=== PATIENT | female | born 1955 | race Caucasian/White ===

== ENCOUNTER 2017-05-27 09:00 | Outpatient (RCR) | payer OTHER, SELFPAY ==
--- NOTE | 2017-04-30 09:02 | HP.PTEVAL_ITS ---
Patient's Visit Information LASHAWN DUNCAN is a 61 year old F referred to Physical Therapy by DO SANDRA Helms with a diagnosis of BILATERAL GREATER TROCHANTERIC BURSITIS,IT BAND SYNDROME RIGHT KNEE OA. Date of Evaluation: 04/30/17 Physical Therapist: Dagoberto Hauser, PT, - Visit Plan Frequency: 2x /Week Duration: 4 Weeks Plan: Aquatic PT for ROM hip /knee,strengthening hop/knee - Subjective Subjective: This 61 y/o female presents to physical therapy with bilateral greater bursitis ,I Tband syndrome Right knee pain.Patient has had right hip pain for many years ,and knee pain Mar [address] around [place] Morillo recommended Pt Aquatic.Symptoms wotrse with stairs,laying on side , kneeling,squatting,elevation from chair. Symptoms okay with walkling. Pain afects housework tasks and ADL'S. Denies parathesia/tingling.Tried in past cortizone injection in hip. VOCATION: Retired. SOCAIL: - Pain Left Hip Pain Intensity (Out of 10): 0 Pain Intensity Range: 10 Right Hip Pain Intensity (Out of 10): 2 Pain Intensity Range: 10 Right Knee Pain Intensity (Out of 10): 4 Pain Intensity Range: 10 Comment: medial - Objective POSTURE: mild foward posture ,mild knee valgus. GAIT : normal maritza ,mild decrease stance time right to left. 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 NEURO: inact. AROM: right knee flexion 0-120 degrees ,left 0-125 degrees ,hip WFL. FLEXABLITY: hams min tight,I-T band WFL. MMT: quads/hams 4/5,hip flex/abductors 4-/5,ankle 4/5. STAIRS: one step at time - Special Tests R Hip Scour: Negative R Hip Quadrant - Intraarticular Pathology: Negative R Hip Trendelenberg - Glut Medius: Negative R Hip Lelo - IT Band: Negative L Hip Scour: Negative L Hip Quadrant - Intraarticular Pathology: Negative L Hip Trendelenberg - Glut Medius: Negative L Hip Lelo - IT Band: Negative R Knee Kapil - Meniscus: Negative R Knee Apley - Meniscus: Negative R Knee Brown - ACL: Negative R Knee Anterior Drawer - ACL: Negative R Knee Posterior Drawer - PCL: Negative R Knee Valgus - MCL: Negative R Knee Varus - LCL: Negative R Knee Patellar Apprehension - PFS: Negative R Knee Patellar Grind - PFS: Negative - Goals Goal 1:: Independant with Aqutaic PT Goal Time Frame: 4-6 Weeks Goal 2:: Decrease medial knee pain and bilateral hip pain by 50% or greater to improve function. Goal Time Frame: 4-6 Weeks Goal 3:: Patient increase strength right quad/hams and bilateral hips to 4/5 to omprove function Goal Time Frame: 4-6 Weeks Goal 4:: Patient be able to perform ADL'S and housework tasks with min limiations Goal Time Frame: 4-6 Weeks Goal 5:: Patient improve qaulity of gait with less pain. Goal Time Frame: 4-6 Weeks - Rehabilitation Potential Physical Therapy Diagnosis: This patient impression with bilateral greater tronchanteric bursitis,meal knee pain with weakness ,impairs stairs ,unable to squta or kneeling along with ADL'S-housework tasks. Rehabilitation Potential: Good - Anticipated Interventions Patient/Client Instruction: Educate patient on: Condition, Plan of Care For the Purpose of:: To decrease pain, To increase ROM, To improve muscle performance and motor function, To improve ability to perform ADL's, To increase tolerance to activity/condition/position, To improve performance and independence with ADL's, To improve ability of physical actions for home/ community/work/leisure, To improve gait and locomotor functions, To improve health of tissue, To decrease soft tissue restriction, To increase flexibility/ ROM, To improve ability to perform tasks related to life management Therapeutic Exercise to Include: Strength training, Postural training, Flexibilty training, In an aquatic setting, Active ROM For the Purpose of:: To decrease pain, To increase ROM, To improve muscle performance and motor function, To improve ability to perform ADL's, To increase tolerance to activity/condition/position, To improve performance and independence with ADL's, To improve ability of physical actions for home/ community/work/leisure, To improve health of tissue, To decrease soft tissue restriction, To increase flexibility/ROM, To improve ability to perform tasks related to life management Thank you for the opportunity to evaluate your patient. For Medicare and Medicare HMO plans, please review the plan of care and approve it. It will need to be FAXED BACK to us at [phone] for Medicare purposes. Please let me know if there are questions or concerns regarding this plan of care. Physician Signature: Date:
--- NOTE | 2017-08-23 16:23 | HP.PTDCSUM_ITS ---
HP - PT D/C Summary It has been my pleasure to treat LASHAWN DUNCAN under orders from Nikki Morillo DO, for the diagnosis of BILATERAL GREATER TROCHANTERIC BURSITIS,IT BAND SYNDROME RIGHT KNEE OA for a total of 9 visit(s). Discharge Date: 05/27/17 Please see the following information for a summary of their discharge status. - Subjective Subjective: Patient states doing alot better. Aquatics has helped with pain and walking. Patient stated hesitated in doing gym ex's. - Pain Left Hip Pain Intensity (Out of 10): 0 Right Hip Pain Intensity (Out of 10): 0 Right Knee Pain Intensity (Out of 10): 1 - Overall Improvement % Improvement: 85 - Objective Objective/Function: POSTURE: mild foward posture. GAIT: reciprocal pattern normal maritza. NEUR0: denies pararhesia/tingling. AROM: knee 0-130 degrees, hip flexion 100 degres,IR 20 mild pain R greater than left ,ER 50 degrees. MMT : quads/hams 4/5 ,hip f;lexion 4-/5,abd 4-/5 - Goals Goal 1:: Independant with Aqutaic PT Goal Progress: Goal Met Goal 2:: Decrease medial knee pain and bilateral hip pain by 50% or greater to improve function. Goal Progress: Goal Met Goal 3:: Patient increase strength right quad/hams and bilateral hips to 4/5 to omprove function Goal Progress: Goal Met Goal 4:: Patient be able to perform ADL'S and housework tasks with min limiations Goal Progress: Goal Met Goal 5:: Patient improve qaulity of gait with less pain. Goal Progress: Goal Met - Plan Plan: RECOMMEND AQUATIC ON OWN. PROVIDE HEP - D/C Information Discharge Comments: AQUATICS ON OWN If there are questions or concerns regarding this patient's physical therapy, please feel free to call me at [phone]. Thank you for the referral of this patient. Sincerely, Dagoberto Hauser, PT,
== END 2017-05-27 19:00 | disposition home or self-care (01) ==
LOC: PT 09:00
PROVIDERS: Family Provider Family Medicine; PCP Family Medicine; Visit Provider Orthopaedic Surgery
DX: M70.62 Trochanteric bursitis, left hip (principal); M70.61 Trochanteric bursitis, right hip; M76.30 Iliotibial band syndrome, unspecified leg; M17.11 Unilateral primary osteoarthritis, right knee
CPT/HCPCS: 97113; 97161; 97530

== ENCOUNTER → 2017-06-15 09:15 | Outpatient (CLI) | payer OTHER, SELFPAY ==
[2017-06-15 12:12] LABS: Cholesterol 200 mg/dL (200); High Density Lipoprotein 53 mg/dL; Triglycerides 140 mg/dL; Very Low Density Lipoprotein 28 mg/dL (5-40)
== END ==
PROVIDERS: Family Provider Family Medicine; PCP Family Medicine; Visit Provider Family Medicine
DX: Z79.899 Other long term (current) drug therapy (principal)
CPT/HCPCS: 36415; 80061

== ENCOUNTER → 2017-06-28 11:08 | Outpatient (CLI) | payer OTHER, SELFPAY ==
--- NOTE | 2017-06-28 11:11 | MRI_ITS ---
STUDY: MRI RIGHT KNEE REASON FOR EXAM: Medial right knee pain for 3 months, no specific injury. TECHNIQUE: Standardized fat and water weighted pulse sequences were obtained in all 3 orthogonal planes. COMPARISON: Radiographs 03/11/2017. FINDINGS: There is a complex tear of the posterior horn of the medial meniscus (proton-density sagittal images 30-33). There is a lobulated cyst posterior to the distal posterior cruciate ligament and medial meniscal root (T2 coronal image 7) measuring 1.3 cm in transverse dimension. Normal hyaline cartilage of the medial femorotibial compartment. Normal medial femoral condyle and tibial plateau. Normal medial collateral ligamentous complex (MCL). Normal distal semimembranosus, gracilis and semitendinosus tendons. Normal lateral meniscus. Normal hyaline cartilage of the lateral femorotibial compartment. Normal lateral femoral condyle and tibial plateau. Normal proximal tibiofibular articulation. Normal lateral collateral (fibular) ligament. Normal popliteus tendon. Normal biceps femoris tendon. Normal anterior cruciate ligament (ACL). Normal posterior cruciate ligament (PCL). Normal congruent patellofemoral articulation. Normal hyaline cartilage of the patellofemoral compartment. Normal medial and lateral patellar retinaculum. Normal quadriceps tendon. Normal patellar tendon. Normal Hoffa's fat pad. There is no joint effusion. There is a small popliteal cyst (T2 sagittal images 15-17). There is edema in the anterior subcutis adipose space. The otherwise visualized osseous structures are unremarkable. MRI/Lower Ext Joint Only (Routine) IMPRESSION: Medial meniscal tear. Small popliteal cyst. Cyst posterior to the distal posterior cruciate ligament and medial meniscal root. Electronically Signed: Chucho Jean MD at 13:53 EDT Tel , Service support ,
== END ==
PROVIDERS: Family Provider Family Medicine; PCP Family Medicine; Visit Provider Orthopaedic Surgery
DX: S83.231A Complex tear of medial meniscus, current injury, right knee, initial encounter (principal); X58.XXXA Exposure to other specified factors, initial encounter; Y93.9 Activity, unspecified; Y92.9 Unspecified place or not applicable; Y99.9 Unspecified external cause status
CPT/HCPCS: 73721

== ENCOUNTER → 2017-07-22 08:30 | Outpatient (CLI) | payer OTHER, SELFPAY ==
--- NOTE | 2017-07-22 08:31 | RAD_ITS ---
STUDY: X-RAY CHEST REASON FOR EXAM: Female, 62 years old. 10 day history of cough and chest congestion. TECHNIQUE: PA and lateral views of the chest. COMPARISON: Comparison is made with prior study dated June 15, 2012. FINDINGS: Scattered calcified granulomas. Minimal increased markings at the lung bases. These are stable and most likely represents mild basilar scarring. There is no demonstrated pleural abnormality. Normal size heart. Normal mediastinum and cayden. Normal visualized pulmonary arteries. Normal visualized aortic arch and descending thoracic aorta. There are diffuse degenerative changes of the visualized thoracic spine. Normal visualized ribs, clavicles, and shoulders. There is no demonstrated abnormality of the visualized soft tissue structures of the upper abdomen. RAD/Chest PA and Lateral IMPRESSION: Mild increased markings at the lung bases suggest some mild basilar scarring. Electronically Signed: Kamran Flores MD at 10:42 EDT Tel [phone], Service support ,
== END ==
PROVIDERS: Family Provider Family Medicine; PCP Family Medicine; Visit Provider Physician Assistant
DX: R05 Cough (principal)
CPT/HCPCS: 71046

== ENCOUNTER 2017-08-04 06:00 | Day surgery (SDC) | payer OTHER, SELFPAY ==
[2017-08-04] VITALS (7 sets, daily range): BP systolic 135–153; BP diastolic 69–87; PULSE 74–84; RESP 12–18; TEMP 35.3–36.8; O2SAT 97–100; BMI 33.4
[2017-08-04] MEDS: Cefazolin 2 GM in 0.9% Normal Saline 100 ML IV (07:24)
--- NOTE | 2017-08-04 07:34 | PCM.DC.ORTHO ---
Discharge Diet: No Restrictions - may remove dressing in 4 days, apply bandaids to incision sites, call with increased pain, numbness, calf pain or other constitutional symptoms, may wbat Discharge Activity: May Not Drive May shower in (days): 1 Ice area for (Minutes): 20 - Every hour while awake. Weight Bearing Status: Weight bearing as tolerated Keep extremity elevated above heart level: Operative Extremity Call your doctor if your incision/area has: Continuous Slow Oozing, Sudden Increased Bleeding, Increased Pain/ Swelling, Increased Redness, Foul Smelling Discharge Call your doctor if you observe: Fever of 101 or Higher, Coldness, Increased Pain, Numbness or Tingling, Change in Color, Calf discomfort Allergies/Adverse Reactions: Allergies fluconazole [From Diflucan] Allergy (Verified 07/23/17 08:22) Unknown Medications to take at Discharge cholecalciferol (vitamin D3) 2,000 unit capsule 5,000 unit PO DAILY 03/11/17 citalopram 20 mg tablet 20 mg PO QDAY 03/11/17 folic acid 1 mg tablet 1 mg PO QDAY 03/11/17 pravastatin 20 mg tablet 10 mg PO DAILY 03/11/17 propranolol 10 mg tablet 10 mg PO DAILY 03/11/17 Ascorbic Acid [Vitamin C] 500 mg PO DAILY 07/23/17 Daily Defense 240 mg PO DAILY 07/23/17 Doxycycline Monohydrate [Doxycycline Ir-Dr] 40 mg PO DAILY 07/23/17 Hydrocodone Bitart/Apap 5-325 [Makanda 5MG-325MG] 1 - 2 tablet PO Q6H PRN PRN 5 Days #56 tablet 08/04/17 The following prescriptions were given: Hydrocodone Bitart/Apap 5-325 [Makanda 5MG-325MG] 1 - 2 tablet PO Q6H PRN PRN 5 Days #56 tablet PRN Reason: Pain Primary Care Physician: Philip Gurrola MD [Primary Care Provider] - Please Follow Up With: Nikki Morillo, - [phone]
--- NOTE | 2017-08-04 07:36 | PCM.OPRPT ---
Report of Operation Date of Procedure: 08/04/17 Pre-Operative Diagnosis: right knee medial meniscus tear, synovitis Post-Operative Diagnosis: same Surgery/Procedure Performed:: Right knee arthroscopy, partial medial meniscectomy synovectomy and decompression of PCL cyst Type of Anesthesia:: General Anesthesiologist: Jose Ludwig Specimen's removed: none Fluids Replaced: 700cc lr Description of Procedure: Preoperative note Patient is a 62-year-old female with continued right knee pain despite conservative treatment measures. MRI confirms medial meniscus tear which is consistent with her physical exam as well. Risks benefits and alternatives surgery discussed with patient. Risks including but not limited to blood loss, blood clot, infection, neurovascular injury, failure procedure, loss of life and loss of limb. Patient is aware would like proceed with right knee arthroscopy repair is indicated. Operative note Patient seen and examined preoperative holding area. Right knee was marked. Patient is brought to the operating room and placed supine on the operating table. Signing, anesthesia, antibiotics were administered. The right knee was prepped and draped in usual sterile fashion with a tourniquet around his upper thigh. We marked out our anterior lateral anteromedial portal. The right knee was elevated exsanguinated and tourniquet was raised her pressure of 280 based on her pre-op blood pressure readings. Timeout was performed. We created an anterior lateral portal with an 11 blade. Was able to visualize patellofemoral joint which was intact then moved to the medial medial joint line where we created an anterior medial portal under direct visualization. We then probed the unstable posterior horn medial meniscus tear which was a complex tear. Visualize the ACL PCL which were present within the notch and the lateral meniscus was intact and stable probing as well as the lateral femoral condyle lateral tibial plateau. Patient had a little loose pieces of her medial femoral condyle which were left we did debride a little bit of a corner edge of an unstable chondral pieces on the medial femoral condyle that was all. We then used a combination of baskets and a shaver to resect the unstable portion of the meniscus we did transfer portals in order to get better delineation of the 2 great 8 the meniscectomy to normal meniscus. We then reinserted a probe to ensure that we had stable remnant meniscus remaining which we did have. The knee was irrigated with copious amounts of sterile saline. Please note we did decompress the PCL cyst with a probe. We did perform perform an extensive synovectomy in the anterior lateral and anterior medial recesses. Again the music Cristiano. was irrigated with copious nonsterile saline. The portals were closed with interrupted 4-0 nylon 6 stitches. The patient had sterile dressings applied to the right knee. Patient tolerated procedure well there are no comp occasions patient was transferred to the recovery room in stable condition. Postoperative note Pharmacy has prescriptions that Pictures given to Follow-up in 2 weeks Call with increased Pain numbness tingling fever chills or other issues as they arise This note was generated with [employer] dictation software. It may contain incorrect words, spelling, and punctuation that were not noted in checking the note before signing.
[2017-08-04] MEDS: Bupiv/Epi 0.5% Mpf 30 ML Vial (08:00)
[2017-08-04] MEDS: Mupirocin Ointment 22gm Tube 1 APPLIC (08:00)
[2017-08-04] MEDS: HYDROcodone Bitartrate/Apap 5/325 Tablet PO (09:30)
== END 2017-08-04 10:53 | disposition home or self-care (01) ==
LOC: SDC 06:01 → AC 06:02
PROVIDERS: Family Provider Family Medicine; PCP Family Medicine; Visit Provider Orthopaedic Surgery
PROC: (CPT 29870; principal; 2017-08-04 07:10)
DX: S83.231A Complex tear of medial meniscus, current injury, right knee, initial encounter (principal); M65.861 Other synovitis and tenosynovitis, right lower leg; X58.XXXA Exposure to other specified factors, initial encounter; Y93.9 Activity, unspecified; Y92.9 Unspecified place or not applicable; Y99.9 Unspecified external cause status; E78.00 Pure hypercholesterolemia, unspecified; G25.81 Restless legs syndrome; F41.9 Anxiety disorder, unspecified; Z78.0 Asymptomatic menopausal state; Z79.899 Other long term (current) drug therapy
CPT/HCPCS: 01400; 29876; 29881; J7120; J2405

== ENCOUNTER → 2017-08-17 14:51 | Outpatient (CLI) | payer OTHER, SELFPAY ==
--- NOTE | 2017-08-17 14:54 | VDLE_ITS ---
Reason For Study: PAIN RIGHT LEFT GSV is normal. CFV is compressible, spontaneous, phasic, CFV is compressible, spontaneous, phasic, competent, and demonstrates normal competent and demonstrates normal augmentation. augmentation. FV is compressible, spontaneous, phasic, competent and demonstrates normal augmentation. POP V is compressible, spontaneous, phasic, competent and demonstrates normal augmentation. T/P Trunk is compressible. PTV is compressible. RT PerV is compressible. Procedure Exam performed in department. A preliminary report was called and/or faxed to Dr Morillo. Interpretation Summary Deep veins of the right lower extremity are patent and compressible segmentally. There is no evidence of right lower extremity deep vein thrombosis. Valvular competence appears intact within the proximal deep venous system on the right . The right greater saphenous vein appears patent and compressible segmentally. Ordering Physician: Nikki Morillo Referring Physician: GOGO POLANCO Performed By: Nicole Milan, DANIELA, RVT
== END ==
PROVIDERS: Family Provider Family Medicine; PCP Family Medicine; Visit Provider Orthopaedic Surgery
DX: Z47.89 Encounter for other orthopedic aftercare (principal); M79.661 Pain in right lower leg
CPT/HCPCS: 93971

== ENCOUNTER 2017-10-11 17:00 | Outpatient (RCR) | payer OTHER, SELFPAY ==
--- NOTE | 2017-08-27 15:02 | HP.PTEVAL ---
Patient's Visit Information LASHAWN DUNCAN is a 62 year old F referred to Physical Therapy by Nikki Morillo DO with a diagnosis of S/P RIGHT KNEE MENISECTOMY, SYNOVECTOMY 08/04/17. Date of Evaluation: 08/27/17 Physical Therapist: Lian Pal Visit Plan Frequency: 2-3x /Week Duration: 2 Months Plan: AQUATIC THERAPY FOR, POSTURE CORRECTION/STRENGTHENING, INSTRUCTION IN APPROPRIATE BODY MECHANICS AND ACTIVITY MODIFICATIONS. DLS STARTING WITH A NEUTRAL SPINE PROGRESSING ROM TOLERATED. CARMELO LE ROM, STRETCHING AND STRENGTHENING. HEP INSTRUCTION. FORCUS ON RECOVERY FROM RIGHT KNEE SURGERY. - Subjective Subjective: Diagnosis: S/P RIGHT KNEE MENISECTOMY SYNOVECTOMY 08/04/17. Work/Leisure: RETIRED. Disability: NO. Present symptoms: A LOT OF STIFFNESS. NO PAIN. SWELLING. NO NUMBNESS OR TINGLING. Present since: FEB 2017. Pain Scale: N/A. Currently: N/A. Commenced as a result of: PATIENT REPORTS THE PAIN STARTED AFTER CARRYING ALL THE XMAS STUFF UP FROM THE BASEMENT BUT STATES DR. MORILLO TOLD HER SHE HAD A COMPLEX TEAR THAT WAS AT LEAST A YEAR OLD. Symptoms at onset: BACK AND INSIDE OF KNEE. Worse: GETTING IN/OUT OF THE CAR IS THE HARDEST THING. BEING UP ON IT TOO LONG CAUSES INCREASED SWELLING AND TIGHTNESS. Better: GETTING OFF OF IT. TYLONOL. Disturbed sleep: NO. Previous history/Previous treatment: AQUATIC THERAPY WAS TRIED BEFORE SURGERY UNSUCCESSFULLY. THE POOL FELT REALLY GOOD BUT 3 WEEKS BEFORE SURGERY IT ACTED UP AND SHE COULDN'T BEAR WEIGHT AND HAD A LOT OF PAIN. Gait: INDEP GAIT WITHOUT AD LIMPING ON RIGHT LE. Accidents: NO. Unexplained weight loss: NO. Imaging: NO IMAGING SINCE THE SURGERY. RECENT US TO R/O DVT - NEGATIVE. PMH/Recent major surgery: RIGHT THUMB JOINT REPLACEMENT 2016. CARMELO HIP BURSITIS R>L. - Objective THIS PATIENT AMBULATES INDEP'LY INTO PT WITHOUT ANY ASSISTIVE DEVICES WITH DECREASED CADANCE AND A MILD LIMP ON THE RIGHT LE. SHE HAS MILD EDEMA LOCALIZED TO THE RIGHT KNEE AND CALF REGION AND IS NOT TENDER TO THE TOUCH. LLE ROM AND STRENGTH IS WFL. RIGHT LE: HIP 3+/5, KNEE EXT 3-/5, KNEE FLEX 3-/5, ANKLE 4/5. LEFT KNEE ROM IN SUPINE = FULL EXTENSION TO 115 DEG FLEX. RIGHT KNEE -15 DEG EXT TO 70 DEG FLEX. AFTER STRETCHING RIGHT KNEE FLEX WAS 90 DEGREES. HEP INSTRUCTION FOR AP'S, QS'S, GS'S AND HEEL SLIDES X APPROX 20 REPS EVERY TWO TO THREE HOURS FOLLOWED BY CP X 15 MIN. INSTRUCTED IN NO KNEE PROPING. PATIENT IS A GOOD CANDIDATE FOR A COMBINATION OF LAND AND WATER PT. - Goals Goal 1:: INCREASE FUNCTIONAL ROM OF RIGHT LE Goal Time Frame: 6-8 Weeks Goal 2:: IMRPOVE FUNCTIONAL STRENGTH OF THE RIGHT LE Goal Time Frame: 6-8 Weeks Goal 3:: INDEP AND SAFE GAIT ON ALL SURFACES WITHOUT AD WITH LEAST DEVIATIONS. Goal Time Frame: 6-8 Weeks Goal 4:: INDEP EX PROGRAMS FOR CONTINUED IMPROVEMENT ONCE FORMAL PT CONCLUDES. Goal Time Frame: 6-8 Weeks - Rehabilitation Potential Rehabilitation Potential: Good - Anticipated Interventions Patient/Client Instruction: Educate patient on: Condition, Plan of Care, Risk Factors, Benefits of Fitness Program For the Purpose of:: To improve self management Therapeutic Exercise to Include: Strength training, Balance training, Body mechanics, Postural training, Flexibilty training, Gait and locomotor training, Passive ROM, Active ROM, Dynamic Lumbar Stabilization For the Purpose of:: To decrease swelling/inflammation, To increase ROM, To improve muscle performance and motor function, To increase tolerance to activity/condition/position, To improve ability of physical actions for home/community/work/leisure, To improve gait and locomotor functions Cryotherapy (ice pack, ice massage): Yes For the Purpose of:: To decrease swelling/inflammation Thank you for the opportunity to evaluate your patient. For Medicare and Medicare HMO plans, please review the plan of care and approve it. It will need to be FAXED BACK to us at [phone] for Medicare purposes. Please let me know if there are questions or concerns regarding this plan of care. Physician Signature: Date:
--- NOTE | 2017-10-11 17:37 | HP.PTDCSUM ---
HP - PT D/C Summary It has been my pleasure to treat LASHAWN DUNCAN under orders from Nikki Morillo DO, for the diagnosis of S/P RIGHT KNEE MENISECTOMY, SYNOVECTOMY 08/04/17 for a total of 10 visit(s). Discharge Date: Please see the following information for a summary of their discharge status. - Subjective Subjective: F/U WITH DR. MORILLO SCHEDULED NOV 09 2017. IT IS GETTING BETTER. PATIENT REPORTS THE STIFFNESS IS GETTING BETTER AND THE KNEE ISN'T KEEPING HER FROM DOING ANYTHING. SHE WOULD LIKE TO BE ABLE TO GO UP AND DOWN STEPS BETTER. PATIENT REPORTS SHE IS CONCERNED ABOUT HER HIP MESSING HER KNEE UP AGAIN. SHE STATES SHE CAN FEEL IT IN HER HIP ON STEPS. CHRONIC HIP PAIN FOR YEARS. - Overall Improvement % Improvement: 95 - Objective Objective/Function: INDEP GAIT INTO PT WITH A VERY MILD LIMP ON THE RIGHT LE. RIGHT KNEE FULL EXT TO 120 DEG FLEX. LEFT KNEE (UNINVOLVED KNEE) ROM HAS INCREASED TO 128 DEG WELL. THERE IS STILL A LITTLE WEAKNESS OF THE RIGHT HIP AND KNEE COMPARED TO LEFT. RIGHT HIP GRADED 4/5 AND KNEE 4/5 WITH MMT'ING. SHE IS INDEP WITH A POOL EX PROGRAM AND HEP. SHE IS GOING ON VACATION AND WILL HAVE ACCESS TO A POOL. ALL GOALS MET. PATIENT COMMUNICATED A GOOD UNDERSTANDING OF ALL INSTRUCTIONS AFTER GIVEN. - Goals Goal 1:: INCREASE FUNCTIONAL ROM OF RIGHT LE Goal Progress: Goal Met Goal 2:: IMRPOVE FUNCTIONAL STRENGTH OF THE RIGHT LE Goal Progress: Goal Met Goal 3:: INDEP AND SAFE GAIT ON ALL SURFACES WITHOUT AD WITH LEAST DEVIATIONS. Goal Progress: Goal Met Goal 4:: INDEP EX PROGRAMS FOR CONTINUED IMPROVEMENT ONCE FORMAL PT CONCLUDES. Goal Progress: Goal Met - Plan Plan: D/C TO INDEP EX AND FOLLOW UP WITH DR. MORILLO IN ONE MONTH. PATIENT IS AGREEABLE TO D/C. - D/C Information If there are questions or concerns regarding this patient's physical therapy, please feel free to call me at [phone]. Thank you for the referral of this patient. Sincerely, Lian Paulino
== END 2017-10-11 19:00 | disposition home or self-care (01) ==
LOC: PT 17:00
PROVIDERS: Family Provider Family Medicine; PCP Family Medicine; Visit Provider Orthopaedic Surgery
DX: Z98.890 Other specified postprocedural states (principal)
CPT/HCPCS: 97110; 97113; 97161; 97164; 97530

== ENCOUNTER → 2017-12-18 10:06 | Outpatient (CLI) | payer OTHER, SELFPAY ==
[2017-12-18 11:42] LABS: ALB/GLOB Ratio 1.2 RATIO (0.9-2.4); AST(SGOT) 18 U/L (15-37); Alanine Aminotransfer ALT/SGPT 23 U/L (13-56); Albumin, Serum 3.9 g/dL (3.2-5.0); Alkaline Phosphatase 55 U/L (45-117); Anion Gap 5 (5-15); BUN 16 mg/dL (7-18); BUN/Creat Ratio 21.1 RATIO (10-20); Calcium,Total 8.9 mg/dL (8.5-10.1); Chloride 109 mmol/L (98-107); Cholesterol 190 mg/dL (200); Creatinine, Serum 0.76 mg/dL (0.55-1.02); EST Glomerular Filtration Rate 82 mL/min (>60); Est Glom Filt Rate - Afr Amer 99 mL/min (>60); Globulin 3.3 g/dL (2.2-4.2); Glucose 84 mg/dL (74-106); High Density Lipoprotein 56 mg/dL; Potassium 4.9 mmol/L (3.5-5.1); Protein, Total 7.2 g/dL (6.4-8.2); Sodium Level 144 mmol/L (136-145); Triglycerides 99 mg/dL; Very Low Density Lipoprotein 20 mg/dL (5-40)
== END ==
PROVIDERS: Family Provider Family Medicine; PCP Family Medicine; Visit Provider Family Medicine
DX: E78.5 Hyperlipidemia, unspecified (principal)
CPT/HCPCS: 36415; 80053; 80061

== ENCOUNTER → 2018-01-05 15:54 | Outpatient (CLI) | payer OTHER, SELFPAY ==
[2018-01-11 14:39] LABS: HPV APTIMA, High Risk Negative (Negative)
== END ==
PROVIDERS: Family Provider Family Medicine; PCP Family Medicine; Referring Provider Nurse Practitioner Women's Health; Visit Provider Nurse Practitioner Women's Health
DX: Z12.4 Encounter for screening for malignant neoplasm of cervix (principal)
CPT/HCPCS: 88175; G0145

== ENCOUNTER → 2018-03-25 09:56 | Outpatient (CLI) | payer OTHER, SELFPAY ==
[2018-01-05 08:05] VITALS: BMI 32.9
--- NOTE | 2018-03-25 09:58 | BI_ITS ---
MAMMOGRAPHY - BILATERAL SCREENING REASON FOR EXAM: Female, 62 years old. Routine annual screening examination. PERTINENT HISTORY: Non-contributory. TECHNIQUE: Digital bilateral breast sharif (3D mammographic acquisition) in the CC and MLO projections. 2-D mediolateral oblique (MLO) and craniocaudad (CC) views of both breasts were obtained. CAD: Full Field Digital Mammography with Computer Added Detection was performed. COMPARISON: Comparison is made with prior study dated March 24, 2017 and March 10, 2016. FINDINGS: Breast Composition: The breasts are almost entirely fatty. There are no dominant masses or suspicious calcifications. Stable small bilateral axillary lymph nodes. No other significant abnormalities are identified. There has been no significant change since the prior study. BI/SCREENING MAMM (CAD), BILAT IMPRESSION: Stable bilateral screening mammogram. Yearly follow-up mammogram recommended. (A) ASSESSMENT CATEGORY: BIRADS Category 2: Benign. A letter regarding these results will be sent to the patient by the facility within 30 days. Approximately 10% of breast cancers are not detected by mammography. A normal mammogram should not delay biopsy of a clinically suspicious abnormality. [id number] Electronically Signed: Kamran Flores MD at 11:28 EST Tel [phone], Service support ,
== END ==
PROVIDERS: Family Provider Family Medicine; PCP Family Medicine; Referring Provider Nurse Practitioner Women's Health; Visit Provider Nurse Practitioner Women's Health
DX: Z12.31 Encounter for screening mammogram for malignant neoplasm of breast (principal)
CPT/HCPCS: 77063; 77067

== ENCOUNTER → 2018-07-12 09:19 | Outpatient (CLI) | payer OTHER, SELFPAY ==
[2018-04-28 08:24] VITALS: BMI 33.0
[2018-07-12 12:46] LABS: ALB/GLOB Ratio 1.2 RATIO (0.9-2.4); AST(SGOT) 25 U/L (15-37); Alanine Aminotransfer ALT/SGPT 39 U/L (13-56); Albumin, Serum 4.2 g/dL (3.2-5.0); Alkaline Phosphatase 75 U/L (45-117); Anion Gap 10 (5-15); BUN 15 mg/dL (7-18); BUN/Creat Ratio 19.3 RATIO (10-20); Chloride 107 mmol/L (98-107); Cholesterol 221 mg/dL (200); Creatinine, Serum 0.78 mg/dL (0.55-1.02); EST Glomerular Filtration Rate 80 mL/min (>60); Est Glom Filt Rate - Afr Amer 96 mL/min (>60); Globulin 3.5 g/dL (2.2-4.2); Glucose 107 mg/dL (74-106); High Density Lipoprotein 73 mg/dL; Potassium 3.8 mmol/L (3.5-5.1); Protein, Total 7.7 g/dL (6.4-8.2); Sodium Level 142 mmol/L (136-145); Triglycerides 66 mg/dL; Very Low Density Lipoprotein 13 mg/dL (5-40)
== END ==
PROVIDERS: Family Provider Family Medicine; PCP Family Medicine; Referring Provider Family Medicine; Visit Provider Family Medicine
DX: E78.5 Hyperlipidemia, unspecified (principal)
CPT/HCPCS: 36415; 80053; 80061

== ENCOUNTER 2018-08-05 09:30 | Outpatient (RCR) | payer OTHER, SELFPAY ==
[2018-04-28 08:24] VITALS: BMI 33.0
--- NOTE | 2018-06-15 11:21 | HP.PTEVAL ---
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 Date of Evaluation: 06/15/18 Physical Therapist: Lian Paulino PT, Cert MDT - Visit Plan Frequency: 2-3x /Week Duration: 4-6 Weeks Plan: POSTURE CORRECTION/STRENGTHENING, INSTRUCTION IN APPROPRIATE BODY MECHANICS AND ACTIVITY MODIFICATIONS. DLS STARTING WITH A NEUTRAL SPINE PROGRESSING ROM TOLERATED. CARMELO LE ROM, STRETCHING AND STRENGTHENING. HEP INSTRUCTION. - Subjective Findings: Work/Leisure: RETIRED. Disability: NO. Present symptoms: CARMELO HIP PAIN LEFT >> RIGHT. PAIN RADIATES DOWN THE OUTSIDE OF BOTH HIPS THEN ACROSS THE FRONT OF THE KNEES - AGAIN - LEFT MUCH GREATER THAN RIGHT. NO LOW BACK PAIN. NO LE NUMBNESS OR TINGLING. Present since: RIGHT LE SX'S STARTED YEARS AGO. LEFT LE STARTED FEB 2018. Pain Scale: LEFT HIP/THIGH: WORST 10/10, LEAST 0/10. RIGHT HIP/THIGH: WORST 8/10, LEAST 3/10. Currently: LEFT HIP/THIGH 0/10, RIGHT HIP/THIGH 3/10. SYMPTOMS HAVE IMPROVED BUT STAYING THE SAME NOW. Commenced as a result of: NO APPARENT REASON OTHER THAN DOING A LOT OF WALKING A LONG TIME AGO. Symptoms at onset: RIGHT HIP. Worse: STEPS, EXERCISE, JUST BEING ACTIVE, LYING IN BED AT NIGHT. Better: INJECTION. Disturbed sleep: YES. Previous history/Previous treatment: PHYSICAL THERAPY, HIP INJECTIONS. Coughing/sneezing/straining: NEGATIVE. Gait: PATIENT REPORTS SHE FEELS LIKE SHE WALKS OK AND DOESN'T LIMP BUT REALLY BABIES RIGHT KNEE BECAUSE SO AFRAID OF SOMETHING HAPPENING TO IT. DISTANCE LIMITED. NO AD'S. SOMETIMES PAINFUL IN CARMELO HIPS WALKING. Difficulty initiating urinatin: NO. Accidents: NO. Unexplained weight loss: NO. Imaging: RECENT HIP X-RAYS NORMAL PER PATIENT REPORT - DONE AT [facility] [place]. NO MRI. NO LUMBAR X-RAY OR MRI. PMH: RIGHT KNEE SX AUGUST 2017 - [facility]. BENIGN TREMOR RIGHT HAND. RIGHT THUMB REPLACEMENT. HIGH CHOLESTEROL. DEPRESSION. OTHER: *VERY PAINFUL IN CARMELO HIPS TRYING TO GO UP AND DOWN STEPS. STATES SHE CAN BARELY GET UP AND DOWN NOW AND IT IS GETTING PROGRESSIVELY WORSE. OTHER: AFTER EXAM - PATIENT RECALLS AND REPORTS BEING DX'D WITH LUMBAR DDD ABOUT 20 YEARS AGO BUT DOESN'T REMEMBER THE DETAILS. SHE ALSO HER BACK IS ALSO REALLY STIFF IN MORNING. - Objective Sitting/Standing Posture: POOR. Lordosis: NORMAL. Lateral shift: NO. Relevant shift: N/A. Active Correction of posture: NE. Other Observations: INDEP GAIT INTO PT WITHOUT AD AND WITHOUT LOB. Motor deficit: CARMELO LE'S 5/5 EXCEPT HIPS GRADED 4/5 IN IR, FLEX, EXT, ABD; 5/5 ADD; 3+/5 ER. Sensory deficit: NO. ROM deficit: CARMELO LE ROM WFL. Reflexes: NT. Dural Signs: NEGATIVE CARMELO LE'S. Lumbar mvmt loss: flex - NIL. ext - MOD. R SG - MIN. L SG - MOD. PATIENT DENIES ANY ACUTE PAIN WITH LUMBAR ROM TESTING. Core strength: POOR. Palpation: NO ACUTE LOWER THORACIC OR LUMBAR SPINE TENDERNESS. TENDERNESS CARMELO GREATER TROCH AND TENSOR FL/IT BAND REGIONS. - Goals Goal 1:: DECREASE C/O CARMELO HIP AND LB STIFFNESS (ESPECIALLY AM). Goal Time Frame: 4-6 Weeks Goal 2:: IMPROVE GAIT ON STEPS, EXERCISE AND ADL FUNCITON Goal Time Frame: 4-6 Weeks Goal 3:: INSTRUCT IN PROPHYLAXIS Goal Time Frame: 4-6 Weeks - Rehabilitation Potential Rehabilitation Potential: Fair - Anticipated Interventions Patient/Client Instruction: Educate patient on: Condition, Plan of Care, Risk Factors, Benefits of Fitness Program For the Purpose of:: To improve self management Therapeutic Exercise to Include: Strength training, Body mechanics, Postural training, Gait and locomotor training, Dynamic Lumbar Stabilization For the Purpose of:: To decrease pain, To increase ROM, To improve muscle performance and motor function, To increase tolerance to activity/condition/position, To improve ability of physical actions for home/community/work/leisure, To improve gait and locomotor functions Cryotherapy (ice pack, ice massage): Yes Thermo therapy (hot pack): Yes Ultrasound (thermal/non thermal): Yes For the Purpose of:: To decrease pain, To increase ROM, To improve nutrient delivery to tissue Thank you for the opportunity to evaluate your patient. For Medicare and Medicare HMO plans, please review the plan of care and approve it. It will need to be FAXED BACK to us at [phone] for Medicare purposes. For Medicare only, by signing this I certify the plan of care. Please let me know if there are questions or concerns regarding this plan of care. Physician Signature: Date:
--- NOTE | 2018-08-05 10:07 | HP.PTDCSUM ---
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 Discharge Date: 08/05/18 Please see the following information for a summary of their discharge status. - Subjective Subjective: PATIENT REPORTS SHE HAD THE RIGHT HIP INJECTED TOO BEFORE VACATION AND IT HELPED A LONG WITH THE THERAPY. SHE STATES SHE SAW DR. MEDINA YESTERDAY AND HE ENCOURGAGED HER TO CONTINUE HER HEP. SHE REPORTS THAT BETWEEN THE INJECTIONS AND THE THERAPY SHE IS A LOT BETTER AND SHE RELATES THE SUCCESS OF HER TRIP TO BOTH THE THERAPY AND THE INJECTIONS. PATIENT REPORTS SHE FEELS LIKE HERSELF AGAIN. SHE REPORTS SHE WAS EVEN ABLE TO DO A LOT OF STEPS ON VACATION. - Pain RIGHT HIP Pain Intensity (Out of 10): 2 RIGHT THIGH Pain Intensity (Out of 10): 6 RIGHT KNEE Pain Intensity (Out of 10): 0 LEFT HIP Pain Intensity (Out of 10): 0 LEFT THIGH Pain Intensity (Out of 10): 0 LEFT KNEE Pain Intensity (Out of 10): 0 CALF Pain Intensity (Out of 10): 0 LOW BACK PAIN Pain Intensity (Out of 10): 0 - Overall Improvement % Improvement: 99 - Objective Objective/Function: ALL GOALS MET. LUMBAR AND CARMELO LE ROM AND STRENGTH IS WFL AND NO C/O PAIN WITH TESTING. SHE DOES HOWEVER STILL HAVE A LITTLE HIP WEAKNESS ESPECIALLY IN HER HIP INTERNAL ROTATORS. SHE TOLERATED THE NEW HIP ROTATION EX'S WELL. LEFS HAS IMPROVED FROM 28 TO 56 AND NOW 74. - Goals Goal 1:: DECREASE C/O CARMELO HIP AND LB STIFFNESS (ESPECIALLY AM). Goal Progress: Goal Met Goal 2:: IMPROVE GAIT ON STEPS, EXERCISE AND ADL FUNCITON Goal Progress: Goal Met Goal 3:: INSTRUCT IN PROPHYLAXIS Goal Progress: Goal Met - Plan Plan: D/C. PATIENT AGREEABLE. - D/C Information If there are questions or concerns regarding this patient's physical therapy, please feel free to call me at [phone]. Thank you for the referral of this patient. Sincerely, Lian Paulino, PT, Cert MDT
== END 2018-08-05 19:00 | disposition home or self-care (01) ==
LOC: PT 09:30
PROVIDERS: Family Provider Family Medicine; PCP Family Medicine; Referring Provider Specialist; Visit Provider Specialist
DX: M70.62 Trochanteric bursitis, left hip (principal); M76.32 Iliotibial band syndrome, left leg
CPT/HCPCS: 97035; 97110; 97113; 97162; 97530

== ENCOUNTER → 2019-01-09 13:44 | Outpatient (CLI) | payer OTHER, SELFPAY ==
[2019-01-09 09:43] VITALS: BMI 33.0
[2019-01-12 16:04] LABS: HPV APTIMA, High Risk Negative (Negative)
== END ==
PROVIDERS: Family Provider Family Medicine; PCP Family Medicine; Referring Provider Nurse Practitioner Women's Health; Visit Provider Nurse Practitioner Women's Health
DX: Z12.4 Encounter for screening for malignant neoplasm of cervix (principal)
CPT/HCPCS: 87624; 88175; G0145

== ENCOUNTER → 2019-01-19 10:02 | Outpatient (CLI) | payer OTHER, SELFPAY ==
[2019-01-09 09:43] VITALS: BMI 33.0
[2019-01-19 12:20] LABS: ALB/GLOB Ratio 1.3 RATIO (0.9-2.4); AST(SGOT) 17 U/L (15-37); Alanine Aminotransfer ALT/SGPT 27 U/L (13-56); Albumin, Serum 4.3 g/dL (3.2-5.0); Alkaline Phosphatase 55 U/L (45-117); Anion Gap 5 (5-15); BUN 17 mg/dL (7-18); BUN/Creat Ratio 19.2 RATIO (10-20); Calcium,Total 9.3 mg/dL (8.5-10.1); Chloride 105 mmol/L (98-107); Cholesterol 179 mg/dL (200); Creatinine, Serum 0.88 mg/dL (0.55-1.02); EST Glomerular Filtration Rate 68 mL/min (>60); Est Glom Filt Rate - Afr Amer 83 mL/min (>60); Globulin 3.2 g/dL (2.2-4.2); Glucose 88 mg/dL (74-106); High Density Lipoprotein 66 mg/dL; Protein, Total 7.5 g/dL (6.4-8.2); Sodium Level 139 mmol/L (136-145); Triglycerides 92 mg/dL; Very Low Density Lipoprotein 18 mg/dL (5-40)
== END ==
PROVIDERS: Family Provider Family Medicine; PCP Family Medicine; Referring Provider Family Medicine; Visit Provider Family Medicine
DX: E78.5 Hyperlipidemia, unspecified (principal)
CPT/HCPCS: 36415; 80053; 80061

== ENCOUNTER → 2019-01-20 16:06 | Outpatient (CLI) | payer OTHER, SELFPAY ==
[2019-01-09 09:43] VITALS: BMI 33.0
== END ==
PROVIDERS: Family Provider Family Medicine; PCP Family Medicine; Referring Provider Otolaryngology Otolaryngology/Facial Plastic Surgery; Visit Provider Otolaryngology Otolaryngology/Facial Plastic Surgery
DX: J32.9 Chronic sinusitis, unspecified (principal)
CPT/HCPCS: 87070; 87186; 87205

== ENCOUNTER → 2019-02-23 08:19 | Outpatient (CLI) | payer OTHER, SELFPAY ==
[2019-01-09 09:43] VITALS: BMI 33.0
--- NOTE | 2019-02-23 08:22 | CT_ITS ---
STUDY: CT MAXILLOFACIAL SINUSES REASON FOR EXAM: Female, 63 years old. Sinusitis. RADIATION DOSAGE (If Supplied By Facility): CTDIvol = ( 33.06 ) mGy, DLP = ( 871.04 ) mGycm TECHNIQUE: The patient was scanned in a multi detector CT scanner. High resolution axial imaging was performed without the administration of intravenous contrast material. Sagittal and coronal images were reconstructed. Individualized dose optimization techniques were used for this CT. COMPARISON: None. FINDINGS: FRONTAL SINUSES: Normal aeration, without mucosal inflammatory disease. ETHMOIDAL SINUSES: Normal aeration, without mucosal inflammatory disease. MAXILLARY SINUSES: Normal aeration, without mucosal inflammatory disease. SPHENOIDAL SINUSES: Normal aeration, without mucosal inflammatory disease. There is patency of the bilateral maxillary infundibuli with normal uncinate processes, ethmoid bullae, and hiatus semilunaris. Normal bilateral middle turbinates. Normal bilateral inferior turbinates. Normal midline nasal septum. There is patency of the bilateral nasal airways. The visualized osseous structures are normal. The visualized bilateral orbital contents are normal. CT/Sinus/Facial Bone IMPRESSION: Normal CT examination of the maxillofacial sinuses. Electronically Signed: Kamran Flores, at 10:42 EST , Service support ,
== END ==
PROVIDERS: Family Provider Family Medicine; PCP Family Medicine; Referring Provider Otolaryngology Otolaryngology/Facial Plastic Surgery; Visit Provider Otolaryngology Otolaryngology/Facial Plastic Surgery
DX: J32.9 Chronic sinusitis, unspecified (principal)
CPT/HCPCS: 70486

== ENCOUNTER → 2019-03-27 10:50 | Outpatient (CLI) | payer OTHER, SELFPAY ==
[2019-01-09 09:43] VITALS: BMI 33.0
[2019-03-07 11:27] VITALS: BMI 33.0
--- NOTE | 2019-03-27 10:51 | BI_ITS ---
MAMMOGRAPHY - BILATERAL SCREENING 3-D TOMOSYNTHESIS REASON FOR EXAM: Female, 63 years old. NO FAM HX -- LOST 17# -- NO SX -- RT MOLE MARKED PERTINENT HISTORY: No significant family history. TECHNIQUE: 2-D mammograms and 3-D Tomosynthesis of the breast (s) were performed. CAD was performed. COMPARISON: 03/25/2018, 03/24/2017, 03/10/2016, 02/16/2015 FINDINGS: The breast composition is almost entirely fat. Scattered benign calcifications are seen. No dense spiculated masses or suspicious microcalcifications are identified. No architectural distortion is identified. There is no skin thickening or retraction. There has been no significant change since the prior study. BI/SCREEN MAMM (CAD) W/SIERRA BILAT IMPRESSION: No mammographic signs of malignancy. Routine yearly mammograms recommended. ASSESSMENT CATEGORY: BIRADS Category 2: Benign. A letter regarding these results will be sent to the patient by the facility within 30 days. FOLLOW UP RECOMMENDATION: Yearly follow up mammogram recommended. (A) Approximately 10% of breast cancers are not detected by mammography. A normal mammogram should not delay biopsy of a clinically suspicious abnormality. Electronically Signed: Carlos Mcguire MD at 13:07 EST Tel [phone], Service support ,
== END ==
PROVIDERS: Family Provider Family Medicine; PCP Family Medicine; Referring Provider Nurse Practitioner Women's Health; Visit Provider Nurse Practitioner Women's Health
DX: Z12.31 Encounter for screening mammogram for malignant neoplasm of breast (principal)
CPT/HCPCS: 77063; 77067

== ENCOUNTER → 2020-01-17 | Outpatient (CLI) | payer OTHER, SELFPAY ==
[2020-01-17 11:09] VITALS: BMI 31.3
[2020-01-22 03:57] LABS: HPV APTIMA, High Risk Negative (Negative)
== END | disposition home or self-care (01) ==
LOC: LABSPEC 13:12
PROVIDERS: PCP Family Medicine; Referring Provider Nurse Practitioner Women's Health; Visit Provider Nurse Practitioner Women's Health
DX: Z12.4 Encounter for screening for malignant neoplasm of cervix (principal)
CPT/HCPCS: 87624; 88175; G0145

== ENCOUNTER → 2020-05-06 12:53 | Outpatient (CLI) | payer OTHER, SELFPAY ==
[2020-01-17 11:09] VITALS: BMI 31.3
--- NOTE | 2020-05-06 12:55 | BI_ITS ---
MAMMOGRAPHY - BILATERAL SCREENING REASON FOR EXAM: Female, 64 years old. Routine annual screening examination. PERTINENT HISTORY: Non-contributory. History of prior bilateral breast reduction surgery. TECHNIQUE: Digital bilateral breast sierra (3D mammographic acquisition) in the CC and MLO projections. 2-D mediolateral oblique (MLO) and craniocaudad (CC) views of both breasts were obtained. CAD: Full Field Digital Mammography with Computer Added Detection was performed. COMPARISON: Comparison is made with prior examination dated 03/27/2019 and 03/25/2018. FINDINGS: Breast Composition: There are scattered areas of fibroglandular density. There are no dominant masses or suspicious calcifications. No other significant abnormalities are identified. There has been no significant change since the prior study. BI/SCRN MAMM (CAD)W/SIERRA BILAT IMPRESSION: Stable bilateral screening mammogram. Yearly follow-up mammogram recommended. (A) ASSESSMENT CATEGORY: BIRADS Category 1: Negative. A letter regarding these results will be sent to the patient by the facility within 30 days. Approximately 10% of breast cancers are not detected by mammography. A normal mammogram should not delay biopsy of a clinically suspicious abnormality. [id number] Electronically Signed: Kamran Flores MD at 14:58 EST , Service support ,
== END ==
PROVIDERS: PCP Family Medicine; Referring Provider Nurse Practitioner Women's Health; Visit Provider Nurse Practitioner Women's Health
DX: Z12.31 Encounter for screening mammogram for malignant neoplasm of breast (principal)
CPT/HCPCS: 77063; 77067

== ENCOUNTER 2020-06-11 15:08 | Outpatient (RCR) | payer MEDICARE, OTHER, SELFPAY ==
[2020-01-17 11:09] VITALS: BMI 31.3
[2020-06-11] MEDS: COVID-19 VACC, MRNA(PFIZER)/PF 30 MCG/0.3 ML SYRINGE IM (12:37)
[2020-07-02] MEDS: COVID-19 VACC, MRNA(PFIZER)/PF 30 MCG/0.3 ML SYRINGE IM (12:49)
== END 2020-09-10 23:59 ==
LOC: IMMUN 15:08
PROVIDERS: PCP Family Medicine; Referring Provider Family Medicine; Visit Provider Family Medicine
DX: Z23 Encounter for immunization (principal)
CPT/HCPCS: 0001A; 0002A; 91300

== ENCOUNTER 2021-04-12 15:02 | Outpatient (CLI) | payer MEDICARE, OTHER, SELFPAY ==
[2021-04-12 15:19] VITALS: BP 152/67; PULSE 71; RESP 16; TEMP 36.6; O2SAT 100; BMI 31.6
[2021-04-12] MEDS: 0.9% Saline Lock 10 ML Syringe IV (15:24)
[2021-04-12 15:58] VITALS: BP 128/73; PULSE 66; RESP 16; TEMP 36.8; O2SAT 99
[2021-04-12 16:53] VITALS: BP 156/81; PULSE 63; RESP 16; TEMP 36.8; O2SAT 98
== END 2021-04-12 23:59 | disposition home or self-care (01) ==
LOC: MS3OUT 15:04 → MS3 15:05
PROVIDERS: PCP Family Medicine; Visit Provider Nurse Practitioner Acute Care
DX: U07.1 COVID-19 (principal)
CPT/HCPCS: J7050; M0243; A4216; Q0244

== ENCOUNTER 2021-05-06 14:27 | Outpatient (CLI) | payer MEDICARE, OTHER, SELFPAY ==
--- NOTE | 2021-05-06 14:29 | BI_ITS ---
MAMMOGRAPHY - BILATERAL SCREENING REASON FOR EXAM: Female, 65 years old. Routine annual screening examination. PERTINENT HISTORY: Non-contributory. History of prior bilateral breast reduction surgery. TECHNIQUE: Digital bilateral breast sierra (3D mammographic acquisition) in the CC and MLO projections. 2-D mediolateral oblique (MLO) and craniocaudad (CC) views of both breasts were obtained. CAD: Full Field Digital Mammography with Computer Added Detection was performed. COMPARISON: Comparison is made with prior examination of 05/06/2020 and 03/27/2019. FINDINGS: Breast Composition: There are scattered areas of fibroglandular density. There are no dominant masses or suspicious calcifications. No other significant abnormalities are identified. There has been no significant change since the prior study. BI/SCRN MAMM (CAD)W/SIERRA BILAT IMPRESSION: Stable bilateral screening mammogram. Yearly follow-up mammogram recommended. (A) ASSESSMENT CATEGORY: BIRADS Category 1: Negative. A letter regarding these results will be sent to the patient by the facility within 30 days. Approximately 10% of breast cancers are not detected by mammography. A normal mammogram should not delay biopsy of a clinically suspicious abnormality. [id number] Electronically Signed: Kamran Flores MD at 15:10 EST ,
== END 2021-05-06 23:59 | disposition short-term general hospital (02) ==
LOC: OPBI 14:27
PROVIDERS: PCP Family Medicine; Referring Provider Nurse Practitioner Women's Health; Visit Provider Nurse Practitioner Women's Health
DX: Z12.31 Encounter for screening mammogram for malignant neoplasm of breast (principal)
CPT/HCPCS: 77063; 77067

== ENCOUNTER → 2021-11-17 | Outpatient (CLI) | payer MEDICARE, OTHER, SELFPAY ==
--- NOTE | 2021-11-17 15:17 | VDLE_ITS ---
Reason For Study: Pain RIGHT LEFT CFV is compressible, spontaneous, phasic, GSV is normal. competent and demonstrates normal CFV is compressible, spontaneous, phasic, augmentation. competent, and demonstrates normal Procedure augmentation. This is a venous duplex using B-mode, color FV is compressible, spontaneous, phasic, flow and spectral Doppler. competent and demonstrates normal Exam performed in department. augmentation. A preliminary report was called and/or faxed POP V is compressible, spontaneous, phasic, to Justino. competent and demonstrates normal augmentation. T/P Trunk is compressible. PTV is compressible. LT PerV is compressible. VL/Venous Duplex US, Unilateral Interpretation Summary Deep veins of the left lower extremity are patent and compressible segmentally. There is no evidence of left lower extremity deep vein thrombosis. Valvular competence appears intac t within the proximal deep venous system on the left . The left great saphenous vein appears patent a nd compressible segmentally. Ordering Physician: Valentin Badillo Referring Physician: Dane Gurrola Performed By: Candice Hall RVT
== END | disposition home or self-care (01) ==
LOC: CVS 15:11
PROVIDERS: PCP Family Medicine; Visit Provider Physician Assistant Surgical
DX: M79.662 Pain in left lower leg (principal)
CPT/HCPCS: 93971

== ENCOUNTER 2021-12-03 09:00 | Outpatient (RCR) | payer MEDICARE, OTHER, SELFPAY ==
--- NOTE | 2021-11-24 13:50 | HP.PTEVAL ---
Patient's Visit Information LASHAWN DUNCAN is a 66 year old F referred to Physical Therapy by Rony Badillo PA-C with a diagnosis of Left Lower Leg Pain. Date of Evaluation: 11/24/21 Physical Therapist: Lorena Foster DPT - Visit Plan Frequency: 2x /Week Duration: 4 Weeks Plan: Focus on LE and core strength/stabilization, flex and proprioception- manual, US, possibly DN. HEP Given IE: Gastroc Stretch, Soleus Stretch, HR/TR - Subjective Since August she has been walking- usually 2-3 miles a day 5 days a week. 3 weeks ago she got a terrible cramp in her left lower leg in the distal calf. She stopped in her tracks- made it home and she has had pain in the calf ever since. It has gotten better each week but it still feels a like pull. She went to the [facility]- they did a Doppler to rule out DVT and then sent her to PT. Pain is located in the distal gastroc - no radiating pain. Describes the pain as discomfort and pulling sensation. Worst: 5/10 Agg: walking, stairs (up/down), going up on her tip toes. Eases: rest Best: 0/10. Sleep: not disturbed. She was walking- on the sidewalks and walked the same path daily- she always is on the inside of the sidewalk. No hip or back pains. She is wearing [employer]- these are new-does not wear orthotics in her shoes. Very active around her house but not a specific exercise program. PMHx: benign tremor, Right knee arthroscopic surgery, joint replacement in the right thumb. Meds: propranolol, statin, low dose of doxycycline, celexa. - Objective Posture: FH, RS- can correct with verbal cues but does not maintain. Gait: short stride length- decreased stance on the left LE. Stairs: asc/desc 8 non recip- pain when placing weight on the left LE when knee is bent. HR/TR: able without pain x 1 repetition- when increased to x10 reps increased pain in the medial gastroc. Eccentric increases pain on left LE. SLS: 10 sec but does have mild increase in sway and muscle activation. Observation: bruising along medial calf where tender to palpation, mild pes planus. Palpation: tender along medial gastroc. ROM: WFL in all planes. Strenght: Core: fair minus, Hip: 4+/5, Knee: 5/5, Ankle: 4+/5. Flex: HS: severe, Gastroc: severe, Soleus: severe - Balance/Special Test Scores Lower Extremity Functional Score: 54 - Goals Goal 1:: Patient will be I with HEP and progression Goal Time Frame: 4-6 Weeks Goal 2:: Patient will SLS for 30 sec without LOB Goal Time Frame: 4-6 Weeks Goal 3:: Patient will ambulate >300 feet with a normalized gait pattern Goal Time Frame: 4-6 Weeks Goal 4:: Patient will report no pain for 1 week with all ADL's. Goal Time Frame: 4-6 Weeks Goal 5:: Patient will report 80% improvement. Goal Time Frame: 4-6 Weeks - Rehabilitation Potential Physical Therapy Diagnosis: Patient presents with hypomobility- she has decreased LE and core strength/stabilization, flex, proprioception and functional mobility leading to abnormal gait and increased pain with ADL's. Rehabilitation Potential: Fair - Anticipated Interventions Patient/Client Instruction: Educate patient on: Benefits of Fitness Program Therapeutic Exercise to Include: Strength training, Power training, Balance training, Coordination, Agility training, Body mechanics, Postural training, Flexibilty training, Gait and locomotor training, Neuromotor development, Dynamic Lumbar Stabilization For the Purpose of:: To improve muscle performance and motor function TENS: Yes Cryotherapy (ice pack, ice massage): Yes Thermo therapy (hot pack): Yes Ultrasound (thermal/non thermal): Yes Thank you for the opportunity to evaluate your patient. For Medicare and Medicare HMO plans, please review the plan of care and approve it. It will need to be FAXED BACK to us at [phone] for Medicare purposes. For Medicare only, by signing this I certify the plan of care. Please let me know if there are questions or concerns regarding this plan of care. Physician Signature: Date:
--- NOTE | 2021-12-03 09:17 | HP.PTDCSUM ---
It has been my pleasure to treat LASHAWN DUNCAN referred by Rony Badillo PA-C, with the diagnosis of Left Lower Leg Pain for a total of 4 visit(s). Discharge Date: Please see the following information for a summary of their discharge status. Subjective: Patient reports that she is 100% better and is back to all of her normal activities including walking. % Improvement: 100 Objective/Function: Posture: fair throughout Gait: no deviation noted. Stairs: asc/desc 8 recip with no HR or pain HR/TR: able without pain both concentric and eccentric SLS: 30 sec-mild increase in sway and muscle activation. Palpation: not tenderalong medial gastroc. ROM: WFL in all planes. Strength: Core: fair minus, Hip: 4+/5, Knee: 5/5, Ankle: 5/5. Flex: HS: moderate, Gastroc: moderate, Soleus: moderate Goal 1:: Patient will be I with HEP and progression Goal Progress: Goal Met Goal 2:: Patient will SLS for 30 sec without LOB Goal Progress: Goal Met Goal 3:: Patient will ambulate >300 feet with a normalized gait pattern Goal Progress: Goal Met Goal 4:: Patient will report no pain for 1 week with all ADL's. Goal Progress: Goal Met Goal 5:: Patient will report 80% improvement. Goal Progress: Goal Met Plan: 12/03: Discharge to I HEP- Encouraged to explore a gym membership. Focus on LE and core strength/stabilization, flex and proprioception- manual, US, possibly DN. HEP Given IE: Gastroc Stretch, Soleus Stretch, HR/TR If there are questions or concerns regarding this patient's physical therapy, please feel free to call me at [phone]. Thank you for the referral of this patient. Sincerely, Lorena Foster, DPT Balance/Gait/Functional tests - Balance/Special Test Scores Lower Extremity Functional Score: 80
== END 2021-12-03 19:00 | disposition home or self-care (01) ==
LOC: PT 09:00
PROVIDERS: PCP Family Medicine; Referring Provider Physician Assistant Surgical; Visit Provider Physician Assistant Surgical
DX: S86.112D Strain of other muscle(s) and tendon(s) of posterior muscle group at lower leg level, left leg, subsequent encounter (principal); M79.662 Pain in left lower leg
CPT/HCPCS: 97035; 97110; 97140; 97162; 97164; 97530

== ENCOUNTER → 2022-05-07 | Outpatient (CLI) | payer MEDICARE, OTHER, SELFPAY ==
--- NOTE | 2022-05-07 10:42 | BI_ITS ---
MAMMOGRAPHY - BILATERAL SCREENING REASON FOR EXAM: Female, 66 years old. Routine annual screening examination. PERTINENT HISTORY: Non-contributory. History of bilateral breast reduction surgery and revision of the periareolar scars. TECHNIQUE: Digital bilateral breast sierra (3D mammographic acquisition) in the CC and MLO projections. 2-D mediolateral oblique (MLO) and craniocaudad (CC) views of both breasts were obtained. CAD: Full Field Digital Mammography with Computer Added Detection was performed. COMPARISON: Comparison is made with prior study dated 05/06/2021 and 05/06/2020. FINDINGS: Breast Composition: There are scattered areas of fibroglandular density. There are no dominant masses or suspicious calcifications. Stable small benign-appearing bilateral axilla. No other significant abnormalities are identified. There has been no significant change since the prior study. BI/SCRN MAMM (CAD)W/SIERRA BILAT IMPRESSION: Stable bilateral screening mammogram. Yearly follow-up mammogram recommended. (A) ASSESSMENT CATEGORY: BIRADS Category 2: Benign. A letter regarding these results will be sent to the patient by the facility within 30 days. Approximately 10% of breast cancers are not detected by mammography. A normal mammogram should not delay biopsy of a clinically suspicious abnormality. [id number] Electronically Signed: Kamran Flores MD at 11:28 EST ,
== END | disposition home or self-care (01) ==
PROVIDERS: PCP Family Medicine; Visit Provider Nurse Practitioner Women's Health
DX: Z12.31 Encounter for screening mammogram for malignant neoplasm of breast (principal)
CPT/HCPCS: 77063; 77067

== ENCOUNTER → 2022-08-24 | Outpatient (CLI) | payer MEDICARE, OTHER, SELFPAY ==
[2022-08-24 16:24] LABS: Thyroid Stim Hormone (TSH) 1.26 uIU/mL (0.358-3.74)
== END | disposition home or self-care (01) ==
LOC: MTLAB 13:51
PROVIDERS: PCP Family Medicine; Referring Provider Psychiatry & Neurology Neurology; Visit Provider Psychiatry & Neurology Neurology
DX: G25.0 Essential tremor (principal)
CPT/HCPCS: 36415; 84443

== ENCOUNTER 2023-03-08 10:30 | Outpatient (RCR) | payer MEDICARE, OTHER, SELFPAY ==
--- NOTE | 2023-02-21 17:07 | HP.PTEVAL_ITS ---
Patient's Visit Information Visit Information Visit Information: LASHAWN DUNCAN is a 67 year old F referred to Physical Therapy by Royn Badillo PA-C with a diagnosis of POST TRAUMATIC OA R KNEE AND PRIMARY OA L KNEE. Date of Evaluation: 02/15/23 Physical Therapist: Lian Paulino, PT, Cert MDT Visit Plan Frequency: 2-3x /Week Duration: 4-6 Weeks Plan: *Stretching to HEP *Kitchen Sink *Step ups Subjective Subjective: Work/Leisure: RETIRED. LIVES IN 2 STORY HOME. LIVES ON MAIN FLOOR AND GOES DOWN TO BASEMENT. 1 HR TO BASEMENT. Present symptoms: CARMELO KNEE PAIN. PATIENT DENIES CARMELO LE NUMBNESS AND TINGLING. Present since: CHRONIC R KNEE PAIN. L KNEE PAIN STARTED ABOUT 6 WKS AGO. Pain Scale: R KNEE PAIN: WORST 7/10, LEAST 0/10, CURRENTLY 2/10. L KNEE PAIN: WORST 9/10, LEAST 0/10, CURRENTLY 0/10. Is it getting better, worse or staying the same: R KNEE IS STAYING THE SAME. L KNEE IS IMPROVING Commenced as a result of: R KNEE - MENISCUS TEAR FROM UNKNOWN CAUSE. L KNEE - NO APPARENT REASON. Worse: STAIRS, ANY KIND OF WEIGHT BEARING, STOOPING, STANDING, WALKING, RISING FROM SITTING, INITIATING GAIT AFTER SITTING. Better: IBUPORFEN, GETTING OFF OF IT BUT IT STILL ACHES. Disturbed sleep: YES Previous history/Previous treatment: R KNEE PHYSICAL THERAPY. R KNEE SURGERY APPROX 2018 FOR MENISCUS. NO CARMELO KNEE INJECTIONS. NO L KNEE TREATMENTS. Treatment this episode: IBUPROFEN. PT CONSULT ORDERED. Gait: WHEN PAIN INCREASES LIMITS WALKING AND STRIDE LENGTH. NO FALLS. KNEES DO NOT BUCKLE. Bowel or Bladder Dysfunction: NO Accidents: NO Unexplained weight loss: NO Imaging: RECENT CARMELO KNEE X-RAYS SHOWING CARMELO ARTHRITIS PER PATIENT REPORT. X- RAYS WERE DONE AT [facility]. PMH/Recent major surgery: R CALF INJURY TREATED WITH PT WITH ABOUT 1 MONTH RECOVERY - OCCURED FROM WALKING. BENIGN TREMOR R THUMB - THUMB SX A FEW YEARS AGO. HIGH CHOLESTEROL. DEPRESSION. OTHER: MY BIGGEST FEAR IS TEARING SOMETHING IN MY KNEES BECAUSE IT TOOK A LONG TIME TO GET BACK FROM THE MENISCUS TEAR. THE ONLY THINGS I CAN REMEMBER ARE TWISTING MY KNEE TRYING TO CATCH A CAT AND DOING BEACH BODY EX AT HOME PRETTY INTENSE. PLOF: PATIENT REPORTS SHE DIDN'T HAVE MUCH R KNEE PAIN OVER THE SUMMER AND IT DIDN'T STOP HER FROM DOING ANYTHING. STEPS ARE ALWAYS AT LEAST A LITTLE BIT OF A PROBLEM AND PATIENT STATES SHE HAS LEARNED TO ADAPT. MORE RECENTLY SHE REPORTS SHE AVOIDS THE STEPS MUCH POSSIBLE BECAUSE OF BOTH KNEES. OTHER: POOL FELT GOOD ON KNEES WHEN VISITING DAUGHTER IN . Pain RLE: Pain Intensity (Out of 10): 2 Pain Intensity Range: 0 and 9 Objective Objective: THIS PATIENT AMBULATES INDEP'LY INTO PT WITHOUT ANY ASSISTIVE DEVICES OR LOB. SHE IS ABLE TO INDEP'LY TRANSFER FROM SIT TO STAND WITHOUT UE ASSIST. CARMELO LE LIGHT TOUCH SENSATION IS GROSSLY INTACT AND SYMMETRICAL. CARMELO LE DURAL SIGNS ARE NEGATIVE. ROM: MILD CARMELO HS AND CALF TIGHTNESS. FULL CARMELO KNEE EXTENSION WITH R KNEE FLEXION IN SUPINE WITH A HEEL SLIDE TO 135 DEG AND LEFT TO 130 DEG FLEX. STRENGTH: R HS 13.6#, QUAD 20#, HIP FLEX 12.8#, HIP ABD 14.3#, HIP EXT 22.1#, DF 24.2#, PF 16.5# L HS 13.3#, QUAD 23.6#, HIP FLEX 11.4#, HIP ABD 16.1#, HIP EXT 23.6#, DR 20.9#, PF 19.9# PALPATION: PATIENT HAS CARMELO MEDIAL KNEE TENDERNESS L>R. SHE ALSO HAS MILD L KNEE SWELLING. OTHER: DISCUSSED THE POSSIBLE BENEFITS OF AQUATIC THERAPY WITH PATIENT AND SHE IS AGREEABLE WITH BELOW POC. Balance/Special Test Scores Lower Extremity Functional Score: 42 Goals Goal 1:: DECREASE C/O CARMELO KNEE PAIN BY AT LEAST 25% EACH WITH NORMAL ADL'S. Goal Time Frame: 4-6 Weeks Goal 2:: IMPROVE LEFS SCORE BY 10 LBS TO SHOW IMPROVEMENT TOWARDS PLOF Goal Time Frame: 4-6 Weeks Goal 3:: PATIENT WILL BE ABLE TO GO UP AND DOWN STEPS WITH 1 HR RECIP WITH C/O 0-3/10 CARMELO KNEE PAIN. Goal Time Frame: 4-6 Weeks Goal 4:: PATIENT WILL BE INDEP WITH LAND AND/OR WATER EX PROGRAMS FOR CONTINUED IMPROVEMENT ONCE FORMAL PHYSICAL THERAPY CONCLUDES. Goal Time Frame: 4-6 Weeks Rehabilitation Potential Physical Therapy Diagnosis: CARMELO KNEE PAIN. CARMELO LE STIFFNESS AND WEAKNESS IMPAIRING WEIGHTBEARING FUNCTION. Rehabilitation Potential: Good Anticipated Interventions Patient/Client Instruction: Educate patient on: Condition, Plan of Care and Risk Factors For the Purpose of:: To improve self management Therapeutic Exercise to Include: Strength training, Flexibilty training and In an aquatic setting For the Purpose of:: To decrease pain, To increase ROM, To improve muscle performance and motor function, To increase tolerance to activity/condition/position, To improve ability of physical actions for home/community/work/leisure and To improve gait and locomotor functions Text: Thank you for the opportunity to evaluate your patient. For Medicare and Medicare HMO plans, please review the plan of care and approve it. It will need to be FAXED BACK to us at [phone] for Medicare purposes. For Medicare only, by signing this I certify the plan of care. Please let me know if there are questions or concerns regarding this plan of care. Physician Signature: Date:
--- NOTE | 2023-03-08 11:15 | HP.PTDCSUM ---
Discharge Summary D/C summary: It has been my pleasure to treat LASHAWN DUNCAN referred by Rony Rowe PA-C, with the diagnosis of POST TRAUMATIC OA R KNEE AND PRIMARY OA L KNEE for a total of 7 visit(s). Discharge Date: 03/08/23 Please see the following information for a summary of their discharge status. Subjective Subjective: PATIENT REPORTS SHE WAS ACTUALLY TO THE POINT WHERE SHE WASN'T HAVING ANY PAIN BUT SINCE GETTING THINGS READY FOR DEREJE SHE STARTED HAVING SOME MILD ACHING IN THE R KNEE. FOLLOW UP WITH [place] ROWE TODAY AT 9:00 AND HE RELEASED HER TO FOLLOW UP NEEDED. SHE REPORTS AQUATIC THERAPY HELPED A LOT AND IT FELT REALLY GOOD. SHE REPORTS DARRIN WAS EXCEPTIONAL. Pain RLE: Pain Intensity (Out of 10): 1 Overall Improvement % Improvement: 95 Objective Objective/Function: PATIENT WAS SEEN TODAY FOR RE-ASSESSMENT OF PROGRESS TOWARD THE SET PT GOALS AND THE NEED FOR FURTHER PHYSICAL THERAPY VS READINESS FOR DISCHARGE. ALL PT GOAL HAVE BEEN MET AND SHE IS APPROPRIATE FOR AND AGREEABLE TO DISCHARGE. UPON EXAM TODAY: FULL CARMELO KNEE EXTENSION WITH R KNEE FLEXION IN SUPINE WITH A HEEL SLIDE TO 135 DEG AND LEFT TO 130 DEG FLEX. STRENGTH: R HS 13.7#, QUAD 20.3#, HIP FLEX 14.6#, HIP ABD 20.1#, HIP EXT 23.7#, DF 27#, PF 19.3# L HS 15.1#, QUAD 23.5#, HIP FLEX 14.9#, HIP ABD 17.2#, HIP EXT 26.8#, DR 23.4#, PF 19.9# Goals Goal 1:: DECREASE C/O CARMELO KNEE PAIN BY AT LEAST 25% EACH WITH NORMAL ADL'S. Goal Progress: Goal Met Goal 2:: IMPROVE LEFS SCORE BY 10 LBS TO SHOW IMPROVEMENT TOWARDS PLOF Goal Progress: Goal Met Goal 3:: PATIENT WILL BE ABLE TO GO UP AND DOWN STEPS WITH 1 HR RECIP WITH C/O 0-3/10 CARMELO KNEE PAIN. Goal Progress: Goal Met Goal 4:: PATIENT WILL BE INDEP WITH LAND AND/OR WATER EX PROGRAMS FOR CONTINUED IMPROVEMENT ONCE FORMAL PHYSICAL THERAPY CONCLUDES. Goal Progress: Goal Met Plan Plan: D/C D/C Information d/c sentence: If there are questions or concerns regarding this patient's physical therapy, please feel free to call me at [phone]. Thank you for the referral of this patient. Sincerely, Lian Paulino, PT, Cert MDT Balance/Gait/Functional tests Balance/Special Test Scores Lower Extremity Functional Score: 65 Improvement % Improvement: 95
== END 2023-03-08 19:00 | disposition home or self-care (01) ==
LOC: PT 10:30
PROVIDERS: PCP Family Medicine; Referring Provider Physician Assistant Surgical; Visit Provider Physician Assistant Surgical
DX: M17.31 Unilateral post-traumatic osteoarthritis, right knee (principal); M17.12 Unilateral primary osteoarthritis, left knee
CPT/HCPCS: 97113; 97162; 97164

== ENCOUNTER 2023-03-08 16:16 | Emergency (ER) | payer MEDICARE, OTHER, SELFPAY ==
[2023-03-08 16:17] VITALS: BP 147/75; PULSE 74; RESP 18; TEMP 35.8; O2SAT 100; BMI 34.0
--- NOTE | 2023-03-08 17:46 | CT_ITS ---
INDICATION: Trauma EXAMINATION: CT CERVICAL SPINE - CT Spine Cervical W/O Contrast Injection TECHNIQUE: Helically acquired images were obtained of the cervical spine. 2D reformatted images were reviewed. A radiation dose optimization technique was used for this scan. IV Contrast dosage and agent: None. RADIATION DOSAGE (If Supplied By Facility): CTDIvol = ( 17.80 ) mGy, DLP = ( 1170.72 ) mGycm COMPARISON: None. FINDINGS: ALIGNMENT: No subluxation. Straightening of the normal curvature. MINERALIZATION: Normal. VERTEBRAL BODIES: No fracture or acute abnormality. DISC SPACES: Disc space narrowing with osteophytes most pronounced C5-C7. POSTERIOR ELEMENTS: Facet arthropathy at multiple levels. SPINAL CANAL: Maintained. PARASPINAL SOFT TISSUES: Unremarkable. OTHER: None. CT/Spine Cervical without Contras IMPRESSION: No evidence of fracture or subluxation. Straightening of the normal curve may be due to position or muscle spasm. Degenerative changes. Electronically Signed: Nicole Dan MD at 18:59 EST ,
--- NOTE | 2023-03-08 17:47 | EDS_ITS ---
HPI History of Present Illness Chief Complaint: Head Injury Narrative Narrative: 67-year-old female presents with headache and closed head injury after a fall. She was on a 2 rung stepladder, putting up [place] decorations on the mantle. She went to step down, but fell backwards after she missed. She struck her head against a hardwood floor. She denies loss of consciousness but has a headache that seems to be subsiding. She denies any nausea or vomiting, no paresthesias, no other injury. She does have mild right-sided neck pain that she states feels more muscular. This happened approximately 2 hours prior to arrival. She states she does not take blood thinners. [facility] Medical History Arthritis Chronic bronchitis Depression Hay fever High cholesterol Hyperlipidemia Knee pain Lipoma Osteopenia Seasonal allergies Home Medications citalopram 20 mg tablet (Celexa) 30 mg PO QDAY 03/11/17 [History Last Taken 03/08/23] pravastatin 20 mg tablet 30 mg PO DAILY 03/11/17 [History Last Taken 03/08/23] calcium carbonate 600 mg-vitamin D3 20 mcg (800 unit) chewable tablet (Caltrate 600 plus D) 2 tab PO DAILY 01/20/21 [History Last Taken 03/08/23] multivitamin 1 tab PO DAILY 01/20/21 [History Last Taken 03/08/23] estradiol 0.01% (0.1 mg/gram) vaginal cream See Rx Instructions vaginal 2XW [History Last Taken 03/08/23] doxycycline monohydrate 50 mg tablet 50 mg PO DAILY 03/08/23 [History Last Taken 03/08/23] propranolol 10 mg tablet 20 mg PO DAILY 03/08/23 [History Last Taken 03/08/23] Allergy/AdvReac Type Severity Reaction Status Date / Time poison antonina extract Allergy Mild Itching Verified 03/08/23 16:17 fluconazole [From Diflucan] Allergy Unknown Verified 03/08/23 16:17 Family History Mother Hypertension Heart disease, Onset Age: 69 Angina pectoris Anxiety Arthritis Cervical cancer Depression Diabetes, Onset Age: 69 Myocardial infarction, Onset Age: 69 High cholesterol Melanoma Ovarian cancer COPD (chronic obstructive pulmonary disease) Uterine cancer Father Lung cancer, Onset Age: 53 Brain cancer, Onset Age: 53 Son Heart murmur Grandfather Alcoholic Grandfather Colon cancer Sister Mental disorder Myocardial infarction, Onset Age: 50 Brother Drowning Surgical History History of arthroplasty of right knee (~08/04/17) History of bilateral breast reduction surgery (~06/12/19) History of tonsillectomy and adenoidectomy (~1960) joint replacement of right thumb (~08/07/15) s/p right knee scope (~08/04/17) Status post scar revision (~06/16/21) Social History Smoking Status: Never smoker alcohol intake: current details: socially substance use type: does not use caffeine: Yes what type of physical activity do you participate in: none seatbelt use: always do you feel safe at home: Yes 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 HEENT: No sore throat. Right-sided muscular neck pain. No loss of vision. No rhinorrhea. Cardiovascular: No chest pain. No palpitations. No pedal edema. Respiratory: No cough, no shortness of breath. Abdominal: No abdominal pain. No nausea. No vomiting. Genitourinary: No dysuria. No hematuria. Musculoskeletal: No myalgias. No arthralgias. Neurologic: Positive headaches. No dizziness. No lightheadedness. Skin: No rash. No change in color. Psychiatric: No depression. No anxiety. EXAM Physical Exam Narrative Exam Narrative: Afebrile. Vital signs noted. GCS 15. ABCs intact. HEENT: Normocephalic. Mild tenderness to palpation right occipital scalp, no active bleeding or laceration noted. PERRL, EOMI. Neck soft and supple. No point tenderness or step off. Mild tenderness palpation right paraspinal muscles of the neck. Cardiovascular: Regular rate and rhythm. No murmurs, rubs, or gallops appreciated. Respiratory: No tachypnea. Lungs clear to auscultation bilaterally. Gastrointestinal: Abdomen soft, nontender, with normoactive bowel sounds. No rebound or guarding. Neurological: Awake. Alert. Oriented x3. Nonfocal, nonlateralizing. Able to raise arms above head without difficulty. Skin: No rash. Normal color. No pallor. Musculoskeletal: No pedal edema. Full range of motion extremities. Const Vital Signs: 03/08/23 16:17 03/08/23 17:55 Temperature 96.5 F L Temperature Source Temporal Pulse Rate 74 Respiratory Rate 18 Respiratory Effort Normal Non-Labored Respiratory Depth Normal Respiratory Pattern Normal Blood Pressure 147/75 H Blood Pressure Mean 99 Pulse Ox 100 Oxygen Delivery Method Room Air Room Air MDM MDM MDM Narrative Medical decision making narrative: As the patient had a fall from height, concern would be for scalp contusion versus skull fracture along with subdural hematoma or intracranial hemorrhage. Additionally, while she most likely has a cervical neck strain from her fall, CT will be obtained to rule out fracture of the cervical spine. Given her age above 65, I also feel that CT of the brain is indicated. I reviewed the radiology report for the CT of the cervical spine and there is no evidence of an acute fracture, but there is straightening of the normal curve which may be secondary to positioning or muscle spasm. Additionally, I reviewed the radiology report for the CT of the brain which also shows no evidence of an acute fracture or hemorrhage. There is note of a 1.5 cm left parieto-occipital meningioma. At this point in time, I feel she can be discharged safely home with follow-up. She may have a mild concussion. She was instructed on brain rest and will take [id number] medications. She declined analgesia here in the emergency department. I feel she can be discharged to follow-up with her primary care provider regarding her concussion and her incidental finding of meningioma on CT scan. Return instructions to the emergency department were reviewed. Disposition is discharged home in stable condition. History & Record Review Discussion w/independent historian: Patient and Family Additional record(s) reviewed:: Prior ED visit Radiography Diagnostic Testing: Clinical Impression(s) from Imaging Studies Cervical Spine CT 03/08/23 17:46 IMPRESSION: No evidence of fracture or subluxation. Straightening of the normal curve may be due to position or muscle spasm. Degenerative changes. Electronically Signed: Nicole Dan MD at 18:59 EST , Brain CT 03/08/23 18:22 IMPRESSION: No evidence of acute intracranial injury. Left posterior parietal extra-axial mass consistent with meningioma. Electronically Signed: Nicole Dan MD at 18:50 EST Reading Location ID and State: [facility] [place][note 3] / [place] Tel , Service support , Discharge Plan Triage Chief Complaint: Head Injury ED Provider: Lux Mcgowan Dx/Rx/DC Orders Clinical Impression: Concussion, Meningioma, Cervical paraspinal muscle spasm, Fall Instructions: ED Concussion, ED Head Injury (Adult), ED Neck Pain Prescriptions: No Action pravastatin 20 mg tablet 30 mg PO DAILY citalopram [Celexa] 20 mg tablet 30 mg PO QDAY multivitamin Tablet 1 tab PO DAILY Caltrate 600 plus D 600 mg (1,500 mg)-800 unit tablet,chewable 2 tab PO DAILY estradiol 0.01 % (0.1 mg/gram) cream See Rx Instructions vaginal 2XW Rx Instructions: small amount vaginally three times a week; doxycycline monohydrate 50 mg tablet 50 mg PO DAILY propranolol 10 mg tablet 20 mg PO DAILY Primary Care Provider: Philip Gurrola Referrals: Philip Gurrola MD [Primary Care Provider] - 1 Week if not improving Activity Restrictions/Additional Instructions: [id number] medications like Tylenol or ibuprofen for pain. Follow-up with your primary care provider in the next 7 to 10 days if your symptoms persist. You are found to have a meningioma on your CT scan. You may follow-up with your primary care provider regarding this. Disposition Disposition: Home, Self Care
--- NOTE | 2023-03-08 18:22 | CT_ITS ---
INDICATION: Trauma EXAMINATION: CT BRAIN - CT Head or Brain W/O Contrast Injection TECHNIQUE: Multiple axial images were obtained of the head without intravenous contrast. A radiation dose optimization technique was used for this scan. IV Contrast dosage and agent: None. RADIATION DOSAGE (If Supplied By Facility): CTDIvol = ( 44.99 ) mGy, DLP = ( 796.11 ) mGycm COMPARISON: None. FINDINGS: BRAIN: No acute bleed. No edema. Yip-white matter differentiation is maintained. Arterial calcifications. VENTRICLES AND SULCI: Not dilated. EXTRA-AXIAL: 1.5 cm hyperattenuating mass with calcifications extra-axial left posterior parietal region abuts the falx consistent with meningioma. No acute extra-axial hematoma. CALVARIUM / SKULL BASE: Unremarkable. FACE/SINUSES: Unremarkable. SOFT TISSUES: Unremarkable. CT/Brain/Head without Contrast IMPRESSION: No evidence of acute intracranial injury. Left posterior parietal extra-axial mass consistent with meningioma. Electronically Signed: Nicole Dan MD at 18:50 EST ,
== END 2023-03-08 19:58 | disposition home or self-care (01) ==
PROVIDERS: Emergency Provider Emergency Medicine; PCP Family Medicine; Visit Provider Emergency Medicine
DX: S06.0X0A Concussion without loss of consciousness, initial encounter (principal); D32.9 Benign neoplasm of meninges, unspecified; W11.XXXA Fall on and from ladder, initial encounter; M62.830 Muscle spasm of back; E78.00 Pure hypercholesterolemia, unspecified; Z79.899 Other long term (current) drug therapy
CPT/HCPCS: 70450; 72125; 99282

== ENCOUNTER → 2023-05-26 | Outpatient (CLI) | payer MEDICARE, OTHER, SELFPAY ==
--- NOTE | 2023-05-26 10:37 | BI_ITS ---
MAMMOGRAPHY - BILATERAL SCREENING REASON FOR EXAM: Female, 67 years old. Routine annual screening examination. PERTINENT HISTORY: Non-contributory. History of prior bilateral breast reduction surgery. TECHNIQUE: Digital bilateral breast sierra (3D mammographic acquisition) in the CC and MLO projections. 2-D mediolateral oblique (MLO) and craniocaudad (CC) views of both breasts were obtained. CAD: Full Field Digital Mammography with Computer Added Detection was performed. COMPARISON: Comparison is made with prior study of May 07, 2022 and May 06, 2021. FINDINGS: Breast Composition: There are scattered areas of fibroglandular density. There are no dominant masses or suspicious calcifications. Stable small benign-appearing bilateral axillary lymph nodes. No other significant abnormalities are identified. There has been no significant change since the prior study. BI/SCRN MAMM (CAD)W/SIERRA BILAT IMPRESSION: Stable bilateral screening mammogram. Yearly follow-up mammogram recommended. (A) ASSESSMENT CATEGORY: BIRADS Category 2: Benign. A letter regarding these results will be sent to the patient by the facility within 30 days. Approximately 10% of breast cancers are not detected by mammography. A normal mammogram should not delay biopsy of a clinically suspicious abnormality. [id number] Electronically Signed: Kamran Flores MD at 11:06 EST ,
--- OUTSIDE RECORDS SUMMARY | 2023-05-26 10:57 | XMS RPT_ITS | CCD ---
Author Name Unknown Address [address] [place] [address] Organization [facility] Care Team Providers Care Handicapped Teacher Name Role Phone Tre THOMAS, Rajni Jacobs Unavailable Gogo Gurrola MD Primary Care Provider Gogo Gurrola MD Primary Care Provider Gogo Gurrola MD Primary Care Provider Gogo Gurrola MD Primary Care Provider GOGO GURROLA Attending Unavailab GOGO Apple Primary Care Unavailab GOGO Apple Attending Unavailab GOGO Apple Primary Care Unavailab GOGO Apple Referring Unavailab GOGO Apple Primary Care Unavailab GOGO Apple Primary Care Unavailab GOGO Apple Referring Unavailab GOGO Apple Primary Care Unavailab GOGO Apple Referring Unavailab le Allergies Allergy Classification Reported Allergen(s) Allergy Type Date of Onset Reaction(s) Facility (2 sources) fluconazole drug allergy [facility] (17 sources) Fluconazole; Translations: [FLUCONAZOLE] Drug Allergy 9 Rash, Hives, Itching [facility] Work Phone: (17 sources) Homeopathic Products; Translations: [HOMEOPATHIC PRODUCTS] Propensity to adverse reactions 6 [facility] Work Phone: Medications Current Medications Medication Drug Class(es) Dates Sig (Normalized) Sig (Original) citalopram 20 mg oral tablet (19 sources) Serotonin Reuptake Inhibitor Start: 11-02-2022 End: 05-01-2023 take 1.5 tablets by mouth once daily citalopram (CELEXA) 20 mg tablet Take 1.5 tablets by mouth once daily. 135 tablet 1 11/02/2022 05/01/2023 Active Completed/Discontinued Medications Medication Drug Class(es) Dates Sig (Normalized) Sig (Original) acetaminophen 300 mg / codeine phosphate 30 mg oral tablet (4 sources) Opioid Agonist Start: 01-26-2010 End: 12-28-2016 TYLENOL WITH CODEINE #3 TABS Take 1 tablet every 4-6hrs as needed for pain. Causes drowsiness ACETAMINOPHEN-CODEI NE TABS [id number] Estelle Jones AIRLINE PILOT Problems Active Problems Problem Classification Problem Date Documented Date Episodic/Chronic Anxiety disorders (2 sources) Generalized anxiety disorder; Translations: [Generalized anxiety disorder] Onset: 07-22-2022 Chronic Disorders of lipid metabolism (20 sources) Hyperlipidemia; Translations: [Hyperlipidemia, unspecified] Onset: 01-07-2011 03-31-2021 Chronic Immunizations and screening for infectious disease (1 source) Vaccination needed; Translations: [Encounter for immunization] Episodic Mood disorders (20 sources) Depressive disorder; Translations: [Depression] Onset: 01-07-2011 01-07-2011 Chronic Osteoarthritis (16 sources) Osteoarthritis; Translations: [Unspecified osteoarthritis, unspecified site] 06-21-2017 Chronic Other ear and sense organ disorders (16 sources) Infective otitis externa; Translations: [Other infective otitis externa, unspecified ear] Onset: 11-24-2005 11-24-2005 Chronic Other hereditary and degenerative nervous system conditions (19 sources) Essential tremor; Translations: [Essential tremor] Onset: 09-23-2014 09-23-2014 Chronic Other hereditary and degenerative nervous system conditions (1 source) Essential tremor; Translations: [Benign essential tremor] Onset: 09-23-2014 Chronic Other nutritional; endocrine; and metabolic disorders (18 sources) Body mass index 30+ - obesity; Translations: [Body mass index (BMI) 33.0-33.9, adult] Onset: 07-04-2015 07-04-2015 Chronic Other nutritional; endocrine; and metabolic disorders (1 source) Body mass index (BMI) 33.0-33.9, adult; Translations: [BMI 33.0-33.9,adult] Onset: 07-04-2015 Chronic Other screening for suspected conditions (not mental disorders or infectious disease) (2 sources) Patient encounter status; Translations: [Encounter for screening mammogram for malignant neoplasm of breast] Episodic Other skin disorders (1 source) Loss of hair; Translations: [Nonscarring hair loss, unspecified] Episodic Other upper respiratory disease (16 sources) Allergic rhinitis; Translations: [Allergic rhinitis, unspecified] Onset: 09-23-2014 03-31-2021 Chronic Residual codes; unclassified (2 sources) Postmenopausal state; Translations: [Asymptomatic menopausal state] Episodic Sprains and strains (2 sources) Strain of calf muscle; Translations: [Strain of other muscle(s) and tendon(s) at lower leg level, left leg, initial encounter] Episodic Unclassified (1 source) Screening mammography ; Translations: [Encounter for screening mammogram for malignant neoplasm of breast] Onset: 12-28-2016 12-28-2016 Unclassified (1 source) Gynecologic examination ; Translations: [Encounter for gynecological examination (general) (routine) without abnormal findings] Onset: 12-28-2016 12-28-2016 Past or Other Problems Problem Classification Problem Date Documented Da te Episodic/Chronic Fluid and electrolyte disorders (2 sources) Hyperkalemia; Translations: [Hyperkalemia] Onset: 08-05-2022 Episodic Other bone disease and musculoskeletal deformities (14 sources) Osteopenia; Translations: [Other specified disorders of bone density and structure, unspecified site] Onset: 07-22-2021 Episodic Other bone disease and musculoskeletal deformities (1 source) Other specified disorders of bone density and structure, unspecified site; Translations: [Osteopenia, unspecified location] Onset: 07-22-2021 Episodic Other non-traumatic joint disorders (2 sources) Ankle pain; Translations: [Pain in unspecified ankle and joints of unspecified foot] Onset: 01-26-2010 01-26-2010 Episodic Residual codes; unclassified (1 source) Asymptomatic menopausal state; Translations: [Asymptomatic postmenopausal status] Onset: 07-22-2022 Episodic Spondylosis; intervertebral disc disorders; other back problems (2 sources) Sacroiliac disorder; Translations: [Sacrococcygeal disorders, not elsewhere classified] 06-01-2011 Episodic Results Test Name Value Interpretation Reference Range Facil ity Vital Signs Date Time Vital Sign Value Performing Clinician [facility] 07-22-2022 11:13-0400 Body height 152.4 cm Gogo Gurrola MD Work Phone: [facility] 07-22-2022 11:13-0400 Body weight 77.56 kg Gogo Gurrola MD Work Phone: [facility] 07-22-2022 11:13-0400 Diastolic blood pressure 64 mm[Hg] Gogo Gurrola MD Work Phone: [facility] 07-22-2022 11:13-0400 Heart rate 77 /min Gogo Gurrola MD Work Phone: [facility] 07-22-2022 11:13-0400 Respiratory rate 16 /min Gogo Gurrola MD Work Phone: [facility] 07-22-2022 11:13-0400 Systolic blood pressure 116 mm[Hg] Gogo Gurrola MD Work Phone: [facility] 01-21-2022 11:15-0400 Body temperature 97.59 [degF] Gogo Gurrola MD Work Phone: [facility] 01-21-2022 11:15-0400 Body weight 76.11 kg Gogo Gurrola MD Work Phone: [facility] 01-21-2022 11:15-0400 Diastolic blood pressure 84 mm[Hg] Gogo Gurrola MD Work Phone: [facility] 01-21-2022 11:15-0400 Heart rate 62 /min Gogo Gurrola MD Work Phone: [facility] 01-21-2022 11:15-0400 Respiratory rate 16 /min Gogo Gurrola MD Work Phone: [facility] 01-21-2022 11:15-0400 SaO2% (BldA) [Mass fraction] 96 % Gogo Gurrola MD Work Phone: [facility] 01-21-2022 11:15-0400 Systolic blood pressure 116 mm[Hg] Gogo Gurrola MD Work Phone: [facility] 11-11-2021 10:03-0400 Body weight 74.57 kg Gogo Grurola MD Work Phone: [facility] 11-11-2021 10:03-0400 Diastolic blood pressure 64 mm[Hg] Gogo Gurrola MD Work Phone: [facility] 11-11-2021 10:03-0400 Heart rate 80 /min Gogo Gurrola MD Work Phone: [facility] 11-11-2021 10:03-0400 Respiratory rate 16 /min Gogo Gurrola MD Work Phone: [facility] 11-11-2021 10:03-0400 SaO2% (BldA) [Mass fraction] 98 % Gogo Gurrola MD Work Phone: [facility] 11-11-2021 10:03-0400 Systolic blood pressure 102 mm[Hg] Gogo Gurrola MD Work Phone: [facility] 07-22-2021 15:29-0400 Body weight 74.84 kg Gogo Gurrola MD Work Phone: [facility] 07-22-2021 15:29-0400 Diastolic blood pressure 68 mm[Hg] Gogo Gurrola MD Work Phone: [facility] 07-22-2021 15:29-0400 Heart rate 80 /min Gogo Gurrola MD Work Phone: [facility] 07-22-2021 15:29-0400 Respiratory rate 16 /min Gogo Gurrola MD Work Phone: [facility] 07-22-2021 15:29-0400 SaO2% (BldA) [Mass fraction] 97 % Gogo Gurrola MD Work Phone: [facility] 07-22-2021 15:29-0400 Systolic blood pressure 114 mm[Hg] Gogo Gurrola MD Work Phone: [facility] 12-28-2016 08:53-0400 BMI (Body Mass Index) 33.7 kg/m2 Rajni Toledo NP [facility] 12-28-2016 08:53-0400 Body Temperature 98.1 [degF] Rajni Toledo ADVERTISING DIRECTOR [facility] 12-28-2016 08:53-0400 BP Diastolic 78 mm[Hg] Rajni Toledo ADVERTISING DIRECTOR [facility] 12-28-2016 08:53-0400 BP Systolic 125 mm[Hg] Rajni Toledo ADVERTISING DIRECTOR [facility] 12-28-2016 08:53-0400 Height 152.4 cm Rajni Toledo NP [facility] 12-28-2016 08:53-0400 Pulse (Heart Rate) 91 /min Rajni Toledo NP [facility] 12-28-2016 08:53-0400 Respiratory Rate 16 /min Rajni Toledo NP [facility] 12-28-2016 08:53-0400 Weight 78.29 kg Rajni Toledo NP [facility] Encounters Encounter Date Encounter Type Care Provider Facility Start: 03-22-2023 End: 03-22-2023 ambulatory GOGO GURROLA Facility:[facility] Start: 11-23-2022 End: 11-23-2022 ambulatory GOGO GURROLA Facility:[facility] Start: 11-23-2022 End: 11-23-2022 Subsequent hospital visit by physician Bone D[facility] Work Phone: Radiology Procedures Date Procedure Procedure Detail Performing Clinician Start: 11-23-2022 Dxa bone density study 1/> sites axial skel Gogo Gurrola MD Work Phone: Start: 07-22-2022 Lipid 1996 panel - Serum or Plasma [facility] Work Phone: Start: 07-22-2021 PFIZER-BIONTECH COVID-19 VACCINE, AGE 12+ YR (CAMACHO TOP) Gogo Gurrola MD Work Phone: Start: 05-06-2021 Mammography Alethea Harini QUIROZ Start: 05-06-2020 Mammography Gogo Gurrola MD Work Phone: Start: 09-19-2019 Colonoscopy Gogo Gurrola MD Work Phone: Start: 12-28-2016 Gynecologic examination Routine gynecological examination Rajni Toledo ADVERTISING DIRECTOR Start: 12-28-2016 Screening mammography Mammogram yearly screening Rajni Toledo ADVERTISING DIRECTOR Start: 12-28-2016 End: 12-28-2016 Documentation of current medications Rajni Toledo ADVERTISING DIRECTOR History of reduction of breast S/P bilateral breast reduction Gogo Gurrola MD Work Phone: Plan of Treatment Date Care Activity Detail Author Start: 09-18-2029 Colonoscopy COLONOSCOPY [facility] Start: 09-18-2029 COLORECTAL CANCER SCREENING COLORECTAL CANCER SCREENING [facility] Start: 02-06-2029 Urine microalbumin profile [facility] Start: 07-23-2027 Lipid 1996 panel - Serum or Plasma Lipid Screening [facility] Start: 07-23-2027 LIPID SCREEN LIPID SCREEN [facility] Start: 07-22-2026 LIPID SCREEN LIPID SCREEN [facility] Start: 07-22-2025 DIABETES SCREEN DIABETES SCREEN [facility] Start: 07-22-2025 Diabetes Screening Diabetes Screening [facility] Start: 07-01-2025 LIPID SCREEN LIPID SCREEN [facility] Start: 07-22-2024 DIABETES SCREEN DIABETES SCREEN [facility] Start: 07-02-2023 DIABETES SCREEN DIABETES SCREEN [facility] Start: 12-04-2022 Covid-19 Vaccine ( season) Covid-19 Vaccine () [facility] Start: 12-04-2022 Influenza vaccination INFLUENZA (#1) [facility] Start: 11-21-2022 End: 08-21-2023 DXA-AXIAL SKELETON DXA-AXIAL SKELETON Radiology Routine Asymptomatic postmenopausal status Expected: 11/21/2022, Expires: 08/21/2023 [facility] Work Phone: Immunizations Immunization Date Immunization Notes Care Provider Fa cili 01-13-2022 COVID-19 booster vaccine, age 12+ yr, bivalent ([email or web address]) Gogo Gurrola MD Work Phone: [facility] 01-10-2022 influenza, high dose seasonal, preservative-free Gogo Gurrola MD Work Phone: [facility] 11-21-2021 pneumococcal (PCV20) vaccine, 20 valent (PREVNAR 20) Gogo Gurrola MD Work Phone: [facility] 07-22-2021 COVID-19 vaccine, ag e 12+ yr (PFIZER-BIONTECH - CAMACHO TOP) Gogo Gurrola MD Work Phone: [facility] 01-11-2021 influenza, high-dose , quadrivalent vaccine (FLUZONE HIGH DOSE QUADRIVALENT) Gogo Gurrola MD Work Phone: [facility] 11-21-2020 pneumococcal polysaccharide vaccine, 23 valent Gogo Gurrola MD Work Phone: [facility] Work Phone: 06-11-2020 COVID-19 vaccine, ag e 12+ yr (PFIZER-BIONTECH - PURPLE TOP) Gogo Gurrola MD Work Phone: [facility] Work Phone: 12-22-2019 zoster vaccine recombinant Gogo Gurrola MD Work Phone: [facility] Work Phone: 12-18-2019 influenza, injectabl e, quadrivalent, contains preservative Gogo Gurrola MD Work Phone: [facility] Work Phone: 12-18-2019 influenza, injectabl e, quadrivalent, preservative free Gogo Gurrola MD Work Phone: [facility] Work Phone: 09-29-2019 zoster vaccine recombinant Gogo Gurrola MD Work Phone: [facility] Work Phone: 02-06-2019 tetanus toxoid, redu tesfaye diphtheria toxoid, and acellular pertussis vaccine, adsorbed Gogo Gurrola MD Work Phone: [facility] 01-21-2018 influenza, injectabl e, quadrivalent, preservative free Gogo Gurrola MD Work Phone: [facility] Work Phone: 07-17-2015 zoster vaccine, live Isaías philip Gurrola MD Work Phone: [facility] Work Phone: 02-04-2012 tetanus and diphther ia toxoids, adsorbed, preservative free, for adult use (2 Lf of tetanus toxoid and 2 Lf of diphtheria toxoid) Gogo Gurrola MD Work Phone: [facility] Work Phone: 01-19-2012 influenza virus vaccine, unspecified formulation Gogo Gurrola MD Work Phone: [facility] 02-12-2009 novel [id number], preservative-free, injectable Gogo Gurrola MD Work Phone: [facility] Work Phone: 02-06-2005 influenza virus vaccine, unspecified formulation Gogo Gurrola MD Work Phone: [facility] Work Phone: Payers Date Payer Category Payer Medicare MEDICARE MEDICAR E A AND B [id number] 2020-Present [phone] [place] [address] Medicare [id number] 2020 Medicare MEDICARE MEDICAR E A AND B [id number] 2020-Present [phone] [place] [address] Medicare [id number] 2020 Medicare [id number] 2020 Medicare [id number] 2020 Unknown MMO MMO MEDICARE SUPPLEMENT [id number] 2020-Present [phone] [address] [place] [address] Indemnity [id number] 2020 Unknown MMO MMO MEDICARE SUPPLEMENT [id number] 2020-Present [phone] [address] [place] [address] Indemnity [id number] Social History Date Type Detail Facility Start: 11-11-2021 Tobacco smoking stat us NHIS Never smoked tobacco [facility] Start: 04-16-2021 End: 07-22-2022 Alcohol intake Current drinker of alcohol (finding) [facility] Start: 08-05-2019 End: 01-20-2022 History SDOH Alcohol Frequency 2 [facility] Start: 08-05-2019 End: 01-20-2022 History SDOH Alcohol Std Drinks 1 [facility] Start: 08-05-2019 History SDOH Social Connections Phone 5 [facility] Start: 08-05-2019 History SDOH Social Connections Get Together 3 [facility] Start: 08-05-2019 History SDOH Physica l Activity MPS 4 [facility] Start: 08-05-2019 Education 16 [facility] Start: 1955 Sex Assigned At Female C [facility] Start: 07-12-2021 End: 01-21-2022 Exposure to SARS-CoV-2 (event) Not sure [facility] Start: 11-11-2021 Tobacco use and exposure Smoke less tobacco non-user [facility] Start: 05-01-2022 End: 07-22-2022 History of Social function [place] [facility] Start: 05-01-2022 End: 07-22-2022 Tobacco use panel [facility] In the past 12 month s, was there a time when you were not able to pay the mortgage or rent on time? No [facility] National Score (1-10 0), lower number is lower risk 52 [facility] Start: 04-06-2020 Gender identity Identifies as female gender (finding) [facility] Start: 04-06-2020 Sexual orientation Heterosexual (lynette colón) [facility] Do you belong to any clubs or organizations such as temple groups, unions, fraternal or athletic groups, or school groups? Yes [facility] Are you now , , , , never or living with a partner? [facility] How often to you hav e a drink containing alcohol? Monthly or less [facility] How many standard dr inks containing alcohol do you have on a typical day? 1 or 2 [facility] How often do you hav e 6 or more drinks on 1 occasion? Never [facility] Do you feel stress - tense, restless, nervous, or anxious, or unable to sleep at night because your mind is troubled all the time - these days [OSQ] Only a little [facility] (I/We) worried wheth er (my/our) food would run out before (I/we) got money to buy more. Never true [facility] Clinical Notes 07-06-2013 to 03-22-2023 Yannick Paez RT(R) - 11/23/2022 10:00 AM EDTTelephone Encounter - Gogo Gurrola MD - 11/02/2022 2:52 PM EDTTelephone Encounter - Sailaja Prince LPN - 11/02/2022 2:34 PM EDT Note Date & Type Note Facility 03-22-2023 Note HNO ID: [id number] Author: Gogo Gurrola MD Service: ? Author Type: Physician Type: Progress Notes Filed: 03/27/2023 6:20 AM Note Text: Chief Complaint Patient presents with: ER F/U: [facility] 03/08 medication discussion: Celaydee FONTANEZ Lashawn Duncan is a 67 year old female who presents here today for ER Follow Up.. Patient evaluated at [facility] ED on 03/08 for closed head injury and headache after fall from 1 step of step ladder. Struck her head against the hardwood floor without LOC. Denied nausea, vomiting, vision changes, paresthesias or other injury. Did have some mild right sided neck pain. Normal exam aside from TTP over right occipital scalp and right paraspinal muscles. 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 Diagnosed with concussion. Discharged home with recommendation to follow up with our office in 1 week. Since discharge, States that her neck pain has resolved. Headache from her fall has resolved. Denies nausea, vomiting, confusion, vision changes, difficulty with balance, numbness/tingling/weakness. Patient also notes that she developed COVID symptoms on 03/12 and most of her symptoms have resolved aside from nasal congestion and pressure. Using OTC neti pot, nasal saline rinses, mucinex and nasal steroid. Also requesting increase on her Celexa for anxiety. Symptoms worsening with more family stress. Admits to feeling anxious/nervous/on edge, racing thoughts, irritability, excessive worrying, inability to control worrying. Denies insomnia, panic symptoms, SI/HI. Not seeing counseling. Past medical history, appointments, medications, allergies reviewed. Previous Medical History PAST MEDICAL HISTORY Diagnosis Date Abnormal Papanicolaou smear of vagina and vaginal HPV 1997 Anxiety state, unspecified ASCUS of cervix with negative high risk HPV [address] Hamilton Depressive disorder, not elsewhere classified Hair loss Dr. Hansen Hyperlipidemia Meningioma (HCC) 03/08/2023 1.5 cm left parieto-occipital meningioma Obesity (BMI 30-39.9) Osteoarthritis Osteopenia Previous Surgical History PAST SURGICAL HISTORY Procedure Laterality Date BREAST REDUCTION 06/12/2019 COLONOSCOPY 2011 normal COLONOSCOPY 09/19/2019 normal, diverticulosis. f/u in 10 years. EYE SURGERY HX Bilateral 02/2015 blepharoplasty PAST SURGICAL HISTORY OF 08/07/2015 Right thumb joint replacement PAST SURGICAL HISTORY OF 06/2021 Revision of breast reduction TONSILLECTOMY PRIMARY/SECONDARY 3 yoa Family History FAMILY HISTORY Problem Relation Age of Onset Stroke Mother Cancer Mother ovarian Heart Mother SC at 69yrs other (Arthritis/DDD) Mother Degenerative Disc Disease Cancer Father lung/ brain - Heart Sister SC at 50yrs Heart Son murmur other (Tricuspid aortic valve) Son Patient Allergies ALLERGIES Allergen Reactions Diflucan [Fluconazo* Rash, Hives, Itching Hayfever [Homeopath* Current Medications Current Outpatient Medications on File Prior to Visit Medication Sig pravastatin (PRAVACHOL) 40 mg tablet Take 1 tablet by mouth once daily. citalopram (CELEXA) 20 mg tablet Take 1.5 tablets by mouth once daily. calcium carbonate/vitamin D3 (CALTRATE 600 PLUS D ORAL) Take 1 tablet by mouth once daily. niacin (NIACIN) 500 mg tablet Take 500 mg by mouth daily with breakfast. propranolol (INDERAL) 20 mg tablet Take 1 tablet by mouth once daily. Doxycycline Monohydrate 40 mg capsule Take 1 capsule by mouth once daily. (Patient taking differently: Take 50 mg by mouth once daily.) minoxidil powd 1 teaspoon PO daily albuterol HFA (VENTOLIN HFA) 90 mcg/actuation inhaler Inhale 2 Puffs as instructed every 4 hours as needed for Wheezing/Shortness of Breath. triamcinolone acetonide (NASACORT) 55 mcg nasal inhaler Use 2 Sprays in the nose once daily. (Patient taking differently: Use 2 Sprays in the nose as needed.) No current facility-administered medications on file prior to visit. Social History Social History Tobacco Use Smoking status: Never Smokeless tobacco: Never Substance Use Topics Alcohol use: Yes Comment: rarely Drug use: No Review of Symptoms REVIEW OF SYSTEMS See HPI EXAM: BP 124/82 Pulse 70 Resp 18 Wt 78 kg (172 lb) LMP 05/28/2010 SpO2 96% BMI 33.59 kg/m? General Appearance: Well appearing, alert, in no acute distress, well-hydrated, well nourished.. Skin: Skin color, texture, turgor normal, no suspicious rashes or lesions. Head: 1-2 cm hematoma on right occipital scalp without bruising or TTP healing slowly. Neck: Supple, no adenopathy; thyroid symmetric, normal size, no bruits. Lungs: Lungs clear to auscultation. No wheezing, rhonchi, rales.. Heart: RRR without murmur, gallop, or rubs. No ectopy. Health Maintenance List Mammogram Screening due on 05/06/2022 Diabetes S (more content not included)... [facility] 11-23-2022 Note HNO ID: [id number] Author: Yannick Paez RT(R) Service: ? Author Type: Technologist Type: Progress Notes Filed: 11/23/2022 10:09 AM Note Text: Radiology Service Progress Note PATIENT NAME: Lashawn Duncan DATE OF SERVICE: November 23, 2022 TIME: 10:02 AM PATIENT IDENTITY VERIFICATION COMPLETED USING TWO (2) IDENTIFIERS: Name and Date of confirmed by patient verbally. FALL SCREENING: Has the patient had 2 falls in the last year or 1 fall with injury or currently using an Ambulatory Assistive Device (Walker, Cane, Wheelchair, Crutches, etc.)? No PATIENT GENDER DATA: Female. status: : No status: NO. PATIENT RELEVANT IMPLANT DATA REVIEWED: Not Applicable RADIOLOGY DEPARTMENT: Bone Density PERIPHERAL IV DATA: Not applicable SIGNED BY: RT Luis(R) November 23, 2022 10:02 AM [facility] 11-23-2022 History of Presen t illness Narrative Radiology Service Progress Note PATIENT NAME: Lashawn Duncan DATE OF SERVICE: November 23, 2022 TIME: 10:02 AM PATIENT IDENTITY VERIFICATION COMPLETED USING TWO (2) IDENTIFIERS: Name and Date of confirmed by patient verbally. FALL SCREENING: Has the patient had 2 falls in the last year or 1 fall with injury or currently using an Ambulatory Assistive Device (Walker, Cane, Wheelchair, Crutches, etc.)? No PATIENT GENDER DATA: Female. status: : No status: NO. PATIENT RELEVANT IMPLANT DATA REVIEWED: Not Applicable RADIOLOGY DEPARTMENT: Bone Density PERIPHERAL IV DATA: Not applicable SIGNED BY: RT Luis(R) November 23, 2022 10:02 AM documented in this encounter [facility] 11-02-2022 Miscellaneous Notes Rx sent as requested. Pt states her last Rx 10/31/22 for Celexa was written for 20mg daily. Pt states she spoke to pcp about taking 30mg daily & it was ok'd. Pt states she is running out of meds early since she is taking 1.5 tabs daily. She can not fill her most recent Rx until Nov 09 but she is due for it now. Pt asking for a new Rx to be written for 30mg daily. Pt [facility] Call pt only if Rx will not be written. Sailaja Prince LPN documented in this encounter [facility] 08-06-2022 Miscellaneous Notes Spoke with pt's spouse and results below given. Gogo Gurrola MD 08/06/2022 8:40 AM EDT Repeat potassium level normal. No change to regimen. Likely high due to lab error. Aruna Willis LPN documented in this encounter [facility] 07-23-2022 Miscellaneous Notes Patient was notified and will repeat when back from trip in a week Francisca George Ma Labs look good aside from high potassium level. This is most likely a lab error, but will need to confirm this with repeat labs in the next 2-3 days. No changes to regimen. Hold any supplements containing potassium. documented in this encounter [facility] 07-22-2022 Note HNO ID: [id number] Author: Gogo Gurrola MD Service: ? Author Type: Physician Type: Progress Notes Filed: 07/22/2022 12:29 PM Note Text: Chief Complaint Patient presents with: Follow Up HPI Lashawn Duncan is a 67 year old female who presents here today for Above Complaints. Depression/anxiety symptoms well controlled on Celexa without side effect. Denies SI/HI. Patient on doxycycline and niacin through Dr. Hansen's office for her scalp. Helping with redness/irritaion of her scalp. Not helping with hair loss. Tremor improved with propranolol. Prescribed by Dr Anuja Hamilton. Due for DXA in November. Would like order today so she can schedule. Taking multivitamin which does not have enough calcium or vitamin D. Has advance directives at home. Will bring in for our records. Past medical history, appointments, medications, allergies reviewed. Previous Medical History PAST MEDICAL HISTORY Diagnosis Date Abnormal Papanicolaou smear of vagina and vaginal HPV 1997 Anxiety state, unspecified ASCUS of cervix with negative high risk HPV [address] Hamilton Depressive disorder, not elsewhere classified Hair loss Dr. Hansen Hyperlipidemia Obesity (BMI 30-39.9) Osteoarthritis Osteopenia Previous Surgical History PAST SURGICAL HISTORY Procedure Laterality Date BREAST REDUCTION 06/12/2019 COLONOSCOPY 2011 normal COLONOSCOPY 09/19/2019 normal, diverticulosis. f/u in 10 years. EYE SURGERY HX Bilateral 02/2015 blepharoplasty PAST SURGICAL HISTORY OF 08/07/2015 Right thumb joint replacement PAST SURGICAL HISTORY OF 06/2021 Revision of breast reduction TONSILLECTOMY PRIMARY/SECONDARY 3 yoa Family History FAMILY HISTORY Problem Relation Age of Onset Stroke Mother Cancer Mother ovarian Heart Mother SC at 69yrs other (Arthritis/DDD) Mother Degenerative Disc Disease Cancer Father lung/ brain - Heart Sister SC at 50yrs Heart Son murmur other (Tricuspid aortic valve) Son Patient Allergies ALLERGIES Allergen Reactions Diflucan [Fluconazo* Rash, Hives, Itching Hayfever [Homeopath* Current Medications Current Outpatient Medications on File Prior to Visit Medication Sig citalopram (CELEXA) 20 mg tablet Take 1 tablet by mouth once daily. pravastatin (PRAVACHOL) 40 mg tablet Take 1 tablet by mouth daily at bedtime. For cholesterol. calcium carbonate/vitamin D3 (CALTRATE 600 PLUS D ORAL) Take 1 tablet by mouth once daily. niacin (NIACIN) 500 mg tablet Take 500 mg by mouth daily with breakfast. (Patient not taking: No sig reported) propranolol (INDERAL) 20 mg tablet Take 1 tablet by mouth once daily. Doxycycline Monohydrate 40 mg capsule Take 1 capsule by mouth once daily. (Patient taking differently: Take 50 mg by mouth once daily.) minoxidil powd 1 teaspoon PO daily meclizine (ANTIVERT) 25 mg tab Take 1 tablet by mouth every 6 hours as needed (dizziness). albuterol HFA (VENTOLIN HFA) 90 mcg/actuation inhaler Inhale 2 Puffs as instructed every 4 hours as needed for Wheezing/Shortness of Breath. triamcinolone acetonide (NASACORT) 55 mcg nasal inhaler Use 2 Sprays in the nose once daily. (Patient taking differently: Use 2 Sprays in the nose as needed.) No current facility-administered medications on file prior to visit. Social History Social History Tobacco Use Smoking status: Never Smokeless tobacco: Never Substance Use Topics Alcohol use: Yes Comment: rarely Drug use: No Review of Symptoms REVIEW OF SYSTEMS GENERAL: No weight loss, malaise or fevers RESPIRATORY: Negative for cough, hemoptysis, wheezing, COPD, dyspnea or shortness of breath CARDIOVASCULAR: Negative for chest pain, leg swelling, hypertension, CHF or palpitations GI: No nausea, vomiting, or diarrhea SKIN: Negative for lesions, rash, and itching EXAM: BP 116/64 Pulse 77 Resp 16 Ht 152.4 cm (5') Wt 77.6 kg (171 lb) LMP 05/28/2010 BMI 33.40 kg/m? General Appearance: Well appearing, alert, in no acute distress, well-hydrated, well nourished.. Skin: Skin color, texture, turgor normal, no suspicious rashes or lesions. Lungs: Lungs clear to auscultation. No wheezing, rhonchi, rales.. Heart: RRR without murmur, gallop, or rubs. No ectopy. Abdomen: Normal abdominal exam, Abdomen soft, non-tender. Bowel sounds normal. No masses, organomegaly. Extremities: No deformities, edema, skin discoloration, clubbing or cyanosis. Good capillary refill. . Health Maintenance List ADVANCE DIRECTIVE DISCUSSION due on 04/05/2022 MAMMOGRAM due on 05/06/2022 DIABETES SCREEN due on 07/22/2024 LIPID SCREEN due on 07/22/2026 DTAP,TDAP,TD(2 - Td or Tdap) due on 02/06/2029 COLORECTAL CANCER SCREENING due on 09/18/2029 BONE DENSITY Completed INFLUENZA Completed HEPATITIS C SCREENING Completed SHINGRIX VACCINE Completed COVID-19 VACCINE Completed PNEUMOCOCCAL: 65+ Completed Data reviewed Com (more content not included)... [facility] 07-22-2022 Instructions Gogo Gurrola MD - 07/22/2022 11:31 AM EDT BONE MINERAL DENSITY PATIENT INSTRUCTIONS Bone mineral density testing measures the amount of calcium in certain parts of your bones. This information determines how strong your bones are. The test is used to detect osteoporosis, a disease in which the bone's mineral content and density are low, increasing a person's risk of fractures. The lumbar spine (lower back) and the hip are the skeletal sites usually examined. For the test, remember that: 1. You cannot take this test if you are . 2. Eat a normal diet on the day of the test. 3. Take your medications as you normally would. 4. DO NOT take calcium supplements (such as Tums) for 24 hours before the test. 5. On the day of the test, leave valuables (jewelry or credit cards) at home. 6. The test should be performed prior to oral, rectal or IV contrast studies, or at least 7 days after any of these studies. For the test, you may be asked to wear a hospital gown. You will lie on your back, on a padded table, in a comfortable position. Generally, you can resume your usual activities immediately. documented in this encounter [facility] 07-22-2022 History of Presen t illness Narrative Chief Complaint Patient presents with: Follow Up HPI Lashawn Duncan is a 67 year old female who presents here today for Above Complaints. Depression/anxiety symptoms well controlled on Celexa without side effect. Denies SI/HI. Patient on doxycycline and niacin through Dr. Hansen's office for her scalp. Helping with redness/irritaion of her scalp. Not helping with hair loss. Tremor improved with propranolol. Prescribed by Dr Anuja Hamilton. Due for DXA in November. Would like order today so she can schedule. Taking multivitamin which does not have enough calcium or vitamin D. Has advance directives at home. Will bring in for our records. Past medical history, appointments, medications, allergies reviewed. Previous Medical History PAST MEDICAL HISTORY Diagnosis Date Abnormal Papanicolaou smear of vagina and vaginal HPV 1997 Anxiety state, unspecified ASCUS of cervix with negative high risk HPV [address] Hamilton Depressive disorder, not elsewhere classified Hair loss Dr. Hansen Hyperlipidemia Obesity (BMI 30-39.9) Osteoarthritis Osteopenia Previous Surgical History PAST SURGICAL HISTORY Procedure Laterality Date BREAST REDUCTION 06/12/2019 COLONOSCOPY 2011 normal COLONOSCOPY 09/19/2019 normal, diverticulosis. f/u in 10 years. EYE SURGERY HX Bilateral 02/2015 blepharoplasty PAST SURGICAL HISTORY OF 08/07/2015 Right thumb joint replacement PAST SURGICAL HISTORY OF 06/2021 Revision of breast reduction TONSILLECTOMY PRIMARY/SECONDARY <AGE 12 3 yoa Family History FAMILY HISTORY Problem Relation Age of Onset Stroke Mother Cancer Mother ovarian Heart Mother SC at 69yrs other (Arthritis/DDD) Mother Degenerative Disc Disease Cancer Father lung/ brain - Heart Sister SC at 50yrs Heart Son murmur other (Tricuspid aortic valve) Son Patient Allergies ALLERGIES Allergen Reactions Diflucan [Fluconazo* Rash, Hives, Itching Hayfever [Homeopath* Current Medications Current Outpatient Medications on File Prior to Visit Medication Sig citalopram (CELEXA) 20 mg tablet Take 1 tablet by mouth once daily. pravastatin (PRAVACHOL) 40 mg tablet Take 1 tablet by mouth daily at bedtime. For cholesterol. calcium carbonate/vitamin D3 (CALTRATE 600 PLUS D ORAL) Take 1 tablet by mouth once daily. niacin (NIACIN) 500 mg tablet Take 500 mg by mouth daily with breakfast. (Patient not taking: No sig reported) propranolol (INDERAL) 20 mg tablet Take 1 tablet by mouth once daily. Doxycycline Monohydrate 40 mg capsule Take 1 capsule by mouth once daily. (Patient taking differently: Take 50 mg by mouth once daily.) minoxidil powd 1 teaspoon PO daily meclizine (ANTIVERT) 25 mg tab Take 1 tablet by mouth every 6 hours as needed (dizziness). albuterol HFA (VENTOLIN HFA) 90 mcg/actuation inhaler Inhale 2 Puffs as instructed every 4 hours as needed for Wheezing/Shortness of Breath. triamcinolone acetonide (NASACORT) 55 mcg nasal inhaler Use 2 Sprays in the nose once daily. (Patient taking differently: Use 2 Sprays in the nose as needed.) No current facility-administered medications on file prior to visit. Social History Social History Tobacco Use Smoking status: Never Smokeless tobacco: Never Substance Use Topics Alcohol use: Yes Comment: rarely Drug use: No Review of Symptoms REVIEW OF SYSTEMS GENERAL: No weight loss, malaise or fevers RESPIRATORY: Negative for cough, hemoptysis, wheezing, COPD, dyspnea or shortness of breath CARDIOVASCULAR: Negative for chest pain, leg swelling, hypertension, CHF or palpitations GI: No nausea, vomiting, or diarrhea SKIN: Negative for lesions, rash, and itching EXAM: BP 116/64 Pulse 77 Resp 16 Ht 152.4 cm (5') Wt 77.6 kg (171 lb) LMP 05/28/2010 BMI 33.40 kg/m General Appearance: Well appearing, alert, in no acute distress, well-hydrated, well nourished.. Skin: Skin color, texture, turgor normal, no suspicious rashes or lesions. Lungs: Lungs clear to auscultation. No wheezing, rhonchi, rales.. Heart: RRR without murmur, gallop, or rubs. No ectopy. Abdomen: Normal abdominal exam, Abdomen soft, non-tender. Bowel sounds normal. No masses, organomegaly. Extremities: No deformities, edema, skin discoloration, clubbing or cyanosis. Good capillary refill. . Health Maintenance List ADVANCE DIRECTIVE DISCUSSION due on 04/05/2022 MAMMOGRAM due on 05/06/2022 DIABETES SCREEN due on 07/22/2024 LIPID SCREEN due on 07/22/2026 DTAP,TDAP,TD(2 - Td or Tdap) due on 02/06/2029 COLORECTAL CANCER SCREENING due on 09/18/2029 BONE DENSITY Completed INFLUENZA Completed HEPATITIS C SCREENING Completed SHINGRIX VACCINE Completed COVID-19 VACCINE Completed PNEUMOCOCCAL: 65+ Completed Data reviewed Component Latest Ref Rng & Units 07/01/2020 07/22/2021 Protein, Total 6.3 - 8.0 g/dL 6.9 7.0 Albumin 3.9 - 4.9 g/dL 4.5 4.7 Calcium 8.5 - 10.2 mg/dL 9.2 10.0 Bilirubin, Total 0.2 - 1.3 mg/dL 0.5 0.3 Alkaline Phosphatase 34 - 123 U/L 49 60 AST 13 - 35 U/L 23 26 Glucose 74 - 99 mg/dL 91 90 BUN 7 - 21 mg/dL 12 21 Creatinine 0.58 - 0.96 mg/dL 0.80 0.91 Sodium 136 - 144 mmol/L 145 (H) 143 Potassium 3.7 - 5.1 mmol/L 3.8 4.9 Chloride 97 - 105 mmol/L 107 (H) 105 CO2 22 - 30 mmol/L 27 29 Anion Gap 9 - 18 mmol/L 11 9 ALT 7 - 38 U/L 18 19 eGFR- >60 eGFR-All Other Races . >60 eGFR >=60 mL/min/1.73m 70 WBC 3.70 - 11.00 k/uL 4.99 RBC 3.90 - 5.20 m/uL 4.10 Hemoglobin 11.5 - 15.5 g/dL 12.6 Hematocrit 36.0 - 46.0 % 39.2 MCV 80.0 - 100.0 fL 95.6 MCH 26.0 - 34.0 pg 30.7 MCHC 30.5 - 36.0 g/dL 32.1 RDW-CV 11.5 - 15.0 % 12.4 Platelet Count 150 - 400 k/uL 217 MPV 9.0 - 12.7 fL 10.4 Absolute nRBC <0.01 k/uL <0.01 Total Cholesterol, Nonfasting <200 mg/dL 165 196 Triglycerides, Nonfasting <150 mg/dL 76 125 HDL Cholesterol, Nonfasting >39 mg/dL 62 60 LDL Cholesterol, Nonfasting <100 mg/dL 88 111 (H) Non HDL Cholesterol, Nonfasting <130 mg/dL 103 136 (H) VLDL Cholesterol, Nonfasting <30 mg/dL 15 25 Total Chol/HDL Ratio, Nonfasting <5.10 mg/dL 2.66 3.27 LDL/HDL Ratio, Nonfasting <2.54 mg/dL 1.42 1.85 ASSESSMENT/PLAN: 1. Mild episode of recurrent major depressive disorder (HCC) - ICD9: 296.31, ICD10: F33.0 (primary diagnosis) Controlled on SSRI. 2. CARMINE (generalized anxiety disorder) - ICD9: 300.02, ICD10: F41.1 Controlled on SSRI. 3. Benign essential tremor - ICD9: 333.1, ICD10: G25.0 Improved with propranolol as prescribed by Dr. Hamilton's office. 4. Hyperlipidemia, unspecified hyperlipidemia type - ICD9: 272.4, ICD10: E78.5 - to be determined upon return of lab results - Continue current medication. - Encouraged following a low fat, low cholesterol diet. - Discussed the benefits of regular aerobic exercise and weight loss. - CBC + DIFF - COMP METABOLIC PANEL - LIPID PANEL, NONFASTING 5. BMI 33.0-33.9,adult - ICD9: V85.33, ICD10: Z68.33 Discussed healthy diet and exercise. 6. Osteopenia, unspecified location - ICD9: 733.90, ICD10: M85.80 - set up for BMD AP Spine and Hip Unilateral - Reviewed the need for Calcium and Vitamin D supplements and weight bearing exercise as tolerated 7. Asymptomatic postmenopausal status - ICD9: V49.81, ICD10: Z78.0 - DXA-AXIAL SKELETON Goog Gurrola MD documented in this encounter [facility] 06-12-2022 Miscellaneous Notes Patient phones requesting refills as follows: Requested Prescriptions Pending Prescriptions Disp Refills citalopram (CELEXA) 20 mg tablet 90 tablet 1 Sig: Take 1 tablet by mouth once daily. MAVIS 01/21/2022 NOV 07/22/2022 Please review and advise. Kathleen Haddad LPN documented in this encounter [facility] 06-10-2022 Note Patient Outreach (IN [facility]MMN) LASHAWN DUNCAN ([id number]) 1955 F Date Time Provider Department 06/10/22 GOGO GURROLA During your visit today, we recorded the following information about you: Allergies As of Date: 06/10/2022 Noted Allergy Reaction DIFLUCAN (FLUCONAZOLE) 11/02/2008 2 - Rash 4 - Hives 9 - Itching HAYFEVER (HOMEOPATHIC PRODUCTS) 07/20/2005 Date Reviewed: 01/21/2022 Reviewed by: Mya L Haumesser, MA - Fully Assessed Visit Diagnosis:Encounter for screening mammogram for breast cancer [Z12.31] Order(s):[facility] SCREENING [[id number]] Order #: [id number] FUTURE Prescriptions as of 06/15/2022 - citalopram (CELEXA) 20 mg tablet Take 1 tablet by mouth once daily. - pravastatin (PRAVACHOL) 40 mg tablet Take 1 tablet by mouth daily at bedtime. For cholesterol. - calcium carbonate/vitamin D3 (CALTRATE 600 PLUS D ORAL) Take 1 tablet by mouth once daily. - niacin (NIACIN) 500 mg tablet Take 500 mg by mouth daily with breakfast. - propranolol (INDERAL) 20 mg tablet Take 1 tablet by mouth once daily. - Doxycycline Monohydrate 40 mg capsule Take 1 capsule by mouth once daily. - minoxidil powd 1 teaspoon PO daily - meclizine (ANTIVERT) 25 mg tab Take 1 tablet by mouth every 6 hours as needed (dizziness). - albuterol HFA (VENTOLIN HFA) 90 mcg/actuation inhaler Inhale 2 Puffs as instructed every 4 hours as needed for Wheezing/Shortness of Breath. - triamcinolone acetonide (NASACORT) 55 mcg nasal inhaler Use 2 Sprays in the nose once daily. Problem List As Of Date 06/10/2022 Noted Resolved INFEC OTITIS EXTERNA NOS [H60.399] 11/24/2005 Depression [F32.A] 01/07/2011 Hyperlipidemia [E78.5] 01/07/2011 BMI 32.0-32.9,adult [Z68.32] 07/06/2013 07/04/2015 Benign essential tremor [G25.0] 09/23/2014 Allergic rhinitis [J30.9] 09/23/2014 BMI 33.0-33.9,adult [Z68.33] 07/04/2015 Osteoarthritis [M19.90] Osteopenia [M85.80] 07/22/2021 Encounter Status:Closed by KIRSTIN MONIQUE on 06/15/22 [facility] 04-02-2022 Miscellaneous Notes Last office visit: 01/21/22 F/u scheduled: 07/22/22 Gala Martel Ma documented in this encounter [facility] 01-21-2022 Instructions Gogo Gurrola MD - 01/21/2022 11:28 AM EDT 10,000 lux light/lamp for seasonal affective disorder for 30 minutes per day. documented in this encounter [facility] 01-21-2022 History of Presen t illness Narrative Chief Complaint Patient presents with: F/U 6 Month HPI Lashawn Duncan is a 66 year old female who presents here today for Above Complaints. Previous HPI: Essential tremor reportedly well controlled on propranolol. Switching from Dr. Vincent to Dr. Hamilton at [facility] on 08/21. was seeing Dr. Hamilton for Parkinsons. Needs refill on propranolol today. Anxiety and depression well controlled today on 20 mg Celexa without side effects. States that she was taking up to 30 mg Celexa over the winter because she felt blue. Denies panic attacks, SI/HI. Not seeing counseling at this time. Discussed light therapy next week. Following up with Dr. Hansen every 6 months for hair loss. Last OV was about 2 weeks ago. No changes to regimen. Given rx for doxycycline and niacin. Interim: In the last week had been taking 30 mg of her Celexa on accident. Had been well controlled on 20 mg without side effects. Will return to previous dosage. Calf strain improved with conservative therapy and did follow up with PT at [facility] for 2 weeks. Tremor still doing well on propranolol. Still on Doxycycline and niacin without much improvement in hair loss. Past medical history, appointments, medications, allergies reviewed. Previous Medical History PAST MEDICAL HISTORY Diagnosis Date Abnormal Papanicolaou smear of vagina and vaginal HPV 1997 Anxiety state, unspecified ASCUS of cervix with negative high risk HPV [address] Hamilton Depressive disorder, not elsewhere classified Hair loss Dr. Hansen Hyperlipidemia Obesity (BMI 30-39.9) Osteoarthritis Osteopenia Previous Surgical History PAST SURGICAL HISTORY Procedure Laterality Date BREAST REDUCTION 06/12/2019 COLONOSCOPY 2011 normal COLONOSCOPY 09/19/2019 normal, diverticulosis. f/u in 10 years. EYE SURGERY HX Bilateral 02/2015 blepharoplasty PAST SURGICAL HISTORY OF 08/07/2015 Right thumb joint replacement PAST SURGICAL HISTORY OF 06/2021 Revision of breast reduction TONSILLECTOMY PRIMARY/SECONDARY <AGE 12 3 yoa Family History FAMILY HISTORY Problem Relation Age of Onset Stroke Mother Cancer Mother ovarian Heart Mother SC at 69yrs other (Arthritis/DDD) Mother Degenerative Disc Disease Cancer Father lung/ brain - Heart Sister SC at 50yrs Heart Son murmur other (Tricuspid aortic valve) Son Patient Allergies ALLERGIES Allergen Reactions Diflucan [Fluconazo* Rash, Hives, Itching Hayfever [Homeopath* Current Medications Current Outpatient Medications on File Prior to Visit Medication Sig cyclobenzaprine (FLEXERIL) 10 mg tablet Take 1 tablet by mouth twice daily as needed for muscle spasm or pain. pravastatin (PRAVACHOL) 40 mg tablet Take 1 tablet by mouth daily at bedtime. For cholesterol. calcium carbonate/vitamin D3 (CALTRATE 600 PLUS D ORAL) Take 1 tablet by mouth once daily. niacin (NIACIN) 500 mg tablet Take 500 mg by mouth daily with breakfast. (Patient not taking: Reported on 11/11/2021) citalopram (CELEXA) 20 mg tablet Take 1 tablet by mouth once daily. propranolol (INDERAL) 20 mg tablet Take 1 tablet by mouth once daily. Doxycycline Monohydrate 40 mg capsule Take 1 capsule by mouth once daily. (Patient taking differently: Take 50 mg by mouth once daily.) minoxidil powd 1 teaspoon PO daily meclizine (ANTIVERT) 25 mg tab Take 1 tablet by mouth every 6 hours as needed (dizziness). COMPOUNDED PRESCRIPTION Knee High Compression stockings 20-30MM Dx: 782.3 (Patient not taking: Reported on 11/11/2021) albuterol HFA (VENTOLIN HFA) 90 mcg/actuation inhaler Inhale 2 Puffs as instructed every 4 hours as needed for Wheezing/Shortness of Breath. triamcinolone acetonide (NASACORT) 55 mcg nasal inhaler Use 2 Sprays in the nose once daily. (Patient taking differently: Use 2 Sprays in the nose as needed.) No current facility-administered medications on file prior to visit. Social History Social History Tobacco Use Smoking status: Never Smokeless tobacco: Never Substance Use Topics Alcohol use: Yes Comment: rarely Drug use: No Review of Symptoms REVIEW OF SYSTEMS GENERAL: No weight loss, malaise or fevers RESPIRATORY: Negative for cough, hemoptysis, wheezing, COPD, dyspnea or shortness of breath CARDIOVASCULAR: Negative for chest pain, leg swelling, hypertension, CHF or palpitations GI: No nausea, vomiting, or diarrhea SKIN: Negative for lesions, rash, and itching EXAM: BP 116/84 Pulse 62 Temp 36.4 C (97.6 F) (Right Tympanic) Resp 16 Wt 76.1 kg (167 lb 12.8 oz) LMP 05/28/2010 SpO2 96% BMI 32.77 kg/m General Appearance: Well appearing, alert, in no acute distress, well-hydrated, well nourished.. Skin: Skin color, texture, turgor normal, no suspicious rashes or lesions. Lungs: Lungs clear to auscultation. No wheezing, rhonchi, rales.. Heart: RRR without murmur, gallop, or rubs. No ectopy. Abdomen: Normal abdominal exam, Abdomen soft, non-tender. Bowel sounds normal. No masses, organomegaly. Extremities: No deformities, edema, skin discoloration, clubbing or cyanosis. Good capillary refill. . Health Maintenance List MAMMOGRAM due on 05/06/2022 DIABETES SCREEN due on 07/22/2024 LIPID SCREEN due on 07/22/2026 DTAP,TDAP,TD(2 - Td or Tdap) due on 02/06/2029 COLORECTAL CANCER SCREENING due on 09/18/2029 BONE DENSITY Completed INFLUENZA Completed ADVANCE DIRECTIVE DISCUSSION Completed HEPATITIS C SCREENING Completed SHINGRIX VACCINE Completed COVID-19 VACCINE Completed PNEUMOCOCCAL: 65+ Completed Data reviewed Component Latest Ref Rng & Units 07/22/2021 Protein, Total 6.3 - 8.0 g/dL 7.0 Albumin 3.9 - 4.9 g/dL 4.7 Calcium 8.5 - 10.2 mg/dL 10.0 Bilirubin, Total 0.2 - 1.3 mg/dL 0.3 Alkaline Phosphatase 34 - 123 U/L 60 AST 13 - 35 U/L 26 ALT 7 - 38 U/L 19 Glucose 74 - 99 mg/dL 90 BUN 7 - 21 mg/dL 21 Creatinine 0.58 - 0.96 mg/dL 0.91 Sodium 136 - 144 mmol/L 143 Potassium 3.7 - 5.1 mmol/L 4.9 Chloride 97 - 105 mmol/L 105 CO2 22 - 30 mmol/L 29 Anion Gap 9 - 18 mmol/L 9 eGFR >=60 mL/min/1.73m 70 WBC 3.70 - 11.00 k/uL 4.99 RBC 3.90 - 5.20 m/uL 4.10 Hemoglobin 11.5 - 15.5 g/dL 12.6 Hematocrit 36.0 - 46.0 % 39.2 MCV 80.0 - 100.0 fL 95.6 MCH 26.0 - 34.0 pg 30.7 MCHC 30.5 - 36.0 g/dL 32.1 RDW-CV 11.5 - 15.0 % 12.4 Platelet Count 150 - 400 k/uL 217 MPV 9.0 - 12.7 fL 10.4 Absolute nRBC <0.01 k/uL <0.01 Total Cholesterol, Nonfasting <200 mg/dL 196 Triglycerides, Nonfasting <150 mg/dL 125 HDL Cholesterol, Nonfasting >39 mg/dL 60 LDL Cholesterol, Nonfasting <100 mg/dL 111 (H) Non HDL Cholesterol, Nonfasting <130 mg/dL 136 (H) VLDL Cholesterol, Nonfasting <30 mg/dL 25 Total Chol/HDL Ratio, Nonfasting <5.10 mg/dL 3.27 LDL/HDL Ratio, Nonfasting <2.54 mg/dL 1.85 ASSESSMENT/PLAN: 1. Benign essential tremor - ICD9: 333.1, ICD10: G25.0 (primary diagnosis) Improved with propranolol. 2. Strain of calf muscle, left, initial encounter - ICD9: 844.8, ICD10: S86.812A Resolved. 3. Mild episode of recurrent major depressive disorder (HCC) - ICD9: 296.31, ICD10: F33.0 Stable. Discussed lamp/light for SAD symptoms this winter. Call if worsening. 4. Hyperlipidemia, unspecified hyperlipidemia type - ICD9: 272.4, ICD10: E78.5 - good control - Continue current medication. - Encouraged following a low fat, low cholesterol diet. - Discussed the benefits of regular aerobic exercise and weight loss. 5. Hair loss - ICD9: 704.00, ICD10: L65.9 Unchanged. Recommendations per dermatology. Gogo Gurrola MD documented in this encounter [facility] 11-11-2021 History of Presen t illness Narrative Chief Complaint Patient presents with: Pain: Left calf pain x 6 days. No redness or swelling. HPI Lashawn Duncan is a 66 year old female who presents here today for Above Complaints.. Patient states that she was walking in the morning about 6 days ago when she developed a severe cramp in her left calf. Lasted until she got home and sat down. Has been treating with hydration, ibuprofen and stretches at home with gradual improvement. Today, is described as discomfort, up to 09/12 today, without radiation. Exacerbating with walking and stairs. Improved with sitting and OTC analgesics. Denies swelling, erythema, bruising, weakness, chest pain, SOB. Past medical history, appointments, medications, allergies reviewed. Previous Medical History PAST MEDICAL HISTORY Diagnosis Date Abnormal Papanicolaou smear of vagina and vaginal HPV 1997 Anxiety state, unspecified ASCUS of cervix with negative high risk HPV [address] Hamilton Depressive disorder, not elsewhere classified Hair loss Dr. Hansen Hyperlipidemia Obesity (BMI 30-39.9) Osteoarthritis Osteopenia Previous Surgical History PAST SURGICAL HISTORY Procedure Laterality Date BREAST REDUCTION 06/12/2019 COLONOSCOPY 2011 normal COLONOSCOPY 09/19/2019 normal, diverticulosis. f/u in 10 years. EYE SURGERY HX Bilateral 02/2015 blepharoplasty PAST SURGICAL HISTORY OF 08/07/2015 Right thumb joint replacement PAST SURGICAL HISTORY OF 06/2021 Revision of breast reduction TONSILLECTOMY PRIMARY/SECONDARY <AGE 12 3 yoa Family History FAMILY HISTORY Problem Relation Age of Onset Stroke Mother Cancer Mother ovarian Heart Mother SC at 69yrs other (Arthritis/DDD) Mother Degenerative Disc Disease Cancer Father lung/ brain - Heart Sister SC at 50yrs Heart Son murmur other (Tricuspid aortic valve) Son Patient Allergies ALLERGIES Allergen Reactions Diflucan [Fluconazo* Rash, Hives, Itching Hayfever [Homeopath* Current Medications Current Outpatient Medications on File Prior to Visit Medication Sig pravastatin (PRAVACHOL) 40 mg tablet Take 1 tablet by mouth daily at bedtime. For cholesterol. calcium carbonate/vitamin D3 (CALTRATE 600 PLUS D ORAL) Take 1 tablet by mouth once daily. citalopram (CELEXA) 20 mg tablet Take 1 tablet by mouth once daily. Doxycycline Monohydrate 40 mg capsule Take 1 capsule by mouth once daily. (Patient taking differently: Take 50 mg by mouth once daily.) albuterol HFA (VENTOLIN HFA) 90 mcg/actuation inhaler Inhale 2 Puffs as instructed every 4 hours as needed for Wheezing/Shortness of Breath. triamcinolone acetonide (NASACORT) 55 mcg nasal inhaler Use 2 Sprays in the nose once daily. (Patient taking differently: Use 2 Sprays in the nose as needed.) niacin (NIACIN) 500 mg tablet Take 500 mg by mouth daily with breakfast. (Patient not taking: Reported on 11/11/2021) propranolol (INDERAL) 20 mg tablet Take 1 tablet by mouth once daily. minoxidil powd 1 teaspoon PO daily meclizine (ANTIVERT) 25 mg tab Take 1 tablet by mouth every 6 hours as needed (dizziness). COMPOUNDED PRESCRIPTION Knee High Compression stockings 20-30MM Dx: 782.3 (Patient not taking: Reported on 11/11/2021) No current facility-administered medications on file prior to visit. Social History Social History Tobacco Use Smoking status: Never Smokeless tobacco: Never Substance Use Topics Alcohol use: Yes Comment: rarely Drug use: No Review of Symptoms REVIEW OF SYSTEMS See HPI EXAM: BP 102/64 Pulse 80 Resp 16 Wt 74.6 kg (164 lb 6.4 oz) LMP 05/28/2010 SpO2 98% BMI 32.11 kg/m General Appearance: Well appearing, alert, in no acute distress, well-hydrated, well nourished.. Skin: Skin color, texture, turgor normal, no suspicious rashes or lesions. Lungs: Lungs clear to auscultation. No wheezing, rhonchi, rales.. Heart: RRR without murmur, gallop, or rubs. No ectopy. Extremities: No deformities, edema, skin discoloration, clubbing or cyanosis. Good capillary refill. . Musculoskeletal: TTP over left distal calf without swelling, bruising or erythema. Normal ROM of ankle/foot with 5/5 strength with dorsiflexion and plantar flexion. Negative betty's sign. Health Maintenance List PNEUMOCOCCAL: 65+(2 - PCV) due on 11/21/2021 INFLUENZA(1) due on 12/04/2021 MAMMOGRAM due on 05/06/2022 DIABETES SCREEN due on 07/22/2024 LIPID SCREEN due on 07/22/2026 DTAP,TDAP,TD(2 - Td or Tdap) due on 02/06/2029 COLORECTAL CANCER SCREENING due on 09/18/2029 BONE DENSITY Completed ADVANCE DIRECTIVE DISCUSSION Completed HEPATITIS C SCREENING Completed SHINGRIX VACCINE Completed COVID-19 VACCINE Completed ASSESSMENT/PLAN: 1. Strain of calf muscle, left, initial encounter - ICD9: 844.8, ICD10: S86.812A Will treat with ice/heat, OTC NSAIDs, flexeril, home exercises and rest. Red flags for re-assessment reviewed with patient in detail. Call if not improving in next 2-3 weeks. - CYCLOBENZAPRINE 10 MG TABLET Gogo Gurrola MD documented in this encounter [facility] 09-22-2021 Miscellaneous Notes Patient has been identified by name and date of : Yes Patient phones for refill(s): Pending Prescriptions Disp Refills PRAVASTATIN 40 MG TABLET 90 tablet 1 Sig: Take 1 tablet by mouth daily at bedtime. For cholesterol. GRAYSON: No Date of last office visit in primary care: [facility] 07/22/2021 Appointment scheduled for 01/21/2022 Last 2 Encounter Wt Readings: Date: Wt: 07/22/2021 74.8 kg (165 lb) 04/08/2021 75.3 kg (166 lb) Please advise. Thank you. JAZZ Burrell documented in this encounter [facility] 07-22-2021 Instructions Gogo Gurrola MD - 07/22/2021 3:45 PM EDT Please take 1,200 units of calcium and 2,000 units of vitamin D. documented in this encounter [facility] 07-22-2021 History of Presen t illness Narrative Chief Complaint Patient presents with: F/U 6 months: should she be concerned with 10mg increase on doxycycline HPI Lashawn Duncan is a 66 year old female who presents here today for Above Complaints. Essential tremor reportedly well controlled on propranolol. Switching from Dr. Vincent to Dr. Hamilton at [facility] on 08/21. was seeing [address]. Hamilton for Parkinsons. Needs refill on propranolol today. Anxiety and depression well controlled today on 20 mg Celexa without side effects. States that she was taking up to 30 mg Celexa over the winter because she felt blue. Denies panic attacks, SI/HI. Not seeing counseling at this time. Discussed light therapy next week. Following up with Dr. Hansen every 6 months for hair loss. Last OV was about 2 weeks ago. No changes to regimen. Given rx for doxycycline and niacin. Doing well s/p breast reduction revision last month with Dr. Huang. No complications with surgery. Healing well per patient. Deferring exam. Does not have living will or DPOA. [facility]. FULL CODE. Past medical history, appointments, medications, allergies reviewed. Previous Medical History PAST MEDICAL HISTORY Diagnosis Date Abnormal Papanicolaou smear of vagina and vaginal HPV 1997 Anxiety state, unspecified ASCUS of cervix with negative high risk HPV [address] Hamilton Depressive disorder, not elsewhere classified Hair loss Dr. Hansen Hyperlipidemia Obesity (BMI 30-39.9) Osteoarthritis Osteopenia Previous Surgical History PAST SURGICAL HISTORY Procedure Laterality Date BREAST REDUCTION 06/12/2019 COLONOSCOPY 2011 normal COLONOSCOPY 09/19/2019 normal, diverticulosis. f/u in 10 years. EYE SURGERY HX Bilateral 02/2015 blepharoplasty PAST SURGICAL HISTORY OF 08/07/15 Right thumb joint replacement TONSILLECTOMY PRIMARY/SECONDARY <AGE 12 3 yoa Family History FAMILY HISTORY Problem Relation Age of Onset Stroke Mother Cancer Mother ovarian Heart Mother SC at 69yrs other (Arthritis/DDD) Mother Degenerative Disc Disease Cancer Father lung/ brain - Heart Sister SC at 50yrs Heart Son murmur other (Tricuspid aortic valve) Son Patient Allergies ALLERGIES Allergen Reactions Diflucan [Fluconazo* Rash, Hives, Itching Hayfever [Homeopath* Current Medications Current Outpatient Medications on File Prior to Visit Medication Sig citalopram (CELEXA) 20 mg tablet Take 1.5 tablets by mouth once daily. pravastatin (PRAVACHOL) 40 mg tablet Take 1 tablet by mouth daily at bedtime. For cholesterol. Doxycycline Monohydrate 40 mg capsule Take 1 capsule by mouth once daily. propranolol (INDERAL) 20 mg tablet Take 1 tablet by mouth once daily. minoxidil powd 1 teaspoon PO daily meclizine (ANTIVERT) 25 mg tab Take 1 tablet by mouth every 6 hours as needed (dizziness). COMPOUNDED PRESCRIPTION Knee High Compression stockings 20-30MM Dx: 782.3 albuterol HFA (VENTOLIN HFA) 90 mcg/actuation inhaler Inhale 2 Puffs as instructed every 4 hours as needed for Wheezing/Shortness of Breath. triamcinolone acetonide (NASACORT) 55 mcg nasal inhaler Use 2 Sprays in the nose once daily. (Patient taking differently: Use 2 Sprays in the nose as needed.) No current facility-administered medications on file prior to visit. Social History Social History Tobacco Use Smoking status: Never Smoker Smokeless tobacco: Never Used Substance Use Topics Alcohol use: Yes Comment: rarely Drug use: No Review of Symptoms REVIEW OF SYSTEMS GENERAL: No weight loss, malaise or fevers RESPIRATORY: Negative for cough, hemoptysis, wheezing, COPD, dyspnea or shortness of breath CARDIOVASCULAR: Negative for chest pain, leg swelling, hypertension, CHF or palpitations GI: No nausea, vomiting, or diarrhea EXAM: BP 114/68 Pulse 80 Resp 16 Wt 74.8 kg (165 lb) LMP 05/28/2010 SpO2 97% BMI 32.22 kg/m General Appearance: Well appearing, alert, in no acute distress, well-hydrated, well nourished.. Skin: Skin color, texture, turgor normal, no suspicious rashes or lesions. Lungs: Lungs clear to auscultation. No wheezing, rhonchi, rales.. Heart: RRR without murmur, gallop, or rubs. No ectopy. Abdomen: Normal abdominal exam, Abdomen soft, non-tender. Bowel sounds normal. No masses, organomegaly. Extremities: No deformities, edema, skin discoloration, clubbing or cyanosis. Good capillary refill. . Neuro: mild tremor in left hand when held outstretched. No tremor on right. Health Maintenance List ADVANCE DIRECTIVE DISCUSSION Never done MAMMOGRAM due on 05/06/2022 DIABETES SCREEN due on 07/02/2023 LIPID SCREEN due on 07/01/2025 DTAP,TDAP,TD(2 - Td or Tdap) due on 02/06/2029 COLORECTAL CANCER SCREENING due on 09/18/2029 BONE DENSITY Completed INFLUENZA Completed HEPATITIS C SCREENING Completed PNEUMOVAX AGE 65 AND OVER WITH 5YR LOOKBACK Completed SHINGRIX VACCINE Completed COVID-19 VACCINE Completed MENINGOCOCCAL CONJUGATE Aged Out Data reviewed Component Latest Ref Rng & Units 04/04/2019 07/01/2020 Protein, Total 6.3 - 8.0 g/dL 6.9 Albumin 3.9 - 4.9 g/dL 4.5 Calcium 8.5 - 10.2 mg/dL 9.8 9.2 Bilirubin, Total 0.2 - 1.3 mg/dL 0.5 Alkaline Phosphatase 34 - 123 U/L 49 AST 13 - 35 U/L 23 Glucose 74 - 99 mg/dL 93 91 BUN 7 - 21 mg/dL 17 12 Creatinine 0.58 - 0.96 mg/dL 0.86 0.80 Sodium 136 - 144 mmol/L 143 145 (H) Potassium 3.7 - 5.1 mmol/L 4.8 3.8 Chloride 97 - 105 mmol/L 102 107 (H) CO2 22 - 30 mmol/L 28 27 Anion Gap 9 - 18 mmol/L 13 11 ALT 7 - 38 U/L 18 eGFR- >60 >60 eGFR-All Other Races . >60 >60 WBC 3.70 - 11.00 k/uL 4.46 RBC 3.90 - 5.20 m/uL 4.08 Hemoglobin 11.5 - 15.5 g/dL 12.9 Hematocrit 36.0 - 46.0 % 39.5 MCV 80.0 - 100.0 fL 96.8 MCH 26.0 - 34.0 pG 31.6 MCHC 30.5 - 36.0 g/dL 32.7 RDW-CV 11.5 - 15.0 % 12.3 Platelet Count 150 - 400 k/uL 209 MPV 9.0 - 12.7 fL 10.7 Absolute nRBC <0.01 k/uL <0.01 Total Cholesterol, Nonfasting <200 mg/dL 165 Triglycerides, Nonfasting <150 mg/dL 76 HDL Cholesterol, Nonfasting >39 mg/dL 62 LDL Cholesterol, Nonfasting <100 mg/dL 88 Non HDL Cholesterol, Nonfasting <130 mg/dL 103 VLDL Cholesterol, Nonfasting <30 mg/dL 15 Total Chol/HDL Ratio, Nonfasting <5.10 mg/dL 2.66 LDL/HDL Ratio, Nonfasting <2.54 mg/dL 1.42 ASSESSMENT/PLAN: 1. Benign essential tremor - ICD9: 333.1, ICD10: G25.0 (primary diagnosis) Controlled on propranolol. Will refill as requested. F/u with neurology as scheduled. 2. Hyperlipidemia, unspecified hyperlipidemia type - ICD9: 272.4, ICD10: E78.5 - to be determined upon return of lab results - Continue current medication. - Encouraged following a low fat, low cholesterol diet. - Discussed the benefits of regular aerobic exercise and weight loss. - CBC - COMP METABOLIC PANEL - LIPID PANEL, NONFASTING 3. Osteopenia, unspecified location - ICD9: 733.90, ICD10: M85.80 - Reviewed the need for Calcium and Vitamin D supplements and weight bearing exercise as tolerated 4. Mild episode of recurrent major depressive disorder (HCC) - ICD9: 296.31, ICD10: F33.0 Improved with warmer weather. Will continue current regimen and follow up in 6 months to discuss light therapy prior to winter. 5. S/P bilateral breast reduction - ICD9: V45.89, ICD10: Z98.890 Doing well per patient. F/u with surgery PRN. 6. BMI 33.0-33.9,adult - ICD9: V85.33, ICD10: Z68.33 Discussed healthy diet and exercise. Recheck in 6 months. 7. Need for COVID-19 vaccine - ICD9: V04.89, ICD10: Z23 - PFIZER-BIONTECH COVID-19 VACCINE, AGE 12+ YR (CAMACHO TOP) Gogo Gurrola MD documented in this encounter [facility] 07-08-2021 Miscellaneous Notes Patient notified. Kathleen Haddad LPN Her refill has been sent. Patient telephoned. Made aware we did receive request and that it has been forwarded to provider. Patient states she is out of medication. Please advise. Kathleen Haddad LPN Patient is calling to check on status of her citalopram. She requested it from the pharmacy a week ago and send a message through [employer] last night. Patient is out of medication. documented in this encounter [facility] 07-08-2021 Miscellaneous Notes Patient has been identified by name and date of : Yes Pending Prescriptions Disp Refills CITALOPRAM 20 MG TABLET 135 tablet 1 Sig: Take 1.5 tablets by mouth once daily. GRAYSON: No RX INSTRUCTIONS: Patient aware RX will be sent to pharmacy. No need to notify patient. Damari Arenas MA Mavis: 04/2021 Nov: 07/2021 Last refill; 10/16/2020 135 tablets 1 refill documented in this encounter [facility] 06-30-2021 History of Presen t illness Narrative POPULATION HEALTH NAVIGATION OUTREACH Action/FYI Spoke with Rachel. Scheduled AMW. Mammogram was done [facility] on 05-06-21 HM was updated. . Health Maintenance items due: ANNUAL MEDICARE WELLNESS EXAM ADVANCE DIRECTIVE DISCUSSION Never done MAMMOGRAM due on 05/06/2021 Pt identified by name and : YES, via phone Outreach Outcome/Action Spoke to patient or caregiver: Patient scheduled Reason for Outreach Care Gap or Scheduling/Wellness visits Payer: Payor: MEDICARE / Plan: MEDICARE A AND B / Product Type: Medicare / Care Gap Reviewed:: Annual Wellness visit Breast Cancer screening Reminder: Reminder note to check Health Maintenance for items below Health Maintenance items due: ADVANCE DIRECTIVE DISCUSSION Never done MAMMOGRAM due on 05/06/2021 Message Sent to Practice: No Navigation Signature: Alethea Schuler MA June 30, 2021 10:28 AM documented in this encounter [facility] documented as of this encounter (statuses as of 06/23/2021) [address]03-2014 History of Past illness Narrative* Problem Noted Date Resolved Date BMI 32.0-32.9,adult 07/06/2013 07/04/2015 documented as of this encounter (statuses as of 06/30/2021) [address]2014 History of Past illness Narrative* Problem Noted Date Resolved Date BMI 32.0-32.9,adult 07/06/2013 07/04/2015 documented as of this encounter (statuses as of 07/08/2021) [facility] History of Past illness Narrative* Problem Noted Date Resolved Date BMI 32.0-32.9,adult 07/06/2013 07/04/2015 documented as of this encounter (statuses as of 07/23/2021) [facility] History of Past illness Narrative* Problem Noted Date Resolved Date BMI 32.0-32.9,adult 07/06/2013 07/04/2015 documented as of this encounter (statuses as of 09/22/2021) [place] [address]03-2014 History of Past illness Narrative* Problem Noted Date Resolved Date BMI 32.0-32.9,adult 07/06/2013 07/04/2015 documented as of this encounter (statuses as of 11/11/2021) [facility] History of Past illness Narrative* Problem Noted Date Resolved Date BMI 32.0-32.9,adult 07/06/2013 07/04/2015 documented as of this encounter (statuses as of 01/25/2022) [place] [address]2014 History of Past illness Narrative* Problem Noted Date Resolved Date BMI 32.0-32.9,adult 07/06/2013 07/04/2015 documented as of this encounter (statuses as of 04/08/2022) [address] History of Past illness Narrative* Problem Noted Date Resolved Date BMI 32.0-32.9,adult 07/06/2013 07/04/2015 documented as of this encounter (statuses as of 06/12/2022) [place] [address]2014 History of Past illness Narrative* Problem Noted Date Resolved Date BMI 32.0-32.9,adult 07/06/2013 07/04/2015 documented as of this encounter (statuses as of 06/15/2022) [place] [address] History of Past illness Narrative* Problem Noted Date Resolved Date BMI 32.0-32.9,adult 07/06/2013 07/04/2015 documented as of this encounter (statuses as of 07/22/2022) [place] [address] History of Past illness Narrative* Problem Noted Date Resolved Date BMI 32.0-32.9,adult 07/06/2013 07/04/2015 documented as of this encounter (statuses as of 07/24/2022) [place] [address] History of Past illness Narrative* Problem Noted Date Resolved Date BMI 32.0-32.9,adult 07/06/2013 07/04/2015 documented as of this encounter (statuses as of 08/06/2022) [place] [address] History of Past illness Narrative* Problem Noted Date Diagnosed Date Resolved Date BMI 32.0-32.9,adult 07/06/2013 07/04/19 16 documented as of this encounter (statuses as of 11/03/2022) [place] [address] History of Past illness Narrative* Problem Noted Date Diagnosed Date Resolved Date BMI 32.0-32.9,adult 07/06/2013 07/04/19 16 documented as of this encounter (statuses as of 02/07/2023) [facility] Encounter for screening [facility] for breast cancer [facility] Diagnosis Benign essential tremor- Primary Essential and other specified forms of tremor Hyperlipidemia, unspecified hyperlipidemia type Osteopenia, unspecified location Mild episode of recurrent major depressive disorder (HCC) S/P bilateral breast reduction Other postprocedural status BMI 33.0-33.9,adult Body Mass Index 33.0-33.9, adult Need for COVID-19 vaccine [facility] Diagnosis Hyperlipidemia, unspecified hyperlipidemia type documented in this encounter [facility] note* Diagnosis Strain of calf muscle, left, initial encounter- Primary [facility]* Diagnosis Benign essential tremor- Primary Essential and other specified forms of tremor Strain of calf muscle, left, initial encounter Mild episode of recurrent major depressive disorder (HCC) Hyperlipidemia, unspecified hyperlipidemia type Hair loss Alopecia, unspecified documented in this encounter [facility] note* Diagnosis Hyperlipidemia, unspecified hyperlipidemia type [facility]* Diagnosis Encounter for screening mammogram for breast cancer documented in this encounter [facility] note* Diagnosis Mild episode of recurrent major depressive disorder (HCC)- Primary CARMINE (generalized anxiety disorder) Generalized anxiety disorder Benign essential tremor Essential and other specified forms of tremor Hyperlipidemia, unspecified hyperlipidemia type BMI 33.0-33.9,adult Body Mass Index 33.0-33.9, adult Osteopenia, unspecified location Asymptomatic postmenopausal status documented in this encounter [facility] note* Diagnosis Hyperkalemia- Primary Hyperpotassemia [facility]* Diagnosis Asymptomatic postmenopausal status documented in this encounter [facility] for referral (narrative)* Diagnostic Procedure Only (Routine) - Pending Review Specialty Diagnoses / Procedures Referred By Mónica orosco Referred To Contact [facility] Diagnoses Encounter for screening mammogram for breast cancer Procedures PRECIOUS SCREENING SCREENING MAMMOGRAPHY BI 2-VIEW BREAST INC Gogo Shin MD [address] [place] [address] [facility] [address] [place] [id number] Referral ID Status Reason Start Date Expiration Date Visits Requested Visits Authorized [id number] Pending Review Auto-Generat ed Referral 06/18/2021 07/18/2022 1 1 [facility] for referral (narrative)* Diagnostic Procedure Only (Routine) - Pending Review Specialty Diagnoses / Procedures Referred By Mónica orosco Referred To Contact [facility] Diagnoses Encounter for screening mammogram for breast cancer Procedures PRECIOUS SCREENING SCREENING MAMMOGRAPHY BI 2-VIEW BREAST INC Gogo Shin MD [address] [place] [address] [facility] [address] [place] [address] Referral ID Status Reason Start Date Expiration Date Visits Requested Visits Authorized [id number] Pending Review Auto-Generat ed Referral 06/10/2022 07/10/2023 1 1 [facility] Advance Directives No Advanced Directives Records FoundDocuments on File Type Date Recorded 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 Advance Directive(s) Documents on File Type Date Recorded 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 Advance Directive(s) Summary Purpose Family History No Family History Records Found Additional Source Comments Source Comments (unrecognize d section and content) In the event this informatio n is protected by the Federal Confidentiality of Alcohol and Drug Abuse Patient Records regulations: The Federal rules restrict any use of the information to criminally investigate or prosecute any alcohol or drug abuse patient.[facility] the event this information is protected by the Federal Confidentiality of Alcohol and Drug Abuse Patient Records regulations: The Federal rules restrict any use of the information to criminally investigate or prosecute any alcohol or drug abuse patient.[facility] the event this information is protected by the Federal Confidentiality of Alcohol and Drug Abuse Patient Records regulations: The Federal rules restrict any use of the information to criminally investigate or prosecute any alcohol or drug abuse patient.[facility] the event this information is protected by the Federal Confidentiality of Alcohol and Drug Abuse Patient Records regulations: The Federal rules restrict any use of the information to criminally investigate or prosecute any alcohol or drug abuse patient.[facility] the event this information is protected by the Federal Confidentiality of Alcohol and Drug Abuse Patient Records regulations: The Federal rules restrict any use of the information to criminally investigate or prosecute any alcohol or drug abuse patient.[facility] the event this information is protected by the Federal Confidentiality of Alcohol and Drug Abuse Patient Records regulations: The Federal rules restrict any use of the information to criminally investigate or prosecute any alcohol or drug abuse patient.[facility] the event this information is protected by the Federal Confidentiality of Alcohol and Drug Abuse Patient Records regulations: The Federal rules restrict any use of the information to criminally investigate or prosecute any alcohol or drug abuse patient.[facility] the event this information is protected by the Federal Confidentiality of Alcohol and Drug Abuse Patient Records regulations: The Federal rules restrict any use of the information to criminally investigate or prosecute any alcohol or drug abuse patient.[facility] the event this information is protected by the Federal Confidentiality of Alcohol and Drug Abuse Patient Records regulations: The Federal rules restrict any use of the information to criminally investigate or prosecute any alcohol or drug abuse patient.[facility] HospitalIn the event this information is protected by the Federal Confidentiality of Alcohol and Drug Abuse Patient Records regulations: The Federal rules restrict any use of the information to criminally investigate or prosecute any alcohol or drug abuse patient.[facility] HospitalIn the event this information is protected by the Federal Confidentiality of Alcohol and Drug Abuse Patient Records regulations: The Federal rules restrict any use of the information to criminally investigate or prosecute any alcohol or drug abuse patient.[facility] HospitalIn the event this information is protected by the Federal Confidentiality of Alcohol and Drug Abuse Patient Records regulations: The Federal rules restrict any use of the information to criminally investigate or prosecute any alcohol or drug abuse patient.[facility] HospitalIn the event this information is protected by the Federal Confidentiality of Alcohol and Drug Abuse Patient Records regulations: The Federal rules restrict any use of the information to criminally investigate or prosecute any alcohol or drug abuse patient.[facility] HospitalIn the event this information is protected by the Federal Confidentiality of Alcohol and Drug Abuse Patient Records regulations: The Federal rules restrict any use of the information to criminally investigate or prosecute any alcohol or drug abuse patient.[facility] HospitalIn the event this information is protected by the Federal Confidentiality of Alcohol and Drug Abuse Patient Records regulations: The Federal rules restrict any use of the information to criminally investigate or prosecute any alcohol or drug abuse patient.[facility] HospitalIn the event this information is protected by the Federal Confidentiality of Alcohol and Drug Abuse Patient Records regulations: The Federal rules restrict any use of the information to criminally investigate or prosecute any alcohol or drug abuse patient.[facility] Care Teams (unrecognized sec tion and content) Handicapped Teacher Relationship Specialty Start Date End Date Gogo Gurrola MD [address] [place] [place], [place] [address] PCP - General Family Practice 03/24/17 Handicapped Teacher Relationship Specialty Start Date End Date Gogo Gurrola MD [address] [place] [address] PCP - General Family Practice 03/24/17 Handicapped Teacher Relationship Specialty Start Date End Date Gogo Gurrola MD [address] [place] [address] PCP - General Family Practice 03/24/17 Handicapped Teacher Relationship Specialty Start Date End Date Gogo Gurrola MD [address] [place] [address] PCP - General Family Practice 03/24/17 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 Teacher Relationship Specialty Start Date End Date Gogo Gurrola MD [address] [facility] [place] [address] PCP - General Family Practice 03/24/17 Handicapped Teacher Relationship Specialty Start Date End Date Gogo Gurrola MD [address] [facility] [place] [address] PCP - General Family Medicine 03/24/17 Handicapped Teacher Relationship Specialty Start Date End Date Gogo Gurrola MD [address] [facility] [place] [address] PCP - General Family Medicine 03/24/17 Handicapped Teacher Relationship Specialty Start Date End Date Gogo Gurrola MD [address] [facility] [place] [address] PCP - General Family Medicine 03/24/17 Handicapped Teacher Relationship Specialty Start Date End Date Gogo Gurrola MD [address] [facility] [place] [address] PCP - General Family Medicine 03/24/17 Handicapped Teacher Relationship Specialty Start Date End Date Gogo Gurrola MD [address] [facility] [place] [address] PCP - General Family Medicine 03/24/17 Handicapped Teacher Relationship Specialty Start Date End Date Gogo Gurrola MD [address] [facility] [place] [address] PCP - General Family Medicine 03/24/17 Handicapped Teacher Relationship Specialty Start Date End Date Gogo Gurrola MD [address] [facility] [place] [address] PCP - General Family Medicine 03/24/17 Handicapped Teacher Relationship Specialty Start Date End Date Gogo Gurrola MD [address] [facility] [place] [address] PCP - General Family Medicine 03/24/17 Reason for Visit (unrecogniz ed section and content) Reason Onset Date Comments Refill Request 07/07/2021 Reason Comments Medication Request Reason Comments F/U 6 months should she be concer irwin with 10mg increase on doxycycline Reason Onset Date Comments Refill Request 09/21/2021 Reason Comments Pain Left calf pain x 6 d ays. No redness or swelling. Reason Comments F/U 6 Month Reason Onset Date Comments Refill Request 04/02/2022 Reason Onset Date Comments Refill Request 06/12/2022 Reason Comments Follow Up Reason Comments Results Reason Comments Prescription Problem INFORMATION SOURCE (unrecogn ized section and content) FOR RECORDS PERTAINING TO PATIENTS WHO ARE OR HAVE BEEN ENROLLED IN A CHEMICAL DEPENDENCY/SUBSTANCEABUSE PROGRAM, SOME INFORMATION MAY BE OMITTED. This clinical summary was aggregated from multiple sources. Caution should be exercised in using it in the provision of clinical care. This summary normalizes information from multiple sources, and as a consequence, information in this document may materially change the coding, format and clinical context of patient data. In addition, data may be omitted in some cases. CLINICAL DECISIONS SHOULD BE BASED ON THE PRIMARY CLINICAL RECORDS. [employer] provides no warranty or guarantee of the accuracy or completeness of information in this document.
== END | disposition home or self-care (01) ==
LOC: OPBI 10:37
PROVIDERS: PCP Family Medicine; Referring Provider Nurse Practitioner Women's Health; Visit Provider Nurse Practitioner Women's Health
DX: Z12.31 Encounter for screening mammogram for malignant neoplasm of breast (principal)
CPT/HCPCS: 77063; 77067

== ENCOUNTER 2024-01-17 11:00 | Outpatient (RCR) | payer MEDICARE, OTHER, SELFPAY ==
--- NOTE | 2023-12-09 09:02 | HP.PTEVAL ---
Patient's Visit Information Visit Information Visit Information: LASHAWN DUNCAN is a 68 year old F referred to Physical Therapy by Rony Badillo PA-C with a diagnosis of Calcific tendonitis, impingement syndrome, Primary OA. Date of Evaluation: 12/09/23 Physical Therapist: KANDIS Landa Visit Plan Frequency: 2x /Week Duration: 2 Months Plan: 2X/ week for 4-8 weeks for scapular strength, postural exercises, AAROM, AROM, RC strength with HEP HEP: supine wand flexion, scapular retraction and green mid rows Subjective Subjective: Pt has pain on the L shoulder center to posterior. It is positional. If she keeps her arm close to her body of abducting it out to the side really hurts. She can lay on that side but it aches a little. She has no N&T and she reports stiff neck. The pain does not go past her elbow. When it wants to hurt it is like a sharp stab. She has been dealing with it all summer and not incident. She had an X-ray with a calcification. She got an injection about a week ago. She thinks that it helped a little but not completely gone. 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: R 47 and L 44 UE AROM: R shoulder flex 157 and L 126 R shoulder ABD 180 and L 151 B shoulder IR T12 R shoulder ER 60 and L 29 UE MMT: R shoulder flexion 9.9 and L 4.4 R shoulder ABD 8 add L 5.1 R shoulder ER 13.3 and L 11 R shoulder IR 8.4 and L 7 + HK test for pain and impingement Balance/Special Test Scores Quick DASH Score: 38.6350 Goals Goal 1:: I HEP Goal Time Frame: 6-8 Weeks Goal 2:: Be able to raise arm overhead without pain Goal Time Frame: 6-8 Weeks Goal 3:: Increase L shoulder strength (at the time of the eval: UE MMT: R shoulder flexion 9.9 and L 4.4 R shoulder ABD 8 add L 5.1 R shoulder ER 13.3 and L 11 R shoulder IR 8.4 and L 7) Goal Time Frame: 6-8 Weeks Goal 4:: Sit with upright posture during treatment sessions Goal Time Frame: 6-8 Weeks Rehabilitation Potential Rehabilitation Potential: Good Anticipated Interventions Patient/Client Instruction: Educate patient on: Condition and Plan of Care For the Purpose of:: To decrease pain, To decrease swelling/inflammation, To increase ROM, To improve nutrient delivery to tissue, To improve muscle performance and motor function, To improve ability to perform ADL's, To increase tolerance to activity/condition/position, To improve performance and independence with ADL's, To decrease level of supervision to perform tasks, To improve ability of physical actions for home/community/work/leisure, To improve health of tissue, To decrease soft tissue restriction and To increase flexibility/ROM Therapeutic Exercise to Include: Strength training, Endurance training, Postural training, Flexibilty training, Passive ROM, Active ROM and Scapular Strength/Stabilization For the Purpose of:: To decrease pain, To increase ROM, To improve nutrient delivery to tissue, To increase oxygenation perfusion, To improve muscle performance and motor function, To improve ability to perform ADL's, To increase tolerance to activity/condition/position, To improve performance and independence with ADL's, To decrease level of supervision to perform tasks, To improve ability of physical actions for home/community/work/leisure, To improve health of tissue, To decrease soft tissue restriction and To increase flexibility/ROM Manual Therapy Techniques to Include: Passive ROM and Soft tissue mobilization For the Purpose of:: To increase ROM and To improve nutrient delivery to tissue Cryotherapy (ice pack, ice massage): Yes Thermo therapy (hot pack): Yes Ultrasound (thermal/non thermal): Yes For the Purpose of:: To decrease pain, To decrease swelling/inflammation, To increase ROM and To improve nutrient delivery to tissue Text: Thank you for the opportunity to evaluate your patient. For Medicare and Medicare HMO plans, please review the plan of care and approve it. It will need to be FAXED BACK to us at [phone] for Medicare purposes. For Medicare only, by signing this I certify the plan of care. Please let me know if there are questions or concerns regarding this plan of care. Physician Signature: Date:
--- NOTE | 2024-01-17 11:24 | HP.PTDCSUM ---
Discharge Summary D/C summary: It has been my pleasure to treat LASHAWN DUNCAN referred by Rony Badillo PA-C, with the diagnosis of L Calcific tendonitis, impingement syndrome, Primary OA for a total of 9 visit(s). Discharge Date: 01/17/24 Please see the following information for a summary of their discharge status. Subjective Subjective: Pt reports that she uses her arm and does not even think about it. Pain L shoulder pain: Pain Intensity (Out of 10): 1 Overall Improvement % Improvement: 100 Objective Objective/Function: UE MMT: R shoulder flexion 9.9 and L 8.7 R shoulder ABD 8 add L 7.5 R shoulder ER 13.3 and L 11.8 R shoulder IR 8.4 and L 12.2 Goals Goal 1:: I HEP Goal Progress: Goal Met Goal 2:: Be able to raise arm overhead without pain Goal Progress: Goal Met Goal 3:: Increase L shoulder strength (at the time of the eval: UE MMT: R shoulder flexion 9.9 and L 4.4 R shoulder ABD 8 add L 5.1 R shoulder ER 13.3 and L 11 R shoulder IR 8.4 and L 7) Goal 4:: Sit with upright posture during treatment sessions Goal Progress: Goal Met Plan Plan: DC PT to HEP D/C Information Discharge Comments: DC PT to HEP d/c sentence: If there are questions or concerns regarding this patient's physical therapy, please feel free to call me at [phone]. Thank you for the referral of this patient. Sincerely, Shanna Skaggs, MPT Balance/Gait/Functional tests Balance/Special Test Scores Quick DASH Score: 0 Improvement % Improvement: 100
== END 2024-01-17 19:00 | disposition home or self-care (01) ==
LOC: PT 11:00
PROVIDERS: PCP Family Medicine; Referring Provider Physician Assistant Surgical; Visit Provider Physician Assistant Surgical
DX: M19.012 Primary osteoarthritis, left shoulder (principal); M75.42 Impingement syndrome of left shoulder; M75.32 Calcific tendinitis of left shoulder
CPT/HCPCS: 97110; 97161; 97530

== ENCOUNTER → 2024-05-31 | Outpatient (CLI) | payer MEDICARE, OTHER, SELFPAY ==
--- NOTE | 2024-05-31 10:50 | BI_ITS ---
PROCEDURE: SCRN MAMM (CAD)W/SIERRA BILAT REASON FOR EXAM: F, Age 68 y/o, history of prior bilateral breast reduction surgery. TECHNIQUE: Bilateral screening digital breast tomosynthesis with 2D and 3D images. Computer aided detection. COMPARISON: Prior exam(s) dating back to May 29, 2023.. FINDINGS: There are scattered areas of fibroglandular density. Stable bilateral fat containing axillary lymph nodes. No suspicious masses, areas of developing architectural distortion, or suspicious calcifications. BI/SCRN MAMM (CAD)W/SIERRA BILAT IMPRESSION: BI-RADS 2: BENIGN. RECOMMEND ANNUAL MAMMOGRAPHIC SCREENING. Follow-up code: Routine Follow-up The patient will be notified of the results by letter. Reading Location: [id number]
== END | disposition home or self-care (01) ==
LOC: OPBI 10:48
PROVIDERS: PCP Family Medicine; Referring Provider Family Medicine; Visit Provider Family Medicine
DX: Z12.31 Encounter for screening mammogram for malignant neoplasm of breast (principal)
CPT/HCPCS: 77063; 77067

== ENCOUNTER 2025-01-26 19:28 | Emergency (ER) | payer MEDICARE, OTHER, SELFPAY ==
[2025-01-26 19:29] VITALS: BP 169/143; PULSE 83; RESP 18; TEMP 37; O2SAT 97; BMI 34.6
--- OUTSIDE RECORDS SUMMARY | 2025-01-26 19:48 | XMS RPT_ITS | CCD ---
Author Organization [facility] Care Team Providers Care Psychology Teacher Name Role Phone Tre THOMAS, Rajni S Unavailable Gogo Gurrola MD Primary Care Provider Gogo Gurrola MD Primary Care Provider Dr. Philip Gurrola Primary Care Provider [phone] Dr. Philip Gurrola Referring Provider Dr. Rony Hamilton Attending Provider Gogo Gurrola MD Primary Care Provider Gogo Gurrola MD Primary Care Provider Dr. Philip Gurrola Primary Care Provider Dr. Philip Gurrola Referring Provider 1([facility] )[phone] KATRIN Toledo NP Attending Provider Dr. Philip Gurrola Primary Care Provider Dr. Philip Gurrola Referring Provider Dr. Rony Hamilton Attending Provider Dr. Philip Gurrola Primary Care Provider Dr. Philip Gurrola Referring Provider KATRIN Rosado Attending Provider KATRIN Toledo NP Attending Provider 1([facility] )[phone] Gogo Gurrola MD Primary Care Provider PROVIDER, UNKNOWN Referring Unavailable PROVIDER, UNKNOWN Primary Care Unavailable PROVIDER, UNKNOWN Referring Unavailable PROVIDER, UNKNOWN Primary Care Unavailable Podlogar PAPER CUTTING MACHINE OPERATOR.MEDINA, Brooklynn Unavailable Galileo ARMSTRONG, Dr. Palacios Primary Care Provider Galileo ARMSTRONG, Dr. Palacios Referring Provider Alfonso ARMSTRONG, Dr. Uribe Attending Provider Galileo ARMSTRONG, Dr. Palacios Attending Provider [phone] Nabil PAPER CUTTING MACHINE OPERATOR.ORTHOPEDIC SURGEON, Christianne Unavailable Nabil PAPER CUTTING MACHINE OPERATOR.ORTHOPEDIC SURGEON, Christianne Unavailable Galileo ARMSTRONG, Dr. Palacios Primary Care Provider Galileo ARMSTRONG, Dr. Palacios Referring Provider Alfonso ARMSTRONG, Dr. Uribe Attending Provider PODLOGAR, BROOKLYNN Attending Unavailable CYRILLEY, GERIOPHER B Primary Care Unavailab le PODLOGARBROOKLYNN Referring Unavailable BURSLEY, CHRISTOPHER B Primary Care Unavailab le BURSLEY, CHRISTOPHER B Attending Unavailab le BURSLEY, CHRISTOPHER B Primary Care Unavailab le BURSLEY, CHRISTOPHER B Referring Unavailab le BURSLEY, CHRISTOPHER B Primary Care Unavailab le BURSLEY, CHRISTOPHER B Attending Unavailab le BURSLEY, CHRISTOPHER B Primary Care Unavailab le BURSLEY, CHRISTOPHER B Attending Unavailab le BURSLEY, CHRISTOPHER B Primary Care Unavailab le PODLOGAR, BROOKLYNN Attending Unavailable BURSLEY, CHRISTOPHER B Primary Care Unavailab le Bursley, Philip Primary Care Unavailable Tre FPGA ENGINEER, Rajni Attending Unavailable Philip Gurrola Referring Unavailable Philip Gurrola Referring Unavailable Rony Hamilton Attending Unavailable Bursley, Philip Primary Care Unavailable Bursley, Philip Referring Unavailable Bursley, Philip Primary Care Unavailable Philip Gurrola Attending Unavailable Philip Gurrola Referring Unavailable Galileo, Philip Primary Care Unavailable Rony Hamilton Attending Unavailable Galileo, Philip Referring Unavailable Bursley, Philip Primary Care Unavailable Rony Hamilton Attending Unavailable Allergies Allergy Classification Reported Allergen(s) Allergy Type Date of Onset Reaction(s) Facility Azole Antifungals (1 source) Fluconazole Drug Allergy 9 Rash, Hives, Itching [facility] Work Phone: (2 sources) fluconazole drug allergy [facility] (20 sources) Fluconazole; Translations: [FLUCONAZOLE] Drug Allergy 9 Rash, Hives, Itching [facility] Work Phone: (17 sources) Homeopathic Products Propensity to adverse reactions 6 [facility] Work Phone: (8 sources) POISON ANTONINA EXTRACT Drug Allergy 2 Itching [facility] (1 source) Fluconazole Drug Allergy 5 [facility] Repository (1 source) poison antonina extract Drug allergy (disorder) 5 [facility] Repository Medications Current Medications Medication Drug Class(es) Dates Sig (Normalized) Sig (Original) [id number] 200 actuat albuterol 0.09 mg/actuat metered dose inhaler (20 sources) beta2-Adrenergic Agonist Start: 07-19-2023 End: 03-06-2025 take 2 puff(s) by inhalation every four hours as needed for wheezing albuterol HFA (VENTOLIN HFA) 90 mcg/actuation inhaler Inhale 2 puffs as instructed every 4 hours as needed for wheezing/shortnes s of breath. 1 each 2 12/06/2024 03/06/2025 Active Start: 07-07-2016 take 2 puff(s) by in halation every four hours as needed for wheezing albuterol HFA (VENTOLIN HFA) 90 mcg/actuation inhaler Inhale 2 Puffs as instructed every 4 hours as needed for Wheezing/Shortness of Breath. 1 Inhaler 0 07/07/2016 Active Comment on above: Inhale 2 Puffs as in structed every 4 hours as needed for Wheezing/Shortness of Breath. calcium carbonate 1500 mg / cholecalciferol 800 unt chewable tablet (8 sources) Vitamin D Start: 021 take 1 tablet by mouth once daily Calcium Carbonate-Vitamin D3 (Caltrate 600 Plus D) 600 mg (1,500 mg)-800 unit tablet,chewable Active 2 {tbl} PO DAILY January 20, 2021 12:00am citalopram 20 mg oral tablet (20 sources) Serotonin Reuptake Inhibitor Start: 023 End: 024 take 1.5 tablets by mouth once daily citalopram (CELEXA) 20 mg tablet Take 1.5 tablets by mouth once daily. 135 tablet 1 11/02/2022 05/01/2023 Active Start: 07-08-2021 End: 01-04-2022 take 1.5 tablets by mouth once daily citalopram (CELEXA) 20 mg tablet Take 1.5 tablets by mouth once daily. 135 tablet 1 07/08/2021 07/22/2021 Discontinued (Adjust Sig - Block E-Cancel) Start: 10-16-2020 take 1.5 tablets by mouth once daily citalopram (CELEXA) 20 mg tablet Take 1.5 tablets by mouth once daily. 135 tablet 1 10/16/2020 Active Start: 03-11-2017 End: 08-09-2024 Citalopram (Celexa) 20 mg ta blet Discontinued 30 mg PO daily March 11, 2017 1:00am August 09, 2024 9:58am Start: 03-11-2017 End: 12-09-2022 take 1 tablet by mouth once daily citalopram (CELEXA) 20 mg tablet Take 1 tablet by mouth once daily. 90 tablet 1 10/31/2022 11/02/2022 Discontinued Start: 01-26-2010 take 1 tablet by adolfo th once daily CELEXA 20 MG TABS 1 by mouth every day CITALOPRAM HYDROBROMIDE [id number] [facility] Comment on above: Take 1.5 tablets by mouth once daily. Take 1 tablet by adolfo th once daily. doxycycline monohydrate 50 mg oral capsule (20 sources) Tetracycline-clas s Drug Start: 03-24-2024 take 1 capsule by mouth once daily doxycycline monohydrate (MONODOX) 50 mg capsule Take 1 capsule by mouth once daily. 03/24/2024 Active Start: 03-08-2023 take 1 tablet by adolfo th once daily Doxycycline Monohydrate 50 mg tablet Active 50 mg PO DAILY March 08, 2023 1:00am Start: 01-17-2020 End: 03-11-2021 take 2 tablets by mouth once daily Doxycycline Hyclate 20 mg tablet Discontinued 40 mg PO DAILY January 17, 2020 12:00am March 11, 2021 3:49pm Start: 01-17-2020 End: 03-11-2021 take 40 mg by mouth once daily Doxycycline Hyclate Dis continued 40 MG PO DAILY January 16, 2020 11:00pm March 11, 2021 2:49pm Start: 08-07-2019 End: 03-24-2024 take 1 capsule by mouth once daily Doxycycline Monohydrate 40 mg Capsule,Ir - Delay Rel,Biphase Discontinued 40 mg PO DAILY April 12, 2021 1:00am March 08, 2023 6:49pm Start: 03-07-2019 End: 03-07-2019 take 1 capsule by mouth twice daily Doxycycline Monohydrate 100 mg capsule Discontinued 100 mg PO TWICE A DAY 20 0 March 07, 2019 1:00am March 07, 2019 12:30pm Start: 01-05-2018 End: 07-14-2018 Doxycycline Monohydrate 40 m g capsule,IR - delay rel,biphase Discontinued 1 NMA PO DAILY January 05, 2018 12:00am July 14, 2018 5:09pm Start: 01-05-2018 End: 07-14-2018 take 1 capsule by mouth once daily Doxycycline Monohydrate Discontinued 1 CAP PO DAILY January 04, 2018 11:00pm July 14, 2018 4:09pm Start: 07-23-2017 End: 11-09-2017 take 1 capsule by mouth once daily Doxycycline Monohydrate 40 MG capsule,IR - delay rel,biphase Discontinued 40 mg PO DAILY July 23, 2017 12:00am November 09, 2017 1:32pm Start: 03-11-2017 End: 07-22-2017 take 1 capsule by mouth once Doxycycline Hyclate 100 m g capsule Discontinued 100 mg PO ONCE March 11, 2017 1:00am July 22, 2017 8:25am Start: 12-28-2016 DOXYCYCLINE HY CLATE 75 MG TABS DOXYCYCLINE HYCLATE [id number] Rajni Toledo FPGA ENGINEER Comment on above: Take 1 capsule by [facility] once daily. estradiol 0.1 mg/ml vaginal cream (14 sources) Estrogen Start: 01-21-2022 Estradiol 0.01 % (0.1 mg/gram) cream Active 0 VAGINAL TWICE A WEEK January 21, 2022 12:00am small amount vaginally three times a week; Start: 01-21-2022 Estradiol Acti ve 0 VAGINAL TWICE A WEEK January 20, 2022 11:00pm small amount vaginally three times a week; Start: 01-17-2020 End: 08-21-2021 Estradiol (Estrace) 0.01 % ( 0.1 mg/gram) cream Discontinued 0 VAGINAL .COMPLEX 42.5 2 January 17, 2020 12:00am August 21, 2021 9:21am pea sized amount VAGINAL every other day X 4 weeks then twice a week; Start: 01-17-2020 End: 08-21-2021 Estradiol (Estrace) 0.01 % ( 0.1 mg/gram) cream Discontinued 0 VAGINAL .COMPLEX 42.5 January 16, 2020 11:00pm August 21, 2021 8:21am pea sized amount VAGINAL every other day X 4 weeks then twice a week; FLUoxetine 20 mg oral capsule (20 sources) Serotonin Reuptake Inhibitor Start: 03-24-2024 End: 03-21-2025 take 1 capsule by mouth once daily FLUoxetine (PROZAC) 20 mg capsule Indications: CARMINE (generalized anxiety disorder) Take 1 capsule by mouth once daily. 90 capsule 1 09/22/2024 03/21/2025 Active Start: 06-21-2023 End: 03-24-2024 take 1 capsule by mouth twice daily FLUoxetine (PROZAC) 20 mg capsule Indications: CARMINE (generalized anxiety disorder) Take 1 capsule by mouth two times a day. 180 capsule 1 06/21/2023 03/24/2024 Discontinued Start: 03-22-2023 End: 06-21-2023 take 1 capsule by mouth once daily FLUoxetine (PROZAC) 20 mg capsule Indications: CARMINE (generalized anxiety disorder) Take 1 capsule by mouth once daily. 30 capsule 2 03/22/2023 06/21/2023 Discontinued Comment on above: Take 1 capsule by mo uth once daily. Take 1 capsule by mo uth two times a day. lisinopril 20 mg oral tablet (4 sources) Angiotensin Converting Enzyme Inhibitor Start: End: take 1 tablet by mouth once daily lisinopril (ZESTRIL) 20 mg tablet Take 1 tablet by mouth once daily. 90 tablet 1 12/06/2024 06/04/2025 Active Multivitamin preparation (6 sources) Start: take 1 tablet by mouth once daily Multivitamin Active 1 TABLET PO DAILY January 19, 2021 11:00pm Start: 01-20-2021 take 1 tablet by adolfo th once daily Multivitamin Active 1 TABLET PO DAILY January 20, 2021 12:00am Multivitamin tablet (2 sources) Start: 01-20-2021 Multivitamin t ablet Active 1 {tbl} PO DAILY January 20, 2021 12:00am OTC PRODUCT (20 sources) Start: 09-27-2023 OTC PRODUCT Ca lcium Mini 600 mg plus Vitamin D3 12.5 mcg - 2 capsules twice a day 09/27/2023 Active Start: 09-27-2023 OTC PRODUCT Sutton ir/Skin/Nails with Collagen and Pantogthenic Acid 10 mg - 2 gummies per day. Recommended by Dr. Tyrone Hannah. 09/27/2023 Active Start: 09-27-2023 OTC PRODUCT Ca lcium Mini 600 mg plus Vitamin D3 12.5 mcg - 2 capsules twice a day 0 09/27/2023 Active Start: 09-27-2023 OTC PRODUCT Sutton ir/Skin/Nails with Collagen and Pantogthenic Acid 10 mg - 2 gummies per day. Recommended by Dr. Tyrone Hannah. 0 09/27/2023 Active pravastatin sodium 40 mg oral tablet (20 sources) HMG-CoA Reductase Inhibitor Start: 05-29-2024 End: 06-04-2025 take 1 tablet by mouth once daily pravastatin (PRAVACHOL) 40 mg tablet Indications: Hyperlipidemia, unspecified hyperlipidemia type Take 1 tablet by mouth once daily. 90 tablet 1 12/06/2024 06/04/2025 Active Start: 09-28-2022 End: 03-22-2024 take 1 tablet by mouth once daily pravastatin (PRAVACH OL) 40 mg tablet Indications: Hyperlipidemia, unspecified hyperlipidemia type Take 1 tablet by mouth once daily. 90 tablet 1 09/24/2023 Active Start: 03-27-2021 End: 04-02-2022 take 1 tablet by mouth once daily at bedtime for hyperlipidemia pravastatin (PRAVACHOL) 40 mg tablet Indications: Hyperlipidemia, unspecified hyperlipidemia type Take 1 tablet by mouth daily at bedtime. For cholesterol. 90 tablet 1 04/02/2022 Active Start: 03-11-2017 End: 08-09-2024 Pravastatin 20 mg tablet Discontinued 30 mg PO DAILY March 11, 2017 1:00am August 09, 2024 10:00am Start: 03-11-2017 take 30 mg by mouth once daily Pravastatin Active 30 MG PO DAILY March 11, 2017 12:00am Start: 03-11-2017 take 10 mg by mouth once daily Pravastatin Active 10 MG PO DAILY March 11, 2017 1:00am Start: 12-28-2016 PRAVASTATIN SO DIUM 10 MG TABS PRAVASTATIN SODIUM [id number] Rajni Toledo NP Comment on above: Take 1 tablet by adolfo th daily at bedtime. For cholesterol. TAKE 1 TABLET BY ADOLFO TH ONCE DAILY AT BEDTIME FOR CHOLESTEROL Take 1 tablet by adolfo th once daily. propranolol hydrochloride 20 mg oral tablet (20 sources) beta-Adrenergic Zayda Start: End: take 1 tablet by mouth twice daily propranolol (INDERAL) 20 mg tablet Take 1 tablet by mouth two times a day. 180 tablet 09/22/2024 Active Start: 03-24-2024 End: 09-22-2024 take 2 tablets by mouth once daily propranolol (INDERAL) 10 mg tablet Take 2 tablets by mouth once daily. 180 tablet 03/24/2024 09/22/2024 Discontinued Start: 02-23-2024 End: 08-09-2024 take 1 tablet by mouth once daily Propranolol 20 mg tablet Discontinued 20 mg PO DAILY 90 February 23, 2024 1:00am August 09, 2024 9:57am Start: 09-24-2023 End: 03-24-2024 take 1.5 tablets by mouth once daily propranolol (INDERAL) 10 mg tablet Take 1.5 tablets by mouth once daily. 135 tablet 09/24/2023 03/24/2024 Discontinued Start: 08-17-2023 End: 02-23-2024 Propranolol 10 mg tablet Discontinued 15 mg PO DAILY 135 3 August 17, 2023 11:54am February 23, 2024 9:55am Start: 03-08-2023 End: 08-17-2023 take 2 tablets by mouth once daily Propranolol 10 mg tablet Discontinued 20 mg PO DAILY March 08, 2023 1:00am August 17, 2023 11:58am Start: 03-08-2023 take 20 mg by mouth once daily Propranolol Active 20 MG PO DAILY March 08, 2023 12:00am Start: 08-21-2021 End: 03-08-2023 Propranolol 10 mg tablet Discontinued 15 mg PO DAILY 135 3 August 24, 2022 1:33pm March 08, 2023 6:51pm Start: 08-21-2021 End: 03-08-2023 take 15 mg by mouth once daily Propranolol Discontinue d 15 MG PO DAILY 135 August 24, 2022 12:33pm March 08, 2023 5:51pm Start: 08-07-2019 End: 09-24-2023 take 1 tablet by mouth once daily propranolol (INDERAL) 20 mg tablet Take 1 tablet by mouth once daily. 90 tablet 0 07/22/2021 09/24/2023 Discontinued Start: 03-11-2017 End: 08-21-2021 take 1 tablet by mouth once daily Propranolol 10 mg tablet Discontinued 10 mg PO DAILY 135 3 August 21, 2021 11:05am August 21, 2021 11:09am Comment on above: Take 1 tablet by adolfo th once daily. Completed/Discontinued Medications Medication Drug Class(es) Dates Sig (Normalized) Sig (Original) acetaminophen 300 mg / codeine phosphate 30 mg oral tablet (4 sources) Opioid Agonist Start: 01-26-2010 End: 12-28-2016 TYLENOL WITH CODEINE #3 TABS Take 1 tablet every 4-6hrs as needed for pain. Causes drowsiness ACETAMINOPHEN-CODEI NE TABS [id number] [facility] Start: 01-26-2010 TYLENOL WITH C ODEINE #3 TABS Take 1 tablet every 4-6hrs as needed for pain. Causes drowsiness ACETAMINOPHEN-CODEINE TABS [id number] [facility] Start: 01-26-2010 End: 12-28-2016 TYLENOL WITH CODEINE #3 TABS Take 1 tablet every 4-6hrs as needed for pain. Causes drowsiness ACETAMINOPHEN-CODEINE TABS [id number] Rajni Toledo FPGA ENGINEER acetaminophen 325 mg / HYDROcodone bitartrate 5 mg oral tablet (10 sources) Opioid Agonist Start: 08-04-2017 End: 08-17-2017 Hydrocodone-Acetaminophen 1 TABLET tablet Discontinued 1 - 2 {tbl} PO EVERY 6 HOURS NEEDED as needed for Pain 56 5 0 August 04, 2017 12:00am August 17, 2017 2:18pm Knee pain Postoperative pain Pain in unspecified knee Other acute postprocedural pain Start: 08-04-2017 End: 08-17-2017 take 1 tablet by mouth every six hours as needed Hydrocodone-Acetaminophen Discontinued 1 - 2 TABLET PO EVERY 6 HOURS NEEDED 56 5 August 03, 2017 11:00pm August 17, 2017 1:18pm Start: 06-01-2011 VICODIN 5-500 MG TABS as needed HYDROCODONE-ACETAMINOPHEN [id number] Nikki Morillo Start: 06-01-2011 VICODIN 5-500 MG TABS as needed HYDROCODONE-ACETAMINOPHEN [id number] Nikki Morillo amoxicillin 875 mg / clavulanate 125 mg oral tablet (16 sources) Penicillin-class Antibacterial Start: 03-11-2021 End: 03-21-2021 Amoxicillin-Pot Clavulanate (Augmentin) 875-125 mg tablet Discontinued 1 {tbl} PO Q12H 20 10 March 11, 2021 1:00am March 20, 2021 1:00am March 21, 2021 1:02am Acute sinusitis, unspecified Start: 07-14-2018 End: 01-09-2019 Amoxicillin-Pot Clavulanate 875-125 mg tablet Discontinued 1 {tbl} PO TWICE A DAY July 14, 2018 12:00am January 09, 2019 9:32am Start: 07-14-2018 End: 01-09-2019 take 1 tablet by mouth twice daily Amoxicillin-Pot Clavulanate Discontinued 1 TABLET PO TWICE A DAY July 13, 2018 11:00pm January 09, 2019 8:32am ascorbic acid 500 mg oral capsule (8 sources) Vitamin C Start: 07-23-2017 End: 01-09-2019 take 1 capsule by mouth once daily Ascorbic Acid (Vitamin C) 500 MG capsule Discontinued 500 mg PO DAILY July 23, 2017 12:00am January 09, 2019 9:32am aspirin (2 sources) Nonsteroidal Anti-inflammatory Drug Start: 06-01-2011 ACETYL SALICYLIC ACID POWD ASPIRIN [id number] Nikki Morillo Start: 06-01-2011 ACETYL SALICYL IC ACID POWD ASPIRIN [id number] Nikki Morillo azithromycin 250 mg oral tablet (2 sources) Macrolide Antimicrobial Start: 07-12-2023 End: 08-09-2024 take 2-5 tablets by mouth once daily Azithromycin 250 mg tablet Discontinued 0 PO .COMPLEX 6 0 July 12, 2023 12:00am August 09, 2024 9:58am take 500 mg today (day 1), then 250 mg for 4 days (days 2-5) PO benzonatate 100 mg oral capsule (2 sources) Non-narcotic Antitussive Start: 07-12-2023 End: 08-09-2024 take 2 capsules by mouth three times daily as needed for cough Benzonatate 100 mg capsule Discontinued 200 mg PO THREE TIMES A DAY as needed for cough 30 0 July 12, 2023 12:00am August 09, 2024 9:58am biotin (2 sources) Start: 06-01-2011 BIOTIN CAPS BIOTIN CAPS [id number] Nikki Morillo Start: 06-01-2011 BIOTIN CAPS 20 03/06/27 BIOTIN CAPS [id number] Nikki Morillo Calcium Carbonate / vitamin D3 (20 sources) End: 08-02-2024 take 1 tablet by mouth once daily calcium carbonate/vitamin D3 (CALTRATE 600 PLUS D ORAL) Take 1 tablet by mouth once daily. 08/02/2024 Discontinued (Patient chooses alternative therapy) take 1 tablet by mouth once kate y calcium carbonate/vitamin D3 (CALTRATE 600 PLUS D ORAL) Take 1 tablet by mouth once daily. Active take 1 tablet by mouth once kate y calcium carbonate/vitamin D3 (CALTRATE 600 PLUS D ORAL) Take 1 tablet by mouth once daily. 0 Active Comment on above: Take 1 tablet by adolfo th once daily. cephalexin 250 mg oral capsule (4 sources) Cephalosporin Antibacterial Start: End: take 1 capsule by mouth every six hours Cephalexin 250 mg capsule Discontinued 250 mg PO EVERY 6 HOURS 28 0 December 07, 2022 12:00am March 08, 2023 6:49pm cholecalciferol 0.05 mg oral capsule (8 sources) Vitamin D Start: 017 End: 020 Cholecalciferol (Vitamin D3) 2,000 unit capsule Discontinued 5000 U PO DAILY March 11, 2017 1:00am January 17, 2020 11:06am Start: 03-11-2017 End: 01-17-2020 take 5000 [IU] by mouth once daily Cholecalciferol (Vitamin D3) Discontinued 5000 UNIT PO DAILY March 11, 2017 12:00am January 17, 2020 10:06am clindamycin 300 mg oral capsule (8 sources) Lincosamide Antibacterial Start: 03-07-2019 End: 01-17-2020 take 1 capsule by mouth three times daily Clindamycin Hcl 300 mg capsule Discontinued 300 mg PO THREE TIMES A DAY 30 0 March 07, 2019 1:00am January 17, 2020 11:06am COMPOUNDED PRESCRIPTION (8 sources) Start: 07-07-2016 End: 01-21-2022 COMPOUNDED PRESCRIPTION Indications: Bilateral edema of lower extremity Knee High Compression stockings 20-30MM Dx: 782.3 3 Package 1 07/07/2016 01/21/2022 Discontinued Start: 07-07-2016 COMPOUNDED PRE SCRIPTION Indications: Bilateral edema of lower extremity Knee High Compression stockings 20-30MM Dx: 782.3 3 Package 1 07/07/2016 Active Comment on above: Knee High Compressio n stockings 20-30MM Dx: 782.3 CYANOCOBALAMIN SUBL (2 sources) Start: 06-01-2011 End: 12-28-2016 B-12-SL SUBL CYANOCOBALAMIN SUBL [id number] Rajni S Tre FPGA ENGINEER Start: 06-01-2011 B-12-SL SUBL 2 CYANOCOBALAMIN SUBL [id number] Nikki Morillo CYANOCOBALAMIN SUBL (2 sources) Start: 06-01-2011 End: 12-28-2016 B-12-SL SUBL 2016 CYANOCOBALAMIN SUBL [id number] Rajni S Tre FPGA ENGINEER Start: 06-01-2011 B-12-SL SUBL 2 CYANOCOBALAMIN SUBL [id number] Nikki Morillo cyclobenzaprine hydrochloride 10 mg oral tablet (2 sources) Muscle Relaxant Start: 11-11-2021 End: 01-21-2022 take 1 tablet by mouth twice daily as needed for pain cyclobenzaprine (FLEXERIL) 10 mg tablet Indications: Strain of calf muscle, left, initial encounter Take 1 tablet by mouth twice daily as needed for muscle spasm or pain. 30 tablet 0 11/11/2021 01/21/2022 Discontinued Comment on above: Take 1 tablet by adolfo twice daily as needed for muscle spasm or pain. Daily Defense (8 sources) Start: 07-23-2017 End: 01-20-2021 take 240 mg by mouth once daily Daily Defense Discontinued 240 mg PO DAILY July 23, 2017 12:00am January 20, 2021 8:57am Start: 07-23-2017 End: 01-20-2021 take 240 mg by mouth once daily Daily Defense Discontinued 240 MG PO DAILY July 22, 2017 11:00pm January 20, 2021 7:57am Start: 07-23-2017 End: 01-20-2021 take 240 mg by mouth once daily Daily Defense Discontinued 240 MG PO DAILY July 23, 2017 12:00am January 20, 2021 8:57am folic acid 1 mg oral tablet (8 sources) Start: 03-11-2017 End: 01-17-2020 take 1 tablet by mouth once daily Folic Acid 1 mg tablet Discontinued 1 mg PO daily March 11, 2017 1:00am January 17, 2020 11:07am hydrocortisone 10 mg/ml / neomycin 3.5 mg/ml / polymyxin b 76555 unt/ml otic suspension (8 sources) Aminoglycoside Antibacterial, Polymyxin-class Antibacterial, Corticosteroid Start: 11-09-2017 End: 11-19-2017 Neomycin-Polymyxi n-Hc 3.5-10,000-1 mg/mL-unit/mL-% drops,suspension Discontinued 3 NMA OTIC Q4H 10 10 0 November 09, 2017 12:00am November 18, 2017 12:00am November 19, 2017 12:08am apply to (cotton) wick; replace wick every 24 hours Start: 11-09-2017 End: 11-19-2017 Yjzrtapd-Osyyovlec-Le Discon tinued 3 DRP OTIC Q4H 10 10 November 08, 2017 11:00pm November 18, 2017 11:08pm apply to (cotton) wick; replace wick every 24 hours lidocaine 0.05 mg/mg medicated patch (4 sources) Antiarrhythmic, Amide Local Anesthetic Start: 06-01-2011 End: 12-28-2016 LIDODERM 5 % PTCH as needed LIDOCAINE [id number] Rajni Toledo FPGA ENGINEER Start: 06-01-2011 End: 12-28-2016 LIDODERM 5 % PTCH as needed LIDOCAINE [id number] Rajni Jacobs Clayton FPGA ENGINEER Start: 06-01-2011 LIDODERM 5 % P TCH as needed LIDOCAINE [id number] Nikki Morillo meclizine hydrochloride 25 mg oral tablet (12 sources) Antiemetic Start: 04-04-2019 End: 07-22-2022 take 1 tablet by mouth every six hours as needed for dizziness and dizziness meclizine (ANTIVERT) 25 mg tab Indications: Dizziness Take 1 tablet by mouth every 6 hours as needed (dizziness). 30 tablet 3 04/04/2019 07/22/2022 Discontinued (Other) Comment on above: Take 1 tablet by adolfo th every 6 hours as needed (dizziness). metaxalone 800 mg oral tablet (4 sources) Muscle Relaxant Start: 06-01-2011 End: 12-28-2016 SKELAXIN 800 MG TABS as needed METAXALONE [id number] Nikki Morillo minoxidil powd (20 sources) Start: 08-07-2019 End: 09-24-2023 take 1 [tsp_us] by mouth once daily minoxidil powd 1 teaspoon PO daily 0 08/07/2019 09/24/2023 Discontinued (Course of therapy completed) Start: 08-07-2019 take 1 [tsp_us] by m outh once daily minoxidil powd 1 teaspoon PO daily 0 08/07/2019 Active Comment on above: 1 teaspoon PO daily multivitamin tablet (2 sources) Start: 09-24-2023 End: 09-27-2023 take 1 tablet by mouth once daily multivitamin tablet Take 1 tablet by mouth once daily. 0 09/24/2023 09/27/2023 Discontinued (Discontinued by Patient) Start: 09-24-2023 take 1 tablet by adolfo th once daily multivitamin tablet Take 1 tablet by mouth once daily. 0 09/24/2023 Active niacin 500 mg oral tablet (14 sources) Nicotinic Acid End: 06-21-2023 take 1 tablet by mouth once daily at breakfast niacin (NIACIN) 500 mg tablet Take 500 mg by mouth daily with breakfast. 0 06/21/2023 Discontinued Comment on above: Take 500 mg by mouth daily with breakfas t. nystatin [id number] unt/ml topical cream (8 sources) Polyene Antifungal Start: 01-09-2019 End: 01-17-2020 Nystatin 100,000 unit/gram cream Discontinued 1 NMA TOPICAL TWICE A DAY 15 7 January 09, 2019 12:00am January 17, 2020 11:07am apply peasized amount as instructed Start: 01-09-2019 End: 01-17-2020 Nystatin Discontinued 1 APPL IC TOPICAL TWICE A DAY 15 January 08, 2019 11:00pm January 17, 2020 10:07am apply peasized amount as instructed predniSONE 20 mg oral tablet (4 sources) Start: 12-07-2022 End: 03-08-2023 take 3 tablets by mouth once daily Prednisone 20 mg tablet Discontinued 60 mg PO DAILY 15 December 07, 2022 12:00am March 08, 2023 6:51pm Start: 12-07-2022 End: 03-08-2023 take 60 mg by mouth once daily Prednisone Discontinued 60 MG PO DAILY December 06, 2022 11:00pm March 08, 2023 5:51pm RED YEAST RICE EXTRACT TABS (4 sources) Start: 06-01-2011 End: 12-28-2016 RED YEAST RICE TABS RED YEAST RICE EXTRACT TABS [id number] Rajni Toledo NP Start: 06-01-2011 RED YEAST RICE TABS RED YEAST RICE EXTRACT TABS [id number] Nikki Morillo Start: 06-01-2011 End: 12-28-2016 RED YEAST RICE TABS RED YEAST RICE EXTRACT TABS [id number] Rajni Toledo FPGA ENGINEER Start: 06-01-2011 RED YEAST RICE TABS RED YEAST RICE EXTRACT TABS [id number] Nikki Sweet Yisel regadenoson 0.4 mg injection (LEXISCAN) (2 sources) Start: 09-28-2023 End: 09-28-2023 regadenoson 0.4 mg injection (LEXISCAN) triamcinolone acetonide 5 mg/ml topical cream (20 sources) Corticosteroid Start: 01-09-2019 End: 01-17-2020 Triamcinolone Acetonide 0.5 % cream Discontinued 1 NMA TOPICAL TWICE A DAY 15 7 2 January 09, 2019 12:00am January 17, 2020 11:07am peasized amount as instructed Start: 06-19-2014 take 2 spray(s) by i nhalation once daily triamcinolone acetonide (NASACORT) 55 mcg nasal inhaler Use 2 Sprays in the nose once daily. 0 06/19/2014 Active Comment on above: Use 2 Sprays in the nose once daily. Problems Active Problems Problem Classification Problem Date Documented Date Episodic/Chronic Acute bronchitis (2 sources) Acute bronchitis; Translations: [Acute bronchitis, unspecified] 07-12-2023 Episodic Allergic reactions (8 sources) Irritant contact dermatitis due to plant; Translations: [Irritant contact dermatitis due to plants, except food] 11-14-2019 Episodic Anxiety disorders (6 sources) Generalized anxiety disorder; Translations: [Generalized anxiety disorder] Onset: 09-22-2024 Chronic Cancer of cervix (8 sources) Atypical squamous cells of undetermined significance on cervical Papanicolaou smear; Translations: [Atypical squamous cells of undetermined significance on cytologic smear of cervix (ASC-US)] 01-22-2020 Episodic Comment on above: 2017 and 2018 r/t at [id number]:neg pap and HPV Disorders of lipid metabolism (20 sources) Hyperlipidemia; Translations: [Hyperlipidemia, unspecified] Onset: 01-07-2011 03-31-2021 Chronic E Codes: Fall (4 sources) Fall; Translations: [Unspecified fall, initial encounter] 03-08-2023 Episodic Essential hypertension (3 sources) Essential hypertension; Translations: [Essential (primary) hypertension] Onset: 11-15-2024 11-15-2024 Chronic Fluid and electrolyte disorders (2 sources) Hyperkalemia; Translations: [Hyperkalemia] Episodic Immunizations and screening for infectious disease (1 source) Vaccination needed; Translations: [Encounter for immunization] Episodic Intracranial injury (4 sources) Concussion injury of body structure; Translations: [Concussion] 03-08-2023 Episodic Joint disorders and dislocations; trauma-related (8 sources) Derangement of medial meniscus; Translations: [Other meniscus derangements, unspecified medial meniscus, unspecified knee] 08-04-2017 Chronic Menopausal disorders (11 sources) Atrophic vaginitis; Translations: [Postmenopausal atrophic vaginitis] 01-20-2021 Chronic Mood disorders (20 sources) Depressive disorder; Translations: [Depression] Onset: 01-07-2011 01-07-2011 Chronic Osteoarthritis (20 sources) Osteoarthritis; Translations: [Unspecified osteoarthritis, unspecified site] 06-21-2017 Chronic Other and unspecified benign neoplasm (20 sources) Neoplasm of meninges; Translations: [Benign neoplasm of meninges, unspecified] Onset: 03-22-2023 03-08-2023 Chronic Other and unspecified benign neoplasm (1 source) Benign neoplasm of meninges, unspecified; Translations: [Meningioma (HCC)] Onset: 03-22-2023 Chronic Other and unspecified benign neoplasm (8 sources) Lipoma (clinical); Translations: [Benign lipomatous neoplasm, unspecified] 04-28-2018 Episodic Other circulatory disease (2 sources) Wheeze - rhonchi; Translations: [Other specified symptoms and signs involving the circulatory and respiratory systems] 07-20-2023 Episodic Other connective tissue disease (8 sources) Trochanteric bursitis; Translations: [Trochanteric bursitis, right hip] 08-04-2017 Episodic Other connective tissue disease (8 sources) Iliotibial band friction syndrome; Translations: [Iliotibial band syndrome, right leg] 08-04-2017 Episodic Other connective tissue disease (4 sources) Spasm of cervical paraspinous muscle; Translations: [Other muscle spasm] 03-08-2023 Episodic Other connective tissue disease (1 source) Swelling of lower limb; Translations: [Other specified soft tissue disorders] 08-02-2024 Episodic Other ear and sense organ disorders (20 sources) Infective otitis externa; Translations: [Other infective otitis externa, unspecified ear] Onset: 11-24-2005 11-24-2005 Chronic Other hereditary and degenerative nervous system conditions (20 sources) Essential tremor; Translations: [Essential tremor] Onset: 09-23-2014 09-23-2014 Chronic Other hereditary and degenerative nervous system conditions (5 sources) Essential tremor; Translations: [Essential and other specified forms of tremor] Onset: 09-23-2014 Chronic Other inflammatory condition of skin (1 source) Erythema; Translations: [Erythematous condition, unspecified] 08-02-2024 Episodic Other lower respiratory disease (2 sources) Productive cough ; Translations: [Productive cough] 07-20-2023 Episodic Other nutritional; endocrine; and metabolic disorders (20 sources) Body mass index 30+ - obesity; Translations: [Body mass index (BMI) 33.0-33.9, adult] Onset: 07-06-2013 Resolved: 07-04-2015 07-04-2015 Chronic Other nutritional; endocrine; and metabolic disorders (1 source) Obesity; Translations: [Obesity, unspecified] 09-24-2023 Chronic Other skin disorders (2 sources) Loss of hair; Translations: [Nonscarring hair loss, unspecified] Episodic Other upper respiratory disease (20 sources) Allergic rhinitis; Translations: [Allergic rhinitis, unspecified] Onset: 09-23-2014 03-31-2021 Chronic Other upper respiratory infections (8 sources) Acute sinusitis; Translations: [Acute sinusitis, unspecified] 03-11-2021 Episodic Poisoning by nonmedicinal substances (6 sources) Bee sting; Translations: [Toxic effect of venom of bees, accidental (unintentional), initial encounter] 12-07-2022 Episodic Residual codes; unclassified (2 sources) Postmenopausal state; Translations: [Asymptomatic menopausal state] Episodic Skin and subcutaneous tissue infections (6 sources) Cellulitis; Translations: [Cellulitis, unspecified] 12-07-2022 Episodic Spondylosis; intervertebral disc disorders; other back problems (18 sources) Sacroiliac disorder; Translations: [Backache] 06-01-2011 Episodic Sprains and strains (2 sources) Strain [...] (routine) without abnormal findings] Onset: 12-28-2016 12-28-2016 Viral infection (8 sources) Disease caused by 2019-nCoV; Translations: [COVID-19] 04-11-2021 Episodic Past or Other Problems Problem Classification Problem Date Documented Da te Episodic/Chronic Other bone disease and musculoskeletal deformities (20 sources) Osteopenia; Translations: [Other specified disorders of bone density and structure, unspecified site] Onset: 07-22-2021 Episodic Other connective tissue disease (1 source) Other specified soft tissue disorders; Translations: [Leg swelling] Onset: 08-02-2024 Episodic Other inflammatory condition of skin (1 source) Erythematous condition, unspecified; Translations: [Redness of skin] Onset: 08-02-2024 Episodic Other non-traumatic joint disorders (2 sources) Ankle pain; Translations: [Pain in unspecified ankle and joints of unspecified foot] Onset: 01-26-2010 01-26-2010 Episodic Other screening for suspected conditions (not mental disorders or infectious disease) (10 sources) Patient encounter status; Translations: [Encounter for screening mammogram for malignant neoplasm of breast] Onset: 09-28-2023 Episodic Other skin disorders (1 source) Nonscarring hair loss, unspecified; Translations: [Hair loss] Onset: 03-24-2024 Episodic Unclassified (8 sources) joint replacement of right thumb Onset: 08-04-2015 10-23-2021 Unclassified (8 sources) s/p right knee scope Onset: 08-03-2017 10-23-2021 Unclassified (1 source) Patient encounter status 05-24-2024 Results Test Name Value Interpretation Reference Range Facility Veterinary Science Teacher Office Visit Reporton 01-17-2025 Veterinary Science Teacher Office Visit Report [facility] [address], [address] [place] [address] OFFICE VISIT Date of Service: 01/17/25 MR#: [id number] Acct: [id number] Name: SOFI DUNCAN Rep #: [id number] : 1955 Provider: KATRIN orozco Age/Sex: 69/F Location: [facility] Status: Signed Intake Vital Signs 10/11/24 09:25 01/17/25 11:17 01/17/25 11:23 Height 5 ft 5 ft 5 ft Weight: 169 lb 171 lb 6 oz BMI 33.0 33.5 BP 109/75 136/79 H Blood Pressure Location Lt brachial Position Sitting Respiration 16 Pulse 77 Pulse Source Monitor Temp 98.2 F Pulse Oximetry (%) 97 Oxygen Delivery Method room air Intake Visit 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: 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) Lead 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 Required: No Is patient in pain?: No Allergies poison antonina extract Allergy (Mild, Verified 01/17/25 11:29) Itching fluconazole (From Diflucan) Allergy (Verified 01/17/25 11:29) Unknown Medications ???Medication ???Instructions ???Recorded ???Confirmed ???Type calcium 600 mg (as carbonate)-vit 2 tab PO DAILY 01/20/21 01/17/25 History D3 20 mcg (800 unit) chewable tablet (Caltrate plus D) multivitamin 1 tab PO DAILY 01/20/21 01/17/25 H istory doxycycline monohydrate 50 mg 50 mg PO DAILY 03/08/23 01/17/25 H istory tablet fluoxetine 20 mg capsule 20 mg PO QDAY 08/09/24 01/17/25 Hi story pravastatin 40 mg tablet 40 mg PO QDAY 08/09/24 01/17/25 Hi story propranolol 20 mg tablet 20 mg PO BID #180 tabs 10/11/24 Rx estradiol 0.01% (0.1 mg/gram) See Rx Instructions vaginal 2XW 01/17/25 History vaginal cream lisinopril 20 mg tablet 20 mg PO QDAY 01/17/25 01/17/25 Hi story Is last menstrual period known: No Post menopausal: Yes Patient : No : No PFSH Medical History Osteopenia High cholesterol Chronic bronchitis Arthritis Seasonal allergies Lipoma Knee pain Hay fever Depression Hyperlipidemia Surgical History Status post scar revision ( 06/16/21) History of arthroplasty of right knee ( 08/04/17) History of tonsillectomy and adenoidectomy ( 1960) History of bilateral breast reduction surgery ( 06/12/19) s/p right knee scope ( 08/04/17) joint replacement of right thumb ( 08/07/15) Family History Mother Hypertension Heart disease, Onset Age: 69 Angina pectoris Anxiety Arthritis Cervical cancer Depression Diabetes, Onset Age: 69 Myocardial infarction, Onset Age: 69 High cholesterol Melanoma Ovarian cancer COPD (chronic obstructive pulmonary disease) Uterine cancer Father Lung cancer, Onset Age: 53 Brain cancer, Onset Age: 53 Son Heart murmur Grandfather Alcoholic Grandfather Colon cancer Sister Mental disorder Myocardial infarction, Onset Age: 50 Brother Drowning Social History Smoking Status: Never smoker alcohol intake: current details: socially substance use type: does not use caffeine: Yes what type of physical activity do you participate in: none seatbelt use: always do you feel safe at home: Yes 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 Date Name GA/Weeks Outcome Route Bth Weight Infant Gen Labor Lgth Anesthesia Del Locatn Provider FOB Unknown 1979 Kam[place] Unknown 1983 Jairon [facility] Encounter for routine gynecological examination Details: SOFI DUNCAN is a 69 year old who presents for annual exam. Denies concerns. Using compounded estradiol twice a week Last PAP: NA History of abnormal PAP: no Last mammogram: 05/2024 History of abnormal mammogram: no Colon cancer screenin Other preventative health care screenings: [facility] Female Reproductive History Questions: metrorrhagia: No and sexually active: No Menopausal Treatment: Yes Vaginal Estrogen ROS Const Constitutional: Denies fatigue, weight gain or weight loss Cardio Card: Denies chest pain Resp Resp: Denies cough or dyspnea on exertion GI GI: Denies abdominal pain, bloating, change in stool character, constipation or vomiting : Reports as per HPI; Denies difficulty voiding, pelvic pain, urinary frequency, urinary incontinence, urinary urgency, vaginal discharge or vaginal pruritus Exam Const General: cooperative, healthy appearing, no acute distress and well developed Orientation: alert, oriented to person and oriented to place [facility] Head: primo (more content not included)... Normal [facility] CNOVon 12-06-2024 [facility] Office Visit (FAMPWS) SOFI DUNCAN ([id number]) 1955 F Date Time Provider Department 12/06/24 7:20 AM [facility] During your visit today, we recorded the following information about you: Pulse Blood pressure Weight Height 88/minute 132/76 77.5 kg 1.537 m Gogo Gurrola MD 12/06/2024 7:43 AM Signed Chief Complaint Patient presents with: Blood Pressure Check: 2 week follow up Recording using [email or web address] software for draft documentation of the visit was discussed with the patient/authorized it sales representative; all questions welcomed and answered. Patient/authorized it sales representative agreed to proceed HPI Sofi Duncan is a 69 year old female who presents here today for Above Complaints.. Hypertension: - Sofi Duncan started on Lisinopril 20 mg at last visit on 11/15. - Sofi denies side effects, including persistent cough, lightheadedness, or dizziness. - Home BP readings since last visit: 110s-120s/70s, with occasional diastolic readings in the 60s. - Sofi denies recent high BP readings or symptoms such as headaches, vision changes, chest pain, or dyspnea. - Monitoring salt intake; minimal caffeine consumption. - Sofi has an upcoming appointment with Brooklynn on March 26. Hyperlipidemia: - Sofi is taking Pravastatin. Past medical history, appointments, medications, allergies reviewed. Previous Medical History PAST MEDICAL HISTORY Diagnosis Date Abnormal Papanicolaou smear of vagina and vaginal HPV 1997 Anxiety state, unspecified ASCUS of cervix with negative high risk HPV [address] Hamilton Depressive disorder, not elsewhere classified Essential hypertension Hair loss Dr. Hansen Hyperlipidemia Meningioma (HCC) 03/08/2023 1.5 cm left parieto-occipital meningioma Obesity (BMI 30-39.9) Osteoarthritis Osteopenia Spider veins of both lower extremities Previous Surgical History PAST SURGICAL HISTORY Procedure [...] Stroke Mother Cancer Mother ovarian Heart Mother [place] at 69yrs other (Arthritis/DDD) Mother Degenerative Disc Disease Cancer Father lung/ brain - Heart Sister [place] at 50yrs Heart Son murmur other (Tricuspid aortic valve) Son Patient Allergies ALLERGIES Allergen Reactions Diflucan [Fluconazo* Rash, Hives, Itching Current Medications Current Outpatient Medications on File Prior to Visit Medication Sig lisinopril (ZESTRIL) 20 mg tablet Take 1 tablet by mouth once daily. FLUoxetine (PROZAC) 20 mg capsule Take 1 capsule by mouth once daily. propranolol (INDERAL) 20 mg tablet Take 1 tablet by mouth two times a day. pravastatin (PRAVACHOL) 40 mg tablet Take 1 tablet by mouth once daily. doxycycline monohydrate (MONODOX) 50 mg capsule Take 1 capsule by mouth once daily. OTC PRODUCT Calcium Mini 600 mg plus Vitamin D3 12.5 mcg - 2 capsules twice a day OTC PRODUCT Hair/Skin/Nails with Collagen and Pantogthenic Acid 10 mg - 2 gummies per day. Recommended by Dr. Tyrone Hannah. albuterol HFA (VENTOLIN HFA) 90 mcg/actuation inhaler Inhale 2 Puffs as instructed every 4 hours as needed for wheezing/shortness of breath. triamcinolone acetonide (NASACORT) 55 mcg nasal inhaler Use 2 Sprays in the nose once daily. No current facility-administere d medications on file prior to visit. Social History SOCIAL HISTORY[1] Review of Symptoms REVIEW OF SYSTEMS GENERAL: No weight loss, malaise or fevers RESPIRATORY: Negative for cough, hemoptysis, wheezing, COPD, dyspnea or shortness of breath CARDIOVASCULAR: Negative for chest pain, leg swelling, hypertension, CHF or palpitations EXAM: BP 132/76 Pulse 88 Ht 153.7 cm (5' 0.51) Wt 77.5 kg (170 lb 12.8 oz) LMP 05/28/2010 SpO2 96% BMI 32.80 kg/m? General Appearance: Well appearing, alert, in no acute distress, well-hydrated, well nourished.. Skin: Skin color, texture, turgor normal, no suspicious rashes or lesions. Lungs: Lungs clear to auscultation. No wheezing, rhonchi, rales.. Heart: RRR without murmur, gallop, or rubs. No ectopy. Health Maintenance List Anxiety Screening Never done Advance Directive Discussion due on 04/05/2024 Influenza Vaccine(1) due on 12/04/2024 Mammogram Screening due on 05/31/2025 Medicare Annual Wellness Visit due on 09/24/2025 Diabetes Screening due on 09/23/2027 DTaP,Tdap,Td Vaccine(2 - Td or Tdap) due on 02/06/2029 Colorectal Cancer Screening due on 09/18/2029 L (more content not included)... Normal [facility] CNOVon 11-15-2024 [facility] Office Visit (FAMPWS) SOFI DUNCAN ([id number]) 1955 F Date Time Provider Department 11/15/24 10:20 [facility] During your visit today, we recorded the following information about you: Pulse Blood pressure Weight Height 79/minute 132/68 77.2 kg 1.537 m Gogo Gurrola MD 11/15/2024 10:45 AM Signed Chief Complaint Patient presents with: Blood Pressure Check Recording using [email or web address] software for draft documentation of the visit was discussed with the patient/authorized it sales representative; all questions welcomed and answered. Patient/authorized it sales representative agreed to proceed HPI Sofi Duncan is a 69 year old female who presents here today for Above Complaints. Elevated Blood Pressure Readings: - Noted elevated blood pressure readings since September. - Home readings vary, with some normal (114/127/123 mmHg) and others elevated (140s-160s mmHg). - Reports daily episodes of head pressure associated with higher readings; resolves spontaneously. - Denies chest pain, dyspnea, or leg edema. - Recent increase in propranolol dosage by Dr. Hamilton, taken BID for benign tremor. - Recent stress due to son's open heart surgery; son has since returned to work. - Decreased physical activity over the summer. - Denies excessive sodium or caffeine intake. Past medical history, appointments, medications, allergies reviewed. Previous Medical History PAST MEDICAL HISTORY Diagnosis Date Abnormal Papanicolaou smear of vagina and vaginal HPV 1997 Anxiety state, unspecified ASCUS of cervix with negative high risk HPV [address] Hamilton Depressive disorder, not elsewhere classified Essential hypertension Hair loss Dr. Hansen Hyperlipidemia Meningioma (HCC) 03/08/2023 1.5 cm left parieto-occipital meningioma Obesity (BMI 30-39.9) Osteoarthritis Osteopenia Spider veins of both lower extremities Previous Surgical History PAST SURGICAL HISTORY Procedure [...] Stroke Mother Cancer Mother ovarian Heart Mother [place] at 69yrs other (Arthritis/DDD) Mother Degenerative Disc Disease Cancer Father lung/ brain - Heart Sister [place] at 50yrs Heart Son murmur other (Tricuspid aortic valve) Son Patient Allergies ALLERGIES Allergen Reactions Diflucan [Fluconazo* Rash, Hives, Itching Current Medications Current Outpatient Medications on File Prior to Visit Medication Sig FLUoxetine (PROZAC) 20 mg capsule Take 1 capsule by mouth once daily. propranolol (INDERAL) 20 mg tablet Take 1 tablet by mouth two times a day. pravastatin (PRAVACHOL) 40 mg tablet Take 1 tablet by mouth once daily. doxycycline monohydrate (MONODOX) 50 mg capsule Take 1 capsule by mouth once daily. OTC PRODUCT Calcium Mini 600 mg plus Vitamin D3 12.5 mcg - 2 capsules twice a day OTC PRODUCT Hair/Skin/Nails with Collagen and Pantogthenic Acid 10 mg - 2 gummies per day. Recommended by Dr. Tyrone Hannah. albuterol HFA (VENTOLIN HFA) 90 mcg/actuation inhaler Inhale 2 Puffs as instructed every 4 hours as needed for wheezing/shortness of breath. triamcinolone acetonide (NASACORT) 55 mcg nasal inhaler Use 2 Sprays in the nose once daily. No current facility-administere d medications on file prior to visit. Social History SOCIAL HISTORY[1] Review of Symptoms REVIEW OF SYSTEMS See HPI EXAM: BP 132/68 Pulse 79 Ht 153.7 cm (5' 0.51) Wt 77.2 kg (170 lb 3.2 oz) LMP 05/28/2010 SpO2 98% BMI 32.68 kg/m? Home Cuff: 131/77 General Appearance: Well appearing, alert, in no acute distress, well-hydrated, well nourished.. Skin: Skin color, texture, turgor normal, no suspicious rashes or lesions. Neck: Supple, no adenopathy; thyroid symmetric, normal size, no bruits. Lungs: Lungs clear to auscultation. No wheezing, rhonchi, rales.. Heart: RRR without murmur, gallop, or rubs. No ectopy. Extremities: No deformities, edema, skin discoloration, clubbing or cyanosis. Good capillary refill. Health Maintenance List Anxiety Screening Never done Advance Directive Discussion due on 04/05/2024 Medicare Annual Wellness Visit due on 09/24/2025 Influenza Vaccine(1) due on 12/04/2024 Mammogram Screening due on 05/31/2025 Diabetes Screening due on 09/23/2027 DTaP,Tdap,Td Vaccine(2 - Td or Tdap) due on 02/06/2029 Colorectal Cancer Screening due on 09/18/2029 Lipid Screening due on 09/22/2029 Bone Density Screening Completed RSV V (more content not included)... Normal [facility] TSH SerPl-aCncon 11-15-2024 TSH Qn 1.960 m[IU]/L Normal 0.270-4.200 [facility] Comment on above: Order Comment: Speci men Type: BLOOD SPECIMENOrdering Facility: [facility] Address: [address] [place] [address] [place] [address] Performed By: #### 3 016-3 ####[facility] LABCLIA [id number] [address] [place] [address] [place] Urinalysis complete panel (U )on 11-15-2024 Bacteria LM.HPF (Urine sed) [#/Area] Negative Normal Negative [facility] Comment on above: Order Comment: Speci men Type: URINE SPECIMENOrdering Facility: [facility] Address: [address] [place] [address] Performed By: #### 2 4356-8 ####[facility] LABCLIA [id number] [place] [id number] [place] Bilirubin Ql (U) Negative Normal Negative [facility] Comment on above: Order Comment: Speci men Type: URINE SPECIMENOrdering Facility: [facility] Address: [address] [place] [address] Performed By: #### 2 4356-8 ####[facility] LABCLIA [id number] [place] [id number] [place] Clarity (Unsp spec) Clear Normal Clear [facility] Comment on above: Order Comment: Speci men Type: URINE SPECIMENOrdering Facility: [facility] Address: [address] [place] [address] Performed By: #### 2 4356-8 ####[facility] LABCLIA [id number] [place] [id number] [place] [facility] Color (U) Yellow Normal Yellow [facility] Comment on above: Order Comment: Speci men Type: URINE SPECIMENOrdering Facility: [facility] Address: [address] [place] [address] Performed By: #### 2 4356-8 ####[facility] LABCLIA [id number] [address], [facility] [place] Epithelial cells LM.HPF (Urine sed) [#/Area] None Seen Normal [facility] Comment on above: Order Comment: Speci men Type: URINE SPECIMENOrdering Facility: [facility] Address: [address] [place] [address] Performed By: #### 2 4356-8 ####[facility] LABCLIA [id number] [address] [place] [address] [place] Glucose Test strip (U) [Mass/Vol] Negative Normal Negative [facility] Comment on above: Order Comment: Speci men Type: URINE SPECIMENOrdering Facility: [facility] Address: [address] [place] [address] Performed By: #### 2 4356-8 ####[facility] LABCLIA [id number] [address], [facility] [place] Hemoglobin Ql (U) Negative Normal Negative [facility] Comment on above: Order Comment: Speci men Type: URINE SPECIMENOrdering Facility: [facility] Address: [address] [place] [address] Performed By: #### 2 4356-8 ####[facility] LABCLIA [id number] [facility] [address] [place] [address] [place] Hyaline casts (Urine sed) [#/Area] 0 /[LPF] Normal 0 /LPF [facility] Comment on above: Order Comment: Speci men Type: URINE SPECIMENOrdering Facility: [facility] Address: [address] [place] [address] Performed By: #### 2 4356-8 ####[facility] LABCLIA [id number] [facility] [address] [place] [address] [place] Ketones Ql (U) Negative Normal Negative [facility] Comment on above: Order Comment: Speci men Type: URINE SPECIMENOrdering Facility: [facility] Address: [address] [place] [address] Performed By: #### 2 4356-8 ####[facility] LABCLIA [id number] [address] [place] [address] [place] Leukocyte esterase Test strip Ql (U) Negative Normal Negative [facility] Comment on above: Order Comment: Speci men Type: URINE SPECIMENOrdering Facility: [facility] Address: [address] [place] [address] Performed By: #### 2 4356-8 ####[facility] LABCLIA [id number] [place] [address] [place] Nitrite Ql (U) Negative Normal Negative [facility] Comment on above: Order Comment: Speci men Type: URINE SPECIMENOrdering Facility: [facility] Address: [address] [place] [address] Performed By: #### 2 4356-8 ####[facility] LABCLIA [id number] [place] [address] [place] pH (U) 6.0 [pH] Normal 5.0-8.0 [facility] Comment on above: Order Comment: Speci men Type: URINE SPECIMENOrdering Facility: [facility] Address: [address] [place] [address] Performed By: #### 2 4356-8 ####[facility] LABCLIA [id number] [place] [address] [place] Protein (U) [Mass/Vol] Negative Normal Negative [facility] Comment on above: Order Comment: Speci men Type: URINE SPECIMENOrdering Facility: [facility] Address: [address] [place] [address] Performed By: #### 2 4356-8 ####[facility] LABCLIA [id number] [place] [id number] [place] RBC LM.HPF (Urine sed) [#/Area] 0-2 /HPF Normal 0-2 /HPF [facility] Comment on above: Order Comment: Speci men Type: URINE SPECIMENOrdering Facility: [facility] Address: [address] [place] [address] Performed By: #### 2 4356-8 ####[facility] LABIA [id number] [place] [address] [place] Specific gravity (U) [Rel density] 1.005 Normal 1.005-1.030 [facility] Comment on above: Order Comment: Speci men Type: URINE SPECIMENOrdering Facility: [facility] Address: [address] [place] [address] Performed By: #### 2 4356-8 ####[facility] [id number] [place] [id number] [place] Urobilinogen Ql (U) 0.2 EU/dL Normal 0.2-1.0 EU/dL [facility] Comment on above: Order Comment: Speci men Type: URINE SPECIMENOrdering Facility: [facility] Address: [address] [place] [address] Performed By: #### 2 4356-8 ####[facility] [id number] [place] [address] [place] WBC LM.HPF (Urine sed) [#/Area] 0-5 /HPF Normal 0-5 /HPF [facility] Comment on above: Order Comment: Speci men Type: URINE SPECIMENOrdering Facility: [facility] Address: [address] [place] [address] Performed By: #### 2 4356-8 ####[facility] [id number] [place] [id number] [place] Neurology Visit Reporton Neurology Visit Report [facility] [address] [place] [address], [address] [place] [id number] OFFICE VISIT Date of Service: 10/11/24 MR#: [id number] Acct: [id number] Name: SOFI DUNCAN Rep #: [id number] : 1955 Provider: Dr. Rony ramirez MD Age/Sex: 69/F Location: [facility] Status: Signed HPI HPI Chief Complaint: Details: Interim History: Sofi returns for follow-up visit. She has a history of hypercholesterolemia . She has been experiencing a right hand tremor since around 2013. Her tremor progressed to involve both hands. Her tremor is present at rest and with action though is more pronounced with action. 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 The tremor has slightly worsened over time including further worsening within recent months. Her tremor has interfered with handwriting however this now is improved after increasing her dose of propranolol to 20 mg twice daily and she is no longer experiencing any functional impairment due to her tremor. She is tolerating propranolol well. She denied having gait difficulty, speech difficulty, swallowing difficulty, vision change, numbness or weakness. 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 She experiences an occasional headache if she is tired or misses a meal however she does not experience daily headaches and does not awaken with a headache. Physical Exam: Neuro: The patient is awake and alert and responds appropriately; speech is fluent; a mild fine tremor is noted in the hands when arms are extended; no rigidity is noted in the wrists Heart: Regular rate and rhythm Neck: no bruits Supplemental Info Lipid profile (07/12/2018): Cholesterol 221 (elevated), LDL cholesterol 135 (elevated) Lipid profile, CMP (01/19/2019): Unremarkable. CBC, CMP, lipid profile (07/22/2021): Cholesterol 196 (normal), triglycerides 125 (normal), HDL 60 (normal), LDL 111 (high), non-HDL cholesterol 135 (high), VLDL 25 (normal) TSH (08/24/2022): Normal. Head CT (03/08/23): FINDINGS: BRAIN: No acute bleed. No edema. Yip-white matter differentiation is maintained. Arterial calcifications. VENTRICLES AND SULCI: Not dilated. EXTRA-AXIAL: 1.5 cm hyperattenuating mass with calcifications extra-axial left posterior parietal region abuts the falx consistent with meningioma. No acute extra-axial hematoma. CALVARIUM / SKULL BASE: Unremarkable. FACE/SINUSES: Unremarkable. SOFT TISSUES: Unremarkable. IMPRESSION: No evidence of acute intracranial injury. Left posterior parietal extra-axial mass consistent with meningioma. These images were reviewed on 08/17/2023. A 12 x 14 mm left posterior parietal parafalcine calcified meningioma is noted. There is no underlying edema. Cervical spine CT (03/08/23): FINDINGS: ALIGNMENT: No subluxation. Straightening of the normal curvature. MINERALIZATION: Normal. VERTEBRAL BODIES: No fracture or acute abnormality. DISC SPACES: Disc space narrowing with osteophytes most pronounced C5-C7. POSTERIOR ELEMENTS: Facet arthropathy at multiple levels. SPINAL CANAL: Maintained. PARASPINAL SOFT TISSUES: Unremarkable. OTHER: None. IMPRESSION: No evidence of fracture or subluxation. Straightening of the normal curve may be due to position or muscle spasm. Degenerative changes. These images were reviewed on 08/17/2023. CBC, CMP, lipid profile (09/24/2023): Potassium 5.4 (high), BUN 22 (high), cholesterol 169 (normal), triglycerides 59 (normal), HDL 56 (normal), LDL 101 (high) Potassium (09/23/2023): Normal. Cardiac echo (10/11/2023): The left ventricle is normal in size. Left ventricular systolic function is normal. EF equals 59???5%. Grade 1 left ventricular diastolic dysfunction. The right ventricle is normal in size. Right ventricular systolic function is normal. There are no significant valvular abnormalities. Assessment and Plan Assessment and Plan (1) Essential tremor: Status: Chronic Medications: Refilled propranolol 20 mg PO BID 180 tabs 2RF Plan Details Additional Comments: The patient has a bilateral hand essential tremor. Her tremor had diminished with the use of propranolol however more recently her tremor has worsened and increasing her dose of propranolol to 20 mg daily was not of added benefit. Her tremor interferes with handwriting. She is tolerating propranolol well. - I will have her increase propranolol to 20 mg twice daily. If this is ineffective then addition of primidone will be considered. A 12 x 14 mm left posterior parietal parafalcine calcified meningioma is noted on a head CT. She experiences a headache infrequently if she is tired or misses a meal however she does not experience daily headaches and does not awaken with a headache. I will have her return for reassessment in 8 months. Intake Vital S (more content not included)... Normal [facility] CBC W Auto Differential pane l (Bld)on 09-22-2024 Basophils (Bld) [#/Vol] [facility] Basophils/100 WBC (Bld) 0.5 % [facility] Differential cell count method Nom (Bld) Auto [facility] Eosinophils (Bld) [#/Vol] 0.09 10*3/uL [facility] Eosinophils/100 WBC (Bld) 2.1 % [facility] Erythrocyte distribution width (RBC) [Ratio] 11.9 % 11.5 - 15.0 % [facility] Hematocrit (Bld) [Volume fraction] 39.4 % 36.0 - 46.0 % [facility] Hemoglobin (Bld) [Mass/Vol] 13.1 g/dL 11.5 - 15.5 g/dL [facility] Immature granulocytes (Bld) [#/Vol] [facility] Immature granulocytes/100 WBC (Bld) 0.2 % [facility] Lymphocytes (Bld) [#/Vol] 1.29 10*3/uL [facility] Lymphocytes/100 WBC (Bld) 30.1 % [facility] MCH (RBC) [Entitic mass] 31.3 pg 26.0 - 34.0 pg [facility] MCHC (RBC) [Mass/Vol] 33.2 g/dL 30.5 - 36.0 g/dL [facility] MCV (RBC) [Entitic vol] 94.3 fL 80.0 - 100.0 fL [facility] Monocytes (Bld) [#/Vol] 0.37 10*3/uL [facility] Monocytes/100 WBC (Bld) 8.6 % [facility] Neutrophils (Bld) [#/Vol] 2.5 10*3/uL [facility] Neutrophils/100 WBC (Bld) 58.5 % [facility] Nucleated RBC (Bld) [#/Vol] [facility] Nucleated RBC/100 WBC (Bld) [Ratio] 0 % /100 WBC [facility] Platelet mean volume (Bld) [Entitic vol] 10.7 fL 9.0 - 12.7 fL [facility] Platelets (Bld) [#/Vol] 240 10*3/uL [facility] RBC (Bld) [#/Vol] 4.18 10*6/uL 3.90 - 5.2 0 m/uL [facility] WBC (Bld) [#/Vol] 4.28 10*3/uL [facility] Basophils (Bld) [#/Vol] 10*3/uL Normal <0.11 [facility] Comment on above: Order Comment: Speci men Type: BLOOD SPECIMENOrdering Facility: [facility] Address: [address] [place] [address] Performed By: #### 5 7021-8 ####[facility] LABCLIA [id number] [facility] [place] [address] [place] Basophils/100 WBC (Bld) 0.5 % Normal [facility] Comment on above: Order Comment: Speci men Type: BLOOD SPECIMENOrdering Facility: [facility] Address: [address] [place] [address] Performed By: #### 5 7021-8 ####[facility] LABCLIA [id number] [place] [address] [place] Differential cell count method Nom (Bld) Auto Normal [facility] Comment on above: Order Comment: Speci men Type: BLOOD SPECIMENOrdering Facility: [facility] Address: [address] [place] [address] Performed By: #### 5 7021-8 ####[facility] LABCLIA [id number] [place] [address] [place] Eosinophils (Bld) [#/Vol] 0.09 10*3/uL Normal <0.46 [facility] Comment on above: Order Comment: Speci men Type: BLOOD SPECIMENOrdering Facility: [facility] Address: [address] [place] [address] Performed By: #### 5 7021-8 ####[facility] LABCLIA [id number] [place] [address] [place] Eosinophils/100 WBC (Bld) 2.1 % Normal [facility] Comment on above: Order Comment: Speci men Type: BLOOD SPECIMENOrdering Facility: [facility] Address: [address] [place] [address] Performed By: #### 5 7021-8 ####[facility] LABCLIA [id number] [address], [place] [address] [place] Erythrocyte distribution width (RBC) [Ratio] 11.9 % Normal 11.5-15.0 [facility] Comment on above: Order Comment: Speci men Type: BLOOD SPECIMENOrdering Facility: [facility] Address: [address] [place] [address] Performed By: #### 5 7021-8 ####[facility] LABCLIA [id number] [address], [place] [address] [place] Hematocrit (Bld) [Volume fraction] 39.4 % Normal 36.0-46.0 [facility] Comment on above: Order Comment: Speci men Type: BLOOD SPECIMENOrdering Facility: [facility] Address: [address] [place] [address] Performed By: #### 5 7021-8 ####[facility] LABIA [id number] [address], [place] [address] [place] Hemoglobin (Bld) [Mass/Vol] 13.1 g/dL Normal 11.5-15.5 [facility] Comment on above: Order Comment: Speci men Type: BLOOD SPECIMENOrdering Facility: [facility] Address: [address] [place] [address] Performed By: #### 5 7021-8 ####[facility] LABCLIA [id number] [address], [place] [address] [place] Immature granulocytes (Bld) [#/Vol] 10*3/uL Normal <0.10 [facility] Comment on above: Order Comment: Speci men Type: BLOOD SPECIMENOrdering Facility: [facility] Address: [address] [place] [address] Performed By: #### 5 7021-8 ####[facility] LABCLIA [id number] [address], [place] [address] [place] Immature granulocytes/100 WBC (Bld) 0.2 % Normal [facility] Comment on above: Order Comment: Speci men Type: BLOOD SPECIMENOrdering Facility: [facility] Address: [address] [place] [address] Performed By: #### 5 7021-8 ####[facility] LABCLIA [id number] [place] [address] [place] Lymphocytes (Bld) [#/Vol] 1.29 10*3/uL Normal 1.00-4.00 [facility] Comment on above: Order Comment: Speci men Type: BLOOD SPECIMENOrdering Facility: [facility] Address: [address] [place] [address] Performed By: #### 5 7021-8 ####[facility] LABCLIA [id number] [place] [address] [place] Lymphocytes/100 WBC (Bld) 30.1 % Normal [facility] Comment on above: Order Comment: Speci men Type: BLOOD SPECIMENOrdering Facility: [facility] Address: [address] [place] [address] Performed By: #### 5 7021-8 ####[facility] LABCLIA [id number] [place] [address] [place] MCH (RBC) [Entitic mass] 31.3 pg Normal 26.0-34.0 [facility] Comment on above: Order Comment: Speci men Type: BLOOD SPECIMENOrdering Facility: [facility] Address: [address] [place] [address] Performed By: #### 5 7021-8 ####[facility] LABCLIA [id number] [place] [address] [place] MCHC (RBC) [Mass/Vol] 33.2 g/dL Normal 30.5-36.0 [facility] Comment on above: Order Comment: Speci men Type: BLOOD SPECIMENOrdering Facility: [facility] Address: [address] [place] [address] Performed By: #### 5 7021-8 ####[facility] LABCLIA [id number] [place] [address] [place] MCV (RBC) [Entitic vol] 94.3 fL Normal 80.0-100.0 [facility] Comment on above: Order Comment: Speci men Type: BLOOD SPECIMENOrdering Facility: [facility] Address: [address] [place] [address] Performed By: #### 5 7021-8 ####[facility] LABCLIA [id number] [place] [address] [place] Monocytes (Bld) [#/Vol] 0.37 10*3/uL Normal <0.87 [facility] Comment on above: Order Comment: Speci men Type: BLOOD SPECIMENOrdering Facility: [facility] Address: [address] [place] [address] Performed By: #### 5 7021-8 ####[facility] LABIA [id number] [place] [address] [place] Monocytes/100 WBC (Bld) 8.6 % Normal [facility] Comment on above: Order Comment: Speci men Type: BLOOD SPECIMENOrdering Facility: [facility] Address: [address] [place] [address] Performed By: #### 5 7021-8 ####[facility] LABCLIA [id number] [place] [address] [place] Neutrophils (Bld) [#/Vol] 2.50 10*3/uL Normal 1.45-7.50 [facility] Comment on above: Order Comment: Speci men Type: BLOOD SPECIMENOrdering Facility: [facility] Address: [address] [place] [address] Performed By: #### 5 7021-8 ####[facility] LABCLIA [id number] [id number] [address] [place] Neutrophils/100 WBC (Bld) 58.5 % Normal [facility] Comment on above: Order Comment: Speci men Type: BLOOD SPECIMENOrdering Facility: [facility] Address: [address] [place] [address] Performed By: #### 5 7021-8 ####[facility] LABCLIA [id number] [facility] [address], [place] [address] [place] Nucleated RBC (Bld) [#/Vol] 10*3/uL Normal <0.01 [facility] Comment on above: Order Comment: Speci men Type: BLOOD SPECIMENOrdering Facility: [facility] Address: [address] [place] [address] Performed By: #### 5 7021-8 ####[facility] LABCLIA [id number] [facility] [address], [facility] [place] Nucleated RBC/100 WBC (Bld) [Ratio] 0.0 /100 WBC Normal [facility] Comment on above: Order Comment: Speci men Type: BLOOD SPECIMENOrdering Facility: [facility] Address: [address] [place] [address] Performed By: #### 5 7021-8 ####[facility] LABCLIA [id number] [facility] [address], [place] [address] [place] Platelet mean volume (Bld) [Entitic vol] 10.7 fL Normal 9.0-12.7 [facility] Comment on above: Order Comment: Speci men Type: BLOOD SPECIMENOrdering Facility: [facility] Address: [address] [place] [address] Performed By: #### 5 7021-8 ####[facility] LABCLIA [id number] [facility] [address], [facility] [place] Platelets (Bld) [#/Vol] 240 10*3/uL Normal 150-400 [facility] Comment on above: Order Comment: Speci men Type: BLOOD SPECIMENOrdering Facility: [facility] Address: [address] [place] [address] Performed By: #### 5 7021-8 ####[facility] LABIA [id number] [place] [id number] [place] RBC (Bld) [#/Vol] 4.18 10*6/uL Normal 3.90-5.20 [facility] Comment on above: Order Comment: Speci men Type: BLOOD SPECIMENOrdering Facility: [facility] Address: [address] [place] [address] Performed By: #### 5 7021-8 ####[facility] LABIA [id number] [place] [address] [place] WBC (Bld) [#/Vol] 4.28 10*3/uL Normal 3.70-11.00 [facility] Comment on above: Order Comment: Speci men Type: BLOOD SPECIMENOrdering Facility: [facility] Address: [address] [place] [address] Performed By: #### 5 7021-8 ####[facility] LABIA [id number] [address] [place] LYSSAOVon 09-22-2024 [facility] Office Visit (MARGARETHWS) SOFI DUNCAN ([id number]) 1955 F Date Time Provider Department 09/22/24 9:20 AM BROOKLYNN KUHN During your visit today, we recorded the following information about you: Pulse Respiration Blood pressure Weight 74/minute 16/minute 134/88 77.8 kg Height 1.537 m Brooklynn Kuhn APRN.CNP 09/22/2024 9:49 AM Signed 09/22/2024 Patient presents with: Follow Up Recording using [email or web address] software for draft documentation of the visit was discussed with the patient/authorized it sales representative; all questions welcomed and answered. Patient/authorized it sales representative agreed to proceed SUBJECTIVE: This is a 69 year old that is here today for Above Complaints.. Anxiety and Depression: - Managed with Prozac. - Denies thoughts of self-harm or harm to others. - Does not see a counselor. Tremors: - Noticed increased tremors. - Follows with Dr. Hamilton annually; last visit this year. - Propranolol increased to 20 mg BID on 08/09/2024. Hyperlipidemia: - Managed with pravastatin 40 mg. - Follows a low-cholesterol diet pretty much all the time. Meningioma: - Follows with Dr. Hamilton annually. Alopecia: - Follows with Dr. Hansen annually. - Taking doxycycline. Lifestyle: - Weight is stable. - Normally walks regularly but has not been as active recently. - Blood pressure usually in the 120s/60s; recently noted elevated readings. - Has a home blood pressure cuff. Family History: - Son recently underwent valve replacement surgery after 15 years of monitoring. PAST MEDICAL HISTORY Diagnosis Date Abnormal Papanicolaou smear of vagina and vaginal HPV 1997 Anxiety state, unspecified ASCUS of cervix with negative high risk HPV [address] Hamilton Depressive disorder, not elsewhere classified Hair loss Dr. Hansen Hyperlipidemia Meningioma (HCC) 03/08/2023 1.5 cm left parieto-occipital meningioma Obesity (BMI 30-39.9) Osteoarthritis Osteopenia Spider veins of both lower extremities ALLERGIES Diflucan [Fluconazole] MEDICATIONS Current Outpatient Medications Medication Sig FLUoxetine (PROZAC) 20 mg capsule Take 1 capsule by mouth once daily. propranolol (INDERAL) 20 mg tablet Take 1 tablet by mouth two times a day. pravastatin (PRAVACHOL) 40 mg tablet Take 1 tablet by mouth once daily. doxycycline monohydrate (MONODOX) 50 mg capsule Take 1 capsule by mouth once daily. OTC PRODUCT Calcium Mini 600 mg plus Vitamin D3 12.5 mcg - 2 capsules twice a day OTC PRODUCT Hair/Skin/Nails with Collagen and Pantogthenic Acid 10 mg - 2 gummies per day. Recommended by Dr. Tyrone Hannah. albuterol HFA (VENTOLIN HFA) 90 mcg/actuation inhaler Inhale 2 Puffs as instructed every 4 hours as needed for wheezing/shortness of breath. triamcinolone acetonide (NASACORT) 55 mcg nasal inhaler Use 2 Sprays in the nose once daily. (Patient taking differently: Use 2 Sprays in the nose as needed.) No current facility-administere d medications for this visit. Medications and allergies reviewed by this provider. SOCIAL HISTORY Social History Tobacco Use Smoking status: Never Smokeless tobacco: Never Vaping Use Vaping status: Never Used Substance Use Topics Alcohol use: Yes Comment: rarely Drug use: No REVIEW OF SYSTEMS All other reviewed and negative other than HPI. OBJECTIVE: BP 134/88 Pulse 74 Resp 16 Ht 153.7 cm (5' 0.51) Wt 77.8 kg (171 lb 9.6 oz) LMP 05/28/2010 SpO2 98% BMI 32.95 kg/m? . Vital signs reviewed by this provider. APPEARANCE Well appearing, alert, in no acute distress, well-hydrated, well nourished. EYES conjunctiva and sclera normal. HEART RRR with normal S1 and S2, no murmurs, no gallops, no JVD appreciated LUNG clear to auscultation. No wheezes, rhonchi or rales EXTREMITIES Extremities normal, No deformities, No skin discoloration, and No edema SKIN Skin color, texture, turgor normal, no suspicious rashes or lesions to exposed skin Latest Ref Rng 09/24/2023 09/27/2023 WBC 3.70 - 11.00 k/uL 4.42 RBC 3.90 - 5.20 m/uL 4.09 Hemoglobin 11.5 - 15.5 g/dL 12.9 Hematocrit 36.0 - 46.0 % 38.8 MCV 80.0 - 100.0 fL 94.9 MCH 26.0 - 34.0 pg 31.5 MCHC 30.5 - 36.0 g/dL 33.2 RDW-CV 11.5 - 15.0 % 12.3 Platelet Count 150 - 400 k/uL 232 MPV 9.0 - 12.7 fL 10.5 Neut% % 56.9 Abs Neut (ANC) 1.45 - 7.50 k/uL 2.52 Lymph% % 30.1 Abs Lymph 1.00 - 4.00 k/uL 1.33 Bent% % 10.0 Abs Bent <0.87 k/uL 0.44 Eosin% % 2.0 Abs Eosin <0.46 k/uL 0.09 Baso% % 0.5 Abs Baso <0.11 k/uL <0.03 Immature Gran % % 0.5 IMMATURE GRANS (ABS) <0.10 k/uL <0.03 NRBC /100 WBC 0.0 Absolute nRBC <0.01 k/uL <0.01 DTYPE Auto Protein, Total 6.3 - 8.0 g/dL 6.8 Albumin 3.9 - 4.9 g/dL 4.5 Calcium 8.5 - 10.2 mg/dL 9.7 Bilirubin, Total 0.2 - 1.3 mg/dL 0.4 Alkaline Phosphatase 34 - 123 U/L 51 AST 13 - 35 U/L 24 ALT 7 - 38 (more content not included)... Normal [facility] Comprehensive metabolic 2000 panelon 09-22-2024 Albumin [Mass/Vol] 4.3 g/dL Normal 3.9-4.9 [facility] Comment on above: Order Comment: Speci men Type: BLOOD SPECIMENOrdering Facility: [facility] Address: [address] [place] [address] Performed By: #### 2 4323-8, 10973-6 ####[facility] [id number] [place] [address] [place] ALP [Catalytic activity/Vol] 54 U/L Normal 34-123 [facility] Comment on above: Order Comment: Speci men Type: BLOOD SPECIMENOrdering Facility: [facility] Address: [address] [place] [address] Performed By: #### 2 4323-8, 17869-5 ####[facility] [id number] [place] [address] [place] ALT [Catalytic activity/Vol] 20 U/L Normal 7-38 [facility] Comment on above: Order Comment: Speci men Type: BLOOD SPECIMENOrdering Facility: [facility] Address: [address] [place] [address] Performed By: #### 2 4323-8, 98318-9 ####[facility] LABCLIA [id number] [address] [address] [place] Anion gap [Moles/Vol] 11 mmol/L Normal 8-15 [facility] Comment on above: Order Comment: Speci men Type: BLOOD SPECIMENOrdering Facility: [facility] Address: [address] [place] [address] Performed By: #### 2 4323-8, 47297-5 ####[facility] LABCLIA [id number] [place] [id number] [place] AST [Catalytic activity/Vol] 23 U/L Normal 13-35 [facility] Comment on above: Order Comment: Speci men Type: BLOOD SPECIMENOrdering Facility: [facility] Address: [address] [place] [address] Performed By: #### 2 4323-8, 42532-6 ####[facility] LABCLIA [id number] [place] [id number] [place] Bilirubin [Mass/Vol] 0.4 mg/dL Normal 0.2-1.3 [facility] Comment on above: Order Comment: Speci men Type: BLOOD SPECIMENOrdering Facility: [facility] Address: [address] [place] [address] Performed By: #### 2 4323-8, 90633-2 ####[facility] LABCLIA [id number] [place] [id number] [place] Calcium [Mass/Vol] 9.7 mg/dL Normal 8.5-10.2 [facility] Comment on above: Order Comment: Speci men Type: BLOOD SPECIMENOrdering Facility: [facility] Address: [address] [place], [place] [address] Performed By: #### 2 4323-8, 48045-5 ####[facility] LABCLIA [id number] [place] [id number] [place] Chloride [Moles/Vol] 107 mmol/L Normal 98-107 [facility] Comment on above: Order Comment: Speci men Type: BLOOD SPECIMENOrdering Facility: [facility] Address: [address] [place] [address] Performed By: #### 2 4323-8, 43137-7 ####[facility] LABIA [id number] [place] [id number] [place] CO2 [Moles/Vol] 25 mmol/L Normal 22-30 [facility] Comment on above: Order Comment: Speci men Type: BLOOD SPECIMENOrdering Facility: [facility] Address: [address] [place] [address] Performed By: #### 2 4323-8, 76649-8 ####[facility] LABIA [id number] [place] [id number] [place] Creatinine [Mass/Vol] 0.73 mg/dL Normal 0.58-0.96 [facility] Comment on above: Order Comment: Speci men Type: BLOOD SPECIMENOrdering Facility: [facility] Address: [address] [place] [address] Performed By: #### 2 4323-8, 29539-0 ####[facility] LABIA [id number] [place] [address] [place] Creatinine and Glomerular filtration rate.predicted panel (S/P/Bld) 89 mL/min/1.73m??? Normal >=60 [facility] Comment on above: Order Comment: Speci men Type: BLOOD SPECIMENOrdering Facility: [facility] Address: [address] [place] [address] Result Comment: Sheila mated Glomerular Filtration Rate (eGFR) is calculated using the 2020 CKD-EPI creatinine equation. This equation utilizes serum creatinine, sex, and age as parameters. The creatinine assay has traceable calibration to isotope dilution-mass spectrometry. Refer to KDIGO guidelines for clinical interpretation. In patients with unstable renal function, e.g. those with acute kidney injury, the eGFR may not accurately reflect actual GFR. Performed By: #### 2 4323-8, 07534-7 ####[facility] LABIA [id number] [address] [address] [place] Glucose [Mass/Vol] 88 mg/dL Normal 74-99 [facility] Comment on above: Order Comment: Speci men Type: BLOOD SPECIMENOrdering Facility: [facility] Address: [address] [place] [address] Result Comment: The [place] Diabetes Association (ADA) provides guidance for cutoff values for fasting glucose and random glucose. The ADA defines fasting as no caloric intake for at least 8 hours. Fasting plasma glucose results between 100 to 125 mg/dL indicate increased risk for diabetes (prediabetes). Fasting plasma glucose results greater than or equal to 126 mg/dL meet the criteria for diagnosis of diabetes. In the absence of unequivocal hyperglycemia, results should be confirmed by repeat testing. In a patient with classic symptoms of hyperglycemia or hyperglycemic crisis, random plasma glucose results greater than or equal to 200 mg/dL meet the criteria for diagnosis of diabetes. Reference: Standards of Medical Care in Diabetes 2016, [place] Diabetes Association. Diabetes Care. 2016.39(Suppl 1). Performed By: #### 2 4323-8, 72884-4 ####[facility] [id number] [place] [id number] [place] Potassium [Moles/Vol] 4.9 mmol/L Normal 3.7-5.1 [facility] Comment on above: Order Comment: Speci men Type: BLOOD SPECIMENOrdering Facility: [facility] Address: [address] [place] [address] Performed By: #### 2 4323-8, 12480-9 ####[facility] [id number] [address] [address] [place] Protein [Mass/Vol] 6.8 g/dL Normal 6.3-8.0 [facility] Comment on above: Order Comment: Speci men Type: BLOOD SPECIMENOrdering Facility: [facility] Address: [address] [place] [address] Performed By: #### 2 4323-8, 49102-0 ####[facility] LABCLIA [id number] [address] [place] [address] [place] Sodium [Moles/Vol] 143 mmol/L Normal 136-144 [facility] Comment on above: Order Comment: Speci men Type: BLOOD SPECIMENOrdering Facility: [facility] Address: [address] [place] [address] Performed By: #### 2 4323-8, 02296-2 ####[facility] LABIA [id number] [address] [address] [place] Urea nitrogen [Mass/Vol] 16 mg/dL Normal 7-21 [facility] Comment on above: Order Comment: Speci men Type: BLOOD SPECIMENOrdering Facility: [facility] Address: [address] [place] [address] Performed By: #### 2 4323-8, 78838-7 ####[facility] LABIA [id number] [address] [place] [address] [place] Lipid 1996 panelon 5 Cholesterol [Mass/Vol] 190 mg/dL Normal <200 [facility] Comment on above: Order Comment: Speci men Type: BLOOD SPECIMENOrdering Facility: [facility] Address: [address] [place] [address] Result Comment: <200 mg/dL, Desirable 200-239 mg/dL, Borderline high >239 mg/dL, High Performed By: #### 2 4323-8, 20036-9 ####[facility] LABIA [id number] [address] [address] [place] Cholesterol in HDL [Mass/Vol] 53 mg/dL Normal >39 [facility] Comment on above: Order Comment: Speci men Type: BLOOD SPECIMENOrdering Facility: [facility] Address: [address] [place] [address] Result Comment: 40-5 9 mg/dL, Acceptable >59 mg/dL, High: Negative risk factor for coronary heart disease <40 mg/dL, Low: Positive risk factor for coronary heart disease Performed By: #### 2 4323-8, 45169-0 ####[facility] LABCLIA [id number] [address] [place] Cholesterol in LDL [Mass/Vol] 115 mg/dL High <100 [facility] Comment on above: Order Comment: Speci men Type: BLOOD SPECIMENOrdering Facility: [facility] Address: [address] [place] [address] Result Comment: <100 mg/dL, Optimal 100-129 mg/dL, Near optimal/above optimal 130-159 mg/dL, Borderline high 160-189 mg/dL, High >189 mg/dL, Very high Secondary prevention optimal LDL Cholesterol levels are recommended to be <70 mg/dL LDL cholesterol is calculated using the Vizcarra-NIH equation. Performed By: #### 2 4323-8, ####[facility] LABCLIA [id number] [address] [place] Cholesterol in LDL/Cholesterol in HDL [Mass ratio] 2.17 {ratio} Normal <2.54 [facility] Comment on above: Order Comment: Speci men Type: BLOOD SPECIMENOrdering Facility: [facility] Address: [address] [place] [address] Result Comment: Refe rence: 1. National Cholesterol Education Program ATP III Guideline At-A-Glance Quick Desk Reference: National Heart, Lung, and Blood Baldwin. National Institutes of Health. 2001: NIH Publication No. 01-3305. 2. An International Atherosclerosis Society position paper: global recommendations for the management of dyslipidemia: executive summary, Atherosclerosis. 2014: 232(2):410-413. Performed By: #### 2 4323-8, ####[facility] LABCLIA [id number] [place] [id number] [place] Cholesterol in VLDL [Mass/Vol] 21 mg/dL Normal <30 [facility] Comment on above: Order Comment: Speci men Type: BLOOD SPECIMENOrdering Facility: [facility] Address: [address] [place] [id number] Performed By: #### 2 4323-8, 84774-9 ####[facility] LABCLIA [id number] [facility] [address] [place] [address] [place] Cholesterol non HDL [Mass/Vol] 137 mg/dL High <130 [facility] Comment on above: Order Comment: Speci men Type: BLOOD SPECIMENOrdering Facility: [facility] Address: [address] [place] [id number] Result Comment: <130 mg/dL, Optimal 130-159 mg/dL, Near optimal/above optimal 160-189 mg/dL, Borderline high 190-219 mg/dL, High >219 mg/dL, Very high Secondary prevention optimal non HDL Cholesterol levels are recommended to be <100 mg/dL Performed By: #### 2 4323-8, 41171-2 ####[facility] LABCLIA [id number] [facility] [address] [place] [address] [place] Cholesterol.total/Chol esterol in HDL [Mass ratio] 3.58 {ratio} Normal <5.10 [facility] Comment on above: Order Comment: Speci men Type: BLOOD SPECIMENOrdering Facility: [facility] Address: [address] [place], [place] [address] Performed By: #### 2 4323-8, 84145-6 ####[facility] LABCLIA [id number] [facility] [address] [place] [address] [place] FASTING TIME 12 hrs Normal [facility] Comment on above: Order Comment: Speci men Type: BLOOD SPECIMENOrdering Facility: [facility] Address: [address] [place] [id number] Performed By: #### 2 4323-8, 57985-9 ####[facility] LABCLIA [id number] [facility] [address] [place] [address] [place] Triglyceride [Mass/Vol] 121 mg/dL Normal <150 [facility] Comment on above: Order Comment: Speci men Type: BLOOD SPECIMENOrdering Facility: [facility] Address: [address] [place] [address] Result Comment: <150 mg/dL, Normal 150-199 mg/dL, Borderline high 200-499 mg/dL, High >499 mg/dL, Very high Performed By: #### 2 4323-8, 97232-0 ####[facility] LABCLIA [id number] [place] [address] [place] Neurology Visit Reporton Neurology Visit Report [facility] [address] [facility], [address] [place] [address] OFFICE VISIT Date of Service: 08/09/24 MR#: [id number] Acct: [id number] Name: SOFI DUNCAN Rep #: [id number] : 1955 Provider: Dr. Rony ramirez MD Age/Sex: 69/F Location: [facility] Status: Signed HPI [facility] Chief Complaint: Details: Interim History: Sofi returns for follow-up visit. She has a history of hypercholesterolemia . She has been experiencing a right hand tremor since around 2013. Her tremor progressed to involve both hands. Her tremor is present at rest and with action though is more pronounced with action. 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 The tremor has slightly worsened over time including further worsening within recent months. Her tremor interferes with handwriting. Propranolol has been of benefit for her tremor however increasing her dose of propranolol to 20mg daily has not been of added benefit. She is tolerating her current dose of propranolol well. She denied having gait difficulty, speech difficulty, swallowing difficulty, vision change, numbness or weakness. 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 She denies having headaches. Physical Exam: Neuro: The patient is awake and alert and responds appropriately; speech is fluent; a mild fine tremor is noted in the hands when arms are extended; no rigidity is noted in the wrists Heart: Regular rate and rhythm Neck: no bruits Supplemental Info Lipid profile (07/12/2018): Cholesterol 221 (elevated), LDL cholesterol 135 (elevated) Lipid profile, CMP (01/19/2019): Unremarkable. CBC, CMP, lipid profile (07/22/2021): Cholesterol 196 (normal), triglycerides 125 (normal), HDL 60 (normal), LDL 111 (high), non-HDL cholesterol 135 (high), VLDL 25 (normal) TSH (08/24/2022): Normal. Head CT (03/08/23): FINDINGS: BRAIN: No acute bleed. No edema. Yip-white matter differentiation is maintained. Arterial calcifications. VENTRICLES AND SULCI: Not dilated. EXTRA-AXIAL: 1.5 cm hyperattenuating mass with calcifications extra-axial left posterior parietal region abuts the falx consistent with meningioma. No acute extra-axial hematoma. CALVARIUM / SKULL BASE: Unremarkable. FACE/SINUSES: Unremarkable. SOFT TISSUES: Unremarkable. IMPRESSION: No evidence of acute intracranial injury. Left posterior parietal extra-axial mass consistent with meningioma. These images were reviewed on 08/17/2023. A 12 x 14 mm left posterior parietal parafalcine calcified meningioma is noted. There is no underlying edema. Cervical spine CT (03/08/23): FINDINGS: ALIGNMENT: No subluxation. Straightening of the normal curvature. MINERALIZATION: Normal. VERTEBRAL BODIES: No fracture or acute abnormality. DISC SPACES: Disc space narrowing with osteophytes most pronounced C5-C7. POSTERIOR ELEMENTS: Facet arthropathy at multiple levels. SPINAL CANAL: Maintained. PARASPINAL SOFT TISSUES: Unremarkable. OTHER: None. IMPRESSION: No evidence of fracture or subluxation. Straightening of the normal curve may be due to position or muscle spasm. Degenerative changes. These images were reviewed on 08/17/2023. CBC, CMP, lipid profile (09/24/2023): Potassium 5.4 (high), BUN 22 (high), cholesterol 169 (normal), triglycerides 59 (normal), HDL 56 (normal), LDL 101 (high) Potassium (09/23/2023): Normal. Cardiac echo (10/11/2023): The left ventricle is normal in size. Left ventricular systolic function is normal. EF equals 59???5%. Grade 1 left ventricular diastolic dysfunction. The right ventricle is normal in size. Right ventricular systolic function is normal. There are no significant valvular abnormalities. Assessment and Plan Assessment and Plan (1) Essential tremor: Status: Chronic Medications: Changed From propranolol 20 mg PO DAILY 90 tabs 1RF To propranolol 20 mg PO BID 180 tabs 1RF Discontinued azithromycin Discontinued Reason: Pt no longer taking take 500 mg today (day 1), then 250 mg for 4 days (days 2-5) PO 6 tabs 0RF benzonatate Discontinued Reason: Pt no longer taking 200 mg (2 x 100 mg) PO TID PRN 30 caps 0RF cough Plan Details Additional Comments: The patient has a bilateral hand essential tremor. Her tremor had diminished with the use of propranolol however more recently her tremor has worsened and increasing her dose of propranolol to 20 mg daily was not of added benefit. Her tremor interferes with handwriting. She is tolerating propranolol well. - I will have her increase propranolol to 20 mg twice daily. If this is ineffective then addition of primidone will be considered. A 12 x 14 mm left posterior parietal parafalcine calcified meningioma is noted on a head CT. The patient denies having headaches. I will have her return for reass (more content not included)... [facility] SOFI DUNCAN ([id number]) 1955 F Date Time Provider Department 08/02/24 6:40 PM BROOKLYNN KUHN During your visit today, we recorded the following information about you: Pulse Respiration Blood pressure Weight 73/minute 18/minute 134/68 78.4 kg Brooklynn Kuhn APRN.CNP 08/02/2024 7:02 PM Signed 08/02/2024 Patient presents with: Edema: Bilateral ankle swelling for 3.5weeks(07/08/2024) SUBJECTIVE: This is a 69 year old that is here today for Above Complaints. Took a trip to the [place] 06/30-07/10. Noticed two days before coming home legs swollen. Noticed some redness since back home. Denies fevers, hx of DVT, leg pain, open sores, SOB or dyspnea PAST MEDICAL HISTORY Diagnosis Date Abnormal Papanicolaou smear of vagina and vaginal HPV 1997 Anxiety state, unspecified ASCUS of cervix with negative high risk HPV [address] Hamilton Depressive disorder, not elsewhere classified Hair loss Dr. Hansen Hyperlipidemia Meningioma (HCC) 03/08/2023 1.5 cm left parieto-occipital meningioma Obesity (BMI 30-39.9) Osteoarthritis Osteopenia Spider veins of both lower extremities ALLERGIES Diflucan [Fluconazole] MEDICATIONS Current Outpatient Medications Medication Sig pravastatin (PRAVACHOL) 40 mg tablet Take 1 tablet by mouth once daily. FLUoxetine (PROZAC) 20 mg capsule Take 1 capsule by mouth once daily. propranolol (INDERAL) 10 mg tablet Take 2 tablets by mouth once daily. doxycycline monohydrate (MONODOX) 50 mg capsule Take 1 capsule by mouth once daily. OTC PRODUCT Calcium Mini 600 mg plus Vitamin D3 12.5 mcg - 2 capsules twice a day OTC PRODUCT Hair/Skin/Nails with Collagen and Pantogthenic Acid 10 mg - 2 gummies per day. Recommended by Derm, Dr. Hansen. albuterol HFA (VENTOLIN HFA) 90 mcg/actuation inhaler Inhale 2 Puffs as instructed every 4 hours as needed for wheezing/shortness of breath. triamcinolone acetonide (NASACORT) 55 mcg nasal inhaler Use 2 Sprays in the nose once daily. (Patient taking differently: Use 2 Sprays in the nose as needed.) No current facility-administere d medications for this visit. Medications and allergies reviewed by this provider. SOCIAL HISTORY Social History Tobacco Use Smoking status: Never Smokeless tobacco: Never Vaping Use Vaping status: Never Used Substance Use Topics Alcohol use: Yes Comment: rarely Drug use: No REVIEW OF SYSTEMS All other reviewed and negative other than HPI. OBJECTIVE: BP 134/68 Pulse 73 Resp 18 Wt 78.4 kg (172 lb 12.8 oz) LMP 05/28/2010 SpO2 97% BMI 33.75 kg/m? . Vital signs reviewed by this provider. APPEARANCE Well appearing, alert, in no acute distress, well-hydrated, well nourished. EYES conjunctiva and sclera normal. HEART RRR with normal S1 and S2, no murmurs, no gallops, no JVD appreciated LUNG clear to auscultation. No wheezes, rhonchi or rales EXTREMITIES trace edema BLE with some faint erythema to bilateral lower ankles without excessive warmth. Erythema blanches. No ope leg sores. 2+ peal pulse with cap refill WNL SKIN Skin color, texture, turgor normal, no suspicious rashes or lesions to exposed skin Anxiety Screening Never done Advance Directive Discussion due on 04/05/2024 Covid-19 Vaccine() due on 08/04/2024 Mammogram Screening due on 05/31/2025 Diabetes Screening due on 09/23/2026 Lipid Screening due on 09/23/2028 DTaP,Tdap,Td Vaccine(2 - Td or Tdap) due on 02/06/2029 Colorectal Cancer Screening due on 09/18/2029 Bone Density Screening Completed Influenza Vaccine Completed RSV Vaccine Completed Hepatitis C Screening Completed Shingrix Vaccine Completed Pneumococcal Vaccine: 50+ Completed Cervical Cancer Screening Discontinued ASSESSMENT/PLAN: 1. Leg swelling - ICD9: 729.81, ICD10: M79.89 (primary diagnosis) - trace edema - low salt diet, hydrate with water, and elevate legs when sitting - COMPRESSION STOCKINGS apply in AM off at bedtime 2. 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 Patient advised if symptoms do not improve or if symptoms worsen sooner, to contact their primary care physician. Potential red flag symptoms discussed with the patient. Reviewed appropriate action plan to take if red flag symptoms occur. Patient agreeable to treatment plan. Medical Decision Making: Problems: Low: Acute, uncomplicated illness or injury Risk: Low: Low risk from testing/treatment Medical Decision Making Level: 3 - Low Allergies As of Date: 08/02/2024 Noted Allergy Reaction DIFLUCAN (FLUCONAZOLE) 07/ (more content not included)... Normal [facility] Breast imaging reportOrdered By: Kamran Flores on 05-31-2024 Study report [facility] Imaging Services [address] [place], [place] [id number] SCRN MAMM (CAD)W/SIERRA BILAT MR#: [id number] Acct: [id number] Name: SOFI DUNCAN Rep #: [id number] : 1955 F 68 From: Lance Flores MD PCP: Dr. Philip Gurrola MD [facility] Study:SCRN MAMM (CAD)W/SIERRA BILAT Date of Exa m: 05/31/24 Exam# [id number] Ordering Dr: Philip Gurrola MD ADDENDUM by Dr. Kamran Flores MD on 05/31/24 at 1338 No addendum necessary. Reading Location: [id number] 05/31/24 1338 Date cc: Dr. Philip Gurrola MD ~* Signed PROCEDURE: SCRN MAMM (CAD)W/SIERRA BILAT REASON FOR EXAM: F, Age 68 y/o, history of prior bilateral breast reduction surgery. TECHNIQUE: Bilateral screening digital breast tomosynthesis with 2D and 3D images. Computeraided detection. COMPARISON: Prior exam(s) dating back to May 29, 2023.. FINDINGS: There are scattered areas of fibroglandular density. Stable bilateral fat containing axillary lymph nodes. No suspicious masses, areas of developing architectural distortion, or suspicious calcifications. BI/SCRN MAMM (CAD)W/SIERRA BILAT IMPRESSION: BI-RADS 2: BENIGN. RECOMMEND ANNUAL MAMMOGRAPHIC SCREENING. Follow-up code: Routine Follow-up The patient will be notified of the results by letter. Reading Location: [id number] CC: Dr. Philip Gurrola MD ~ Director Of Psychiatry: Signed [facility] SCRN MAMM (CAD)W/SIERRA BILATo n 05-31-2024 SCRN MAMM (CAD)W/SIERRA BILAT [facility] Imaging Services [address] [place] [address] [id number] SCRN MAMM (CAD)W/SIERRA BILAT MR#: [id number] Acct: [id number] Name: SOFI DUNCAN Rep #: [id number] : 1955 F 68 From: Kamran taveras MD PCP: Dr. Philip Gurrola MD Status: [facility] Study: SCRN MAMM (CAD)W/SIERRA BILAT Date of Exam: 05/07 09/27 Exam# [id number] Ordering Dr: Philip Gurrola ADDENDUM by Dr. Kamran Flores MD on 05/31/24 at 1338 No addendum necessary. Reading Location: [id number] 05/31/24 1338 Date cc: Dr. Philip Gurrola MD * Signed PROCEDURE: SCRN MAMM (CAD)W/SIERRA BILAT REASON FOR EXAM: F, Age 68 y/o, history of prior bilateral breast reduction surgery. TECHNIQUE: Bilateral screening digital breast tomosynthesis with 2D and 3D images. Computer aided detection. COMPARISON: Prior exam(s) dating back to May 29, 2023.. FINDINGS: There are scattered areas of fibroglandular density. Stable bilateral fat containing axillary lymph nodes. No suspicious masses, areas of developing architectural distortion, or suspicious calcifications. BI/SCRN MAMM (CAD)W/SIERRA BILAT IMPRESSION: BI-RADS 2: BENIGN. RECOMMEND ANNUAL MAMMOGRAPHIC SCREENING. Follow-up code: Routine Follow-up The patient will be notified of the results by letter. Reading Location: [id number] CC: Dr. Philip Gurrola MD Director Of Psychiatry: Signed [facility] Emily 03-24-2024 [facility] Office Visit (FAMPWS) SOFI DUNCAN ([id number]) 1955 F Date Time Provider Department 03/24/24 10:00 AM GOGO GURROLA During your visit today, we recorded the following information about you: Pulse Respiration Blood pressure Weight 82/minute 14/minute 122/72 76.7 kg Height 1.524 m Gogo Gurrola MD 03/24/2024 11:35 AM Signed Chief Complaint Patient presents with: 6 Month Exam: follow up-prozac HPI Sofi Duncan is a 68 year old female who presents here today for 6 month follow up. Patient has been in good health without recent hospitalizations, ER visits, or falls. No concerns today. Anxiety and depression symptoms well controlled on Prozac without side effects. Taking 20 mg daily. Rx last sent for BID which was an error. Needs refill today. Denies SI/HI, panic symptoms. Patient following up yearly with Dr. Hamilton's office yearly for essential tremor and meningioma discovered on CT in March. Tremors controlled on propranolol 20 mg daily. No changes to regimen at last OV in August. On doxycycline for hair loss through Dr. Hansen's office. Reports this is helping. Records not available today. Past medical history, appointments, medications, allergies reviewed. [...] parieto-occipital meningioma Obesity (BMI 30-39.9) Osteoarthritis Osteopenia Spider veins of both lower extremities Previous Surgical History PAST SURGICAL HISTORY Procedure [...] Stroke Mother Cancer Mother ovarian Heart Mother [place] at 69yrs other (Arthritis/DDD) Mother Degenerative Disc Disease Cancer Father lung/ brain - Heart Sister [place] at 50yrs Heart Son murmur other (Tricuspid aortic valve) Son Patient Allergies ALLERGIES Allergen Reactions Diflucan [Fluconazo* Rash, Hives, Itching Current Medications Current Outpatient Medications on File Prior to Visit Medication Sig OTC PRODUCT Calcium Mini 600 mg plus Vitamin D3 12.5 mcg - 2 capsules twice a day OTC PRODUCT Hair/Skin/Nails with Collagen and Pantogthenic Acid 10 mg - 2 gummies per day. Recommended by DermDr. Hansen. pravastatin (PRAVACHOL) 40 mg tablet Take 1 tablet by mouth once daily. propranolol (INDERAL) 10 mg tablet Take 1.5 tablets by mouth once daily. albuterol HFA (VENTOLIN HFA) 90 mcg/actuation inhaler Inhale 2 Puffs as instructed every 4 hours as needed for wheezing/shortness of breath. FLUoxetine (PROZAC) 20 mg capsule Take 1 capsule by mouth two times a day. calcium carbonate/vitamin D3 (CALTRATE 600 PLUS D ORAL) Take 1 tablet by mouth once daily. Doxycycline Monohydrate 40 mg capsule Take 1 capsule by mouth once daily. (Patient taking differently: Take 50 mg by mouth once daily.) triamcinolone acetonide (NASACORT) 55 mcg nasal inhaler Use 2 Sprays in the nose once daily. (Patient taking differently: Use 2 Sprays in the nose as needed.) No current facility-administere d medications on file prior to visit. Social History Social History Tobacco Use Smoking status: Never Smokeless tobacco: Never Vaping Use Vaping status: Never Used Substance Use Topics Alcohol use: [...] for lesions, rash, and itching EXAM: BP 122/72 (BP Site: Left Arm, BP Position: Sitting, BP Cuff Size: Large Adult) Pulse 82 Resp 14 Ht 152.4 cm (5') Wt 76.7 kg (169 lb) LMP 05/28/2010 SpO2 97% BMI 33.01 kg/m? General Appearance: Well appearing, alert, in no acute distress, well-hydrated, well nourished.. Skin: Skin color, texture, turgor normal, no suspicious rashes or lesions. Lungs: Lungs clear to auscultation. No wheezing, rhonchi, rales.. Heart: RRR without murmur, gallop, or rubs. No ectopy. Abdomen: Normal abdominal exam, Abdomen soft, non-tender. Bowel (more content not included)... Normal [facility] Neurology Visit Reporton Neurology Visit Report [facility] [address], [address] [place] [address] OFFICE VISIT Date of Service: 02/23/24 MR#: [id number] Acct: [id number] Name: SOFI DUNCAN Rep #: [id number] : 1955 Provider: Dr. Rony ramirez MD Age/Sex: 68/F Location: [facility]. Status: Signed HPI [facility] Chief Complaint: Details: Interim History: Sofi returns for follow-up visit. She has a history of hypercholesterolemia . She has been experiencing a right hand tremor since around 2013. Her tremor now involves both hands. Her tremor is present at rest and with action though is more pronounced with action and occasionally had interfered with activities such as using eating utensils. 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 The tremor has slightly worsened over time including further worsening within recent months. Her tremor interferes with handwriting. She has been taking propranolol for her tremor and this has been of benefit in reducing her tremor. She is tolerating her current dose of propranolol well. In the past, she had experienced some sedation as a side effect to propranolol. She denied having gait difficulty, speech difficulty, swallowing difficulty, vision change, numbness or weakness. 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 She denies having headaches. Physical Exam: Neuro: The patient is awake and alert and responds appropriately; speech is fluent; a mild fine tremor is noted in the hands when arms are extended; no rigidity is noted in the wrists Heart: Regular rate and rhythm Supplemental Info Lipid profile (07/12/2018): Cholesterol 221 (elevated), LDL cholesterol 135 (elevated) Lipid profile, CMP (01/19/2019): Unremarkable. CBC, CMP, lipid profile (07/22/2021): Cholesterol 196 (normal), triglycerides 125 (normal), HDL 60 (normal), LDL 111 (high), non-HDL cholesterol 135 (high), VLDL 25 (normal) TSH (08/24/2022): Normal. Head CT (03/08/23): FINDINGS: BRAIN: No acute bleed. No edema. Yip-white matter differentiation is maintained. Arterial calcifications. VENTRICLES AND SULCI: Not dilated. EXTRA-AXIAL: 1.5 cm hyperattenuating mass with calcifications extra-axial left posterior parietal region abuts the falx consistent with meningioma. No acute extra-axial hematoma. CALVARIUM / SKULL BASE: Unremarkable. FACE/SINUSES: Unremarkable. SOFT TISSUES: Unremarkable. IMPRESSION: No evidence of acute intracranial injury. Left posterior parietal extra-axial mass consistent with meningioma. These images were reviewed on 08/17/2023. A 12 x 14 mm left posterior parietal parafalcine calcified meningioma is noted. There is no underlying edema. Cervical spine CT (03/08/23): FINDINGS: ALIGNMENT: No subluxation. Straightening of the normal curvature. MINERALIZATION: Normal. VERTEBRAL BODIES: No fracture or acute abnormality. DISC SPACES: Disc space narrowing with osteophytes most pronounced C5-C7. POSTERIOR ELEMENTS: Facet arthropathy at multiple levels. SPINAL CANAL: Maintained. PARASPINAL SOFT TISSUES: Unremarkable. OTHER: None. IMPRESSION: No evidence of fracture or subluxation. Straightening of the normal curve may be due to position or muscle spasm. Degenerative changes. These images were reviewed on 08/17/2023. CBC, CMP, lipid profile (09/24/2023): Potassium 5.4 (high), BUN 22 (high), cholesterol 169 (normal), triglycerides 59 (normal), HDL 56 (normal), LDL 101 (high) Potassium (09/23/2023): Normal. Cardiac echo (10/11/2023): The left ventricle is normal in size. Left ventricular systolic function is normal. EF equals 59???5%. Grade 1 left ventricular diastolic dysfunction. The right ventricle is normal in size. Right ventricular systolic function is normal. There are no significant valvular abnormalities. Assessment and Plan Assessment and Plan (1) Essential tremor: Status: Chronic Medications: New propranolol 20 mg PO DAILY 90 tabs 1RF Discontinued propranolol Discontinued Reason: Discontinued by PCP/other physicians 15 mg (1.5 x 10 mg) PO DAILY 135 tabs 3RF Plan Details Additional Comments: The patient has a bilateral hand essential tremor. Her tremor had diminished with the use of propranolol however more recently her tremor has worsened and she is experiencing some functional impairment with handwriting. She has tolerated propranolol well. - I will have her increase propranolol from 15 mg daily to 20 mg daily. A 12 x 14 mm left posterior parietal parafalcine calcified meningioma is noted on a head CT. The patient denies having headaches. I will have her return for reassessment in 6 months. Intake Vital Signs 08/17/23 11:04 02/23/24 08:24 Height 5 ft 5 ft Weight: 172 lb 6 oz 166 lb BMI 33.6 32.4 BP 122/68 H 114/72 Blood Pressu (more content not included)... Normal [facility] NM CARDIAC PERF STRESS/PHARM on 09-28-2023 NM CARDIAC PERF STRESS/PHARM * * *Final Report* * * DATE OF EXAM: Sep 28 2023 3:05PM [facility] 0006 - NM CARDIAC PERF STRESS/PHARM / PROCEDURE REASON: R94.31-Abnormal electrocardiogram * * * * Physician Interpretation * * * * PATIENT: Name: MRS. SOFI DUNCAN Age: 68 years Gender: F CONCLUSIONS: 1. SPECT Perfusion Study: Normal. 2. There is no scintigraphic evidence for inducible ischemia. 3. No evidence of scarred myocardium. 4. Left ventricle is normal in size. The left ventricle systolic function is normal. 5. This is a low risk scan. Gated Stress IR:3D Gated Rest IR:3D LVEF % 80 79 Prior Study Comparison No prior nuclear cardiology exam available for comparison. Nuclear Med Report:1-Day Gated SPECT Myocardial Perfusion with Regadenoson Stress: Myocardial perfusion imaging was performed at rest 30 minutes following the IV injection of the radiotracer. The patient received 0.4 mg of regadenoson, via rapid IV push, immediately followed by radiotracer IV. Gated post stress tomographic imaging was performed 30 to 60 minutes later. See administered radiotracer and doses below. [facility] Date of service: 09/28/2023 1:40:53 PM Ordering Physician: GOGO GURROLA. Requesting Physician: Indication: Abnormal Baseline ECG Interpreting physician: Jourdan Jacques MD Height: 152.40 cm BSA: 1.79 m? Weight: 75.30 kg BMI: 32.4 kg/m? CT Dose Reduction Employed: No. Exam Type: Rest Stress Radiopharm: Tc-99m Tetrofosmin Tc-99m Tetrofosmin Dosage(mCi): 13.4 35.8 Atten Correction: not performed not performed Stress Agent: Regadenoson 0.4mg Supply provided from [facility] Resting Blood Press: 151/73 mmHg Image Quality The overall study imaging quality was deemed to be good. FINDINGS: Left Ventricle Wall Motion: Stress IR:3D - All segments are normal. Rest IR:3D - Gated Stress IR:3D - Gated Rest IR:3D - Reversibility - Stress IR:3D Stress IR:3D Gated Stress IR:3D Gated Rest IR:3D LVEF: 80 % 79 % ED Volume: 50 ml 57 ml ES Volume: 10 ml 12 ml TID: 0.92 Perfusion Findings Stress IR:3D - Summed Score=0 All segments demonstrate normal perfusion. Rest IR:3D - Summed Score=0 All segments demonstrate normal perfusion. Stress IR:3D Rest IR:3D Summed Score=0 Summed Score=0 LEFT VENTRICLE The left ventricle is normal in size. Left ventricular systolic function is normal. Right Ventricle The right ventricle is unseen or not interrogated. Stress Test Findings: There is no scintigraphic evidence for inducible ischemia. There is no evidence of scarring. The left ventricular cavity size is unchanged with stress. * * * Final * * * Stress ECG Report: [facility] Date of service: 09/28/2023 1:40:53 PM Ordering physician: GOGO GURROLA regional telecommunications specialist: [employer] Teacher: Divine Azar Interpreting physician: Magdy Pringle MD Patient name: MRS. SOFI DUNCAN Age: 68 years Gender: F Height: 0.00 cm BSA: 0.00 m? Weight: 0.00 kg BMI: Indication: Abnormal resting ECG Stress ECG Conclusion: Conclusion: Normal with exception due to T waves changes Stress ECG Summary: The patient's resting heart rate was 68 bpm and blood pressure was 151/73 mmHg. The test was terminated due to end of protocol. No symptoms provoked during stress. The maximum heart rate was 97 bpm, which is 64% of the predicted heart rate for age. Peak blood pressure was 148/65 mmHg. The double product achieved was [address]80. Medications: Last Used PRAVACHOL PROPRANOLOL ALBUTEROL INHALER PROZAC CALCIUM CARBONATE Resting ECG: Normal Sinus Rhythm Symptoms at rest: No symptoms Pharamcologic Protocol: Regadenoson Stress Exercise Table: +-----+--+---+---+ Stage HR SYS RALPH +-----+--+---+---+ 1 91 148 59 +-----+--+---+---+ 2 97 145 63 +-----+--+---+---+ 3 96 148 65 +-----+--+---+---+ 4 92 145 54 +-----+--+---+---+ 5 97 144 61 +-----+--+---+---+ 6 91 143 65 +-----+--+---+---+ +-----+--+---+---+ HR SYS RALPH +-----+--+---+---+ Final 97 148 65 +-----+--+---+---+ Stress Observations: Resting HR: 68 bpm Peak HR: 97 bpm (64% MPHR) Resting BP: 151 / 73 mmHg Peak BP: 148 / 65 mmHg Rate Pressure Product (RPP): 51690 Stress Exercise Observations: Reason for test termination: end of protocol, Symptoms during test: No symptoms provoked during stress, ST segment and T wave changes: T-wave changes - stress and Arrhythmias: No arrhythmias Metabolic Exercise Data Variable: Observed value [Expected Range] HGI: 0.4 [>1.06 bpm/mmHg] * * * Final * * * - (more content not included)... Normal [facility] Heart Perfusion W stress and W radionuclide Sharon 09-28-2023 * * *Final Report* * * DATE OF EXAM: Sep 28 2023 3:05PM [facility] 0006 - MS CARDIAC PERF STRESS/PHARM / PROCEDURE REASON: R94.31-Abnormal electrocardiogram * * * * Physician Interpretation * * * * PATIENT: Name: MRS. SOFI DUNCAN Age: 68 years Gender: F CONCLUSIONS: 1. SPECT Perfusion Study: Normal. 2. There is no scintigraphic evidence for inducible ischemia. 3. No evidence of scarred myocardium. 4. Left ventricle is normal in size. The left ventricle systolic function is normal. 5. This is a low risk scan. Gated Stress IR:3D Gated Rest IR:3D LVEF % 80 79 Prior Study Comparison No prior nuclear cardiology exam available for comparison. Nuclear Med Report:1-Day Gated SPECT Myocardial Perfusion with Regadenoson Stress: Myocardial perfusion imaging was performed at rest 30 minutes following the IV injection of the radiotracer. The patient received 0.4 mg of regadenoson, via rapid IV push, immediately followed by radiotracer IV. Gated post stress tomographic imaging was performed 30 to 60 minutes later. See administered radiotracer and doses below. [facility] Date of service: 09/28/2023 1:40:53 PM Ordering Physician: GOGO GURROLA. Requesting Physician: Indication: Abnormal Baseline ECG Interpreting physician: Jourdan Jacques MD Height: 152.40 cm BSA: 1.79 m Weight: 75.30 kg BMI: 32.4 kg/m CT Dose Reduction Employed: No. Exam Type: Rest Stress Radiopharm: Tc-99m Tetrofosmin Tc-99m Tetrofosmin Dosage(mCi): 13.4 35.8 Atten Correction: not performed not performed Stress Agent: Regadenoson 0.4mg Supply provided from [facility] Resting Blood Press: 151/73 mmHg Image Quality The overall study imaging quality was deemed to be good. FINDINGS: Left Ventricle Wall Motion: Stress IR:3D - All segments are normal. Rest IR:3D - Gated Stress IR:3D - Gated Rest IR:3D - Reversibility - Stress IR:3D Stress IR:3D Gated Stress IR:3D Gated Rest IR:3D LVEF: 80 % 79 % ED Volume: 50 ml 57 ml ES Volume: 10 ml 12 ml TID: 0.92 Perfusion Findings Stress IR:3D - Summed Score=0 All segments demonstrate normal perfusion. Rest IR:3D - Summed Score=0 All segments demonstrate normal perfusion. Stress IR:3D Rest IR:3D Summed Score=0 Summed Score=0 LEFT VENTRICLE The left ventricle is normal in size. Left ventricular systolic function is normal. Right Ventricle The right ventricle is unseen or not interrogated. Stress Test Findings: There is no scintigraphic evidence for inducible ischemia. There is no evidence of scarring. The left ventricular cavity size is unchanged with stress. * * * Final * * * Stress ECG Report: [facility] Date of service: 09/28/2023 1:40:53 PM Ordering physician: GOGO GURROLA regional telecommunications specialist: [employer] Teacher: Divine Azar Interpreting physician: Magdy Pringle MD Patient name: MRS. SOFI DUNCAN Age: 68 years Gender: F Height: 0.00 cm BSA: 0.00 m Weight: 0.00 kg BMI: Indication: Abnormal resting ECG Stress ECG Conclusion: Conclusion: Normal with exception due to T waves changes Stress ECG Summary: The patient's resting heart rate was 68 bpm and blood pressure was 151/73 mmHg. The test was terminated due to end of protocol. No symptoms provoked during stress. The maximum heart rate was 97 bpm, which is 64% of the predicted heart rate for age. Peak blood pressure was 148/65 mmHg. The double product achieved was [address]. Medications: Last Used PRAVACHOL PROPRANOLOL ALBUTEROL INHALER PROZAC CALCIUM CARBONATE Resting ECG: Normal Sinus Rhythm Symptoms at rest: No symptoms Pharamcologic Protocol: Regadenoson Stress Exercise Table: +-----+--+---+---+ Stage HR SYS RALPH +-----+--+---+---+ 1 91 148 59 +-----+--+---+---+ 2 97 145 63 +-----+--+---+---+ 3 96 148 65 +-----+--+---+---+ 4 92 145 54 +-----+--+---+---+ 5 97 144 61 +-----+--+---+---+ 6 91 143 65 +-----+--+---+---+ +-----+--+---+---+ HR SYS RALPH +-----+--+---+---+ Final 97 148 65 +-----+--+---+---+ Stress Observations: Resting HR: 68 bpm Peak HR: 97 bpm (64% MPHR) Resting BP: 151 / 73 mmHg Peak BP: 148 / 65 mmHg Rate (more content not included)... [facility] Provider, [facility] [place] - 09/28/2023 * * *Final Report* * * DATE OF EXAM: Sep 28 2023 3:05PM [facility] 0006 - NM CARDIAC PERF STRESS/PHARM / PROCEDURE REASON: R94.31-Abnormal electrocardiogram * * * * Physician Interpretation * * * * PATIENT: Name: MRS. SOFI DUNCAN Age: 68 years Gender: F CONCLUSIONS: 1. SPECT Perfusion Study: Normal. 2. There is no scintigraphic evidence for inducible ischemia. 3. No evidence of scarred myocardium. 4. Left ventricle is normal in size. The left ventricle systolic function is normal. 5. This is a low risk scan. Gated Stress IR:3D Gated Rest IR:3D LVEF % 80 79 Prior Study Comparison No prior nuclear cardiology exam available for comparison. Nuclear Med Report:1-Day Gated SPECT Myocardial Perfusion with Regadenoson Stress: Myocardial perfusion imaging was performed at rest 30 minutes following the IV injection of the radiotracer. The patient received 0.4 mg of regadenoson, via rapid IV push, immediately followed by radiotracer IV. Gated post stress tomographic imaging was performed 30 to 60 minutes later. See administered radiotracer and doses below. [facility] Date of service: 09/28/2023 1:40:53 PM Ordering Physician: GOGO GURROLA. Requesting Physician: Indication: Abnormal Baseline ECG Interpreting physician: Jourdan Jacques MD Height: 152.40 cm BSA: 1.79 m Weight: 75.30 kg BMI: 32.4 kg/m CT Dose Reduction Employed: No. Exam Type: Rest Stress Radiopharm: Tc-99m Tetrofosmin Tc-99m Tetrofosmin Dosage(mCi): 13.4 35.8 Atten Correction: not performed not performed Stress Agent: Regadenoson 0.4mg Supply provided from [facility] Resting Blood Press: 151/73 mmHg Image Quality The overall study imaging quality was deemed to be good. FINDINGS: Left Ventricle Wall Motion: Stress IR:3D - All segments are normal. Rest IR:3D - Gated Stress IR:3D - Gated Rest IR:3D - Reversibility - Stress IR:3D Stress IR:3D Gated Stress IR:3D Gated Rest IR:3D LVEF: 80 % 79 % ED Volume: 50 ml 57 ml ES Volume: 10 ml 12 ml TID: 0.92 Perfusion Findings Stress IR:3D - Summed Score=0 All segments demonstrate normal perfusion. Rest IR:3D - Summed Score=0 All segments demonstrate normal perfusion. Stress IR:3D Rest IR:3D Summed Score=0 Summed Score=0 LEFT VENTRICLE The left ventricle is normal in size. Left ventricular systolic function is normal. Right Ventricle The right ventricle is unseen or not interrogated. Stress Test Findings: There is no scintigraphic evidence for inducible ischemia. There is no evidence of scarring. The left ventricular cavity size is unchanged with stress. * * * Final * * * Stress ECG Report: [facility] Date of service: 09/28/2023 1:40:53 PM Ordering physician: GOGO GURROLA regional telecommunications specialist: [employer] Teacher: Divine Azar Interpreting physician: Magdy Pringle MD Patient name: MRS. SOFI DUNCAN Age: 68 years Gender: F Height: 0.00 cm BSA: 0.00 m Weight: 0.00 kg BMI: Indication: Abnormal resting ECG Stress ECG Conclusion: Conclusion: Normal with exception due to T waves changes Stress ECG Summary: The patient's resting heart rate was 68 bpm and blood pressure was 151/73 mmHg. The test was terminated due to end of protocol. No symptoms provoked during stress. The maximum heart rate was 97 bpm, which is 64% of the predicted heart rate for age. Peak blood pressure was 148/65 mmHg. The double product achieved was [id number]. Medications: Last Used PRAVACHOL PROPRANOLOL ALBUTEROL INHALER PROZAC CALCIUM CARBONATE Resting ECG: Normal Sinus Rhythm Symptoms at rest: No symptoms Pharamcologic Protocol: Regadenoson Stress Exercise Table: +-----+--+---+---+ Stage HR SYS RALPH +-----+--+---+---+ 1 91 148 59 +-----+--+---+---+ 2 97 145 63 +-----+--+---+---+ 3 96 148 65 +-----+--+---+---+ 4 92 145 54 +-----+--+---+---+ 5 97 144 61 +-----+--+---+---+ 6 91 143 65 +-----+--+---+---+ +-----+--+---+---+ HR SYS RALPH +-----+--+---+---+ Final 97 148 65 +-----+--+---+---+ Stress Observations: Resting HR: 68 bpm Peak HR: 97 bpm (64% MPHR) Resting BP: 151 / 73 mmHg Peak BP: 148 / 65 mmHg Rate Pressure Product (RPP): 60286 Stress Exercise Observations: Reason for test termination: end of protocol, Symptoms during test: No symptoms provoked during stress, ST segment and T wave changes: T-wave changes - stress and Arrhythmias: No arrhythmias Metabolic Exercise Data Variable: Observed value [Expected Range] (more content not included)... [facility] [facility] Radiology Study observation (narrative) [facility] [place] Heart Perfusion W stress and W radionuclide IVOrdered By: Ccf Provider on 09-28-2023 [facility] CNPNon 09-27-2023 CNPN Telephone (CDLBME) SOFI DUNCAN ([id number]) 1955 F Date Time Provider Department 09/27/23 DIVINE AZARRashmi During your visit today, we recorded the following information about you: Divine Azar RN 09/27/2023 2:44 PM Signed Spoke to pt regarding reminder and instructions for stress test tomorrow. This included where to check in, length of test and no caffeine for 12 hours prior to test, Allergies As of Date: 09/27/2023 Noted Allergy Reaction DIFLUCAN (FLUCONAZOLE) 11/02/2008 2 - Rash 4 - Hives 9 - Itching Date Reviewed: 09/24/2023 Reviewed by: Sailaja Rodríguez LPN - Fully Assessed Reason for Visit: Reminder Call [[id number]] Prescriptions as of 09/27/2023 - OTC PRODUCT Calcium Mini 600 mg plus Vitamin D3 12.5 mcg - 2 capsules twice a day - OTC PRODUCT Hair/Skin/Nails with Collagen and Pantogthenic Acid 10 mg - 2 gummies per day. Recommended by Dr. Tyrone Hannah. - pravastatin (PRAVACHOL) 40 mg tablet Take 1 tablet by mouth once daily. - propranolol (INDERAL) 10 mg tablet Take 1.5 tablets by mouth once daily. - albuterol HFA (VENTOLIN HFA) 90 mcg/actuation inhaler Inhale 2 Puffs as instructed every 4 hours as needed for wheezing/shortness of breath. - FLUoxetine (PROZAC) 20 mg capsule Take 1 capsule by mouth two times a day. - calcium carbonate/vitamin D3 (CALTRATE 600 PLUS D ORAL) Take 1 tablet by mouth once daily. - Doxycycline Monohydrate 40 mg capsule Take 1 capsule by mouth once daily. - triamcinolone acetonide (NASACORT) 55 mcg nasal inhaler Use 2 Sprays in the nose once daily. 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] 11/24/2005 Depression [F32.A] 01/07/2011 Hyperlipidemia [E78.5] 01/07/2011 BMI 32.0-32.9,adult [Z68.32] 07/06/2013 07/04/2015 Benign essential tremor [G25.0] 09/23/2014 Allergic rhinitis [J30.9] 09/23/2014 BMI 33.0-33.9,adult [Z68.33] 07/04/2015 Osteoarthritis [M19.90] Osteopenia [M85.80] 07/22/2021 Meningioma (HCC) [D32.9] 03/22/2023 Encounter Status:Closed by DIVINE AZAR on 09/27/23 [facility] POTASSIUMOrdered By: Brooklynn merino on 09-27-2023 Interpretation and review of laboratory results Normal [facility] Potassium [Moles/Vol] 4.1 mmol/L 3.7 - 5.1 mmol/L [facility] CBC W Auto Differential pane l (Bld)on 09-24-2023 Basophils (Bld) [#/Vol] [facility] Basophils/100 WBC (Bld) 0.5 % [facility] Differential cell count method Nom (Bld) Auto [facility] Eosinophils (Bld) [#/Vol] 0.09 10*3/uL [facility] Eosinophils/100 WBC (Bld) 2.0 % [facility] Erythrocyte distribution width (RBC) [Ratio] 12.3 % 11.5 - 15.0 % [facility] Hematocrit (Bld) [Volume fraction] 38.8 % 36.0 - 46.0 % [facility] Hemoglobin (Bld) [Mass/Vol] 12.9 g/dL 11.5 - 15.5 g/dL [facility] Immature granulocytes (Bld) [#/Vol] [facility] Immature granulocytes/100 WBC (Bld) 0.5 % [facility] Lymphocytes (Bld) [#/Vol] 1.33 10*3/uL [facility] Lymphocytes/100 WBC (Bld) 30.1 % [facility] MCH (RBC) [Entitic mass] 31.5 pg 26.0 - 34.0 pg [facility] MCHC (RBC) [Mass/Vol] 33.2 g/dL 30.5 - 36.0 g/dL [facility] MCV (RBC) [Entitic vol] 94.9 fL 80.0 - 100.0 fL [facility] Monocytes (Bld) [#/Vol] 0.44 10*3/uL [facility] Monocytes/100 WBC (Bld) 10.0 % [facility] Neutrophils (Bld) [#/Vol] 2.52 10*3/uL [facility] Neutrophils/100 WBC (Bld) 56.9 % [facility] Nucleated RBC (Bld) [#/Vol] [facility] Nucleated RBC/100 WBC (Bld) [Ratio] 0.0 % /100 WBC [facility] Platelet mean volume (Bld) [Entitic vol] 10.5 fL 9.0 - 12.7 fL [facility] Platelets (Bld) [#/Vol] 232 10*3/uL [facility] RBC (Bld) [#/Vol] 4.09 10*6/uL 3.90 - 5.2 0 m/uL [facility] WBC (Bld) [#/Vol] 4.42 10*3/uL [facility] Comprehensive metabolic 2000 panelon 09-24-2023 Albumin [Mass/Vol] 4.5 g/dL 3.9 - 4.9 g/dL [facility] ALP [Catalytic activity/Vol] 51 U/L 34 - 123 U/L [facility] ALT [Catalytic activity/Vol] 19 U/L 7 - 38 U/L [facility] Anion gap [Moles/Vol] 10 mmol/L 8 - 15 mmol/L [facility] AST [Catalytic activity/Vol] 24 U/L 13 - 35 U/L [facility] Bilirubin [Mass/Vol] 0.4 mg/dL 0.2 - 1 .3 mg/dL [facility] Calcium [Mass/Vol] 9.7 mg/dL 8.5 - 10. 2 mg/dL [facility] Chloride [Moles/Vol] 107 mmol/L 98 - 10 7 mmol/L [facility] CO2 [Moles/Vol] 26 mmol/L 22 - 30 mmol/L [facility] Creatinine [Mass/Vol] 0.78 mg/dL 0.58 - 0.96 mg/dL [facility] GFR/1.73 sq M.predicted among non-blacks MDRD (S/P/Bld) [Vol rate/Area] 83 mL/min/{1.73_m2} - PINF [facility] Comment on above: Estimated Glomerular Filtration Rate (eGFR) is calculated using the 2020 CKD-EPI creatinine equation. This equation utilizes serum creatinine, sex, and age as parameters. The creatinine assay has traceable calibration to isotope dilution-mass spectrometry. Refer to KDIGO guidelines for clinical interpretation. In patients with unstable renal function, e.g. those with acute kidney injury, the eGFR may not accurately reflect actual GFR. Glucose [Mass/Vol] 90 mg/dL 74 - 99 mg/dL [facility] Comment on above: The [place] Diab[employer] s Association (ADA) provides guidance for cutoff values for fasting glucose and random glucose. The ADA defines fasting as no caloric intake for at least 8 hours. Fasting plasma glucose results between 100 to 125 mg/dL indicate increased risk for diabetes (prediabetes). Fasting plasma glucose results greater than or equal to 126 mg/dL meet the criteria for diagnosis of diabetes. In the absence of unequivocal hyperglycemia, results should be confirmed by repeat testing. In a patient with classic symptoms of hyperglycemia or hyperglycemic crisis, random plasma glucose results greater than or equal to 200 mg/dL meet the criteria for diagnosis of diabetes. Reference: Standards of Medical Care in Diabetes 2016, [place] [employer]. Diabetes Care. 2016.39(Suppl 1). Potassium [Moles/Vol] 5.4 mmol/L High 3.7 - 5.1 mmol/L [facility] Protein [Mass/Vol] 6.8 g/dL 6.3 - 8.0 g/dL [facility] Sodium [Moles/Vol] 143 mmol/L 136 - 144 mmol/L [facility] Urea nitrogen [Mass/Vol] 22 mg/dL High 7 - 21 mg/dL [facility] Lipid 1996 panelon 4 Cholesterol [Mass/Vol] 169 mg/dL NINF - 200 mg/dL [facility] Comment on above: <200 mg/dL, Desirabl e 200-239 mg/dL, Borderline high >239 mg/dL, High Cholesterol in HDL [Mass/Vol] 56 mg/dL 39 - PINF mg/dL [facility] Comment on above: 40-59 mg/dL, Accepta ble >59 mg/dL, High: Negative risk factor for coronary heart disease <40 mg/dL, Low: Positive risk factor for coronary heart disease Cholesterol in LDL [Mass/Vol] 101 mg/dL High NINF - 100 mg/dL [facility] Comment on above: <100 mg/dL, Optimal 100-129 mg/dL, Near optimal/above optimal 130-159 mg/dL, Borderline high 160-189 mg/dL, High >189 mg/dL, Very high Secondary prevention optimal LDL Cholesterol levels are recommended to be < 70 mg/dL Cholesterol in LDL/Cholesterol in HDL [Mass ratio] 1.80 {ratio} NINF - 2.54 [facility] Comment on above: Reference: 1. National Cholesterol Education Program ATP III Guideline At-A-Glance Quick Desk Reference: National Heart, Lung, and Blood [place]. National Institutes of Health. 2001: NIH Publication No. 01-3305. 2. An International Atherosclerosis Society position paper: global recommendations for the management of dyslipidemia: executive summary, Atherosclerosis. 2014: 232(2):410-413. Cholesterol in VLDL [Mass/Vol] 12 mg/dL NINF - 30 mg/dL [facility] Cholesterol non HDL [Mass/Vol] 113 mg/dL NINF - 130 mg/dL [facility] Comment on above: <130 mg/dL, Optimal 130-159 mg/dL, Near optimal/above optimal 160-189 mg/dL, Borderline high 190-219 mg/dL, High >219 mg/dL, Very high Secondary prevention optimal non HDL Cholesterol levels are recommended to be <100 mg/dL Cholesterol.total/Chol esterol in HDL [Mass ratio] 3.02 {ratio} NINF - 5.10 [facility] Fasting Time 15 hrs [facility] Triglyceride [Mass/Vol] 59 mg/dL NINF - 150 mg/dL [facility] Comment on above: <150 mg/dL, Normal 150-199 mg/dL, Borderline high 200-499 mg/dL, High >499 mg/dL, Very high No Panel Informationon 09-23 Interpretation and review of laboratory results Abnormal [facility] XR Chest PA and Lateralon IMPRESSION: No acute radiographic abnormality. Director Of Psychiatry: PSCB Transcribe Date/Time: Jul 20 2023 5:37P Dictated by : AMBER DRAKE MD This examination was interpreted and the report reviewed and electronically signed by: AMBER DRAKE MD on Jul 20 2023 5:38PM [facility] DIVISION OF RADIOLOGY * * *Final Report* * * DATE OF EXAM: Jul 20 2023 5:16PM WOX [id number] - XR CHEST 2V FRONTAL/LAT / PROCEDURE REASON: multiple diagnoses * * * * Physician Interpretation * * * * EXAMINATION: CHEST RADIOGRAPH (2 VIEW FRONTAL & LATERAL) CLINICAL HISTORY: Productive cough Rhonchi at left lung base MQ: XC2_6 EXAM DATE/TIME: 07/20/2023 5:16 PM COMPARISON: 12/21/2014 RESULT: Lines, tubes, and devices: None. Lungs and pleura: No consolidation. No lung mass. No pleural effusion. No pneumothorax. Cardiomediastinal silhouette: Normal cardiomediastinal silhouette. Bones and soft tissues: Unremarkable. DIVISION OF RADIOLOGY Provider, [facility] [place] - 07/20/2023 * * *Final Report* * * DATE OF EXAM: Jul 20 2023 5:16PM WOX 5291 - XR CHEST 2V FRONTAL/LAT / PROCEDURE REASON: multiple diagnoses * * * * Physician Interpretation * * * * EXAMINATION: CHEST RADIOGRAPH (2 VIEW FRONTAL & LATERAL) CLINICAL HISTORY: Productive cough Rhonchi at left lung base MQ: XC2_6 EXAM DATE/TIME: 07/20/2023 5:16 PM COMPARISON: 12/21/2014 RESULT: Lines, tubes, and devices: None. Lungs and pleura: No consolidation. No lung mass. No pleural effusion. No pneumothorax. Cardiomediastinal silhouette: Normal cardiomediastinal silhouette. Bones and soft tissues: Unremarkable. IMPRESSION IMPRESSION: No acute radiographic abnormality. Director Of Psychiatry: VIANEY Transcribe Date/Time: Jul 20 2023 5:37P Dictated by : AMBER DRAKE MD This examination was interpreted and the report reviewed and electronically signed by: AMBER DRAKE MD on Jul 20 2023 5:38PM EST [facility] Radiology Study observation (narrative) [facility] XR Chest PA and LateralOrder ed By: Ccf Provider on 07-20-2023 [facility] DXA-AXIAL SKELETONon 023 [facility] No Panel InformationOrdered By: Dr. Hamilton on 08-24-2022 Thyroid Stimulating Hormone (TSH) 1.26 uIU/mL 0.358-3.74 [facility] CBC W Auto Differential pane l (Bld)on 07-22-2022 Basophils (Bld) [#/Vol] 0.03 10*3/uL <0.11 k/uL [facility] Basophils/100 WBC (Bld) 0.7 % [facility] Differential cell count method Nom (Bld) Auto [facility] Eosinophils (Bld) [#/Vol] 0.09 10*3/uL <0.46 k/uL [facility] Eosinophils/100 WBC (Bld) 2.0 % [facility] Erythrocyte distribution width (RBC) [Ratio] 12.4 % 11.5 - 15.0 % [facility] Hematocrit (Bld) [Volume fraction] 40.0 % 36.0 - 46.0 % [facility] Hemoglobin (Bld) [Mass/Vol] 12.9 g/dL 11.5 - 15.5 g/dL [facility] Immature granulocytes (Bld) [#/Vol] <0.10 k/uL [facility] Immature granulocytes/100 WBC (Bld) 0.4 % [facility] Lymphocytes (Bld) [#/Vol] 1.42 10*3/uL 1.00 - 4.00 k/uL [facility] Lymphocytes/100 WBC (Bld) 30.8 % [facility] MCH (RBC) [Entitic mass] 31.5 pg 26.0 - 34.0 pg [facility] MCHC (RBC) [Mass/Vol] 32.3 g/dL 30.5 - 36.0 g/dL [facility] MCV (RBC) [Entitic vol] 97.8 fL 80.0 - 100.0 fL [facility] Monocytes (Bld) [#/Vol] 0.47 10*3/uL <0.87 k/uL [facility] Monocytes/100 WBC (Bld) 10.2 % [facility] Neutrophils (Bld) [#/Vol] 2.58 10*3/uL 1.45 - 7.50 k/uL [facility] Neutrophils/100 WBC (Bld) 55.9 % [facility] Nucleated RBC (Bld) [#/Vol] <0.01 k/uL [facility] Nucleated RBC/100 WBC (Bld) [Ratio] 0.0 /100 WBC [facility] Platelet mean volume (Bld) [Entitic vol] 10.2 fL 9.0 - 12.7 fL [facility] Platelets (Bld) [#/Vol] 239 10*3/uL 150 - 400 k/uL [facility] RBC (Bld) [#/Vol] 4.09 10*6/uL 3.90 - 5.2 0 m/uL [facility] WBC (Bld) [#/Vol] 4.61 10*3/uL 3.70 - 11. 00 k/uL [facility] CBC panel Auto (Bld)on 07-23 Erythrocyte distribution width (RBC) [Ratio] 12.4 % 11.5 - 15.0 % [facility] Hematocrit (Bld) [Volume fraction] 39.2 % 36.0 - 46.0 % [facility] Hemoglobin (Bld) [Mass/Vol] 12.6 g/dL 11.5 - 15.5 g/dL [facility] MCH (RBC) [Entitic mass] 30.7 pg 26.0 - 34.0 pg [facility] MCHC (RBC) [Mass/Vol] 32.1 g/dL 30.5 - 36.0 g/dL [facility] MCV (RBC) [Entitic vol] 95.6 fL 80.0 - 100.0 fL [facility] Nucleated RBC (Bld) [#/Vol] 10*3/uL <0.01 k/uL [facility] Platelet mean volume (Bld) [Entitic vol] 10.4 fL 9.0 - 12.7 fL [facility] Platelets (Bld) [#/Vol] 217 10*3/uL 150 - 400 k/uL [facility] RBC (Bld) [#/Vol] 4.10 10*6/uL 3.90 - 5.2 0 m/uL [facility] WBC (Bld) [#/Vol] 4.99 10*3/uL 3.70 - 11. 00 k/uL [facility] Office Visit: est annualon 0 12-28-2016 Documentation of current medications (procedure) Done Invalid Interpretation Code [facility] Fall risk assessment No Invalid Interpretation Code [facility] Tobacco smoking status NHIS Never Invalid Interpretation Code [facility] Tobacco smoking status SDIS Never smoker Invalid Interpretation Code [facility] Tobacco use HS Never smoker Invalid Interpretation Code [facility] Office Visit: est annualon 1 05-06-2015 Breast Mammogram screening Normal Bilateral Invalid Interpretation Code [facility] Office Visit: est annualon 1 05-06-2012 General categories [Interpretation] of Cervical or vaginal smear or scraping by Cyto stain Normal Invalid Interpretation Code [facility] Vital Signs Date Time Vital Sign Value Performing Clinician Facility 12-06-2024 07:17040 Body height 153.7 cm Gogo Gurrola MD Work Phone: [facility] 12-06-2024 07:17040 Body mass index (BMI) [Ratio] 32.8 kg/m2 Gogo Gurrola MD Work Phone: [facility] 12-06-2024 07:170400 Body weight 77.47 kg Gogo Gurrola MD Work Phone: [facility] 12-06-2024 07:170400 Diastolic blood pressure 76 mm[Hg] Gogo Gurrola MD Work Phone: [facility] 12-06-2024 07:17-0400 Heart rate 88 /min Gogo Gurrola MD Work Phone: [facility] 12-06-2024 07:17-0400 SaO2% (BldA) [Mass fraction] 96 % Gogo Gurrola MD Work Phone: [facility] 12-06-2024 07:17-0400 Systolic blood pressure 132 mm[Hg] Gogo Gurrola MD Work Phone: [facility] 11-15-2024 10:16-0400 Body height 153.7 cm Gogo Gurrola MD Work Phone: [facility] 11-15-2024 10:16-0400 Body mass index (BMI) [Ratio] 32.68 kg/m2 Gogo Gurrola MD Work Phone: [facility] 11-15-2024 10:16-0400 Body weight 77.2 kg Gogo Gurrola MD Work Phone: [facility] 11-15-2024 10:16-0400 Diastolic blood pressure 68 mm[Hg] Gogo Gurrola MD Work Phone: [facility] Comment on above: Pt's cuff 131/77 11-15-2024 10:16-0400 Heart rate 79 /min Ggoo Gurrola MD Work Phone: [facility] 11-15-2024 10:16-0400 SaO2% (BldA) [Mass fraction] 98 % Gogo Gurrola MD Work Phone: [facility] 11-15-2024 10:16-0400 Systolic blood pressure 132 mm[Hg] Gogo Gurrola MD Work Phone: [facility] Comment on above: Pt's cuff 131/77 10-11-2024 09:25-0400 Body height 152.[address] Philip Gurrola MD Work Phone: [facility] 10-11-2024 09:25-0400 Body mass index (BMI) [Ratio] 33 kg/m2 Dr. Philip Gurrola MD Work Phone: [facility] 10-11-2024 09:25-0400 Body temperature 98.2 [degF] Dr. Philip Gurrola MD Work Phone: [facility] 10-11-2024 09:25-0400 Body weight 76.[address] Philip Gurrola MD Work Phone: [facility] 10-11-2024 09:25-0400 Diastolic blood pressure 75 mm[Hg] Dr. Philip Gurrola MD Work Phone: [facility] 10-11-2024 09:25-0400 Heart rate 77 /min Dr. Philip Gurrola MD Work Phone: [facility] 10-11-2024 09:25-0400 Respiratory rate 16 /min Dr. Philip Gurrola MD Work Phone: [facility] 10-11-2024 09:25-0400 SaO2% (BldA) [Mass fraction] 97 % Dr. Philip Gurrola MD Work Phone: [facility] 10-11-2024 09:25-0400 Systolic blood pressure 109 mm[Hg] Dr. Philip Gurrola MD Work Phone: [facility] 09-22-2024 09:30-0400 Body height 153.7 cm Brooklynn Podlogar PAPER CUTTING MACHINE OPERATOR.ORTHOPEDIC SURGEON Work Phone: [facility] 09-22-2024 09:30-0400 Body mass index (BMI) [Ratio] 32.95 kg/m2 Brooklynn Podlogar PAPER CUTTING MACHINE OPERATOR.ORTHOPEDIC SURGEON Work Phone: [facility] 09-22-2024 09:30-0400 Body weight 77.84 kg Brooklynn Podlogar PAPER CUTTING MACHINE OPERATOR.ORTHOPEDIC SURGEON Work Phone: [facility] 09-22-2024 09:30-0400 Diastolic blood pressure 88 mm[Hg] Brooklynn Podlogar PAPER CUTTING MACHINE OPERATOR.ORTHOPEDIC SURGEON Work Phone: [facility] 09-22-2024 09:30-0400 Heart rate 74 /min Brooklynn Podlogar PAPER CUTTING MACHINE OPERATOR.ORTHOPEDIC SURGEON Work Phone: [facility] 09-22-2024 09:30-0400 Respiratory rate 16 /min Brooklynn Podlogar PAPER CUTTING MACHINE OPERATOR.ORTHOPEDIC SURGEON Work Phone: [facility] 09-22-2024 09:30-0400 SaO2% (BldA) [Mass fraction] 98 % Brooklynn Podlogar PAPER CUTTING MACHINE OPERATOR.ORTHOPEDIC SURGEON Work Phone: [facility] 09-22-2024 09:30-0400 Systolic blood pressure 134 mm[Hg] Brooklynn Podlogar PAPER CUTTING MACHINE OPERATOR.ORTHOPEDIC SURGEON Work Phone: [facility] 08-09-2024 09:27-0400 Body temperature 98 [degF] Dr. Philip Gurrola MD Work Phone: [facility] 08-09-2024 09:27-0400 Diastolic blood pressure 72 mm[Hg] Dr. Philip Gurrola MD Work Phone: [facility] 08-09-2024 09:27-0400 Heart rate 91 /min Dr. Philip Gurrola MD Work Phone: [facility] 08-09-2024 09:27-0400 Respiratory rate 17 /min Dr. Philip Gurrola MD Work Phone: [facility] 08-09-2024 09:27-0400 SaO2% (BldA) [Mass fraction] 98 % Dr. Philip Gurrola MD Work Phone: [facility] 08-09-2024 09:27-0400 Systolic blood pressure 112 mm[Hg] Dr. Philip Gurrola MD Work Phone: [facility] 08-02-2024 18:28-0400 Body mass index (BMI) [Ratio] 33.75 kg/m2 Brooklynn Podlogar PAPER CUTTING MACHINE OPERATOR.ORTHOPEDIC SURGEON Work Phone: [facility] 08-02-2024 18:28-0400 Body weight 78.38 kg Brooklynn Podlogar PAPER CUTTING MACHINE OPERATOR.ORTHOPEDIC SURGEON Work Phone: [facility] 08-02-2024 18:28-0400 Diastolic blood pressure 68 mm[Hg] Brooklynn Podlogar PAPER CUTTING MACHINE OPERATOR.ORTHOPEDIC SURGEON Work Phone: [facility] 08-02-2024 18:28-0400 Heart rate 73 /min Brooklynn Podlogar PAPER CUTTING MACHINE OPERATOR.ORTHOPEDIC SURGEON Work Phone: [facility] 08-02-2024 18:28-0400 Respiratory rate 18 /min Brooklynn Podlogar PAPER CUTTING MACHINE OPERATOR.ORTHOPEDIC SURGEON Work Phone: [facility] 08-02-2024 18:28-0400 SaO2% (BldA) [Mass fraction] 97 % Brooklynn Podlogar PAPER CUTTING MACHINE OPERATOR.ORTHOPEDIC SURGEON Work Phone: [facility] 08-02-2024 18:28-0400 Systolic blood pressure 134 mm[Hg] Brooklynn Podlogar PAPER CUTTING MACHINE OPERATOR.ORTHOPEDIC SURGEON Work Phone: [facility] 03-24-2024 09:55-0500 Body height 152.4 cm Gogo Gurrola MD Work Phone: [facility] 03-24-2024 09:55-0500 Body mass index (BMI) [Ratio] 33.01 kg/m2 Gogo Gurrola MD Work Phone: [facility] 03-24-2024 09:55-0500 Body weight 76.66 kg Gogo Gurrola MD [facility] Phone: [facility] [facility] 03-24-2024 09:55-0500 Diastolic blood pressure 72 mm[Hg] Gogo Gurrola MD Work Phone: [facility] 03-24-2024 09:55-0500 Heart rate 82 /min Gogo Gurrola MD Work Phone: [facility] 03-24-2024 09:55-0500 Respiratory rate 14 /min Gogo Gurrola MD Work Phone: [facility] 03-24-2024 09:55-0500 SaO2% (BldA) [Mass fraction] 97 % Gogo Gurrola MD Work Phone: [facility] 03-24-2024 09:55-0500 Systolic blood pressure 122 mm[Hg] Gogo Gurrola MD Work Phone: 5(346)181-366855 [place] [address] 02-23-2024 08:24-0500 Body height 152.[address] Philip Gurrola MD Work Phone: 6(575)858-788462 [place] [address] 02-23-2024 08:24-0500 Body mass index (BMI) [Ratio] 32.4 kg/m2 Dr. Philip Gurrola MD Work Phone: 4(494)718-990062 [place] [address] 02-23-2024 08:24-0500 Body temperature 97.8 [degF] Dr. Philip Gurrola MD Work Phone: 6(345)035-817262 [place] [address] 02-23-2024 08:24-0500 Body weight 75.[address] Philip Gurrola MD Work Phone: 7(368)255-176862 [place] [address] 02-23-2024 08:24-0500 Diastolic blood pressure 72 mm[Hg] Dr. Philip Gurrola MD Work Phone: 7(460)051-492762 [place] [address] 02-23-2024 08:24-0500 Heart rate 91 /min Dr. Philip Gurrola MD Work Phone: 4(283)847-624762 [place] [address] 02-23-2024 08:24-0500 Respiratory rate 15 /min Dr. Philip Gurrola MD Work Phone: 9(623)829-580562 [place] [address] 02-23-2024 08:24-0500 SaO2% (BldA) [Mass fraction] 98 % Dr. Philip Gurrola MD Work Phone: 7(419)386-264362 [place] [address] 02-23-2024 08:24-0500 Systolic blood pressure 114 mm[Hg] Dr. Philip Gurrola MD Work Phone: 3(352)318-817662 [place] [address] 09-24-2023 08:57-0400 Body mass index (BMI) [Ratio] 32.58 kg/m2 Gogo Gurrola MD Work Phone: 3(438)407-532720 [place] [address] 09-24-2023 08:57-0400 Body weight 75.66 kg Gogo Gurrola MD Work Phone: 5(699)704-579199 [place] [address] 09-24-2023 08:57-0400 Diastolic blood pressure 66 mm[Hg] Gogo Gurrola MD Work Phone: [facility] 09-24-2023 08:57-0400 Heart rate 82 /min Gogo Gurrola MD Work Phone: [facility] 09-24-2023 08:57-0400 Respiratory rate 16 /min Gogo Gurrola MD Work Phone: [facility] 09-24-2023 08:57-0400 SaO2% (BldA) [Mass fraction] 98 % Gogo Gurrola MD Work Phone: [facility] 09-24-2023 08:57-0400 Systolic blood pressure 116 mm[Hg] Gogo Gurrola MD Work Phone: [facility] 07-20-2023 16:13-0400 Body temperature 98.2 [degF] Gogo Gurrola MD Work Phone: [facility] 07-20-2023 16:13-0400 Body weight 78.83 kg Gogo Gurrola MD Work Phone: [facility] 07-20-2023 16:13-0400 Diastolic blood pressure 74 mm[Hg] Gogo Gurrola MD Work Phone: [facility] 07-20-2023 16:13-0400 Heart rate 72 /min Gogo Gurrola MD Work Phone: [facility] 07-20-2023 16:13-0400 Respiratory rate 16 /min Gogo Gurrola MD Work Phone: [facility] 07-20-2023 16:13-0400 SaO2% (BldA) [Mass fraction] 97 % Gogo Gurrola MD Work Phone: [facility] 07-20-2023 16:13-0400 Systolic blood pressure 126 mm[Hg] Gogo Gurrola MD Work Phone: [facility] 06-21-2023 09:01-0400 Body weight 78.65 kg Gogo Gurrola MD Work Phone: [facility] 06-21-2023 09:01-0400 Diastolic blood pressure 70 mm[Hg] Gogo Gurrola MD Work Phone: [facility] 06-21-2023 09:01-0400 Heart rate 79 /min Gogo Gurrola MD Work Phone: [facility] 06-21-2023 09:01-0400 Respiratory rate 16 /min Gogo Gurrola MD Work Phone: [facility] 06-21-2023 09:01-0400 SaO2% (BldA) [Mass fraction] 96 % Gogo Gurrola MD Work Phone: [facility] 06-21-2023 09:01-0400 Systolic blood pressure 112 mm[Hg] Gogo Gurrola MD Work Phone: [facility] 03-08-2023 16:17-0500 Body height 152.[address] Philip Gurrola Work Phone: [facility] 03-08-2023 16:17-0500 Body mass index (BMI) [Ratio] 34 kg/m2 Dr. Philip Gurrola Work Phone: [facility] 03-08-2023 16:17-0500 Body temperature 96.5 [degF] Dr. Philip Gurrola Work Phone: [facility] 03-08-2023 16:17-0500 Body weight 79.[address] Philip Gurrola Work Phone: [facility] 03-08-2023 16:17-0500 Diastolic blood pressure 75 mm[Hg] Dr. Philip Gurrola Work Phone: 2(984)015-486850 [place] [address] 03-08-2023 16:17-0500 Heart rate 74 /min Dr. Philip Gurrola Work Phone: 3(785)588-281750 [place] [address] 03-08-2023 16:17-0500 Respiratory rate 18 /min Dr. Philip Gurrola Work Phone: [facility] 03-08-2023 16:17-0500 SaO2% (BldA) [Mass fraction] 100 % Dr. Philip Gurrola Work Phone: 2(463)702-130862 [place] [address] 03-08-2023 16:17-0500 Systolic blood pressure 147 mm[Hg] Dr. Philip Gurrola Work Phone: 9(301)668-945262 [place] [address] 01-27-2023 09:15-0400 Body mass index (BMI) [Ratio] 33.6 kg/m2 Dr. Philip Gurrola Work Phone: 3(681)033-792762 [place] [address] 01-27-2023 09:15-0400 Body weight 78.[address] Philip Gurrola Work Phone: 7(417)277-968862 [place] [address] 01-27-2023 09:15-0400 Diastolic blood pressure 76 mm[Hg] Dr. Philip Gurrola Work Phone: 5(692)877-807662 [place] [address] 01-27-2023 09:15-0400 Systolic blood pressure 124 mm[Hg] Dr. Philip Gurrola Work Phone: 5(534)116-863862 [place] [address] 12-07-2022 09:16-0400 Body mass index (BMI) [Ratio] 33.2 kg/m2 Dr. Philip Gurrola Work Phone: 5(669)138-693262 [place] [address] 12-07-2022 09:16-0400 Body weight 77.[address] Philip Gurrola Work Phone: 6(722)380-137362 [place] [address] 12-07-2022 09:16-0400 Diastolic blood pressure 82 mm[Hg] Dr. Philip Gurrola Work Phone: 9(866)362-318362 [place] [address] 12-07-2022 09:16-0400 Heart rate 96 /min Dr. Philip Gurrola Work Phone: 3(746)765-463362 [place] [address] 12-07-2022 09:16-0400 Respiratory rate 16 /min Dr. Philip Gurrola Work Phone: 5(391)500-954262 [place] [address] 12-07-2022 09:16-0400 SaO2% (BldA) [Mass fraction] 95 % Dr. Philip Gurrola Work Phone: 8(851)156-953862 [place] [address] 12-07-2022 09:16-0400 Systolic blood pressure 137 mm[Hg] Dr. Philip Gurrola Work Phone: 4(275)773-038062 [place] [address] 08-24-2022 12:58-0400 Body height 152.[address] Philip Gurrola Work Phone: 7(520)004-993562 [place] [address] 08-24-2022 12:58-0400 Body mass index (BMI) [Ratio] 34.2 kg/m2 Dr. Philip Gurrola Work Phone: 8(135)709-489062 [place] [address] 08-24-2022 12:58-0400 Body temperature 98 [degF] Dr. Philip Gurrola Work Phone: 9(553)541-281762 [place] [address] 08-24-2022 12:58-0400 Body weight 79.[address] Philip Gurrola Work Phone: 9(244)065-935962 [place] [address] 08-24-2022 12:58-0400 Diastolic blood pressure 80 mm[Hg] Dr. Philip Gurrola Work Phone: 8(777)137-536362 [place] [address] 08-24-2022 12:58-0400 Heart rate 72 /min Dr. Philip Gurrola Work Phone: 3(469)308-754062 [place] [address] 08-24-2022 12:58-0400 Respiratory rate 16 /min Dr. Philip Gurrola Work Phone: 7(096)304-593662 [place] [address] 08-24-2022 12:58-0400 SaO2% (BldA) [Mass fraction] 98 % Dr. Philip Gurrola Work Phone: 2(327)532-504462 [place] [address] 08-24-2022 12:58-0400 Systolic blood pressure 110 mm[Hg] Dr. Philip Gurrola Work Phone: 2(353)450-252762 [place] [address] 07-22-2022 11:13-0400 Body height 152.4 cm Gogo Gurrola MD Work Phone: 3(877)926-701220 [place] [address] 07-22-2022 11:13-0400 Body weight 77.56 kg Gogo Gurrola MD Work Phone: 3(124)867-085320 [place] [address] 07-22-2022 11:13-0400 Diastolic blood pressure 64 mm[Hg] Gogo Gurrola MD Work Phone: [facility] 07-22-2022 11:13-0400 Heart rate 77 /min Gogo Gurrola MD Work Phone: [facility] 07-22-2022 11:13-0400 Respiratory rate 16 /min Gogo Gurrola MD Work Phone: [facility] 07-22-2022 11:13-0400 Systolic blood pressure 116 mm[Hg] Gogo Gurrola MD Work Phone: [facility] 01-21-2022 11:15-0400 Body temperature 97.59 [degF] Gogo Gurrola MD Work Phone: [facility] 01-21-2022 11:15-0400 Body weight 76.11 kg Gogo Gurrola MD Work Phone: [facility] 01-21-2022 11:15-0400 Diastolic blood pressure 84 mm[Hg] Gogo Gurrola MD Work Phone: [facility] 01-21-2022 11:15-0400 Heart rate 62 /min Gogo Gurrola MD Work Phone: [facility] 01-21-2022 11:15-0400 Respiratory rate 16 /min Gogo Gurrola MD Work Phone: [facility] 01-21-2022 11:15-0400 SaO2% (BldA) [Mass fraction] 96 % Gogo Gurrola MD Work Phone: [facility] 01-21-2022 11:15-0400 Systolic blood pressure 116 mm[Hg] Gogo Gurrola MD Work Phone: [facility] 01-21-2022 09:31-0400 Body height 152.[address] Philip Gurrola Work Phone: [facility] 01-21-2022 09:25-0400 Body mass index (BMI) [Ratio] 32.7 kg/m2 Dr. Philip Gurrola Work Phone: [facility] 01-21-2022 09:25-0400 Body weight 75.[address] Philip Gurrola Work Phone: [facility] 01-21-2022 09:25-0400 Diastolic blood pressure 82 mm[Hg] Dr. Philip Gurrola Work Phone: [facility] 01-21-2022 09:25-0400 Systolic blood pressure 124 mm[Hg] Dr. Philip Gurrola Work Phone: [facility] 11-11-2021 10:03-0400 Body weight 74.57 kg Gogo Gurrola MD Work Phone: [facility] 11-11-2021 10:03-0400 Diastolic blood pressure 64 mm[Hg] Gogo Gurrola MD Work Phone: [facility] 11-11-2021 10:03-0400 Heart rate 80 /min Gogo Gurrola MD Work Phone: [facility] 11-11-2021 10:03-0400 Respiratory rate 16 /min Gogo Gurrola MD Work Phone: [facility] 11-11-2021 10:03-0400 SaO2% (BldA) [Mass fraction] 98 % Gogo Gurrola MD Work Phone: [facility] 11-11-2021 10:03-0400 Systolic blood pressure 102 mm[Hg] Gogo Gurrola MD Work Phone: [facility] 08-21-2021 09:59-0400 Body height 152.[address] Philip Gurrola Work Phone: [facility] Work Phone: 08-21-2021 09:59-0400 Body mass index (BMI) [Ratio] 32.4 kg/m2 Dr. Philip Gurrola Work Phone: [facility] Work Phone: 08-21-2021 09:59-0400 Body temperature 97.8 [degF] Dr. Philip Gurrola Work Phone: [facility] Work Phone: 08-21-2021 09:59-0400 Body weight 75.[address] Philip Gurrola Work Phone: [facility] Work Phone: 08-21-2021 09:59-0400 Diastolic blood pressure 76 mm[Hg] Dr. Philip Gurrola Work Phone: [facility] Work Phone: 08-21-2021 09:59-0400 Heart rate 74 /min Dr. Philip Gurrola Work Phone: [facility] Work Phone: 08-21-2021 09:59-0400 Respiratory rate 18 /min Dr. Philip Gurrola Work Phone: [facility] Work Phone: 08-21-2021 09:59-0400 SaO2% (BldA) [Mass fraction] 99 % Dr. Philip Gurrola Work Phone: [facility] Work Phone: 08-21-2021 09:59-0400 Systolic blood pressure 138 mm[Hg] Dr. Philip Gurrola Work Phone: [facility] Work Phone: 07-22-2021 15:29-0400 Body weight 74.84 kg Gogo Gurrola MD Work Phone: [facility] 07-22-2021 15:29-0400 Diastolic blood pressure 68 mm[Hg] Gogo Gurrola MD Work Phone: [facility] 07-22-2021 15:29-0400 Heart rate 80 /min Gogo Gurrola MD Work Phone: [facility] 07-22-2021 15:29-0400 Respiratory rate 16 /min Gogo Gurrola MD Work Phone: [facility] 07-22-2021 15:29-0400 SaO2% (BldA) [Mass fraction] 97 % Gogo Gurrola MD Work Phone: [facility] 07-22-2021 15:29-0400 Systolic blood pressure 114 mm[Hg] Gogo Gurrola MD Work Phone: [facility] 12-28-2016 08:53-0400 BMI (Body Mass Index) 33.7 kg/m2 Rajni Toledo NP [facility] 12-28-2016 08:53-0400 Body Temperature 98.1 [degF] Rajni Toledo [facility] 12-28-2016 08:53-0400 BP Diastolic 78 mm[Hg] Rajni Toledo NP [facility] 12-28-2016 08:53-0400 BP Systolic 125 mm[Hg] Rajni Toledo NP [facility] 12-28-2016 08:53-0400 Height 152.4 cm Rajni Toledo NP [facility] 12-28-2016 08:53-0400 Pulse (Heart Rate) 91 /min Rajni Toledo [facility] 12-28-2016 08:53-0400 Respiratory Rate 16 /min Rajni Toledo NP [facility] 12-28-2016 08:53-0400 Weight 78.29 kg Rajni Toledo NP [facility] Encounters Encounter Date Encounter Type Care Provider Facility Start: 01-17-2025 Encounter for gyneco logical examination (general) (routine) without abnormal findings Rajni Toledo NP [facility] Start: 01-17-2025 End: 01-17-2025 ambulatory Philip Gurrola Facility:[facility] Start: 12-06-2024 End: 12-06-2024 Patient encounter procedure Gogo Gurrola MD Work Phone: [facility] Comment on above: Hypertension, essent ial (Primary Dx); Hyperlipidemia, unspecified hyperlipidemia type Start: 12-06-2024 End: 12-06-2024 ambulatory GOGO GURROLA Facility:[facility] Start: 11-16-2024 End: 11-17-2024 Follow-up encounter Gogo Gurrola MD Work Phone: [facility] Comment on above: Results Start: 11-15-2024 End: 11-15-2024 Patient encounter procedure Gogo Gurrola MD Work Phone: [facility] Comment on above: Hypertension, essent ial (Primary Dx) Start: 11-15-2024 End: 11-15-2024 ambulatory Brooklynn Patriciologdinh PAPER CUTTING MACHINE OPERATOR.ORTHOPEDIC SURGEON Work Phone: [facility] Comment on above: Blood pressure Start: 10-11-2024 End: 10-11-[address] Rony Hamilton MD -[facility] Work Phone: Start: 10-11-2024 End: 10-11-[address] Philip Gurrola MD Work Phone: -[facility] Start: 09-25-2024 End: 10-04-2024 Follow-up encounter Kathleen Haddad LPN [facility] Comment on above: Results Start: 09-22-2024 End: 09-22-2024 Patient encounter procedure Brooklynn Kuhn PAPER CUTTING MACHINE OPERATOR.ORTHOPEDIC SURGEON Work Phone: [facility] Comment on above: Hyperlipidemia, unsp ecified hyperlipidemia type (Primary Dx); CARMINE (generalized anxiety disorder); Mild episode of recurrent major depressive disorder; Benign essential tremor; Meningioma (HCC) Start: 09-22-2024 End: 09-22-2024 ambulatory BROOKLYNN PODLOGDINH Facility:[facility] Start: 09-12-2024 End: 09-12-2024 [facility] [place] Start: 09-12-2024 End: 09-12-2024 Patient encounter procedure Alethea Andrade in [place] Comment on above: Population Health Na vigation Outreach ([facility] [employer] ) Start: 08-09-2024 End: 08-09-[address] Rony Hamilton MD -[facility] Work Phone: Start: 08-09-2024 End: 08-09-2024 ambulatory Philip Gurrola Facility:[facility] Start: 08-02-2024 End: 08-02-2024 Patient encounter procedure Brooklynn Kuhn APRN.ORTHOPEDIC SURGEON Work Phone: [facility] Comment on above: Leg swelling (Primar y Dx); Redness of skin Start: 08-02-2024 End: 08-02-2024 ambulatory BROOKLYNN KUHN Facility:[facility] Start: 05-31-2024 End: 05-31-[address] Philip Gurrola MD Work Phone: [facility] Work Phone: Start: 05-31-2024 End: 05-31-[address] Philip Gurrola MD -[facility] Work Phone: Start: 05-31-2024 End: 05-31-2024 ambulatory Philip Gurrola Facility:[facility] Start: 05-28-2024 End: 05-29-2024 Refill Gogo Gurrola MD Work Phone: [facility] Comment on above: Refill Request Start: 04-25-2024 End: 05-26-2024 ambulatory Brooklynn Kuhn APRN.ORTHOPEDIC SURGEON [facility] Start: 03-24-2024 End: 03-24-2024 Patient encounter procedure Gogo Gurrola MD Work Phone: [facility] Comment on above: CARMINE (generalized anx iety disorder) (Primary Dx); Mild episode of recurrent major depressive disorder (HCC); Benign essential tremor; Meningioma (HCC); Hyperlipidemia, unspecified hyperlipidemia type; Hair loss Start: 03-24-2024 End: 03-24-2024 ambulatory GOGO GURROLA Facility:[facility] Start: 02-23-2024 End: 02-23-[address] Rony Hamilton MD -[facility] Work Phone: Start: 02-23-2024 End: 02-23-2024 ambulatory Philip Gurrola Facility:[facility] Start: 10-11-2023 Telephone encounter Philip Gurrola MD Work Phone: [facility] Comment on above: Patient Question Start: 09-28-2023 Telephone encounter Philip Gurrola MD Work Phone: [facility] Comment on above: Results (Potassium) Start: 09-28-2023 ambulatory UNKNOWN PROVIDER Facili ty:[facility] Start: 09-28-2023 End: 09-28-2023 Subsequent hospital visit by physician [facility] Work Phone: Cardiology Lab Comment on above: Abnormal electrocard iogram [R94.31] Start: 09-27-2023 ambulatory Gogo Gurrola MD Work Phone: [facility] Comment on above: Stress test 09/28/23 Start: 09-27-2023 Telephone encounter Philip Gurrola MD Work Phone: [facility] Comment on above: CT calcium scoring t est Reminder Call Start: 09-26-2023 ambulatory Gogo Gurrola MD Work Phone: [facility] Comment on above: Vitamin update Start: 09-25-2023 Telephone encounter Philip Gurrola MD Work Phone: [facility] Comment on above: Results Start: 09-24-2023 End: 09-24-2023 Patient encounter procedure Gogo Gurrola MD Work Phone: [facility] Comment on above: CARMINE (generalized anx iety disorder) (Primary Dx); Mild episode of recurrent major depressive disorder (HCC); Benign essential tremor; Hyperlipidemia, unspecified hyperlipidemia type; Meningioma (HCC); BMI 33.0-33.9,adult; Class 1 obesity with body mass index (BMI) of 32.0 to 32.9 in adult, unspecified obesity type, unspecified whether serious comorbidity present; Abnormal EKG; Abnormal electrocardiogram Start: 07-20-2023 End: 07-20-2023 Subsequent hospital visit by physician [facility] Work Phone: Radiology Comment on above: Productive cough [R0 5.8] Start: 07-20-2023 End: 07-20-2023 Patient encounter procedure Gogo Gurrola MD Work Phone: [facility] Comment on above: Productive cough (Pr imary Dx); Rhonchi at left lung base Start: 07-20-2023 Telephone encounter Philip Gurrola MD Work Phone: [facility] Comment on above: Results Start: 06-21-2023 ambulatory Gogo Gurrola MD Work Phone: [facility] Comment on above: Dup;icate appts Start: 06-21-2023 End: 06-21-2023 Patient encounter procedure Gogo Gurrola MD Work Phone: [facility] Comment on above: CARMINE (generalized anx iety disorder) Start: 05-26-2023 ambulatory Gogo Gurrola MD Work Phone: Internal Medicine [facility] Start: 03-08-2023 End: 03-08-2023 Emergency department patient visit Dr. Philip Gurrola Work Phone: [facility] Work Phone: Start: 03-08-2023 End: 03-08-[address] Philip Gurrola Work Phone: [facility] Work Phone: Start: 03-08-2023 End: 03-08-[address] Philip Gurrola Work Phone: [facility]Physical Therapy Work Phone: Start: 03-08-[address] Iglesia Gurrola Work Phone: [facility] Work Phone: Start: 01-27-2023 End: 01-27-[address] Philip Gurrola Work Phone: [facility] Work Phone: Start: 12-07-2022 End: 12-07-[address] Philip Gurrola Work Phone: [facility] Work Phone: Start: 11-23-2022 End: 11-23-2022 Subsequent hospital visit by physician [facility] Work Phone: Radiology Comment on above: Asymptomatic postmen opausal status [Z78.0] Start: 11-02-2022 Telephone encounter Philip Gurrola MD Work Phone: [facility] Comment on above: Prescription Problem Start: 08-24-2022 End: 08-24-[address] Philip Gurrola Work Phone: [facility] Work Phone: Start: 08-24-2022 End: 08-24-[address] Philip Gurrola Work Phone: [facility] Start: 08-06-2022 Telephone encounter Philip Gurrola MD Work Phone: [facility] Comment on above: Results Start: 07-23-2022 Telephone encounter Philip Gurrola MD Work Phone: [facility] Comment on above: Results Start: 07-22-2022 End: 07-22-2022 Patient encounter procedure Gogo Gurrola MD Work Phone: [facility] Comment on above: Mild episode of recu rrent major depressive disorder (HCC) (Primary Dx); CARMINE (generalized anxiety disorder); Benign essential tremor; Hyperlipidemia, unspecified hyperlipidemia type; BMI 33.0-33.9,adult; Osteopenia, unspecified location; Asymptomatic postmenopausal status Start: 06-12-2022 Refill Gogo Gurrola MD Work Phone: [facility] Comment on above: Refill Request Start: 06-10-2022 ambulatory Gogo Gurrola MD Work Phone: Internal Medicine [facility] [place] Start: 05-07-2022 End: 05-07-[address] Philip Gurrola Work Phone: [facility] Work Phone: Start: 05-07-2022 End: 05-07-[address] Philip Gurrola Work Phone: [facility]Outpatient [facility] Start: 04-02-2022 Refill Gogo Gurrola MD Work Phone: [facility] Comment on above: Refill Request Start: 01-21-2022 End: 01-21-2022 Patient encounter procedure Gogo Gurrola MD Work Phone: [facility] Comment on above: Benign essential terrell mor (Primary Dx); Strain of calf muscle, left, initial encounter; Mild episode of recurrent major depressive disorder (HCC); Hyperlipidemia, unspecified hyperlipidemia type; Hair loss Start: 01-21-2022 End: 01-21-[address] Philip Gurrola Work Phone: [facility] Start: 12-03-2021 End: 12-03-[address] Philip Gurrola Work Phone: [facility] Work Phone: Start: 12-03-2021 End: 12-03-2021 Discharged Recurring Dr. Philip Gurrola Work Phone: [facility] Start: 11-17-2021 End: 11-17-[address] Philip Gurrola Work Phone: [facility] Start: 11-11-2021 End: 11-11-2021 Patient encounter procedure Gogo Gurrola MD Work Phone: [facility] Comment on above: Strain of calf muscl e, left, initial encounter (Primary Dx) Start: 09-21-2021 Refill Gogo Gurrola MD Work Phone: [facility] Comment on above: Refill Request Start: 08-21-2021 End: 08-21-[address] Philip Gurrola Work Phone: [facility] Start: 07-22-2021 End: 07-22-2021 Patient encounter procedure Gogo Gurrola MD Work Phone: [facility] Comment on above: Benign essential terrell mor (Primary Dx); Hyperlipidemia, unspecified hyperlipidemia type; Osteopenia, unspecified location; Mild episode of recurrent major depressive disorder (HCC); S/P bilateral breast reduction; BMI 33.0-33.9,adult; Need for COVID-19 vaccine Start: 07-08-2021 Telephone encounter Philip Gurrola MD Work Phone: [facility] Comment on above: Medication Request Start: 07-07-2021 Refill Brooklynn Podlogdinh PAPER CUTTING MACHINE OPERATOR.ORTHOPEDIC SURGEON Work Phone: [facility] Comment on above: Refill Request Start: 06-30-2021 ambulatory Alethea Rayo MA [facility] Comment on above: Population Health Na vigation Outreach ( ACO ALEX PCSA ) Start: 06-18-2021 ambulatory Gogo Gurrola MD Work Phone: Internal Medicine [facility] [place] Procedures Date Procedure Procedure Detail Performing Clinician Start: 09-22-2024 Lipid 1996 panel - Serum or Plasma Kathleen Haddad LPN Start: 05-31-2024 Screening mammography Karl Gurrola MD Work Phone: Start: 04-25-2024 End: 04-25-2024 Screening mammography Brooklynn Kuhn PAPER CUTTING MACHINE OPERATOR.ORTHOPEDIC SURGEON Work Phone: Comment on above: Mammo screening Start: 09-28-2023 Myocardial spect multiple studies Gogo Gurrola MD Work Phone: Start: 09-24-2023 Ecg routine ecg w/le ast 12 lds i&r only [facility] Provider Start: 09-24-2023 Lipid 1996 panel - Serum or Plasma Gogo Gurrola MD Work Phone: Start: 07-20-2023 Radiologic exam ches t 2 views Gogo Gurrola MD Work Phone: Start: 03-08-2023 CT of head without contrast Dr. Philip Gurrola Work Phone: Start: 03-08-2023 CT cervical spine without contrast Dr. Philip Gurrola Work Phone: Start: 11-23-2022 Dxa bone density katarina dy 1/> sites axial skel Gogo Gurrola MD Work Phone: Start: 07-22-2022 Lipid 1996 panel - Serum or Plasma Bone Wstr Work Phone: Start: 05-07-2022 Screening mammography D r. Philip Gurrola Work Phone: Start: 07-22-2021 PFIZER-BIONTECH COVID-19 VACCINE, AGE 12+ YR (CAMACHO TOP) Gogo Gurrola MD Work Phone: Start: 05-06-2021 Mammography Alethea pina MA Start: 05-06-2020 Mammography Philip Gurrola MD Work Phone: Start: 09-19-2019 Colonoscopy Philip Gurorla MD Work Phone: Start: 12-28-2016 Gynecologic examination Routin e gynecological examination Rajni Toledo FPGA ENGINEER Start: 12-28-2016 Screening mammography Mammogra m yearly screening Rajni Toledo FPGA ENGINEER Start: 12-28-2016 End: 12-28-2016 Documentation of current medications Rajni Toledo FPGA ENGINEER History of reduction of breast S/P bilateral breast reduction Gogo Gurrola MD Work Phone: Plan of Treatment Date Care Activity Detail Author Start: 09-22-2029 Lipid panel Lipid Screening [facility] Start: 09-18-2029 Colonoscopy COLONOSCOPY [facility] Start: 09-18-2029 COLORECTAL CANCER SCREENING COLORECTAL CANCER SCREENING [facility] Start: 09-18-2029 Screening for malignant neoplasm of colon [facility] Start: 02-06-2029 Urine microalbumin profile [facility] Start: 09-23-2028 Lipid panel Lipid Screening [facility] Start: 09-23-2027 Diabetes Screening Diabetes Screening [facility] Start: 07-23-2027 Lipid 1996 panel - Serum or Plasma Lipid Screening [facility] Start: 07-23-2027 Lipid panel Lipid Screening [facility] Start: 07-23-2027 LIPID SCREEN LIPID SCREEN [facility] Start: 09-23-2026 Diabetes Screening Diabetes Screening [facility] Start: 07-22-2026 LIPID SCREEN LIPID SCREEN [facility] Start: 12-06-2025 Annual PCP Team Chronic Disease Visit Annual PCP Team Chronic Disease Visit [facility] Start: 09-24-2025 Medicare Annual Wellness Visit Medicare Annual Wellness Visit [facility] Comment on above: Postponed from 06/03/2020 (Declined at t his time) Start: 07-22-2025 DIABETES SCREEN DIABETES SCREEN [facility] Start: 07-22-2025 Diabetes Screening Diabetes Screening [facility] Start: 07-01-2025 LIPID SCREEN LIPID SCREEN [facility] Start: 05-31-2025 Screening for malignant neoplasm of breast Mammogram Screening [facility] Start: 03-26-2025 End: 03-26-2025 Patient encounter procedure 03/26/2025 9:00 AM EST Office Visit Family Melissa Johnson [address] [place] [address] PodlogarBrooklynn APRN.ORTHOPEDIC SURGEON [address] [place] [address] 6 month follow up Family Melissa Johnson Comment on above: 6 month follow up Start: 12-06-2024 End: 12-06-2024 Patient encounter procedure 12/06/2024 7:20 AM EDT Office Visit Family Melissa Johnson [address] [place] [address] Gogo Gurrola MD [address] [place] [address] 2 week f/u Family Melissa Johnson Comment on above: 2 week f/u Start: 12-04-2024 Influenza vaccination Influ[facility] Start: 11-15-2024 End: 02-14-2025 Thyrotropin [Units/volume] in Serum or Plasma [facility] Work Phone: Comment on above: Expected: 11/15/2024, Expires: Start: 11-15-2024 End: 02-13-2025 Urinalysis complete panel - Urine [facility] Comment on above: Expected: 11/15/2024, Expires: Start: 09-23-2024 Covid-19 Vaccine () Covid-19 Vaccine () [facility] Comment on above: Postponed from 05/03/2023 (Declined at t his time) Start: 09-22-2024 End: 12-22-2024 Comprehensive metabolic 2000 panel - Serum or Plasma [facility] Comment on above: Expected: 09/22/2024, Expires: Start: 09-22-2024 End: 12-22-2024 Lipid 1996 panel - Serum or Plasma [facility] Work Phone: Comment on above: Expected: 09/22/2024, Expires: Start: 09-22-2024 End: 09-22-2024 Patient encounter procedure Family Melissa Johnson Comment on above: 6 month follow MEDICARE WELLNESS Start: 08-04-2024 Covid-19 Vaccine () Covid-19 Vaccine () [facility] Start: 07-22-2024 DIABETES SCREEN DIABETES SCREEN [facility] Start: 04-05-2024 Advance Directive Discussion Advance Directive Discussion [facility] Start: 03-24-2024 End: 03-24-2024 Patient encounter procedure 03/24/2024 10:00 AM EST Office Visit Family Melissa Johnson [address] [place] [address] Gogo Gurrola MD [address] [place] [address] 6 month follow up Family Melissa Johnson Comment on above: 6 month follow up Start: 12-05-2023 Covid-19 Vaccine () Covid-19 Vaccine () [facility] Start: 12-05-2023 Influenza vaccination Influenza Vaccine (#[facility]) [facility] Start: 10-11-2023 End: 10-11-2023 Patient encounter procedure 10/11/2023 8:50 AM EDT Office Visit Cardiology [address] [place] [address] Abnormal EKG [R94.31] Cardiology Comment on above: Abnormal EKG [R94.31] Start: 09-28-2023 Subsequent hospital visit by physician 09/28/2023 2:30 PM EDT Hospital Encounter Cardiology Lab [address] [place] [address] Abnormal electrocardiogram [R94.31] Cardiology Lab Comment on above: Abnormal electrocardiogram [R94.31] Start: 09-28-2023 End: 09-28-2023 Patient encounter procedure 09/28/2023 1:30 PM EDT Appointment Molecular Imaging [address] [place] [id number] Abnormal electrocardiogram [R94.31] [facility] Comment on above: Abnormal electrocardiogram [R94.31] Start: 09-28-2023 Subsequent hospital visit by physician 09/28/2023 1:13 PM EDT Hospital Encounter [facility] [address] [place] [id number] Abnormal electrocardiogram [R94.31] [facility] Comment on above: Abnormal electrocardiogram [R94.31] Start: 07-02-2023 DIABETES SCREEN DIABETES SCREEN [facility] Start: 04-05-2023 Advance Directive Discussion Advance Directive Discussion [facility] Start: 12-04-2022 Covid-19 Vaccine () Covid-19 Vaccine () [facility] Start: 12-04-2022 Influenza vaccination INFLUENZA (#1) [facility] Start: 11-21-2022 End: 08-21-2023 DXA-AXIAL SKELETON DXA-AXIAL SKELETON Radiology Routine Asymptomatic postmenopausal status Expected: 11/21/2022, Expires: 08/21/2023 [facility] Work Phone: Comment on above: Expected: 11/21/2022, Expires: Start: 07-23-2022 End: 09-22-2022 POTASSIUM BLD POTASSIUM BLD Lab Routine Hyperkalemia Expected: 07/23/2022, Expires: 09/22/2022 [facility] Work Phone: Comment on above: Expected: 07/23/2022, Expires: 3 Start: 07-22-2022 End: 09-21-2022 Comprehensive metabolic 2000 panel - Serum or Plasma [facility] Work Phone: Comment on above: Expected: 07/22/2022, Expires: 3 Start: 07-22-2022 End: 09-21-2022 LIPID PANEL, NONFASTING [facility] Work Phone: Comment on above: Expected: 07/22/2022, Expires: 3 Start: 05-16-2022 COVID-19 VACCINE (6 - Pfizer series) COVID-19 VACCINE (6 - Pfizer series) [facility] Start: 05-06-2022 Mammography [facility] Start: 05-06-2022 Screening for malignant neoplasm of breast Mammogram Screening [facility] Start: 04-05-2022 ADVANCE DIRECTIVE DISCUSSION ADVANCE DIRECTIVE DISCUSSION [facility] Start: 12-04-2021 Influenza vaccination INFLUENZA (#1) [facility] Start: 11-21-2021 PNEUMOCOCCAL: 65+ (2 - PCV) PNEUMOCOCCAL: 65+ (2 - PCV) [facility] Start: 07-22-2021 End: 09-21-2021 Comprehensive metabolic 2000 panel - Serum or Plasma [facility] Work Phone: Comment on above: Expected: 07/22/2021, Expires: 2 Start: 07-22-2021 End: 09-21-2021 LIPID PANEL, NONFASTING [facility] Work Phone: Comment on above: Expected: 07/22/2021, Expires: 2 Start: 05-06-2021 Mammography MAMMOGRAM [facility] Start: 04-05-2021 ADVANCE DIRECTIVE DISCUSSION ADVANCE DIRECTIVE DISCUSSION [facility] Start: 12-28-2016 End: 12-28-2016 Mammogram, screening Mammogram, Screening, both breasts [facility] Start: 12-28-2016 End: 12-28-2016 Appointment Appointment [facility] Start: 12-28-2016 End: 12-28-2016 Mammogram, screening Mammogram, Screening, both breasts [facility] Start: 10-28-2016 FECAL OCCULT BLOOD FECAL OCCULT BLOOD [facility] Start: 10-28-2016 Screening for malignant neoplasm of colon Fecal Occult Blood [facility] Start: 06-05-2000 COLOGUARD (FIT-DNA) COLOGUARD (FIT-DNA) [facility] Start: 06-05-[address] COLONOGRAPHY [facility] Start: 06-05-2000 Screening for malignant neoplasm of colon [facility] Start: 06-05-2000 SIGMOIDOSCOPY SIGMOIDOSCOPY [facility] Start: 06-05-1973 Anxiety Screening Anxiety Screening [facility] End: 10-29-2024 CT Heart and Coronary arteries for calcium scoring WO contrast CT CALCIUM SCORING (CARDIAC) WO IVCON Radiology Routine Encounter for screening for cardiovascular disorders 1 Occurrences starting 09/30/2023 until 10/29/2024 [facility] Work Phone: Comment on above: 1 Occurrences starting 09/30/2023 until 10/29/2024 End: 05-25-2025 DBT Breast - bilateral screening PRECIOUS SCREENING W [facility] Radiology Routine Encounter for screening mammogram for breast cancer 1 Occurrences starting 04/25/2024 until 05/25/2025 [facility] Work Phone: Comment on above: 1 Occurrences starting 04/25/2024 until 05/25/2025 ECG COMPLETE [facility] Work Phone: Comment on above: Ordered: 09/24/2023 End: 09-23-2024 Echocardiography ECHO Cardiology JEFFRY Abnormal EKG 1 Occurrences starting 09/24/2023 until 09/23/2024 [facility] Comment on above: 1 Occurrences starting 09/24/2023 until 09/23/2024 End: 07-10-2023 PRECIOUS SCREENING PRECIOUS SCREENING Radiology Routine Encounter for screening mammogram for breast cancer 1 Occurrences starting 06/10/2022 until 07/10/2023 [facility] Work Phone: Comment on above: 1 Occurrences starting 06/10/2022 until 07/10/2023 End: 06-24-2024 MG Breast Screening PRECIOUS SCREENING Radiology Routine Encounter for screening mammogram for breast cancer 1 Occurrences starting 05/26/2023 until 06/24/2024 [facility] Work Phone: Comment on above: 1 Occurrences starting 05/26/2023 until 06/24/2024 End: 10-23-2024 NM Heart Perfusion W stress and W radionuclide IV NM CARDIAC PERF STRESS/PHARM Radiology JEFFRY Abnormal electrocardiogram 1 Occurrences starting 09/24/2023 until 10/23/2024 [facility] Comment on above: 1 Occurrences starting 09/24/2023 until 10/23/2024 Patient Education ED Concussion ED Head Injury (Adult) ED Neck Pain [facility] Work Phone: Patient referral [facility] Work Phone: End: 07-18-2022 Screening mammography bi 2-view breast inc cad PRECIOUS SCREENING Radiology Routine Encounter for screening mammogram for breast cancer 1 Occurrences starting 06/18/2021 until 07/18/2022 [facility] Work Phone: Comment on above: 1 Occurrences starting 06/18/2021 until 07/18/2022 [facility] Immunizations Immunization Date Immunization Notes Care Provider Bonnie gutierrez 02-05-2024 COVID-19 vaccine, ag e 12+ yr (MODERNA) Gogo Gurrola MD Work Phone: [facility] 02-05-2024 influenza (HD-IIV4) vaccine, age 65+ yr, high dose, quadrivalent, PF (FLUZONE HIGH-DOSE) Gogo Gurrola MD Work Phone: [facility] 02-05-2024 influenza, high dose seasonal, preservative-free Gogo Gurrola MD Work Phone: [facility] 02-05-2024 influenza virus vaccine, unspecified formulation Kathleen Haddad LPN [facility] 12-01-2022 influenza (HD-IIV4) vaccine, age 65+ yr, high dose, quadrivalent, PF (FLUZONE HIGH-DOSE) Gogo Gurrola MD Work Phone: [facility] 12-01-2022 influenza, high dose seasonal, preservative-free Gogo Gurrola MD Work Phone: [facility] 12-01-2022 respiratory syncytia l virus (RSV) vaccine, adjuvanted (AREXVY) Gogo Gurrola MD Work Phone: [facility] 12-01-2022 influenza virus vaccine, unspecified formulation Gogo Gurrola MD Work Phone: [facility] 01-13-2022 COVID-19 booster vaccine, age 12+ yr, bivalent (PFIZER-BIONTECH) Gogo Gurrola MD Work Phone: [facility] 01-10-2022 influenza (HD-IIV4) vaccine, age 65+ yr, high dose, quadrivalent, PF (FLUZONE HIGH-DOSE) Gogo Gurrola MD Work Phone: [facility] 01-10-2022 influenza, high dose seasonal, preservative-free Gogo Gurrola MD Work Phone: [facility] 11-21-2021 pneumococcal (PCV20) vaccine, 20 valent (PREVNAR 20) Gogo Gurrola MD Work Phone: [facility] 07-22-2021 COVID-19 vaccine, ag e 12+ yr (PFIZER-BIONTECH - CAMACHO TOP) Gogo Gurrola MD Work Phone: [facility] 01-11-2021 influenza, high-dose , quadrivalent vaccine (FLUZONE HIGH DOSE QUADRIVALENT) Gogo Gurrola MD Work Phone: [facility] 11-21-2020 pneumococcal polysaccharide vaccine, 23 valent Gogo Gurrola MD Work Phone: [facility] Work Phone: 07-02-2020 Covid (Pfizer) Dr. Sudarshan Gurrola Work Phone: [facility] 06-11-2020 COVID-19 vaccine, ag e 12+ yr (PFIZER-BIONTECH - PURPLE TOP) Gogo Gurrola MD Work Phone: [facility] Work Phone: 12-22-2019 zoster vaccine recombinant Gogo Gurrola MD Work Phone: [facility] Work Phone: 12-18-2019 influenza, injectabl e, quadrivalent, contains preservative Gogo Gurrola MD Work Phone: [facility] Work Phone: 12-18-2019 influenza, injectabl e, quadrivalent, preservative free Gogo Gurrola MD Work Phone: [facility] Work Phone: 09-29-2019 zoster vaccine recombinant Gogo Gurrola MD Work Phone: [facility] Work Phone: 02-06-2019 tetanus toxoid, redu tesfaye diphtheria toxoid, and acellular pertussis vaccine, adsorbed Gogo Gurrola MD Work Phone: [facility] 01-13-2019 influenza, injectabl e, quadrivalent, preservative free Gogo Gurrola MD Work Phone: [facility] 01-21-2018 influenza, injectabl e, quadrivalent, preservative free Gogo Gurrola MD Work Phone: [facility] Work Phone: 07-17-2015 zoster vaccine, live Isaías Gurrola MD Work Phone: [facility] Work Phone: 02-04-2012 tetanus and diphther ia toxoids, adsorbed, preservative free, for adult use (2 Lf of tetanus toxoid and 2 Lf of diphtheria toxoid) Gogo Gurrola MD Work Phone: [facility] Work Phone: 01-19-2012 influenza virus vaccine, unspecified formulation Gogo Gurrola MD Work Phone: [facility] 02-12-2009 novel [id number], preservative-free, injectable Gogo Gurrola MD Work Phone: [facility] Work Phone: 01-20-2006 tuberculin skin test ; purified protein derivative solution, intradermal Xr Alex Work Phone: [facility] 02-06-2005 influenza virus vaccine, unspecified formulation Gogo Gurrola MD Work Phone: [facility] Work Phone: Payers Date Payer Category Payer Self-pay [id number] 2020 Medicare MEDICARE MEDICAR E A AND B [id number] 2020-Present [phone] [place] [address] Medicare [id number] 2020 Medicare [id number] 2020 Medicare [id number] 2020 Private Health Insurance MMO MED ICARE SUPPLEMENT [id number] 2020 Unknown MMO MMO MEDICARE SUPPLEMENT [id number] 2020-Present [phone] [address] [place] [address] Indemnity [id number] 2020 Unknown MMO MMO MEDICARE SUPPLEMENT [id number] 2020-Present [phone] [address] [place] [address] Indemnity [id number] 2007 Unknown [id number] Unknown [id number] Unknown [id number] Unknown [id number] Unknown [id number] Unknown [id number] Social History Date Type Detail Facility Start: 11-11-2021 End: 07-12-2023 Tobacco smoking status NHIS Never smoked tobacco [facility] Start: 04-16-2021 End: 12-06-2024 Alcohol intake Current drinker of alcohol (finding) [facility] Start: 08-05-2019 End: 01-20-2022 History SDOH Alcohol Frequency 2 [facility] Start: 08-05-2019 End: 01-20-2022 History SDOH Alcohol Std Drinks 1 [facility] Start: 08-05-2019 History SDOH Social Connections Phone 5 [facility] Start: 08-05-2019 History SDOH Social Connections Get Together 3 [facility] Start: 08-05-2019 History SDOH Physical Activity MPS 4 [facility] Start: 08-05-2019 Education 16 [facility] Start: 1955 Sex Assigned At Female [facility] Start: 07-12-2021 End: 01-21-2022 Exposure to SARS-CoV-2 (event) Not sure [facility] Start: 11-11-2021 Tobacco use and exposure Smokeless tobacco non-user [facility] Start: 08-21-2021 End: 03-08-2023 Tobacco smoking status NHIS Unknown if ever smoked [facility] Start: 07-22-2022 End: 03-15-2023 History of Social function [facility] Start: 07-22-2022 End: 03-15-2023 Tobacco use panel [facility] In the past 12 month s, was there a time when you were not able to pay the mortgage or rent on time? No [facility] Start: 03-06-2012 National Score (1-100), lower number is lower risk 52 [facility] Start: 04-06-2020 Gender identity Identifies as female gender (finding) [facility] Start: 04-06-2020 Sexual orientation Heterosexual (finding) [facility] Do you belong to any clubs or organizations such as druze groups, [employer], [employer] or athletic groups, or school groups? Yes [facility] Are you now , , , , never or living with a partner? [facility] How often to you hav e a drink containing alcohol? Monthly or less [facility] How many standard dr inks containing alcohol do you have on a typical day? 1 or 2 [facility] How often do you hav e 6 or more drinks on 1 occasion? Never [facility] Do you feel stress - tense, restless, nervous, or anxious, or unable to sleep at night because your mind is troubled all the time - these days [OSQ] Only a little [facility] (I/We) worried farhan er (my/our) food would run out before (I/we) got money to buy more. Never true [facility] Start: 06-12-2024 Sex Female (finding) [facility] [facility] Do you feel stress - tense, restless, nervous, or anxious, or unable to sleep at night because your mind is troubled all the time - these days [OSQ] To some extent [facility] Functional Status Date Assessment Result Facility 08-02-2024 Total score [AUDIT-C] 1 08/03/19 25 12:57 PM EDT User, Janel [facility] 08-02-2024 Within the last year , have you been humiliated or emotionally abused in other ways by your partner or ex-partner? No 08/02/2024 12:57 PM EDT UserJacobt No [facility] 08-02-2024 Within the last year , have you been afraid of your partner or ex-partner? No 08/02/2024 12:57 PM EDT User, Jacobt No [facility] 08-02-2024 Within the last year , have you been raped or forced to have any kind of sexual activity by your partner or ex-partner? No 08/02/2024 12:57 PM EDT User, Jacobt No [facility] 08-02-2024 Within the last year , have you been kicked, hit, slapped, or otherwise physically hurt by your partner or ex-partner? No 08/02/2024 12:57 PM EDT User, Jacobt No [facility] 08-02-2024 How often to you hav e a drink containing alcohol? Monthly or less 08/02/2024 12:57 PM EDT User, Brittaniehart Monthly or less [facility] 08-02-[address] inks containing alcohol do you have on a typical day? 1 or 2 08/02/2024 12:57 PM EDT User, [email or web address] 1 or 2 [facility] 08-02-2024 How often do you hav e 6 or more drinks on 1 occasion? Never 08/02/2024 12:57 PM EDT User, Jacobt Never [facility] 09-23-2014 Are you deaf, or do you have serious difficulty hearing No 09/23/2014 9:39 AM Nena Cristobal MA No [facility] 09-23-2014 Are you blind, or do you have serious difficulty seeing, even when wearing glasses No 09/23/2014 9:39 AM Nena Cristobal MA No [facility] 09-23-2014 Do you have serious difficulty walking or climbing stairs No 09/23/2014 9:39 AM Nena Cristobal MA No [facility] 09-23-2014 Do you have difficul ty dressing or bathing No 09/23/2014 9:39 AM Nena Cristobal MA No [facility] 09-23-2014 Because of a physica l, mental, or emotional condition, do you have difficulty doing errands alone such as visiting a physician's office or shopping No 09/23/2014 9:39 AM EDT Nena Wilson MA No [facility] Mental Status Date Assessment Result Facility 09-23-2014 Because of a physica l, mental, or emotional condition, do you have serious difficulty concentrating, remembering, or making decisions No 09/23/2014 9:39 AM EDT Nena Wilson MA No [facility] Clinical Notes 07-06-2013 to 12-06-2024 Patient InstructionsGogo Gurrola MD - 12/06/2024 7:32 AM EDTTelephone Encounter - Carline Lomeli RN - 11/17/2024 4:07 PM EDTPatient Instructions Note Date & Type Note Facility 12-06-2024 Instructions Gogo Gurrola MD - 12/06/2024 7:43 AM EDT - Continue taking lisinopril 20 mg once daily; a 6-month supply has been sent to [facility] in [place]. - Your pravastatin refill has been sent to your pharmacy. - A refill for an albuterol inhaler has been sent to your pharmacy; pick it up if your current inhaler is for use as needed with bronchitis symptoms. - Continue checking your blood pressure at home; if you have consistent readings above 140/90 mm Hg, please contact the clinic. - Maintain your current diet and exercise regimen--watch your salt intake, limit caffeine, and continue regular physical activity. - Keep your appointment with Brooklynn on March 26. - You can view these after-visit instructions in [place]. documented in this encounter [facility] 12-06-2024 Note HNO ID: [id number] Author: GOGO GURROLA MD Service: ? Author Type: Physician Type: Progress Notes Filed: 12/06/2024 07:43 Note Text: Chief Complaint Patient presents with: Blood Pressure Check: 2 week follow up Recording using [email or web address] software for draft documentation of the visit was discussed with the patient/authorized it sales representative; all questions welcomed and answered. Patient/authorized it sales representative agreed to proceed HPI Sofi Duncan is a 69 year old female who presents here today for Above Complaints.. Hypertension: - Sofi Duncan started on Lisinopril 20 mg at last visit on 11/15. - Sofi denies side effects, including persistent cough, lightheadedness, or dizziness. - Home BP readings since last visit: 110s-120s/70s, with occasional diastolic readings in the 60s. - Sofi denies recent high BP readings or symptoms such as headaches, vision changes, chest pain, or dyspnea. - Monitoring salt intake; minimal caffeine consumption. - Sofi has an upcoming appointment with Brooklynn on March 26. Hyperlipidemia: - Sofi is taking Pravastatin. Past medical history, appointments, medications, allergies reviewed. Previous Medical History PAST MEDICAL HISTORY Diagnosis Date Abnormal Papanicolaou smear of vagina and vaginal HPV 1997 Anxiety state, unspecified ASCUS of cervix with negative high risk HPV [address] Hamilton Depressive disorder, not elsewhere classified Essential hypertension Hair loss Dr. Hansen Hyperlipidemia Meningioma (HCC) 03/08/2023 1.5 cm left parieto-occipital meningioma Obesity (BMI 30-39.9) Osteoarthritis Osteopenia Spider veins of both lower extremities Previous Surgical History PAST SURGICAL HISTORY Procedure [...] Stroke Mother Cancer Mother ovarian Heart Mother [place] at 69yrs other (Arthritis/DDD) Mother Degenerative Disc Disease Cancer Father lung/ brain - Heart Sister [place] at 50yrs Heart Son murmur other (Tricuspid aortic valve) Son Patient Allergies ALLERGIES Allergen Reactions Diflucan [Fluconazo* Rash, Hives, Itching Current Medications Current Outpatient Medications on File Prior to Visit Medication Sig lisinopril (ZESTRIL) 20 mg tablet Take 1 tablet by mouth once daily. FLUoxetine (PROZAC) 20 mg capsule Take 1 capsule by mouth once daily. propranolol (INDERAL) 20 mg tablet Take 1 tablet by mouth two times a day. pravastatin (PRAVACHOL) 40 mg tablet Take 1 tablet by mouth once daily. doxycycline monohydrate (MONODOX) 50 mg capsule Take 1 capsule by mouth once daily. OTC PRODUCT Calcium Mini 600 mg plus Vitamin D3 12.5 mcg - 2 capsules twice a day OTC PRODUCT Hair/Skin/Nails with Collagen and Pantogthenic Acid 10 mg - 2 gummies per day. Recommended by Dr. Tyrone Hannah. albuterol HFA (VENTOLIN HFA) 90 mcg/actuation inhaler Inhale 2 Puffs as instructed every 4 hours as needed for wheezing/shortness of breath. triamcinolone acetonide (NASACORT) 55 mcg nasal inhaler Use 2 Sprays in the nose once daily. No current facility-administered medications on file prior to visit. Social History SOCIAL HISTORY[1] Review of Symptoms REVIEW OF SYSTEMS GENERAL: No weight loss, malaise or fevers RESPIRATORY: Negative for cough, hemoptysis, wheezing, COPD, dyspnea or shortness of breath CARDIOVASCULAR: Negative for chest pain, leg swelling, hypertension, CHF or palpitations EXAM: BP 132/76 Pulse 88 Ht 153.7 cm (5' 0.51) Wt 77.5 kg (170 lb 12.8 oz) LMP 05/28/2010 SpO2 96% BMI 32.80 kg/m? General Appearance: Well appearing, alert, in no acute distress, well-hydrated, well nourished.. Skin: Skin color, texture, turgor normal, no suspicious rashes or lesions. Lungs: Lungs clear to auscultation. No wheezing, rhonchi, rales.. Heart: RRR without murmur, gallop, or rubs. No ectopy. Health Maintenance List Anxiety Screening Never done Advance Directive Discussion due on 04/05/2024 Influenza Vaccine(1) due on 12/04/2024 Mammogram Screening due on 05/31/2025 Medicare Annual Wellness Visit due on 09/24/2025 Diabetes Screening due on 09/23/2027 DTaP,Tdap,Td Vaccine(2 - Td or Tdap) due on 02/06/2029 Colorectal Cancer Screening due on 09/18/2029 Lipid Screening due on 09/22/2029 Bone Density Screening Completed RSV Vaccine Completed Hepatitis C Screening Completed Shingrix Vaccine Completed Pneumococcal Vaccine: 50+ Completed Cervical Cancer Screening Discontinued 1. Hypertension, essential (I10) - (more content not included)... [facility] 12-06-2024 History of Presen t illness Narrative Chief Complaint Patient presents with: Blood Pressure Check: 2 week follow up Recording using [email or web address] software for draft documentation of the visit was discussed with the patient/authorized it sales representative; all questions welcomed and answered. Patient/authorized it sales representative agreed to proceed HPI Sofi Duncan is a 69 year old female who presents here today for Above Complaints.. Hypertension: - Sofi Duncan started on Lisinopril 20 mg at last visit on 11/15. - Sofi denies side effects, including persistent cough, lightheadedness, or dizziness. - Home BP readings since last visit: 110s-120s/70s, with occasional diastolic readings in the 60s. - Sofi denies recent high BP readings or symptoms such as headaches, vision changes, chest pain, or dyspnea. - Monitoring salt intake; minimal caffeine consumption. - Sofi has an upcoming appointment with Brooklynn on March 26. Hyperlipidemia: - Sofi is taking Pravastatin. Past medical history, appointments, medications, allergies reviewed. Previous Medical History PAST MEDICAL HISTORY Diagnosis Date Abnormal Papanicolaou smear of vagina and vaginal HPV 1997 Anxiety state, unspecified ASCUS of cervix with negative high risk HPV [address] Hamilton Depressive disorder, not elsewhere classified Essential hypertension Hair loss Dr. Hnasen Hyperlipidemia Meningioma (HCC) 03/08/2023 1.5 cm left parieto-occipital meningioma Obesity (BMI 30-39.9) Osteoarthritis Osteopenia Spider veins of both lower extremities Previous Surgical History PAST SURGICAL HISTORY Procedure [...] Stroke Mother Cancer Mother ovarian Heart Mother [place] at 69yrs other (Arthritis/DDD) Mother Degenerative Disc Disease Cancer Father lung/ brain - Heart Sister [place] at 50yrs Heart Son murmur other (Tricuspid aortic valve) Son Patient Allergies ALLERGIES Allergen Reactions Diflucan [Fluconazo* Rash, Hives, Itching Current Medications Current Outpatient Medications on File Prior to Visit Medication Sig lisinopril (ZESTRIL) 20 mg tablet Take 1 tablet by mouth once daily. FLUoxetine (PROZAC) 20 mg capsule Take 1 capsule by mouth once daily. propranolol (INDERAL) 20 mg tablet Take 1 tablet by mouth two times a day. pravastatin (PRAVACHOL) 40 mg tablet Take 1 tablet by mouth once daily. doxycycline monohydrate (MONODOX) 50 mg capsule Take 1 capsule by mouth once daily. OTC PRODUCT Calcium Mini 600 mg plus Vitamin D3 12.5 mcg - 2 capsules twice a day OTC PRODUCT Hair/Skin/Nails with Collagen and Pantogthenic Acid 10 mg - 2 gummies per day. Recommended by Dr. Tyrone Hannah. albuterol HFA (VENTOLIN HFA) 90 mcg/actuation inhaler Inhale 2 Puffs as instructed every 4 hours as needed for wheezing/shortness of breath. triamcinolone acetonide (NASACORT) 55 mcg nasal inhaler Use 2 Sprays in the nose once daily. No current facility-administered medications on file prior to visit. Social History SOCIAL HISTORY[1] Review of Symptoms REVIEW OF SYSTEMS GENERAL: No weight loss, malaise or fevers RESPIRATORY: Negative for cough, hemoptysis, wheezing, COPD, dyspnea or shortness of breath CARDIOVASCULAR: Negative for chest pain, leg swelling, hypertension, CHF or palpitations EXAM: BP 132/76 Pulse 88 Ht 153.7 cm (5' 0.51) Wt 77.5 kg (170 lb 12.8 oz) LMP 05/28/2010 SpO2 96% BMI 32.80 kg/m General Appearance: Well appearing, alert, in no acute distress, well-hydrated, well nourished.. Skin: Skin color, texture, turgor normal, no suspicious rashes or lesions. Lungs: Lungs clear to auscultation. No wheezing, rhonchi, rales.. Heart: RRR without murmur, gallop, or rubs. No ectopy. Health Maintenance List Anxiety Screening Never done Advance Directive Discussion due on 04/05/2024 Influenza Vaccine(1) due on 12/04/2024 Mammogram Screening due on 05/31/2025 Medicare Annual Wellness Visit due on 09/24/2025 Diabetes Screening due on 09/23/2027 DTaP,Tdap,Td Vaccine(2 - Td or Tdap) due on 02/06/2029 Colorectal Cancer Screening due on 09/18/2029 Lipid Screening due on 09/22/2029 Bone Density Screening Completed RSV Vaccine Completed Hepatitis C Screening Completed Shingrix Vaccine Completed Pneumococcal Vaccine: 50+ Completed Cervical Cancer Screening Discontinued 1. Hypertension, essential (I10) - BP well-controlled on current regimen; home readings consistently 110-120s/70s, occasional diastolic in 60s; no recent readings in 150s-160s. - No adverse effects from lisinopril 20 mg daily; no persistent cough, dizziness, or hypotensive symptoms. - Continue lisinopril 20 mg daily; 6-month supply sent to pharmacy. - Advised patient to monitor BP at home and report any consistently elevated readings (>140/90 mmHg). - Educated on importance of dietary sodium restriction, regular exercise, and maintaining low caffeine intake. - Follow-up with WILLIAM Overton on March 26. 2. Hyperlipidemia, unspecified hyperlipidemia type (E78.5) - Continue pravastatin as prescribed; refill sent to pharmacy. Gogo Gurrola MD [1] Social History Tobacco Use Smoking status: Never Smokeless tobacco: Never Vaping Use Vaping status: Never Used Substance Use Topics Alcohol use: Yes Comment: rarely Drug use: No documented in this encounter [facility] 11-17-2024 Telephone encount er Note Patient notified of results and provider's instructions. Patient verbalizes understanding. Carline Lomeli RN [facility] 11-17-2024 Miscellaneous Notes Formattin g of this note might be different from the original. Patient notified of results and provider's instructions. Patient verbalizes understanding. Carline Lomeli RN Notified via [employer]. Will leave open till pt has read message. Gala Martel MA Message left for return call. Delaney Marques MA ----- Message from Gogo Gurrola MD sent at 11/16/2024 12:25 PM EDT ----- Normal urine and thyroid testing. Continue current regimen. ----- Message ----- From: Lab, Background User Sent: 11/15/2024 7:51 PM EDT To: Gogo Gurrola MD documented in this encounter [facility] 11-17-2024 Telephone encount er Note Notified via [employer]. Will leave open till pt has read message. Gala Martel MA [facility] 11-17-2024 Telephone encount er Note Message left for return call. Delaney Marques MA [facility] 11-17-2024 Telephone encount er Note ----- Message from Gogo Gurrola MD sent at 11/16/2024 12:25 PM EDT ----- Normal urine and thyroid testing. Continue current regimen. ----- Message ----- From: Lab, Background User Sent: 11/15/2024 7:51 PM EDT To: Gogo Gurrola MD [facility] 11-15-2024 Gogo Lord MD - 11/15/2024 10:41 AM EDT - Start lisinopril 20 mg once daily; prescription sent to [facility] in [place]. - Continue taking your propranolol twice daily as prescribed for tremor. - Hold the lisinopril and call us if your home blood pressure drops below 100/60 or you feel dizzy or lightheaded. - Watch for a persistent dry cough and let us know if one develops. - Continue checking your blood pressure at home exactly as you have been: sit quietly with feet flat for 5 minutes before each reading. - Drink about 64 ounces (eight 8-ounce glasses) of water every day. - Limit sodium to less than 2,000 mg per day. - Limit caffeine to one cup of coffee per day. - Aim for at least 30 minutes of moderate exercise (for example, walking) 4-5 times per week. - You had blood work today (including kidney function, electrolytes, thyroid level, blood counts) and a urine test. - Schedule a follow-up in about 2 weeks to recheck your blood pressure and repeat kidney function and potassium levels. documented in this encounter [facility] 11-15-2024 Note HNO ID: [id number] Author: GOGO GURROLA MD Service: ? Author Type: Physician Type: Progress Notes Filed: 11/15/2024 10:45 Note Text: Chief Complaint Patient presents with: Blood Pressure Check Recording using [email or web address] software for draft documentation of the visit was discussed with the patient/authorized it sales representative; all questions welcomed and answered. Patient/authorized it sales representative agreed to proceed HPI Sofi Duncan is a 69 year old female who presents here today for Above Complaints. Elevated Blood Pressure Readings: - Noted elevated blood pressure readings since September. - Home readings vary, with some normal (114/127/123 mmHg) and others elevated (140s-160s mmHg). - Reports daily episodes of head pressure associated with higher readings; resolves spontaneously. - Denies chest pain, dyspnea, or leg edema. - Recent increase in propranolol dosage by Dr. Hamilton, taken BID for benign tremor. - Recent stress due to son's open heart surgery; son has since returned to work. - Decreased physical activity over the summer. - Denies excessive sodium or caffeine intake. Past medical history, appointments, medications, allergies reviewed. Previous Medical History PAST MEDICAL HISTORY Diagnosis Date Abnormal Papanicolaou smear of vagina and vaginal HPV 1997 Anxiety state, unspecified ASCUS of cervix with negative high risk HPV [address] Hamilton Depressive disorder, not elsewhere classified Essential hypertension Hair loss Dr. Hansen Hyperlipidemia Meningioma (HCC) 03/08/2023 1.5 cm left parieto-occipital meningioma Obesity (BMI 30-39.9) Osteoarthritis Osteopenia Spider veins of both lower extremities Previous Surgical History PAST SURGICAL HISTORY Procedure [...] Stroke Mother Cancer Mother ovarian Heart Mother [place] at 69yrs other (Arthritis/DDD) Mother Degenerative Disc Disease Cancer Father lung/ brain - Heart Sister [place] at 50yrs Heart Son murmur other (Tricuspid aortic valve) Son Patient Allergies ALLERGIES Allergen Reactions Diflucan [Fluconazo* Rash, Hives, Itching Current Medications Current Outpatient Medications on File Prior to Visit Medication Sig FLUoxetine (PROZAC) 20 mg capsule Take 1 capsule by mouth once daily. propranolol (INDERAL) 20 mg tablet Take 1 tablet by mouth two times a day. pravastatin (PRAVACHOL) 40 mg tablet Take 1 tablet by mouth once daily. doxycycline monohydrate (MONODOX) 50 mg capsule Take 1 capsule by mouth once daily. OTC PRODUCT Calcium Mini 600 mg plus Vitamin D3 12.5 mcg - 2 capsules twice a day OTC PRODUCT Hair/Skin/Nails with Collagen and Pantogthenic Acid 10 mg - 2 gummies per day. Recommended by DermDr. Hansen. albuterol HFA (VENTOLIN HFA) 90 mcg/actuation inhaler Inhale 2 Puffs as instructed every 4 hours as needed for wheezing/shortness of breath. triamcinolone acetonide (NASACORT) 55 mcg nasal inhaler Use 2 Sprays in the nose once daily. No current facility-administered medications on file prior to visit. Social History SOCIAL HISTORY[1] Review of Symptoms REVIEW OF SYSTEMS See HPI EXAM: BP 132/68 Pulse 79 Ht 153.7 cm (5' 0.51) Wt 77.2 kg (170 lb 3.2 oz) LMP 05/28/2010 SpO2 98% BMI 32.68 kg/m? Home Cuff: 131/77 General Appearance: Well appearing, alert, in no acute distress, well-hydrated, well nourished.. Skin: Skin color, texture, turgor normal, no suspicious rashes or lesions. Neck: Supple, no adenopathy; thyroid symmetric, normal size, no bruits. Lungs: Lungs clear to auscultation. No wheezing, rhonchi, rales.. Heart: RRR without murmur, gallop, or rubs. No ectopy. Extremities: No deformities, edema, skin discoloration, clubbing or cyanosis. Good capillary refill. Health Maintenance List Anxiety Screening Never done Advance Directive Discussion due on 04/05/2024 Medicare Annual Wellness Visit due on 09/24/2025 Influenza Vaccine(1) due on 12/04/2024 Mammogram Screening due on 05/31/2025 Diabetes Screening due on 09/23/2027 DTaP,Tdap,Td Vaccine(2 - Td or Tdap) due on 02/06/2029 Colorectal Cancer Screening due on 09/18/2029 Lipid Screening due on 09/22/2029 Bone Density Screening Completed RSV Vaccine Completed Hepatitis C Screening Completed Shingrix Vaccine Completed Pneumococcal Vaccine: 50+ Completed Cervical Cancer Screening Discontinued Data reviewed Latest Ref Rng 09/22/2024 WBC 3.70 - 11.00 k/uL 4.28 RBC 3.90 - 5.20 m/uL 4.18 Hemoglobin 11.5 (more content not included)... [facility] 11-15-2024 History of Presen t illness Narrative Chief Complaint Patient presents with: Blood Pressure Check Recording using [email or web address] software for draft documentation of the visit was discussed with the patient/authorized it sales representative; all questions welcomed and answered. Patient/authorized it sales representative agreed to proceed HPI Sofi Duncan is a 69 year old female who presents here today for Above Complaints. Elevated Blood Pressure Readings: - Noted elevated blood pressure readings since September. - Home readings vary, with some normal (114/127/123 mmHg) and others elevated (140s-160s mmHg). - Reports daily episodes of head pressure associated with higher readings; resolves spontaneously. - Denies chest pain, dyspnea, or leg edema. - Recent increase in propranolol dosage by Dr. Hamilton, taken BID for benign tremor. - Recent stress due to son's open heart surgery; son has since returned to work. - Decreased physical activity over the summer. - Denies excessive sodium or caffeine intake. Past medical history, appointments, medications, allergies reviewed. Previous Medical History PAST MEDICAL HISTORY Diagnosis Date Abnormal Papanicolaou smear of vagina and vaginal HPV 1997 Anxiety state, unspecified ASCUS of cervix with negative high risk HPV [address] Hamilton Depressive disorder, not elsewhere classified Essential hypertension Hair loss Dr. Hansen Hyperlipidemia Meningioma (HCC) 03/08/2023 1.5 cm left parieto-occipital meningioma Obesity (BMI 30-39.9) Osteoarthritis Osteopenia Spider veins of both lower extremities Previous Surgical History PAST SURGICAL HISTORY Procedure [...] Stroke Mother Cancer Mother ovarian Heart Mother [place] at 69yrs other (Arthritis/DDD) Mother Degenerative Disc Disease Cancer Father lung/ brain - Heart Sister [place] at 50yrs Heart Son murmur other (Tricuspid aortic valve) Son Patient Allergies ALLERGIES Allergen Reactions Diflucan [Fluconazo* Rash, Hives, Itching Current Medications Current Outpatient Medications on File Prior to Visit Medication Sig FLUoxetine (PROZAC) 20 mg capsule Take 1 capsule by mouth once daily. propranolol (INDERAL) 20 mg tablet Take 1 tablet by mouth two times a day. pravastatin (PRAVACHOL) 40 mg tablet Take 1 tablet by mouth once daily. doxycycline monohydrate (MONODOX) 50 mg capsule Take 1 capsule by mouth once daily. OTC PRODUCT Calcium Mini 600 mg plus Vitamin D3 12.5 mcg - 2 capsules twice a day OTC PRODUCT Hair/Skin/Nails with Collagen and Pantogthenic Acid 10 mg - 2 gummies per day. Recommended by Dr. Tyrone Hannah. albuterol HFA (VENTOLIN HFA) 90 mcg/actuation inhaler Inhale 2 Puffs as instructed every 4 hours as needed for wheezing/shortness of breath. triamcinolone acetonide (NASACORT) 55 mcg nasal inhaler Use 2 Sprays in the nose once daily. No current facility-administered medications on file prior to visit. Social History SOCIAL HISTORY[1] Review of Symptoms REVIEW OF SYSTEMS See HPI EXAM: BP 132/68 Pulse 79 Ht 153.7 cm (5' 0.51) Wt 77.2 kg (170 lb 3.2 oz) LMP 05/28/2010 SpO2 98% BMI 32.68 kg/m Home Cuff: 131/77 General Appearance: Well appearing, alert, in no acute distress, well-hydrated, well nourished.. Skin: Skin color, texture, turgor normal, no suspicious rashes or lesions. Neck: Supple, no adenopathy; thyroid symmetric, normal size, no bruits. Lungs: Lungs clear to auscultation. No wheezing, rhonchi, rales.. Heart: RRR without murmur, gallop, or rubs. No ectopy. Extremities: No deformities, edema, skin discoloration, clubbing or cyanosis. Good capillary refill. Health Maintenance List Anxiety Screening Never done Advance Directive Discussion due on 04/05/2024 Medicare Annual Wellness Visit due on 09/24/2025 Influenza Vaccine(1) due on 12/04/2024 Mammogram Screening due on 05/31/2025 Diabetes Screening due on 09/23/2027 DTaP,Tdap,Td Vaccine(2 - Td or Tdap) due on 02/06/2029 Colorectal Cancer Screening due on 09/18/2029 Lipid Screening due on 09/22/2029 Bone Density Screening Completed RSV Vaccine Completed Hepatitis C Screening Completed Shingrix Vaccine Completed Pneumococcal Vaccine: 50+ Completed Cervical Cancer Screening Discontinued Data reviewed Latest Ref Rng 09/22/2024 WBC 3.70 - 11.00 k/uL 4.28 RBC 3.90 - 5.20 m/uL 4.18 Hemoglobin 11.5 - 15.5 g/dL 13.1 Hematocrit 36.0 - 46.0 % 39.4 MCV 80.0 - 100.0 fL 94.3 MCH 26.0 - 34.0 pg 31.3 MCHC 30.5 - 36.0 g/dL 33.2 RDW-CV 11.5 - 15.0 % 11.9 Platelet Count 150 - 400 k/uL 240 MPV 9.0 - 12.7 fL 10.7 Neut% % 58.5 Abs Neut (ANC) 1.45 - 7.50 k/uL 2.50 Lymph% % 30.1 Abs Lymph 1.00 - 4.00 k/uL 1.29 Bent% % 8.6 Abs Bent <0.87 k/uL 0.37 Eosin% % 2.1 Abs Eosin <0.46 k/uL 0.09 Baso% % 0.5 Abs Baso <0.11 k/uL <0.03 Immature Gran % % 0.2 IMMATURE GRANS (ABS) <0.10 k/uL <0.03 NRBC /100 WBC 0.0 Absolute nRBC <0.01 k/uL <0.01 DTYPE Auto Protein, Total 6.3 - 8.0 g/dL 6.8 Albumin 3.9 - 4.9 g/dL 4.3 Calcium 8.5 - 10.2 mg/dL 9.7 Bilirubin, Total 0.2 - 1.3 mg/dL 0.4 Alkaline Phosphatase 34 - 123 U/L 54 AST 13 - 35 U/L 23 ALT 7 - 38 U/L 20 Glucose 74 - 99 mg/dL 88 BUN 7 - 21 mg/dL 16 Creatinine 0.58 - 0.96 mg/dL 0.73 Sodium 136 - 144 mmol/L 143 Potassium 3.7 - 5.1 mmol/L 4.9 Chloride 98 - 107 mmol/L 107 CO2 22 - 30 mmol/L 25 Anion Gap 8 - 15 mmol/L 11 eGFR >=60 mL/min/1.73m 89 Cholesterol, Total <200 mg/dL 190 Triglyceride <150 mg/dL 121 HDL Cholesterol >39 mg/dL 53 LDL Cholesterol, Calculated <100 mg/dL 115 (H) Non HDL Cholesterol <130 mg/dL 137 (H) VLDL Cholesterol <30 mg/dL 21 TC:HDL Ratio <5.10 3.58 LDL:HDL Ratio <2.54 2.17 Fasting Time hrs 12 Legend: (H) High 1. Hypertension, essential (I10) - Home BP readings frequently elevated (SBP 140s-160s); office BP today 132/68 mmHg. - Currently on propranolol BID for benign tremor; dose recently increased by Dr. Ellington. - Start lisinopril 20 mg PO daily. - Discussed alternative of HCTZ 12.5 mg daily; reviewed risks and benefits of both options, including potential effects on kidney function and electrolytes, and rationale for starting lisinopril. - Educated on potential side effects of lisinopril (lightheadedness, dizziness, dry cough); advised to report any adverse effects or BP readings <100/60 mmHg. - Advised to continue home BP monitoring with current cuff; reviewed proper technique. - Ordered labs: CBC, kidney function, liver function, thyroid panel, urinalysis. - Encouraged dietary sodium restriction (<2000 mg/day), regular exercise (30 min, 4-5x/week), and adequate hydration (64 oz water/day). - Follow-up in 2 weeks to reassess BP control, medication tolerance, and review lab results. Gogo Gurrola MD [1] Social History Tobacco Use Smoking status: Never Smokeless tobacco: Never Vaping Use Vaping status: Never Used Substance Use Topics Alcohol use: Yes Comment: rarely Drug use: No documented in this encounter [facility] 11-15-2024 Telephone encount er Note Patient calls to schedule appt. Scheduled per request. Shana Sampson RN [facility] 11-15-2024 Miscellaneous Notes Formattin g of this note might be different from the original. Patient calls to schedule appt. Scheduled per request. Shana Sampson RN Offered to help assist in scheduling. Wait pt response on day/time that works for her, then schedule BP f/u. Yennifer Carter MA documented in this encounter [facility] 11-15-2024 Telephone encount er Note Offered to help assist in scheduling. Wait pt response on day/time that works for her, then schedule BP f/u. Yennifer Carter MA [facility] 10-11-2024 Progress note [facility] 10-04-2024 Telephone encounter Note Patient informed and verbalized understanding. Delaney Marques MA [facility] 10-04-2024 Miscellaneous Notes Patient informed and verbalized understanding. Delaney Marques MA ----- Message from Brooklynn Kuhn APRN.ORTHOPEDIC SURGEON sent at 09/25/2024 7:21 AM EDT ----- LDL (bad cholesterol) went up a little. Recommend low saturated fat diet and aim for at least 150 minutes of exercise per week. The rest of her blood work is normal. Brooklynn Kuhn APRN.CNP documented in this encounter [facility] 10-04-2024 Telephone encounter Note ----- Message from Brooklynn Kuhn APRN.ORTHOPEDIC SURGEON sent at 09/25/2024 7:21 AM EDT ----- LDL (bad cholesterol) went up a little. Recommend low saturated fat diet and aim for at least 150 minutes of exercise per week. The rest of her blood work is normal. Brooklynn Kuhn APRN.ORTHOPEDIC SURGEON [facility] 09-22-2024 Note HNO ID: [id number] Author: BROOKLYNN KUHN APRN.CNP Service: ? Author Type: Nurse Practitioner Type: Progress Notes Filed: 09/22/2024 09:49 Note Text: 09/22/2024 Patient presents with: Follow Up Recording using [email or web address] software for draft documentation of the visit was discussed with the patient/authorized it sales representative; all questions welcomed and answered. Patient/authorized it sales representative agreed to proceed SUBJECTIVE: This is a 69 year old that is here today for Above Complaints.. Anxiety and Depression: - Managed with Prozac. - Denies thoughts of self-harm or harm to others. - Does not see a counselor. Tremors: - Noticed increased tremors. - Follows with Dr. Hamilton annually; last visit this year. - Propranolol increased to 20 mg BID on 08/09/2024. Hyperlipidemia: - Managed with pravastatin 40 mg. - Follows a low-cholesterol diet pretty much all the time. Meningioma: - Follows with Dr. Hamilton annually. Alopecia: - Follows with Dr. Hansen annually. - Taking doxycycline. Lifestyle: - Weight is stable. - Normally walks regularly but has not been as active recently. - Blood pressure usually in the 120s/60s; recently noted elevated readings. - Has a home blood pressure cuff. Family History: - Son recently underwent valve replacement surgery after 15 years of monitoring. PAST MEDICAL HISTORY Diagnosis Date Abnormal Papanicolaou smear of vagina and vaginal HPV 1997 Anxiety state, unspecified ASCUS of cervix with negative high risk HPV [address] Hamilton Depressive disorder, not elsewhere classified Hair loss Dr. Hansen Hyperlipidemia Meningioma (HCC) 03/08/2023 1.5 cm left parieto-occipital meningioma Obesity (BMI 30-39.9) Osteoarthritis Osteopenia Spider veins of both lower extremities ALLERGIES Diflucan [Fluconazole] MEDICATIONS Current Outpatient Medications Medication Sig FLUoxetine (PROZAC) 20 mg capsule Take 1 capsule by mouth once daily. propranolol (INDERAL) 20 mg tablet Take 1 tablet by mouth two times a day. pravastatin (PRAVACHOL) 40 mg tablet Take 1 tablet by mouth once daily. doxycycline monohydrate (MONODOX) 50 mg capsule Take 1 capsule by mouth once daily. OTC PRODUCT Calcium Mini 600 mg plus Vitamin D3 12.5 mcg - 2 capsules twice a day OTC PRODUCT Hair/Skin/Nails with Collagen and Pantogthenic Acid 10 mg - 2 gummies per day. Recommended by Dr. Tyrone Hannah. albuterol HFA (VENTOLIN HFA) 90 mcg/actuation inhaler Inhale 2 Puffs as instructed every 4 hours as needed for wheezing/shortness of breath. triamcinolone acetonide (NASACORT) 55 mcg nasal inhaler Use 2 Sprays in the nose once daily. (Patient taking differently: Use 2 Sprays in the nose as needed.) No current facility-administered medications for this visit. Medications and allergies reviewed by this provider. SOCIAL HISTORY Social History Tobacco Use Smoking status: Never Smokeless tobacco: Never Vaping Use Vaping status: Never Used Substance Use Topics Alcohol use: Yes Comment: rarely Drug use: No REVIEW OF SYSTEMS All other reviewed and negative other than HPI. OBJECTIVE: BP 134/88 Pulse 74 Resp 16 Ht 153.7 cm (5' 0.51) Wt 77.8 kg (171 lb 9.6 oz) LMP 05/28/2010 SpO2 98% BMI 32.95 kg/m? . Vital signs reviewed by this provider. APPEARANCE Well appearing, alert, in no acute distress, well-hydrated, well nourished. EYES conjunctiva and sclera normal. HEART RRR with normal S1 and S2, no murmurs, no gallops, no JVD appreciated LUNG clear to auscultation. No wheezes, rhonchi or rales EXTREMITIES Extremities normal, No deformities, No skin discoloration, and No edema SKIN Skin color, texture, turgor normal, no suspicious rashes or lesions to exposed skin Latest Ref Rng 09/24/2023 09/27/2023 WBC 3.70 - 11.00 k/uL 4.42 RBC 3.90 - 5.20 m/uL 4.09 Hemoglobin 11.5 - 15.5 g/dL 12.9 Hematocrit 36.0 - 46.0 % 38.8 MCV 80.0 - 100.0 fL 94.9 MCH 26.0 - 34.0 pg 31.5 MCHC 30.5 - 36.0 g/dL 33.2 RDW-CV 11.5 - 15.0 % 12.3 Platelet Count 150 - 400 k/uL 232 MPV 9.0 - 12.7 fL 10.5 Neut% % 56.9 Abs Neut (ANC) 1.45 - 7.50 k/uL 2.52 Lymph% % 30.1 Abs Lymph 1.00 - 4.00 k/uL 1.33 Bent% % 10.0 Abs Bent <0.87 k/uL 0.44 Eosin% % 2.0 Abs Eosin <0.46 k/uL 0.09 Baso% % 0.5 Abs Baso <0.11 k/uL <0.03 Immature Gran % % 0.5 IMMATURE GRANS (ABS) <0.10 k/uL <0.03 NRBC /100 WBC 0.0 Absolute nRBC <0.01 k/uL <0.01 DTYPE Auto Protein, Total 6.3 - 8.0 g/dL 6.8 Albumin 3.9 - 4.9 g/dL 4.5 Calcium 8.5 - 10.2 mg/dL 9.7 Bilirubin, Total 0.2 - 1.3 mg/dL 0.4 Alkaline Phosphatase 34 - 123 U/L 51 AST 13 - 35 U/L 24 ALT 7 - 38 U/L 19 Glucose 74 - 99 mg/dL 90 BUN 7 - 21 mg/dL 22 (H) Creatinine 0.58 - 0.96 mg/dL 0.78 Sodium 136 - 144 mmol/L 143 Potassium 3.7 - 5.1 mmol/L 5.4 (H) 4.1 Chloride 98 - 107 mmol/L 107 CO2 22 - 30 mmol/L 26 Anion Gap 8 - 15 mmol/L 10 eGFR >=60 mL/min/1.73m? 83 (more content not included)... [facility] 09-22-2024 History of Presen t illness Narrative 09/22/2024 Patient presents with: Follow Up Recording using [email or web address] software for draft documentation of the visit was discussed with the patient/authorized it sales representative; all questions welcomed and answered. Patient/authorized it sales representative agreed to proceed SUBJECTIVE: This is a 69 year old that is here today for Above Complaints.. Anxiety and Depression: - Managed with Prozac. - Denies thoughts of self-harm or harm to others. - Does not see a counselor. Tremors: - Noticed increased tremors. - Follows with Dr. Hamilton annually; last visit this year. - Propranolol increased to 20 mg BID on 08/09/2024. Hyperlipidemia: - Managed with pravastatin 40 mg. - Follows a low-cholesterol diet pretty much all the time. Meningioma: - Follows with Dr. Hamilton annually. Alopecia: - Follows with Dr. Hansen annually. - Taking doxycycline. Lifestyle: - Weight is stable. - Normally walks regularly but has not been as active recently. - Blood pressure usually in the 120s/60s; recently noted elevated readings. - Has a home blood pressure cuff. Family History: - Son recently underwent valve replacement surgery after 15 years of monitoring. PAST MEDICAL HISTORY Diagnosis Date Abnormal Papanicolaou smear of vagina and vaginal HPV 1997 Anxiety state, unspecified ASCUS of cervix with negative high risk HPV [address] Hamilton Depressive disorder, not elsewhere classified Hair loss Dr. Hansen Hyperlipidemia Meningioma (HCC) 03/08/2023 1.5 cm left parieto-occipital meningioma Obesity (BMI 30-39.9) Osteoarthritis Osteopenia Spider veins of both lower extremities ALLERGIES Diflucan [Fluconazole] MEDICATIONS Current Outpatient Medications Medication Sig FLUoxetine (PROZAC) 20 mg capsule Take 1 capsule by mouth once daily. propranolol (INDERAL) 20 mg tablet Take 1 tablet by mouth two times a day. pravastatin (PRAVACHOL) 40 mg tablet Take 1 tablet by mouth once daily. doxycycline monohydrate (MONODOX) 50 mg capsule Take 1 capsule by mouth once daily. OTC PRODUCT Calcium Mini 600 mg plus Vitamin D3 12.5 mcg - 2 capsules twice a day OTC PRODUCT Hair/Skin/Nails with Collagen and Pantogthenic Acid 10 mg - 2 gummies per day. Recommended by DermDr. Hansen. albuterol HFA (VENTOLIN HFA) 90 mcg/actuation inhaler Inhale 2 Puffs as instructed every 4 hours as needed for wheezing/shortness of breath. triamcinolone acetonide (NASACORT) 55 mcg nasal inhaler Use 2 Sprays in the nose once daily. (Patient taking differently: Use 2 Sprays in the nose as needed.) No current facility-administered medications for this visit. Medications and allergies reviewed by this provider. SOCIAL HISTORY Social History Tobacco Use Smoking status: Never Smokeless tobacco: Never Vaping Use Vaping status: Never Used Substance Use Topics Alcohol use: Yes Comment: rarely Drug use: No REVIEW OF SYSTEMS All other reviewed and negative other than HPI. OBJECTIVE: BP 134/88 Pulse 74 Resp 16 Ht 153.7 cm (5' 0.51) Wt 77.8 kg (171 lb 9.6 oz) LMP 05/28/2010 SpO2 98% BMI 32.95 kg/m . Vital signs reviewed by this provider. APPEARANCE Well appearing, alert, in no acute distress, well-hydrated, well nourished. EYES conjunctiva and sclera normal. HEART RRR with normal S1 and S2, no murmurs, no gallops, no JVD appreciated LUNG clear to auscultation. No wheezes, rhonchi or rales EXTREMITIES Extremities normal, No deformities, No skin discoloration, and No edema SKIN Skin color, texture, turgor normal, no suspicious rashes or lesions to exposed skin Latest Ref Rng 09/24/2023 09/27/2023 WBC 3.70 - 11.00 k/uL 4.42 RBC 3.90 - 5.20 m/uL 4.09 Hemoglobin 11.5 - 15.5 g/dL 12.9 Hematocrit 36.0 - 46.0 % 38.8 MCV 80.0 - 100.0 fL 94.9 MCH 26.0 - 34.0 pg 31.5 MCHC 30.5 - 36.0 g/dL 33.2 RDW-CV 11.5 - 15.0 % 12.3 Platelet Count 150 - 400 k/uL 232 MPV 9.0 - 12.7 fL 10.5 Neut% % 56.9 Abs Neut (ANC) 1.45 - 7.50 k/uL 2.52 Lymph% % 30.1 Abs Lymph 1.00 - 4.00 k/uL 1.33 Bent% % 10.0 Abs Bent <0.87 k/uL 0.44 Eosin% % 2.0 Abs Eosin <0.46 k/uL 0.09 Baso% % 0.5 Abs Baso <0.11 k/uL <0.03 Immature Gran % % 0.5 IMMATURE GRANS (ABS) <0.10 k/uL <0.03 NRBC /100 WBC 0.0 Absolute nRBC <0.01 k/uL <0.01 DTYPE Auto Protein, Total 6.3 - 8.0 g/dL 6.8 Albumin 3.9 - 4.9 g/dL 4.5 Calcium 8.5 - 10.2 mg/dL 9.7 Bilirubin, Total 0.2 - 1.3 mg/dL 0.4 Alkaline Phosphatase 34 - 123 U/L 51 AST 13 - 35 U/L 24 ALT 7 - 38 U/L 19 Glucose 74 - 99 mg/dL 90 BUN 7 - 21 mg/dL 22 (H) Creatinine 0.58 - 0.96 mg/dL 0.78 Sodium 136 - 144 mmol/L 143 Potassium 3.7 - 5.1 mmol/L 5.4 (H) 4.1 Chloride 98 - 107 mmol/L 107 CO2 22 - 30 mmol/L 26 Anion Gap 8 - 15 mmol/L 10 eGFR >=60 mL/min/1.73m 83 Cholesterol, Total <200 mg/dL 169 Triglyceride <150 mg/dL 59 HDL Cholesterol >39 mg/dL 56 Non HDL Cholesterol <130 mg/dL 113 Fasting Time hrs 15 VLDL Cholesterol <30 mg/dL 12 TC:HDL Ratio <5.10 3.02 LDL Cholesterol, Calculated <100 mg/dL 101 (H) LDL:HDL Ratio <2.54 1.80 Anxiety Screening Never done Advance Directive Discussion due on 04/05/2024 Covid-19 Vaccine() due on 08/04/2024 Medicare Annual Wellness Visit due on 09/24/2025 Mammogram Screening due on 05/31/2025 Diabetes Screening due on 09/23/2026 Lipid Screening due on 09/23/2028 DTaP,Tdap,Td Vaccine(2 - Td or Tdap) due on 02/06/2029 Colorectal Cancer Screening due on 09/18/2029 Bone Density Screening Completed Influenza Vaccine Completed RSV Vaccine Completed Hepatitis C Screening Completed Shingrix Vaccine Completed Pneumococcal Vaccine: 50+ Completed Cervical Cancer Screening Discontinued 1. Hyperlipidemia, unspecified hyperlipidemia type (E78.5) - Managed with pravastatin 40 mg daily. - Adheres to a low cholesterol diet most of the time. - Ordered routine fasting lipid panel; patient advised to complete labs today as she has only had water. 2. CARMINE (generalized anxiety disorder) (F41.1) 3. Mild episode of recurrent major depressive disorder (F33.0) - Stable on fluoxetine; no thoughts of self-harm or harm to others. - No current counseling. - Refilled fluoxetine prescription at [facility] in [place]. 4. Benign essential tremor (G25.0) - Propranolol dosage increased to [address] Hamilton - Tremors noted to be more noticeable prior to dosage adjustment. 5. Meningioma (HCC) (D32.9) - Followed by Dr. Hamilton with annual visits; no recent changes in management. Brooklynn Podlogar, PAPER CUTTING MACHINE OPERATOR.ORTHOPEDIC SURGEON Prescription instructions reviewed with patient as applicable. Patient advised if symptoms do not improve or if symptoms worsen sooner, to contact their primary care physician. Potential red flag symptoms discussed with the patient. Reviewed appropriate action plan to take if red flag symptoms occur. Patient agreeable to treatment plan. Medical Decision Making: Problems: Moderate: 2+ stable chronic illnesses Data: Unique test(s) ordered: 3+ Risk: Moderate: Drug management Medical Decision Making Level: 4 - Moderate documented in this encounter [facility] 09-12-2024 Note HNO ID: [id number] Author: ALETHEA RAYO MA Service: ? Author Type: Publications Sales Representative Type: Progress Notes Filed: 09/12/2024 14:43 Note Text: POPULATION HEALTH NAVIGATION OUTREACH Action/FYI FLIPPED APPOINTMENT TIME PATIENT NOTIFIED Topic Due (Y or N) Comments Medicare Wellness Y PCP Follow up Colorectal Cancer Screening Controlling Blood Pressure A1C HCC Y Flu Vaccine Care Everywhere Reviewed MyChart Activation Updated Appointment Note Reason for Outreach Care Gap/HCC or Scheduling Wellness Visits Care Gaps due: Medicare Annual Wellness Visit Patient Contacted: Unable or unnecessary to reach patient: HCC related Patient already scheduled Updated appointment notes Navigation Signature: Alethea Rayo MA September 12, 2024 2:38 PM [facility] 09-12-2024 History of Presen t illness Narrative POPULATION HEALTH NAVIGATION OUTREACH Action/FYI FLIPPED APPOINTMENT TIME PATIENT NOTIFIED Topic Due (Y or N) Comments Medicare Wellness Y PCP Follow up Colorectal Cancer Screening Controlling Blood Pressure A1C HCC Y Flu Vaccine Care Everywhere Reviewed MyChart Activation Updated Appointment Note Reason for Outreach Care Gap/HCC or Scheduling Wellness Visits Care Gaps due: Medicare Annual Wellness Visit Patient Contacted: Unable or unnecessary to reach patient: HCC related Patient already scheduled Updated appointment notes Navigation Signature: Alethea Rayo MA September 12, 2024 2:38 PM documented in this encounter [facility] 09-12-2024 Note Patient Outreach (CARLOS TNAV) SOFI DUNCAN ([id number]) 1955 F Date Time Provider Department 09/12/24 ALETHEA RAYO During your visit today, we recorded the following information about you: Alethea Rayo MA 09/12/2024 2:43 PM Signed POPULATION HEALTH NAVIGATION OUTREACH Action/FYI FLIPPED APPOINTMENT TIME PATIENT NOTIFIED Topic Due (Y or N) Comments Medicare Wellness Y PCP Follow up Colorectal Cancer Screening Controlling Blood Pressure A1C HCC Y Flu Vaccine Care Everywhere Reviewed MyChart Activation Updated Appointment Note Reason for Outreach Care Gap/HCC or Scheduling Wellness Visits Care Gaps due: Medicare Annual Wellness Visit Patient Contacted: Unable or unnecessary to reach patient: HCC related Patient already scheduled Updated appointment notes Navigation Signature: Alethea Rayo MA September 12, 2024 2:38 PM Allergies As of Date: 09/12/2024 Noted Allergy Reaction DIFLUCAN (FLUCONAZOLE) 11/02/2008 2 - Rash 4 - Hives 9 - Itching Date Reviewed: 08/02/2024 Reviewed by: Kathleen Haddad LPN - Fully Assessed Reason for Visit: Population Health Navigation Outreach [3910] Cmt: YUNI JOHNSON PCSA Prescriptions as of 09/12/2024 - pravastatin (PRAVACHOL) 40 mg tablet Take 1 tablet by mouth once daily. - FLUoxetine (PROZAC) 20 mg capsule Take 1 capsule by mouth once daily. - propranolol (INDERAL) 10 mg tablet Take 2 tablets by mouth once daily. - doxycycline monohydrate (MONODOX) 50 mg capsule Take 1 capsule by mouth once daily. - OTC PRODUCT Calcium Mini 600 mg plus Vitamin D3 12.5 mcg - 2 capsules twice a day - OTC PRODUCT Hair/Skin/Nails with Collagen and Pantogthenic Acid 10 mg - 2 gummies per day. Recommended by Dr. Tyrone Hannah. - albuterol HFA (VENTOLIN HFA) 90 mcg/actuation inhaler Inhale 2 Puffs as instructed every 4 hours as needed for wheezing/shortness of breath. - triamcinolone acetonide (NASACORT) 55 mcg nasal inhaler Use 2 Sprays in the nose once daily. 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] 11/24/2005 Depression [F32.A] 01/07/2011 Hyperlipidemia [E78.5] 01/07/2011 BMI 32.0-32.9,adult [Z68.32] 07/06/2013 07/04/2015 Benign essential tremor [G25.0] 09/23/2014 Allergic rhinitis [J30.9] 09/23/2014 BMI 33.0-33.9,adult [Z68.33] 07/04/2015 Osteoarthritis [M19.90] Osteopenia [M85.80] 07/22/2021 Meningioma (HCC) [D32.9] 03/22/2023 Encounter Status:Closed by ALETHEA RAYO on 09/12/24 [facility] 08-09-2024 Evaluation note Diagnosis Onset Date Resolution Essential tremor chronic August 09, 2024 9:17am Essential tremor chronic October 9:28am [facility] Work Phone: [phone] 394-214704-30-2025 NoteHNO ID: [id number] Author: BROOKLYNN KUHN APRN.ORTHOPEDIC SURGEON Service: ? Author Type: Nurse Practitioner Type: Progress Notes Filed: 08/02/2024 19:02 Note Text: 08/02/2024 Patient presents with: Edema: Bilateral ankle swelling for 3.5weeks(07/08/2024) SUBJECTIVE: This is a 69 year old that is here today for Above Complaints. Took a trip to the [place] 06/30-07/10. Noticed two days before coming home legs swollen. Noticed some redness since back home. Denies fevers, hx of DVT, leg pain, open sores, SOB or dyspnea PAST MEDICAL HISTORY Diagnosis Date Abnormal Papanicolaou smear of vagina and vaginal HPV 1997 Anxiety state, unspecified ASCUS of cervix with negative high risk HPV [address] Hamilton Depressive disorder, not elsewhere classified Hair loss Dr. Hansen Hyperlipidemia Meningioma (HCC) 03/08/2023 1.5 cm left parieto-occipital meningioma Obesity (BMI 30-39.9) Osteoarthritis Osteopenia Spider veins of both lower extremities ALLERGIES Diflucan [Fluconazole] MEDICATIONS Current Outpatient Medications Medication Sig pravastatin (PRAVACHOL) 40 mg tablet Take 1 tablet by mouth once daily. FLUoxetine (PROZAC) 20 mg capsule Take 1 capsule by mouth once daily. propranolol (INDERAL) 10 mg tablet Take 2 tablets by mouth once daily. doxycycline monohydrate (MONODOX) 50 mg capsule Take 1 capsule by mouth once daily. OTC PRODUCT Calcium Mini 600 mg plus Vitamin D3 12.5 mcg - 2 capsules twice a day OTC PRODUCT Hair/Skin/Nails with Collagen and Pantogthenic Acid 10 mg - 2 gummies per day. Recommended by DermDr. Hansen. albuterol HFA (VENTOLIN HFA) 90 mcg/actuation inhaler Inhale 2 Puffs as instructed every 4 hours as needed for wheezing/shortness of breath. triamcinolone acetonide (NASACORT) 55 mcg nasal inhaler Use 2 Sprays in the nose once daily. (Patient taking differently: Use 2 Sprays in the nose as needed.) No current facility-administered medications for this visit. Medications and allergies reviewed by this provider. SOCIAL HISTORY Social History Tobacco Use Smoking status: Never Smokeless tobacco: Never Vaping Use Vaping status: Never Used Substance Use Topics Alcohol use: Yes Comment: rarely Drug use: No REVIEW OF SYSTEMS All other reviewed and negative other than HPI. OBJECTIVE: BP 134/68 Pulse 73 Resp 18 Wt 78.4 kg (172 lb 12.8 oz) LMP 05/28/2010 SpO2 97% BMI 33.75 kg/m? . Vital signs reviewed by this provider. APPEARANCE Well appearing, alert, in no acute distress, well-hydrated, well nourished. EYES conjunctiva and sclera normal. HEART RRR with normal S1 and S2, no murmurs, no gallops, no JVD appreciated LUNG clear to auscultation. No wheezes, rhonchi or rales EXTREMITIES trace edema BLE with some faint erythema to bilateral lower ankles without excessive warmth. Erythema blanches. No ope leg sores. 2+ peal pulse with cap refill WNL SKIN Skin color, texture, turgor normal, no suspicious rashes or lesions to exposed skin Anxiety Screening Never done Advance Directive Discussion due on 04/05/2024 Covid-19 Vaccine() due on 08/04/2024 Mammogram Screening due on 05/31/2025 Diabetes Screening due on 09/23/2026 Lipid Screening due on 09/23/2028 DTaP,Tdap,Td Vaccine(2 - Td or Tdap) due on 02/06/2029 Colorectal Cancer Screening due on 09/18/2029 Bone Density Screening Completed Influenza Vaccine Completed RSV Vaccine Completed Hepatitis C Screening Completed Shingrix Vaccine Completed Pneumococcal Vaccine: 50+ Completed Cervical Cancer Screening Discontinued ASSESSMENT/PLAN: 1. Leg swelling - ICD9: 729.81, ICD10: M79.89 (primary diagnosis) - trace edema - low salt diet, hydrate with water, and elevate legs when sitting - COMPRESSION STOCKINGS apply in AM off at bedtime 2. 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 Patient advised if symptoms do not improve or if symptoms worsen sooner, to contact their primary care physician. Potential red flag symptoms discussed with the patient. Reviewed appropriate action plan to take if red flag symptoms occur. Patient agreeable to treatment plan. Medical Decision Making: Problems: Low: Acute, uncomplicated illness or injury Risk: Low: Low risk from testing/treatment Medical Decision Making Level: [facility] - [facility] of Present illness Narrative* Brooklynn Kuhn APRN.ORTHOPEDIC SURGEON - 08/02/2024 6:29 PM EDT 08/02/2024 Patient presents with: Edema: Bilateral ankle swelling for 3.5weeks(07/08/2024) SUBJECTIVE: This is a 69 year old that is here today for Above Complaints. Took a trip to the [place] 06/30-07/10. Noticed two days before coming home legs swollen. Noticed some redness since back home. Denies fevers, hx of DVT, leg pain, open sores, SOB or dyspnea PAST MEDICAL HISTORY Diagnosis Date Abnormal Papanicolaou smear of vagina and vaginal HPV 1997 Anxiety state, unspecified ASCUS of cervix with negative high risk HPV [address] Hamilton Depressive disorder, not elsewhere classified Hair loss Dr. Hansen Hyperlipidemia Meningioma (HCC) 03/08/2023 1.5 cm left parieto-occipital meningioma Obesity (BMI 30-39.9) Osteoarthritis Osteopenia Spider veins of both lower extremities ALLERGIES Diflucan [Fluconazole] MEDICATIONS Current Outpatient Medications Medication Sig pravastatin (PRAVACHOL) 40 mg tablet Take 1 tablet by mouth once daily. FLUoxetine (PROZAC) 20 mg capsule Take 1 capsule by mouth once daily. propranolol (INDERAL) 10 mg tablet Take 2 tablets by mouth once daily. doxycycline monohydrate (MONODOX) 50 mg capsule Take 1 capsule by mouth once daily. OTC PRODUCT Calcium Mini 600 mg plus Vitamin D3 12.5 mcg - 2 capsules twice a day OTC PRODUCT Hair/Skin/Nails with Collagen and Pantogthenic Acid 10 mg - 2 gummies per day. Recommended by DermDr. Hansen. albuterol HFA (VENTOLIN HFA) 90 mcg/actuation inhaler Inhale 2 Puffs as instructed every 4 hours asneeded for wheezing/shortness of breath. triamcinolone acetonide (NASACORT) 55 mcg nasal inhaler Use 2 Sprays in the nose once daily. (Patient taking differently: Use 2 Sprays in the nose as needed.) No current facility-administered medications for this visit. Medications and allergies reviewed by this provider. SOCIAL HISTORY Social History Tobacco Use Smoking status: Never Smokeless tobacco: Never Vaping Use Vaping status: Never Used Substance Use Topics Alcohol use: Yes Comment: rarely Drug use: No REVIEW OF SYSTEMS All other reviewed and negative other than HPI. OBJECTIVE: BP 134/68 Pulse 73 Resp 18 Wt 78.4 kg (172 lb 12.8 oz) LMP 05/28/2010 SpO2 97% BMI 33.75 kg/m . Vital signs reviewed by this provider. APPEARANCE Well appearing, alert, in no acute distress, well-hydrated, well nourished. EYES conjunctiva and sclera normal. HEART RRR with normal S1 and S2, no murmurs, no gallops, no JVD appreciated LUNG clear to auscultation. No wheezes, rhonchi or rales EXTREMITIES trace edema BLE with some faint erythema to bilateral lower ankles without excessive warmth. Erythema blanches. No ope leg sores. 2+ peal pulse with cap refill WNL SKIN Skin color, texture, turgor normal, no suspicious rashes or lesions to exposed skin Anxiety Screening Never done Advance Directive Discussion due on 04/05/2024 Covid-19 Vaccine( season) due on 08/04/2024 Mammogram Screening due on 05/31/2025 Diabetes Screening due on 09/23/2026 Lipid Screening due on 09/23/2028 DTaP,Tdap,Td Vaccine(2 - Td or Tdap) due on 02/06/2029 Colorectal Cancer Screening due on 09/18/2029 Bone Density Screening Completed Influenza Vaccine Completed RSV Vaccine Completed Hepatitis C Screening Completed Shingrix Vaccine Completed Pneumococcal Vaccine: 50+ Completed Cervical Cancer Screening Discontinued ASSESSMENT/PLAN: 1. Leg swelling - ICD9: 729.81, ICD10: M79.89 (primary diagnosis) - trace edema - low salt diet, hydrate with water, and elevate legs when sitting - COMPRESSION STOCKINGS apply in AM off at bedtime 2. 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 Patient advised if symptoms do not improve or if symptoms worsen sooner, to contact their primary care physician. Potential red flag symptoms discussed with the patient. Reviewed appropriate action plan to take if red flag symptoms occur. Patient agreeable to treatment plan. Medical Decision Making: Problems: Low: Acute, uncomplicated illness or injury Risk: Low: Low risk from testing/treatment Medical Decision Making Level: 3 - Low [facility] Telephone encounter Note * Telephone Encounter - Damari Arenas MA - 05/29/2024 9:23 AM EST Prescription Refill Information The patient has been identified by name and date of : Yes Caregiver verified no other encounters exist for this prescription request: Yes Caregiver confirmed with patient/requestor that no other refills are due, in the near future, with this provider at this time: Yes The last office visit in the department: 03/2024 Does the patient have a future office visit with this provider/department: Yes Requested Prescriptions Pending Prescriptions Disp Refills pravastatin (PRAVACHOL) 40 mg tablet 90 tablet 1 Sig: Take 1 tablet by mouth once daily. Damari Arenas MA May 29, 2024 9:23 AM [facility]02-24-2025 Miscellaneous Notes* Telephone Encounter - Damari Arenas MA - 05/29/2024 9:23 AM EST Prescription Refill Information The patient has been identified by name and date of : Yes Caregiver verified no other encounters exist for this prescription request: Yes Caregiver confirmed with patient/requestor that no other refills are due, in the near future, with this provider at this time: Yes The last office visit in the department: 03/2024 Does the patient have a future office visit with this provider/department: Yes Requested Prescriptions Pending Prescriptions Disp Refills pravastatin (PRAVACHOL) 40 mg tablet 90 tablet 1 Sig: Take 1 tablet by mouth once daily. Damari Arenas MA May 29, 2024 9:23 AM documented in this encounterSelect [facility] NotePatient Outreach (FAMPWS) SOFI DUNCAN ([id number]) 1955 F Date Time Provider Department 04/25/24 GOGO GURROLA FAMPWS During your visit today, we recorded the following information about you: Allergies As of Date: 04/25/2024 Noted Allergy Reaction DIFLUCAN (FLUCONAZOLE) 11/02/2008 2 - Rash 4 - Hives 9 - Itching Date Reviewed: 09/24/2023 Reviewed by: Sailaja Rodríguez LPN - Fully Assessed Visit Diagnosis:Encounter for screening mammogram for breast cancer [Z12.31] Order(s):PRECIOUS SCREENING W SIERRA [[id number]] Order #: [id number] FUTURE Prescriptions as of 05/26/2024 - FLUoxetine (PROZAC) 20 mg capsule Take 1 capsule by mouth once daily. - propranolol (INDERAL) 10 mg tablet Take 2 tablets by mouth once daily. - doxycycline monohydrate (MONODOX) 50 mg capsule Take 1 capsule by mouth once daily. - OTC PRODUCT Calcium Mini 600 mg plus Vitamin D3 12.5 mcg - 2 capsules twice a day - OTC PRODUCT Hair/Skin/Nails with Collagen and Pantogthenic Acid 10 mg - 2 gummies per day. Recommended by Dr. Tyrone Hannah. - pravastatin (PRAVACHOL) 40 mg tablet Take 1 tablet by mouth once daily. - albuterol HFA (VENTOLIN HFA) 90 mcg/actuation inhaler Inhale 2 Puffs as instructed every 4 hours as needed for wheezing/shortness of breath. - calcium carbonate/vitamin D3 (CALTRATE 600 PLUS D ORAL) Take 1 tablet by mouth once daily. - triamcinolone acetonide (NASACORT) 55 mcg nasal inhaler Use 2 Sprays in the nose once daily. Problem List As Of Date 04/25/2024 Noted Resolved INFEC OTITIS EXTERNA NOS [H60.399] 11/24/2005 Depression [F32.A] 01/07/2011 Hyperlipidemia [E78.5] 01/07/2011 BMI 32.0-32.9,adult [Z68.32] 07/06/2013 07/04/2015 Benign essential tremor [G25.0] 09/23/2014 Allergic rhinitis [J30.9] 09/23/2014 BMI 33.0-33.9,adult [Z68.33] 07/04/2015 Osteoarthritis [M19.90] Osteopenia [M85.80] 07/22/2021 Meningioma (HCC) [D32.9] 03/22/2023 Encounter Status:Closed by JAVIER MONIQUEUSEWinnie on 05/26/24[facility] NoteHNO ID: [id number] Author: GOGO GURROLA MD Service: ? Author Type: Physician Type: Progress Notes Filed: 03/24/2024 11:35 Note Text: Chief Complaint Patient presents with: 6 Month Exam: follow up-prozac HPI Sofi Duncan is a 68 year old female who presents here today for 6 month follow up. Patient has been in good health without recent hospitalizations, ER visits, or falls. No concerns today. Anxiety and depression symptoms well controlled on Prozac without side effects. Taking 20 mg daily. Rx last sent for BID which was an error. Needs refill today. Denies SI/HI, panic symptoms. Patient following up yearly with Dr. Hamilton's office yearly for essential tremor and meningioma discovered on CT in March. Tremors controlled on propranolol 20 mg daily. No changes to regimen at last OV in August. On doxycycline for hair loss through Dr. Hansen's office. Reports this is helping. Records not available today. Past medical history, appointments, medications, allergies reviewed. [...] parieto-occipital meningioma Obesity (BMI 30-39.9) Osteoarthritis Osteopenia Spider veins of both lower extremities Previous Surgical History PAST SURGICAL HISTORY Procedure [...] Stroke Mother Cancer Mother ovarian Heart Mother [place] at 69yrs other (Arthritis/DDD) Mother Degenerative Disc Disease Cancer Father lung/ brain - Heart Sister [place] at 50yrs Heart Son murmur other (Tricuspid aortic valve) Son Patient Allergies ALLERGIES Allergen Reactions Diflucan [Fluconazo* Rash, Hives, Itching Current Medications Current Outpatient Medications on File Prior to Visit Medication Sig OTC PRODUCT Calcium Mini 600 mg plus Vitamin D3 12.5 mcg - 2 capsules twice a day OTC PRODUCT Hair/Skin/Nails with Collagen and Pantogthenic Acid 10 mg - 2 gummies per day. Recommended by Derm, Dr. Hansen. pravastatin (PRAVACHOL) 40 mg tablet Take 1 tablet by mouth once daily. propranolol (INDERAL) 10 mg tablet Take 1.5 tablets by mouth once daily. albuterol HFA (VENTOLIN HFA) 90 mcg/actuation inhaler Inhale 2 Puffs as instructed every 4 hours as needed for wheezing/shortness of breath. FLUoxetine (PROZAC) 20 mg capsule Take 1 capsule by mouth two times a day. calcium carbonate/vitamin D3 (CALTRATE 600 PLUS D ORAL) Take 1 tablet by mouth once daily. Doxycycline Monohydrate 40 mg capsule Take 1 capsule by mouth once daily. (Patient taking differently: Take 50 mg by mouth once daily.) triamcinolone acetonide (NASACORT) 55 mcg nasal inhaler Use 2 Sprays in the nose once daily. (Patient taking differently: Use 2 Sprays in the nose as needed.) No current facility-administered medications on file prior to visit. Social History Social History Tobacco Use Smoking status: Never Smokeless tobacco: Never Vaping Use Vaping status: Never Used Substance Use Topics Alcohol use: [...] for lesions, rash, and itching EXAM: BP 122/72 (BP Site: Left Arm, BP Position: Sitting, BP Cuff Size: Large Adult) Pulse 82 Resp 14 Ht 152.4 cm (5') Wt 76.7 kg (169 lb) LMP 05/28/2010 SpO2 97% BMI 33.01 kg/m? General Appearance: Well appearing, alert, in [...] Good capillary refill. . Health Maintenance List Anxiety Screening Never done Mammogram Screening due on 05/06/2022 Advance Directive Discussion due on 04/05/2023 Diabet (more content not included)...[facility] History of Present illness Narrative* Gogo Gurrola MD - 03/24/2024 10:02 AM EST Chief Complaint Patient presents with: 6 Month Exam: follow up-prozac HPI Sofi Duncan is a 68 year old female who presents here today for 6 month follow up. Patient has been in good health without recent hospitalizations, ER visits, or falls. No concerns today. Anxiety and depression symptoms well controlled on Prozac without side effects. Taking 20 mg daily.Rx last sent for BID which was an error. Needs refill today. Denies SI/HI, panic symptoms. Patient following up yearly with Dr. Hamilton's office yearly for essential tremor and meningioma discovered on CT in March. Tremors controlled on propranolol 20 mg daily. No changes to regimen at last OV in August. On doxycycline for hair loss through Dr. Hansen's office. Reports this is helping. Records not available today. Past medical history, appointments, medications, allergies reviewed. [...] parieto-occipital meningioma Obesity (BMI 30-39.9) Osteoarthritis Osteopenia Spider veins of both lower extremities Previous Surgical History PAST SURGICAL HISTORY Procedure [...] Stroke Mother Cancer Mother ovarian Heart Mother [place] at 69yrs other (Arthritis/DDD) Mother Degenerative Disc Disease Cancer Father lung/ brain - Heart Sister [place] at 50yrs Heart Son murmur other (Tricuspid aortic valve) Son Patient Allergies ALLERGIES Allergen Reactions Diflucan [Fluconazo* Rash, Hives, Itching Current Medications Current Outpatient Medications on File Prior to Visit Medication Sig OTC PRODUCT Calcium Mini 600 mg plus Vitamin D3 12.5 mcg - 2 capsules twice a day OTC PRODUCT Hair/Skin/Nails with Collagen and Pantogthenic Acid 10 mg - 2 gummies per day. Recommended by Dr. Tyrone Hannah. pravastatin (PRAVACHOL) 40 mg tablet Take 1 tablet by mouth once daily. propranolol (INDERAL) 10 mg tablet Take 1.5 tablets by mouth once daily. albuterol HFA (VENTOLIN HFA) 90 mcg/actuation inhaler Inhale 2 Puffs as instructed every 4 hours asneeded for wheezing/shortness of breath. FLUoxetine (PROZAC) 20 mg capsule Take 1 capsule by mouth two times a day. calcium carbonate/vitamin D3 (CALTRATE 600 PLUS D ORAL) Take 1 tablet by mouth once daily. Doxycycline Monohydrate 40 mg capsule Take 1 capsule by mouth once daily. (Patient taking differently: Take 50 mg by mouth once daily.) triamcinolone acetonide (NASACORT) 55 mcg nasal inhaler Use 2 Sprays in the nose once daily. (Patient taking differently: Use 2 Sprays in the nose as needed.) No current facility-administered medications on file prior to visit. Social History Social History Tobacco Use Smoking status: Never Smokeless tobacco: Never Vaping Use Vaping status: Never Used Substance Use Topics Alcohol use: [...] for lesions, rash, and itching EXAM: BP 122/72 (BP Site: Left Arm, BP Position: Sitting, BP Cuff Size: Large Adult) Pulse 82 Resp 14 Ht 152.4 cm (5') Wt 76.7 kg (169 lb) LMP 05/28/2010 SpO2 97% BMI 33.01 kg/m General Appearance: Well appearing, alert, in [...] Good capillary refill. . Health Maintenance List Anxiety Screening Never done Mammogram Screening due on 05/06/2022 Advance Directive Discussion due on 04/05/2023 Diabetes Screening due on 09/23/2026 Lipid Screening due on 09/23/2028 DTaP,Tdap,Td Vaccine(2 - Td or Tdap) due on 02/06/2029 Colorectal Cancer Screening due on 09/18/2029 Bone Density Screening Completed Influenza Vaccine Completed RSV Vaccine Completed Hepatitis C Screening Completed Shingrix Vaccine Completed Covid-19 Vaccine Completed Pneumococcal Vaccine: 50+ Completed Cervical Cancer Screening Discontinued Data reviewed Latest Ref Rng 09/24/2023 09/27/2023 WBC 3.70 - 11.00 k/uL 4.42 RBC 3.90 - 5.20 m/uL 4.09 Hemoglobin 11.5 - 15.5 g/dL 12.9 Hematocrit 36.0 - 46.0 % 38.8 MCV 80.0 - 100.0 fL 94.9 MCH 26.0 - 34.0 pg 31.5 MCHC 30.5 - 36.0 g/dL 33.2 RDW-CV 11.5 - 15.0 % 12.3 Platelet Count 150 - 400 k/uL 232 MPV 9.0 - 12.7 fL 10.5 Neut% % 56.9 Abs Neut (ANC) 1.45 - 7.50 k/uL 2.52 Lymph% % 30.1 Abs Lymph 1.00 - 4.00 k/uL 1.33 Bent% % 10.0 Abs Bent <0.87 k/uL 0.44 Eosin% % 2.0 Abs Eosin <0.46 k/uL 0.09 Baso% % 0.5 Abs Baso <0.11 k/uL <0.03 Immature Gran % % 0.5 IMMATURE GRANS (ABS) <0.10 k/uL <0.03 NRBC /100 WBC 0.0 Absolute nRBC <0.01 k/uL <0.01 DTYPE Auto Protein, Total 6.3 - 8.0 g/dL 6.8 Albumin 3.9 - 4.9 g/dL 4.5 Calcium 8.5 - 10.2 mg/dL 9.7 Bilirubin, Total 0.2 - 1.3 mg/dL 0.4 Alkaline Phosphatase 34 - 123 U/L 51 AST 13 - 35 U/L 24 ALT 7 - 38 U/L 19 Glucose 74 - 99 mg/dL 90 BUN 7 - 21 mg/dL 22 (H) Creatinine 0.58 - 0.96 mg/dL 0.78 Sodium 136 - 144 mmol/L 143 Potassium 3.7 - 5.1 mmol/L 5.4 (H) 4.1 Chloride 98 - 107 mmol/L 107 CO2 22 - 30 mmol/L 26 Anion Gap 8 - 15 mmol/L 10 eGFR >=60 mL/min/1.73m 83 Cholesterol, Total <200 mg/dL 169 Triglyceride <150 mg/dL 59 HDL Cholesterol >39 mg/dL 56 Non HDL Cholesterol <130 mg/dL 113 Fasting Time hrs 15 VLDL Cholesterol <30 mg/dL 12 TC:HDL Ratio <5.10 3.02 LDL Cholesterol <100 mg/dL 101 (H) LDL:HDL Ratio <2.54 1.80 Legend: (H) High ASSESSMENT/PLAN: 1. CARMINE (generalized anxiety disorder) - ICD9: 300.02, ICD10: F41.1 (primary diagnosis) Controlled on current regimen. Medication updated with correct dosage. Refill sent. - FLUOXETINE 20 MG CAPSULE 2. Mild episode of recurrent major depressive disorder (HCC) - ICD9: 296.31, ICD10: F33.0 See above. 3. Benign essential tremor - ICD9: 333.1, ICD10: G25.0 Controlled on propranolol. 4. Meningioma (HCC) - ICD9: 225.2, ICD10: D32.9 Benign. F/u with neurology as scheduled. 5. Hyperlipidemia, unspecified hyperlipidemia type - ICD9: 272.4, ICD10: E78.5 - Controlled - Continue current medications - Counseled on healthy diet and regular exercise 6. Hair loss - ICD9: 704.00, ICD10: L65.9 Improved on doxycycline. Will obtain records from her [facility]. F/u as scheduled. Gogo Gurrola MD documented in this encounterSelect [facility] Evaluation note* Diagnosis Onset Date Resolution Status Admit Date Essential tremor chronic February 23, 2024 8:25am [facility] Work Phone: [phone]) 832-748507-09-2024 Telephone encounter Note* Telephone Encounter - Onofre Grissom RN - 10/12/2023 2:47 PM EDT Pt returned call and given provider's message below with verbalized understanding. [facility]07-09-2024 Miscellaneous Notes* Telephone Encounter - Onofre Grissom RN - 10/12/2023 2:47 PM EDT Pt returned call and given provider's message below with verbalized understanding. * Telephone Encounter - Maida Tinajero LPN - 10/12/2023 9:51 AM EDT Phoned patient left message to return call and ask to speak to a nurse. * Telephone Encounter - Gogo Gurrola MD - 10/12/2023 9:01 AM EDT No. This finding is common and means she has some mild stiffness of her heart. This is not effecting its function and by itself would not cause problems with her ankles. * Telephone Encounter - Aruna Willis LPN - 10/11/2023 3:12 PM EDT Spoke with pt and information listed below given. Pt verbalizes understanding. QUESTION: Pt reports she has fatty pockets around her ankles and wants to know if Grade I left ventricle diastolic dysfunction could be causing this? Please advise pt. Aruna Willis LPN * Telephone Encounter - Aruna Willis LPN - 10/11/2023 3:12 PM EDT ----- Message from Gogo Gurrola MD sent at 10/11/2023 12:40 PM EDT ----- Please let the patient know her echo is normal. No signs of heart failure or problems with her valves. documented in this encounterSelect [facility]-2024 Telephone encounter Note * Telephone Encounter - Maida Tinajero LPN - 10/12/2023 9:51 AM EDT Phoned patient left message to return call and ask to speak to a nurse. [facility]24 Telephone encounter Note* Telephone Encounter - Gogo Gurrola MD - 10/12/2023 9:01 AM EDT No. This finding is common and means she has some mild stiffness of her heart. This is not effecting its function and by itself would not cause problems with her ankles. [facility]07-08-2024 Telephone encounter Note* Telephone Encounter - Aruna Willis LPN - 10/11/2023 3:12 PM EDT Spoke with pt and information listed below given. Pt verbalizes understanding. QUESTION: Pt reports she has fatty pockets around her ankles and wants to know if Grade I left ventricle diastolic dysfunction could be causing this? Please advise pt. Aruna Willis LPN [facility]-08-2024 Telephone encounter Note* Telephone Encounter - Aruna Willis LPN - 10/11/2023 3:12 PM EDT ----- Message from Gogo Gurrola MD sent at 10/11/2023 12:40 PM EDT ----- Please let the patient know her echo is normal. No signs of heart failure or problems with her valves. [facility]-27-[facility]24 Telephone encounter Note* Telephone Encounter - Gogo Gurrola MD - 09/30/2023 11:11 AM EDT Reviewed. [facility] Miscellaneous Notes* Telephone Encounter - Gogo Gurrola MD - 09/30/2023 11:11 AM EDT Reviewed. * Telephone Encounter - Sailaja Rodríguez LPN - 09/30/2023 10:51 AM EDT Phoned patient and she reports she will wait for echo results after she completes the echo and willadvise on how she would like to proceed from there. She reported she was going to do the echo and CT the same day but reports she will cancel the CT for now. Patient stated when we call to advise krista echo results she will advise if she would like to proceed with CT at that time. Sailaja Rodríguez LPN * Telephone Encounter - Gogo Gurrola MD - 09/30/2023 9:55 AM EDT Order placed. ABN printed which she will need to complete prior to imaging. Her recent stress test was negative and her echo is pending. If the echo is negative and she wantedto reduce her risk of heart attack and stroke, we could continue her on her intensity statin instead and she could skip having this imaging done. It would be more cost effective for her that way. Let me know what she decides. * Telephone Encounter - Shana Sampson RN - 09/30/2023 9:34 AM EDT Patient calls back and reports that she spoke with insurance company and her insurance does cover the calcium scoring test. Patient would like to try and scheduled with [facility] instead of [facility]. Needs order placed. Shana Sampson RN * Telephone Encounter - Mignon Cota RN - 09/27/2023 11:08 AM EDT Pt called and is notified of providers message. Pt voices understanding, she is going to think about it and will get back with us. Mignon Cota RN * Telephone Encounter - Gogo Gurrola MD - 09/27/2023 9:[address] calcium scoring does not appear to be covered by her insurance. Possible cost listed at $363. Let me know if she would like to proceed with this. * Telephone Encounter - Cheryle Belle OCCA - 09/27/2023 9:53 AM EDT TC to patient who verbalized understanding of below. Patient would like to move forward with CT please order. Patient having potassium level drawn later today. GILBERTO Burrell * Telephone Encounter - Gogo Gurrola MD - 09/25/2023 11:19 AM EDT Normal labs aside from high potassium level and LDL. Cholesterol is improved compared to last check. She is still considered borderline risk for heart attack and stroke. Would she like to have the CT calcium scoring as we discussed in office? Recheck potassium level early next week to rule out lab error. The 10-year ASCVD risk score (Jordana DK, et al., 2019) is: 5.9% Values used to calculate the score: Age: 68 years Sex: Female Is Non- : No Diabetic: No Tobacco smoker: No Systolic Blood Pressure: 116 mmHg Is BP treated: No HDL Cholesterol: 56 mg/dL Total Cholesterol: 169 mg/dL documented in this encounter[facility] Telephone encounter Note * Telephone Encounter - Sailaja Rodríguez LPN - 09/30/2023 10:51 AM EDT Phoned patient and she reports she will wait for echo results after she completes the echo and willadvise on how she would like to proceed from there. She reported she was going to do the echo and CT the same day but reports she will cancel the CT for now. Patient stated when we call to advise krista echo results she will advise if she would like to proceed with CT at that time. Sailaja Rodríguez LPN [facility]06-27-2024 Telephone encounter Note* Telephone Encounter - Gogo Gurrola MD - 09/30/2023 9:55 AM EDT Order placed. ABN printed which she will need to complete prior to imaging. Her recent stress test was negative and her echo is pending. If the echo is negative and she wantedto reduce her risk of heart attack and stroke, we could continue her on her intensity statin instead and she could skip having this imaging done. It would be more cost effective for her that way. Let me know what she decides. [facility]06-27-[facility]24 Telephone encounter Note* Telephone Encounter - Shana Sampson RN - 09/30/2023 9:34 AM EDT Patient calls back and reports that she spoke with insurance company and her insurance does cover the calcium scoring test. Patient would like to try and scheduled with [facility] instead of [facility]. Needs order placed. Shana Sampson RN [facility]06-25-[facility]24 History of Present illness Narrative* Kenisha Lombardo RT(R) - 09/28/2023 1:30 PM EDT RADIOLOGY SERVICE PROGRESS NOTE SERVICE DATE: 09/28/2023 SERVICE TIME: 3:03 PM PATIENT IDENTITY VERIFICATION COMPLETED USING TWO (2) STANDARD IDENTIFIERS: Name and Date of confirmed by patient verbally FALL SCREENING: Has the patient had 2 falls in the last year or 1 fall with injury or currently using an Ambulatory Assistive Device (Walker, Cane, Wheelchair, Crutches, etc.)? No PATIENT GENDER DATA: .female : No ALLERGIES: Reviewed and unchanged MEDICATIONS REVIEWED: Not applicable PATIENT RELEVANT IMPLANT DATA REVIEWED: Not Applicable PATIENT PRESENTS WITH AN IMPLANTABLE OR ATTACHED MOTORIZED SQUAD CAPTAIN: No CREATININE: Creatinine Date Value Ref Range Status 09/24/2023 0.78 0.58 - 0.96 mg/dL Final 07/22/2022 0.83 0.58 - 0.96 mg/dL Final 07/22/2021 0.91 0.58 - 0.96 mg/dL Final Estimated Glomerular Filtration Rate Date Value Ref Range Status 09/24/2023 83 >=60 mL/min/1.73m Final Comment: Estimated Glomerular Filtration Rate (eGFR) is calculated using the 2020 CKD-EPI creatinine equation. This equation utilizes serum creatinine, sex, and age as parameters. The creatinine assay has traceable calibration to isotope dilution- mass spectrometry. Refer to KDIGO guidelines for clinical interpretation. In patients with unstable renal function, e.g. those with acute kidney injury, the eGFRmay not accurately reflect actual GFR. eGFR- Date Value Ref Range Status 07/01/2020 >60 Final P.O.C.T. RESULTS: N/A September 28, [address] PERFORMED: No IV SITE: Ambulatory: A peripheral IV was started in the Right antecubital site with a Angio cath: 22 gauge. POST EXAM PIV STATUS: Discontinued PROCEDURE TYPE: NM Stress: 13.4 mCi [id number] was administered IV for Rest Imaging at 13:30 by CHAN. 35.8 mCi [id number] was administered IV for Stress Imaging at 14:07 by ARNULFO/DELICIA. PATIENT DISCHARGED TO: Ambulatory patient, left NM department area. A Diagnostic radioactive procedure has taken place, with no further precautions necessary other than routine body substance precautions. More information regarding radiation safety can be found usingthis link: [email or web address]%[email or web address]%20Medicine%[email or web address] SIGNATURE: TAINA Victor) PATIENT NAME: Sofi Duncan DATE: September 28, 2023 TIME: 3:03 PM PAGER/CONTACT #: documented in this encounterSelect [facility]06-[facility]-2024 NoteHNO ID: [id number] Author: KENISHA LOMBARDO RT(R) Service: Nuclear Medicine Author Type: Technologist Type: Progress Notes Filed: 09/28/2023 15:05 Note Text: RADIOLOGY SERVICE PROGRESS NOTE SERVICE DATE: 09/28/2023 SERVICE TIME: 3:03 PM PATIENT IDENTITY VERIFICATION COMPLETED USING TWO (2) STANDARD IDENTIFIERS: Name and Date of confirmed by patient verbally FALL SCREENING: Has the patient had 2 falls in the last year or 1 fall with injury or currently using an Ambulatory Assistive Device (Walker, Cane, Wheelchair, Crutches, etc.)? No PATIENT GENDER DATA: .female : No ALLERGIES: Reviewed and unchanged MEDICATIONS REVIEWED: Not applicable PATIENT RELEVANT IMPLANT DATA REVIEWED: Not Applicable PATIENT PRESENTS WITH AN IMPLANTABLE OR ATTACHED MOTORIZED SQUAD CAPTAIN: No CREATININE: Creatinine Date Value Ref Range Status 09/24/2023 0.78 0.58 - 0.96 mg/dL Final 07/22/2022 0.83 0.58 - 0.96 mg/dL Final 07/22/2021 0.91 0.58 - 0.96 mg/dL Final Estimated Glomerular Filtration Rate Date Value Ref Range Status 09/24/2023 83 >=60 mL/min/1.73m? Final Comment: Estimated Glomerular Filtration Rate (eGFR) is calculated using the 2020 CKD-EPI creatinine equation. This equation utilizes serum creatinine, sex, and age as parameters. The creatinine assay has traceable calibration to isotope dilution-mass spectrometry. Refer to KDIGO guidelines for clinical interpretation. In patients with unstable renal function, e.g. those with acute kidney injury, the eGFR may not accurately reflect actual GFR. eGFR- Date Value Ref Range Status 07/01/2020 >60 Final P.O.C.T. RESULTS: N/A September 28, [address] PERFORMED: No IV SITE: Ambulatory: A peripheral IV was started in the Right antecubital site with a Angio cath: 22 gauge. POST EXAM PIV STATUS: Discontinued PROCEDURE TYPE: NM Stress: 13.4 mCi [id number] was administered IV for Rest Imaging at 13:30 by MJC. 35.8 mCi [id number] was administered IV for Stress Imaging at 14:07 by JGS/YS. PATIENT DISCHARGED TO: Ambulatory patient, left NM department area. A Diagnostic radioactive procedure has taken place, with no further precautions necessary other than routine body substance precautions. More information regarding radiation safety can be found using this link: [email or web address]%20Nuclear%20Medicine%[email or web address] SIGNATURE: RT Kayleigh(R) PATIENT NAME: Sofi Duncan DATE: September 28, 2023 TIME: 3:03 PM [facility]AGER[facility]CONTACT #[id number] Miscellaneous Notes* Telephone Encounter - Cheryle Belle OCCA - 09/28/2023 9:02 AM EDT TC to patient who is informed of below. GILBERTO Burrell * Telephone Encounter - Cheryle Belle OCCA - 09/28/2023 9:00 AM EDT ----- Message from Gogo Gurrola MD sent at 09/28/2023 8:02 AM EDT ----- Repeat potassium level is normal. I suspect her high level was due to lab error. No change in regimen. documented in this encounterSelect [facility]06-[facility]-2024 Telephone encounter Note * Telephone Encounter - Cheryle Belle OCCA - 09/28/2023 9:02 AM EDT TC to patient who is informed of below. GILBERTO Burrell [facility]06-25-2024 Telephone encounter Note* Telephone Encounter - Cheryle Belle OCCA - 09/28/2023 9:00 AM EDT ----- Message from Gogo Gurrola MD sent at 09/28/2023 8:02 AM EDT ----- Repeat potassium level is normal. I suspect her high level was due to lab error. No change in regimen. [facility]06-24-2024 Telephone encounter Note* Telephone Encounter - Divine Azar RN - 09/27/2023 2:42 PM EDT Spoke to pt regarding reminder and instructions for stress test tomorrow. This included where to check in, length of test and no caffeine for 12 hours prior to test, [facility]06-24-2024 Miscellaneous Notes* Telephone Encounter - Divine Azar RN - 09/27/2023 2:42 PM EDT Spoke to pt regarding reminder and instructions for stress test tomorrow. This included where to check in, length of test and no caffeine for 12 hours prior to test, documented in this encounterSelect [facility]-2024 Telephone encounter Note * Telephone Encounter - Gogo Gurrola MD - 09/27/2023 1:55 PM EDT Medication list updated. Her calcium level is normal and it does not look like she is getting too much calcium. I suspect her high calcium level is due to a lab error or some of her red blood cells breaking whenher blood was drawn which makes the potassium level look high when it is actually normal. The repeat blood draw will tell us more. Her BUN level was 1 point high. I dont think this is a concern. Her kidney function was normal and actually better than last time. I would recommend drinking water regularly during walks to prevent dehydration. [facility]06-[facility]24 Miscellaneous Notes* Telephone Encounter - Gogo Gurrola MD - 09/27/2023 1:55 PM EDT Medication list updated. Her calcium level is normal and it does not look like she is getting too much calcium. I suspect her high calcium level is due to a lab error or some of her red blood cells breaking whenher blood was drawn which makes the potassium level look high when it is actually normal. The repeat blood draw will tell us more. Her BUN level was 1 point high. I dont think this is a concern. Her kidney function was normal and actually better than last time. I would recommend drinking water regularly during walks to prevent dehydration. * Telephone Encounter - Mignon Cota RN - 09/27/2023 11:08 AM EDT Pt called and is notified of message. Pt voices understanding about medication update. Mignon Cota RN documented in this encounterSelect [facility]-2024 Telephone encounter Note * Telephone Encounter - Gogo Gurrola MD - 09/27/2023 12:01 PM EDT Ok, will await their results. [facility]06-24-2024 Miscellaneous Notes* Telephone Encounter - Gogo Gurrola MD - 09/27/2023 12:01 PM EDT Ok, will await their results. * Telephone Encounter - Onofre Grissom RN - 09/27/2023 11:53 AM EDT Patient reports [facility] called her and told her [facility] called her and told her insurance is not going to cover the CT calcium scoring test, and she will have to pay $363. Reports [facility] will do the test for $75. Faxed order to [facility], fax # [phone] documented in this encounterSelect [facility]06-[facility]24 Telephone encounter Note * Telephone Encounter - Onofre Grissom RN - 09/27/2023 11:53 AM EDT Patient reports [facility] called her and told her [facility] called her and told her insurance is not going to cover the CT calcium scoring test, and she will have to pay $363. Reports [facility] will do the test for $75. Faxed order to [facility], fax # [phone] [facility]06-24-2024 Telephone encounter Note* Telephone Encounter - Mignon Cota RN - 09/27/2023 11:08 AM EDT Pt called and is notified of message. Pt voices understanding about medication update. Mignon Cota RN [facility]06-24-2024 Telephone encounter Note* Telephone Encounter - Mignon Cota RN - 09/27/2023 11:08 AM EDT Pt called and is notified of providers message. Pt voices understanding, she is going to think about it and will get back with us. Mignon Cota RN [facility]06-24-2024 Telephone encounter Note* Telephone Encounter - Gogo Gurrola MD - 09/27/2023 9:[address] calcium scoring does not appear to be covered by her insurance. Possible cost listed at $363. Let me know if she would like to proceed with this. [facility]06-24-2024 Telephone encounter Note* Telephone Encounter - Cheryle Belle OCCA - 09/27/2023 9:53 AM EDT TC to patient who verbalized understanding of below. Patient would like to move forward with CT please order. Patient having potassium level drawn later today. GILBERTO Burrell [facility]06-22-2024 Telephone encounter Note* Telephone Encounter - Gogo Gurrola MD - 09/25/2023 11:19 AM EDT Normal labs aside from high potassium level and LDL. Cholesterol is improved compared to last check. She is still considered borderline risk for heart attack and stroke. Would she like to have the CT calcium scoring as we discussed in office? Recheck potassium level early next week to rule out lab error. The 10-year ASCVD risk score (Jordana REYNA, et al., 2019) is: 5.9% Values used to calculate the score: Age: 68 years Sex: Female Is Non- : No Diabetic: No Tobacco smoker: No Systolic Blood Pressure: 116 mmHg Is BP treated: No HDL Cholesterol: 56 mg/dL Total Cholesterol: 169 mg/dL [facility] History of Present illness Narrative* Gogo Gurrola MD - 09/24/2023 9:03 AM EDT Chief Complaint Patient presents with: Follow Up: 3 month EKG HPI Sofi Duncan is a 68 year old female who presents here today for Above Complaints. Has been in good health without hospitalizations or ER visits. No questions or concerns. Anxiety and depression symptoms well controlled on Prozac without side effects. Denies SI/HI, panicsymptoms. Patient following up yearly with Dr. Hamilton's office yearly for essential tremor and meningioma discovered on CT in March. Tremors controlled on propranolol daily. No changes to regimen at last OV in August. Interested in EKG today because her recently had CT calcium score which is high. Last 10 year ASCVD risk was borderline. Asymptomatic. Refusing COVID vaccine today. Past medical history, appointments, medications, allergies reviewed. [...] Stroke Mother Cancer Mother ovarian Heart Mother [place] at 69yrs other (Arthritis/DDD) Mother Degenerative Disc Disease Cancer Father lung/ brain - Heart Sister [place] at 50yrs Heart Son murmur other (Tricuspid aortic valve) Son Patient Allergies ALLERGIES Allergen Reactions Diflucan [Fluconazo* Rash, Hives, Itching Current Medications Current Outpatient Medications on File Prior to Visit Medication Sig albuterol HFA (VENTOLIN HFA) 90 mcg/actuation inhaler Inhale 2 Puffs as instructed every 4 hours asneeded for wheezing/shortness of breath. FLUoxetine (PROZAC) 20 mg capsule Take 1 capsule by mouth two times a day. pravastatin (PRAVACHOL) 40 mg tablet Take 1 tablet by mouth once daily. calcium carbonate/vitamin D3 (CALTRATE 600 PLUS D ORAL) Take 1 tablet by mouth once daily. Doxycycline Monohydrate 40 mg capsule Take 1 capsule by mouth once daily. (Patient taking differently: Take 50 mg by mouth once daily.) triamcinolone acetonide (NASACORT) 55 mcg nasal inhaler Use 2 Sprays in the nose once daily. (Patient taking differently: Use 2 Sprays in the nose as needed.) propranolol (INDERAL) 20 mg tablet Take 1 tablet by mouth once daily. (Patient taking differently: Take 10 mg by mouth once daily. Patient reports taking 1.5 tabs daily to = 15mg daily) minoxidil powd 1 teaspoon PO daily No current facility-administered medications on file prior to visit. Social History Social History Tobacco Use Smoking status: Never Smokeless tobacco: Never Substance Use Topics Alcohol use: Yes Comment: rarely Drug use: No Review of Symptoms REVIEW OF SYSTEMS GENERAL: No weight loss, malaise or fevers HEENT: Negative for frequent or significant headaches, No changes in hearing or vision, no nose bleeds or other nasal problems NECK: Negative for lumps, goiter, pain and significant neck swelling RESPIRATORY: Negative for cough, hemoptysis, wheezing, COPD, dyspnea or shortness of breath CARDIOVASCULAR: Negative for chest pain, leg swelling, hypertension, CHF or palpitations GI: No nausea, vomiting, or diarrhea : No history of dysuria, frequency or incontinence CARE TAKER: Negative for abnormal vaginal bleeding, abnormal vaginal discharge MUSCULOSKELETAL: Negative for joint pain or swelling, back pain or muscle pain SKIN: Negative for lesions, rash, and itching PSYCH: See HPI HEMATOLOGY/LYMPHOLOGY: Negative for prolonged bleeding, bruising easily or swollen nodes ENDOCRINE: Negative for cold or heat intolerance, polyuria, polydipsia and goiter NEURO: No history of headaches, syncope, paralysis, seizures or tremors EXAM: BP 116/66 Pulse 82 Resp 16 Wt 75.7 kg (166 lb 12.8 oz) LMP 05/28/2010 SpO2 98% BMI 32.58 kg/m General Appearance: Well appearing, alert, in no acute distress, well-hydrated, well nourished.. Skin: Skin color, texture, turgor normal, no suspicious rashes or lesions. Spider veins noted on right anterior thigh without varicose veins, pain, or swelling. Head: Normocephalic, no masses, lesions, tenderness or abnormalities. Eyes: Anicteric sclera. Pupils are equally round and reactive to light. Extraocular movements are intact. . Ears: External ears normal, canals clear. Nose/Sinuses: Nares normal, septum midline, mucosa normal, no drainage or sinus tenderness. Oropharynx: Lips, mucosa, and tongue normal, teeth and gums normal, oropharynx normal. Neck: Supple, no adenopathy; thyroid symmetric, normal size, no bruits. Lungs: Lungs clear to auscultation. No wheezing, rhonchi, rales.. Heart: RRR without murmur, gallop, or rubs. No ectopy. Abdomen: Normal abdominal exam, Abdomen soft, non-tender. Bowel sounds normal. No masses, organomegaly. Extremities: No deformities, edema, skin discoloration, clubbing or cyanosis. Good capillary refill. . Musculoskeletal: No joint swelling, deformity, or tenderness. Peripheral Pulses: Normal. Lymph Nodes: No cervical lymphadenopathy and No supraclavicular lymphadenopathy. Health Maintenance List Mammogram Screening due on 05/06/2022 Advance Directive Discussion due on 04/05/2023 Covid-19 Vaccine( season) due on 05/03/2023 Diabetes Screening due on 07/22/2025 Lipid Screening due on 07/23/2027 DTaP,Tdap,Td Vaccine(2 - Td or Tdap) due on 02/06/2029 Colorectal Cancer Screening due on 09/18/2029 Bone Density Screening Completed Influenza Vaccine Completed RSV Vaccine Completed Hepatitis C Screening Completed Shingrix Vaccine Completed Pneumococcal Vaccine: 65+ Completed Cervical Cancer Screening Discontinued Data reviewed Latest Ref Rng 07/22/2022 08/05/2022 WBC 3.70 - 11.00 k/uL 4.61 RBC 3.90 - 5.20 m/uL 4.09 Hemoglobin 11.5 - 15.5 g/dL 12.9 Hematocrit 36.0 - 46.0 % 40.0 MCV 80.0 - 100.0 fL 97.8 MCH 26.0 - 34.0 pg 31.5 MCHC 30.5 - 36.0 g/dL 32.3 RDW-CV 11.5 - 15.0 % 12.4 Platelet Count 150 - 400 k/uL 239 MPV 9.0 - 12.7 fL 10.2 Neut% % 55.9 Abs Neut (ANC) 1.45 - 7.50 k/uL 2.58 Lymph% % 30.8 Abs Lymph 1.00 - 4.00 k/uL 1.42 Bent% % 10.2 Abs Bent <0.87 k/uL 0.47 Eosin% % 2.0 Abs Eosin <0.46 k/uL 0.09 Baso% % 0.7 Abs Baso <0.11 k/uL 0.03 Immature Gran % % 0.4 IMMATURE GRANS (ABS) <0.10 k/uL <0.03 NRBC /100 WBC 0.0 Absolute nRBC <0.01 k/uL <0.01 DTYPE Auto Protein, Total 6.3 - 8.0 g/dL 6.9 Albumin 3.9 - 4.9 g/dL 4.4 Calcium 8.5 - 10.2 mg/dL 10.0 Bilirubin, Total 0.2 - 1.3 mg/dL 0.3 Alkaline Phosphatase 34 - 123 U/L 49 AST 13 - 35 U/L 23 ALT 7 - 38 U/L 20 Glucose 74 - 99 mg/dL 80 BUN 7 - 21 mg/dL 19 Creatinine 0.58 - 0.96 mg/dL 0.83 Sodium 136 - 144 mmol/L 142 Potassium 3.7 - 5.1 mmol/L 5.3 (H) 4.2 Chloride 97 - 105 mmol/L 105 CO2 22 - 30 mmol/L 30 Anion Gap 9 - 18 mmol/L 7 (L) eGFR >=60 mL/min/1.73m 77 Total Cholesterol, Nonfasting <200 mg/dL 182 Triglycerides, Nonfasting <150 mg/dL 98 HDL Cholesterol, Nonfasting >39 mg/dL 60 LDL Cholesterol, Nonfasting <100 mg/dL 102 (H) Non HDL Cholesterol, Nonfasting <130 mg/dL 122 VLDL Cholesterol, Nonfasting <30 mg/dL 20 Total Chol/HDL Ratio, Nonfasting <5.10 mg/dL 3.03 LDL/HDL Ratio, Nonfasting <2.54 mg/dL 1.70 Legend: (H) High (L) Low The 10-year ASCVD risk score (Jordana REYNA, et al., 2019) is: 6% Values used to calculate the score: Age: 68 years Sex: Female Is Non- : No Diabetic: No Tobacco smoker: No Systolic Blood Pressure: 116 mmHg Is BP treated: No HDL Cholesterol: 60 mg/dL Total Cholesterol: 182 mg/dL EKG: NSR at 68 bpm, nonspecific T wave abnormality, abnormal EKG ASSESSMENT/PLAN: 1. CARMINE (generalized anxiety disorder) - ICD9: 300.02, ICD10: F41.1 (primary diagnosis) Controlled on prozac. Continue current regimen. 2. Mild episode of recurrent major depressive disorder (HCC) - ICD9: 296.31, ICD10: F33.0 Controlled on prozac. Continue current regimen. 3. Benign essential tremor - ICD9: 333.1, ICD10: G25.0 Controlled on propranolol. Will obtain records from neurology OV in /u as scheduled. 4. Hyperlipidemia, unspecified hyperlipidemia type - ICD9: 272.4, ICD10: E78.5 - Control undetermined, due for labs - Continue current medications - Counseled on healthy diet and regular exercise - PRAVASTATIN 40 MG TABLET - COMPLETE BLOOD COUNT AND DIFFERENTIAL - COMPREHENSIVE METABOLIC PANEL - LIPID PANEL BASIC - ECG COMPLETE 5. Meningioma (HCC) - ICD9: 225.2, ICD10: D32.9 Likely benign and patient is asymptomatic. F/u neurology recommendations from August. 6. BMI 33.0-33.9,adult - ICD9: V85.33, ICD10: Z68.33 Discussed healthy diet and exercise to promote weight loss. 7. Class 1 obesity with body mass index (BMI) of 32.0 to 32.9 in adult, unspecified obesity type, unspecified whether serious comorbidity present - ICD9: 278.00, V85.32, ICD10: E66.9, Z68.32 Stable - Behavioral intervention - HEMOGLOBIN A1C 8. Abnormal EKG - ICD9: 794.31, ICD10: R94.31 Inverted T waves in V4 and V5. With her history of hyperlipidemia and obesity I would recommend further workup with echo and stress test. She states she would not be able to run on a treatmill with her arthritis in her knees. Will order pharmacologic stress instead. Red flags for re-assessment reviewed with patient in detail. - ECHO - PERFLUTREN LIPID MICROSPHERES 1.1 MG/ML INJECTION IN NS 10 ML - SODIUM CHLORIDE 0.9 % (FLUSH) INJECTION SYRINGE 9. Abnormal electrocardiogram - ICD9: 794.31, ICD10: R94.31 See above. - NM CARDIAC PERF STRESS/PHARM - REGADENOSON 0.4 MG/5 ML INTRAVENOUS SYRINGE - AMINOPHYLLINE 250 MG/10 ML INTRAVENOUS SOLUTION - METOPROLOL TARTRATE 5 MG/5 ML INTRAVENOUS SOLUTION I spent a total of 40 minutes on the date of the service which included preparing to see the patient, [id number] patient care, completing clinical documentation, obtaining and/or reviewing separately obtained history, performing a medically appropriate examination, counseling and educating the pat ient/family/caregiver, ordering medications, tests, or procedures, independently interpreting results (not separately reported), and communicating results to the patient/family/caregiver. Gogo Gurrola MD documented in this encounterSelect [facility]24 Miscellaneous Notes* Telephone Encounter - Shana Sampson RN - 07/21/2023 10:44 AM EDT Patient calls and notified of results and providers instructions. Patient verbalizes understanding. Shana Sampson, CRYSTAL * Telephone Encounter - Sailaja Rodríguez LPN - 07/20/2023 6:32 PM EDT Message left for patient to return call to review results. * Telephone Encounter - Sailaja Rodríguez LPN - 07/20/2023 6:32 PM EDT ----- Message from Gogo Gurrola MD sent at 07/20/2023 6:29 PM EDT ----- Normal chest xray. Continue treatment as discussed in office. documented in this encounterSelect [facility] History of Present illness Narrative* Kerline Olivera RT(R) - 07/20/2023 4:50 PM EDT Radiology Service Progress Note PATIENT NAME: Sofi Duncan DATE OF SERVICE: July 20, 2023 TIME: 5:09 PM PATIENT IDENTITY VERIFICATION COMPLETED USING TWO (2) IDENTIFIERS: Name and Date of confirmedby patient verbally. FALL SCREENING: Has the patient had 2 falls in the last year or 1 fall with injury or currently using an Ambulatory Assistive Device (Walker, Cane, Wheelchair, Crutches, etc.)? No PATIENT GENDER DATA: Female. status: : No status: NO. PATIENT RELEVANT IMPLANT DATA REVIEWED: Yes PATIENT PRESENTS WITH AN IMPLANTABLE OR ATTACHED MOTORIZED SQUAD CAPTAIN: No RADIOLOGY DEPARTMENT: General X-ray: Exam(s) Completed: Chest X-Ray PERIPHERAL IV DATA: Not applicable SIGNED BY: RT Sally(R) July 20, 2023 5:09 PM documented in this encounter[facility] History of Present illness Narrative* Gogo Gurrola MD - 07/20/2023 4:15 PM EDT Chief Complaint Patient presents with: URI: Since couple days prior to - 07/12/23 dx [facility]itis [facility]. Completed Zpack. C/Osymptoms haven't cleared up. HPI Sofi Duncan is a 68 year old female who presents here today for Above Complaints. Patient complaining of productive cough and sore throat which started around . [facility] and diagnosed with bronchitis. Treated with tessalon and z pack which did not improve symptoms significantly. Today, she states she continues to have a barky cough productive with green and yellow sputum. Usually coughs during the day. No known triggers for cough. Was onthe mucinex before she went to the [facility], but has not been taking since. Admits to SOB with exertion, chest congestion, fatigue. Denies fever/chills, wheezing, chest pain, hemoptysis, nausea, vomiting, nasal congestion, sore throat, swollen glands, myalgias. Past medical history, appointments, medications, allergies reviewed. [...] Stroke Mother Cancer Mother ovarian Heart Mother [place] at 69yrs other (Arthritis/DDD) Mother Degenerative Disc Disease Cancer Father lung/ brain - Heart Sister [place] at 50yrs Heart Son murmur other (Tricuspid aortic valve) Son Patient Allergies ALLERGIES Allergen Reactions Diflucan [Fluconazo* Rash, Hives, Itching Current Medications Current Outpatient Medications on File Prior to Visit Medication Sig albuterol HFA (VENTOLIN HFA) 90 mcg/actuation inhaler Inhale 2 Puffs as instructed every 4 hours asneeded for wheezing/shortness of breath. FLUoxetine (PROZAC) 20 mg capsule Take 1 capsule by mouth two times a day. pravastatin (PRAVACHOL) 40 mg tablet Take 1 tablet by mouth once daily. calcium carbonate/vitamin D3 (CALTRATE 600 PLUS D ORAL) Take 1 tablet by mouth once daily. Doxycycline Monohydrate 40 mg capsule Take 1 capsule by mouth once daily. (Patient taking differently: Take 50 mg by mouth once daily.) triamcinolone acetonide (NASACORT) 55 mcg nasal inhaler Use 2 Sprays in the nose once daily. (Patient taking differently: Use 2 Sprays in the nose as needed.) propranolol (INDERAL) 20 mg tablet Take 1 tablet by mouth once daily. (Patient taking differently: Take 10 mg by mouth once daily. Patient reports taking 1.5 tabs daily to = 15mg daily) minoxidil powd 1 teaspoon PO daily No current facility-administered medications on file prior to visit. Social History Social History Tobacco Use Smoking status: Never Smokeless tobacco: Never Substance Use Topics Alcohol use: Yes Comment: rarely Drug use: No Review of Symptoms REVIEW OF SYSTEMS See HPI EXAM: BP 126/74 Pulse 72 Temp 36.8 C (98.2 F) Resp 16 Wt 78.8 kg (173 lb 12.8 oz) LMP 05/28/2010 SpO2 97% BMI 33.94 kg/m General Appearance: Well appearing, alert, in no acute distress, well-hydrated, well nourished.. Skin: Skin color, texture, turgor normal, no suspicious rashes or lesions. Head: Normocephalic, no masses, lesions, tenderness or abnormalities. Eyes: Anicteric sclera. Pupils are equally round and reactive to light. Extraocular movements are intact. . Ears: External ears normal, canals clear. Nose/Sinuses: Nares normal, septum midline, mucosa normal, no drainage or sinus tenderness. Oropharynx: Lips, mucosa, and tongue normal, teeth and gums normal, oropharynx normal. Neck: Supple, no adenopathy; thyroid symmetric, normal size, no bruits. Lungs: Negative findings: normal respiratory rate and rhythm, chest symmetric with normal A/P diameter, no chest deformities noted, no chest wall tenderness, and diaphragmatic excursion normal Positive findings: rhonchi in left base. Heart: RRR without murmur, gallop, or rubs. No ectopy. Health Maintenance List Mammogram Screening due on 05/06/2022 Advance Directive Discussion due on 04/05/2023 Diabetes Screening due on 07/22/2025 Lipid Screening due on 07/23/2027 DTaP,Tdap,Td Vaccine(2 - Td or Tdap) due on 02/06/2029 Colorectal Cancer Screening due on 09/18/2029 Bone Density Screening Completed Influenza Vaccine Completed RSV Vaccine Completed Hepatitis C Screening Completed Shingrix Vaccine Completed Covid-19 Vaccine Completed Pneumococcal Vaccine: 65+ Completed Pap Testing Discontinued ASSESSMENT/PLAN: 1. Productive cough - ICD9: 786.2, ICD10: R05.8 (primary diagnosis) Persistent productive cough despite treatment with z pack and tessalon. Obtain CXR to rule out PNA with rhonchi in left base. Discussed use of delsym and mucinex OTC and if CXR is negative symptoms are likely 2/2 viral bronchitis which can take weeks to resolve. Discussed supportive care. Red flagsfor re- assessment reviewed with patient in detail. - XR CHEST 2V FRONTAL/LAT 2. Rhonchi at left lung base - ICD9: 786.7, ICD10: R09.89 See above. - XR CHEST 2V FRONTAL/LAT Gogo Gurrola MD documented in this encounterSelect [facility]03-18-2024 Miscellaneous Notes* Telephone Encounter - Yennifer Carter Ma - 06/21/2023 1:48 PM EDT Pt notified via [employer] of PCP's response. Appt in July cancelled. Yennifer Carter Ma * Telephone Encounter - Gogo Gurrola MD - 06/21/2023 1:25 PM EDT Cancel 07/22 appointment. Keep 09/23. * Telephone Encounter - Yennifer Carter Ma - 06/21/2023 12:51 PM EDT See pt message. Does pt need to keep appt in July? This is a 1 year f/u in a 20 min slot. Yennifer Carter Ma documented in this encounterSelect [facility]03-18-2024 History of Present illness Narrative* Gogo Gurrola MD - 06/21/2023 9:09 AM EDT Chief Complaint Patient presents with: Follow Up: 3 month HPI Sofi Duncan is a 68 year old female who presents here today for 3 month follow up. Patient started on Prozac at her last OV due to uncontrolled anxiety symptoms. Today, states that her symptoms are much improved and would like to continue current dosage. Had some nausea initially which resolved after 1 month. Not seeing counseling at this time. Denies SI/HI, panic symptoms. 06/21/2023 09 Last Filed Value CARMINE-7 - over the last 2 weeks... Feeling nervous, anxious, or on edge Several days Several days Not being able to stop or control worrying Not at all Not at all Worrying too much about different things Not at all Not at all Trouble relaxing Not at all Not at all Being so restless that it is hard to sit still Not at all Not at all Becoming easily annoyed or irritable Several days Several days Feeling afraid, as if something awful might happen Not at all Not at all How difficult to do work, care for home, get along with people -- -- CARMINE-2 Total Score 1 1 CARMINE-7 Total Score 2 2 CARMINE-7 Score 2 2 06/21/2023 0912 Last Filed Value PHQ-9 Little interest or pleasure in doing things Not at all Not at all Feeling down, depressed, or hopeless Not at all Not at all Trouble falling or staying asleep, or sleeping too much Not at all Not at all Feeling tired or having little energy Not at all Not at all Poor appetite or overeating Not at all Not at all Feeling bad about yourself - or that you are a failure or have let yourself or your family down Notat all Not at all Trouble concentrating on things, such as reading the newspaper or watching television Several days Several days Moving or speaking so slowly that other people could have noticed. Or the opposite - being so fidgety or restless that you have been moving around a lot more than usual Several days Several days Thoughts that you would be better off , or of hurting yourself in some way Not at all Not at all If you checked off any problems, how difficult have these problems made it for you to do your work,take care of things at home, or get along with other people? Not difficult at all Not difficult at all PHQ-9 score 2 2 PHQ-9 Score 2 2 PHQ-2 score 0 0 PHQ-2 Score 0 0 Past medical history, appointments, medications, allergies reviewed. [...] Stroke Mother Cancer Mother ovarian Heart Mother [place] at 69yrs other (Arthritis/DDD) Mother Degenerative Disc Disease Cancer Father lung/ brain - Heart Sister [place] at 50yrs Heart Son murmur other (Tricuspid aortic valve) Son Patient Allergies ALLERGIES Allergen Reactions Diflucan [Fluconazo* Rash, Hives, Itching Hayfever [Homeopath* Current Medications Current Outpatient Medications on File Prior to Visit Medication Sig pravastatin (PRAVACHOL) 40 mg tablet Take 1 tablet by mouth once daily. calcium carbonate/vitamin D3 (CALTRATE 600 PLUS D ORAL) Take 1 tablet by mouth once daily. Doxycycline Monohydrate 40 mg capsule Take 1 capsule by mouth once daily. (Patient taking differently: Take 50 mg by mouth once daily.) triamcinolone acetonide (NASACORT) 55 mcg nasal inhaler Use 2 Sprays in the nose once daily. (Patient taking differently: Use 2 Sprays in the nose as needed.) FLUoxetine (PROZAC) 20 mg capsule Take 1 capsule by mouth once daily. niacin (NIACIN) 500 mg tablet Take 500 mg by mouth daily with breakfast. (Patient not taking: Reported on 06/21/2023) propranolol (INDERAL) 20 mg tablet Take 1 tablet by mouth once daily. (Patient taking differently: Take 10 mg by mouth once daily. Patient reports taking 1.5 tabs daily to = 15mg daily) minoxidil powd 1 teaspoon PO daily albuterol HFA (VENTOLIN HFA) 90 mcg/actuation inhaler Inhale 2 Puffs as instructed every 4 hours asneeded for Wheezing/Shortness of Breath. No current facility-administered medications on file prior [...] for lesions, rash, and itching EXAM: BP 112/70 Pulse 79 Resp 16 Wt 78.7 kg (173 lb 6.4 oz) LMP 05/28/2010 SpO2 96% BMI 33.86kg/m General Appearance: Well appearing, alert, in no acute distress, well-hydrated, well nourished.. Skin: Skin color, texture, turgor normal, no suspicious rashes or lesions. Lungs: Lungs clear to auscultation. No wheezing, rhonchi, rales.. Heart: RRR without murmur, gallop, or rubs. No ectopy. PSYCH: Posture and motor behavior: normal posture and motor behavior Dress, grooming, personal hygiene: normal dress and grooming Facial expression: smiling Speech: normal speech Mood: cheerful Coherency and relevance of thought: normal thought processes Memory: normal memory Health Maintenance List Mammogram Screening due on 05/06/2022 Advance Directive Discussion due on 04/05/2023 Diabetes Screening due on 07/22/2025 Lipid Screening due on 07/23/2027 DTaP,Tdap,Td Vaccine(2 - Td or Tdap) due on 02/06/2029 Colorectal Cancer Screening due on 09/18/2029 Bone Density Screening Completed Influenza Vaccine Completed RSV Vaccine Completed Hepatitis C Screening Completed Shingrix Vaccine Completed Covid-19 Vaccine Completed Pneumococcal Vaccine: 65+ Completed Pap Testing Discontinued Data reviewed Latest Ref Rng 07/22/2022 08/05/2022 WBC 3.70 - 11.00 k/uL 4.61 RBC 3.90 - 5.20 m/uL 4.09 Hemoglobin 11.5 - 15.5 g/dL 12.9 Hematocrit 36.0 - 46.0 % 40.0 MCV 80.0 - 100.0 fL 97.8 MCH 26.0 - 34.0 pg 31.5 MCHC 30.5 - 36.0 g/dL 32.3 RDW-CV 11.5 - 15.0 % 12.4 Platelet Count 150 - 400 k/uL 239 MPV 9.0 - 12.7 fL 10.2 Neut% % 55.9 Abs Neut (ANC) 1.45 - 7.50 k/uL 2.58 Lymph% % 30.8 Abs Lymph 1.00 - 4.00 k/uL 1.42 Bent% % 10.2 Abs Bent <0.87 k/uL 0.47 Eosin% % 2.0 Abs Eosin <0.46 k/uL 0.09 Baso% % 0.7 Abs Baso <0.11 k/uL 0.03 Immature Gran % % 0.4 IMMATURE GRANS (ABS) <0.10 k/uL <0.03 NRBC /100 WBC 0.0 Absolute nRBC <0.01 k/uL <0.01 DTYPE Auto Protein, Total 6.3 - 8.0 g/dL 6.9 Albumin 3.9 - 4.9 g/dL 4.4 Calcium 8.5 - 10.2 mg/dL 10.0 Bilirubin, Total 0.2 - 1.3 mg/dL 0.3 Alkaline Phosphatase 34 - 123 U/L 49 AST 13 - 35 U/L 23 ALT 7 - 38 U/L 20 Glucose 74 - 99 mg/dL 80 BUN 7 - 21 mg/dL 19 Creatinine 0.58 - 0.96 mg/dL 0.83 Sodium 136 - 144 mmol/L 142 Potassium 3.7 - 5.1 mmol/L 5.3 (H) 4.2 Chloride 97 - 105 mmol/L 105 CO2 22 - 30 mmol/L 30 Anion Gap 9 - 18 mmol/L 7 (L) eGFR >=60 mL/min/1.73m 77 Total Cholesterol, Nonfasting <200 mg/dL 182 Triglycerides, Nonfasting <150 mg/dL 98 HDL Cholesterol, Nonfasting >39 mg/dL 60 LDL Cholesterol, Nonfasting <100 mg/dL 102 (H) Non HDL Cholesterol, Nonfasting <130 mg/dL 122 VLDL Cholesterol, Nonfasting <30 mg/dL 20 Total Chol/HDL Ratio, Nonfasting <5.10 mg/dL 3.03 LDL/HDL Ratio, Nonfasting <2.54 mg/dL 1.70 ASSESSMENT/PLAN: 1. CARMINE (generalized anxiety disorder) - ICD9: 300.02, ICD10: F41.1 Improved on current regimen. No changes today. F/u in 3 months or routine check up. - FLUOXETINE 20 MG CAPSULE Goog Gurrola MD documented in this encounterSelect [facility] Hospital Discharge instructions Additional Instructions Xxir-[id number]-bayjioi medications like Tylenol or ibuprofen for pain. Follow-up with your primary care provider in the next 7 to 10 days if your symptoms persist. You are found to have a meningioma on your CT scan. You may follow-up with your primary care provider regarding this. [facility] Work Phone: 1(216) 578-590612-04-2023 Discharge summary Author Lux Mcgowan [facility] March 08, 2023 7:39pm Note Date/Time March 08, 2023 5 :50pm [facility] Medical Records Department [address] [place] [address] Emergency Department Summary 03/08/23 MR#: [id number] Acct: [id number] Name: DUNCANSOFI Rep #:[id number] : 1955 67 From: Lux Mcgowan MD PCP: Dr. Philip Gurrola MD Status :REG ER Location: ED HPI History of Present Illness Chief Complaint: Head Injury Narrative Narrative: 67-year-old female presents with headache and closed head injury after a fall. She was on a 2 rung stepladder, putting up [place] decorations on the mantle. She went to step down, but fell backwards after she missed. She struck her headagainst a hardwood floor. She denies loss of consciousness but has a headache that seems to be subsiding. She denies any nausea or vomiting, no paresthesias,no other injury. She does have mild right-sided neck pain that she states feelsmore muscular. This happened approximately 2 hours prior to arrival. She states she does not take blood thinners. [facility] Medical History Arthritis Chronic bronchitis Depression Hay fever High cholesterol Hyperlipidemia Knee pain Lipoma Osteopenia Seasonal allergies Home Medications citalopram 20 mg tablet (Celexa) 30 mg PO QDAY 03/11/17 [History Last Taken 03/08/23] pravastatin 20 mg tablet 30 mg PO DAILY 03/11/17 [History Last Taken 03/08/23] calcium carbonate 600 mg-vitamin D3 20 mcg (800 unit) chewable tablet (Caltrate 600 plus D) 2 tab PO DAILY 01/20/21 [History Last Taken 03/08/23] multivitamin 1 tab PO DAILY 01/20/21 [History Last Taken 03/08/23] estradiol 0.01% (0.1 mg/gram) vaginal cream See Rx Instructions vaginal 2XW 01/21/22 [History Last Taken 03/08/23] doxycycline monohydrate 50 mg tablet 50 mg PO DAILY 03/08/23 [History Last Taken 03/08/23] propranolol 10 mg tablet 20 mg PO DAILY 03/08/23 [History Last Taken 03/08/23] Allergy/AdvReac Type Severity Reaction Status Date / Time poison antonina extract Allergy Mild Itching Verified 03/08/23 16:17 fluconazole [From Diflucan] Allergy Unknown Verified 03/08/23 16:17 Family History Mother Hypertension Heart disease, Onset Age: 69 Angina pectoris Anxiety Arthritis Cervical cancer Depression Diabetes, Onset Age: 69 Myocardial infarction, Onset Age: 69 High cholesterol Melanoma Ovarian cancer COPD (chronic obstructive pulmonary disease) Uterine cancer Father Lung cancer, Onset Age: 53 Brain cancer, Onset Age: 53 Son Heart murmur Grandfather Alcoholic Grandfather Colon cancer Sister Mental disorder Myocardial infarction, Onset Age: 50 Brother Drowning Surgical History History of arthroplasty of right knee (~08/04/17) History of bilateral breast reduction surgery (~06/12/19) History of tonsillectomy and adenoidectomy (~1960) joint replacement of right thumb (~08/07/15) s/p right knee scope (~08/04/17) Status post scar revision (~06/16/21) Social History Smoking Status: Never smoker alcohol intake: current details: socially substance use type: does not use caffeine: Yes what type of physical activity do you participate in: none seatbelt use: always do you feel safe at home: Yes 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 HEENT: No sore throat. Right-sided muscular neck pain. No loss of vision. No rhinorrhea. Cardiovascular: No chest pain. No palpitations. No pedal edema. Respiratory: No cough, no shortness of breath. Abdominal: No abdominal pain. No nausea. No vomiting. Genitourinary: No dysuria. No hematuria. Musculoskeletal: No myalgias. No arthralgias. Neurologic: Positive headaches. No dizziness. No lightheadedness. Skin: No rash. No change in color. Psychiatric: No depression. No anxiety. EXAM Physical Exam Narrative Exam Narrative: Afebrile. Vital signs noted. GCS 15. ABCs intact. HEENT: Normocephalic. Mild tenderness to palpation right occipital scalp, no active bleeding or laceration noted. PERRL, EOMI. Neck soft and supple. No point tenderness or step off. Mild tenderness palpation right paraspinal muscles of the neck. Cardiovascular: Regular rate and rhythm. No murmurs, rubs, or gallops appreciated. Respiratory: No tachypnea. Lungs clear to auscultation bilaterally. Gastrointestinal: Abdomen soft, nontender, with normoactive bowel sounds. No rebound or guarding. Neurological: Awake. Alert. Oriented x3. Nonfocal, nonlateralizing. Able to raise arms above head without difficulty. Skin: No rash. Normal color. No pallor. Musculoskeletal: No pedal edema. Full range of motion extremities. Const Vital Signs: 03/08/23 16:17 03/08/23 17:55 Temperature 96.5 F L Temperature Source Temporal Pulse Rate 74 Respiratory Rate 18 Respiratory Effort Normal Non-Labored Respiratory Depth Normal Respiratory Pattern Normal Blood Pressure 147/75 H Blood Pressure Mean 99 Pulse Ox 100 Oxygen Delivery Method Room Air Room Air MDM MDM MDM Narrative Medical decision making narrative: As the patient had a fall from height, concern would be for scalp contusion versus skull fracture along with subdural hematoma or intracranial hemorrhage. Additionally, while she most likely has a cervical neck strain from her fall, CTwill be obtained to rule out fracture of the cervical spine. Given her age above 65, I also feel that CT of the brain is indicated. I reviewed the radiology report for the CT of the cervical spine and there is noevidence of an acute fracture, but there is straightening of the normal curve which may be secondary to positioning or muscle spasm. Additionally, I reviewedthe radiology report for the CT of the brain which also shows no evidence of an acute fracture or hemorrhage. There is note of a 1.5 cm left parieto-occipital meningioma. At this point in time, I feel she can be discharged safely home with follow-up. She may have a mild concussion. She was instructed on brain rest and will take [id number] medications. She declined analgesia here inthe emergency department. I feel she can be discharged to follow-up with her primary care provider regarding her concussion and her incidental finding of meningioma on CT scan. Return instructions to the emergency department were reviewed. Disposition is discharged home in stable condition. History & Record Review Discussion w/independent historian: Patient and Family Additional record(s) reviewed:: Prior ED visit Radiography Diagnostic Testing: Clinical Impression(s) from Imaging Studies Cervical Spine CT 03/08/23 17:46 IMPRESSION: No evidence of fracture or subluxation. Straightening of the normal curve may be due to position or muscle spasm. Degenerative changes. Electronically Signed: Nicole Dan MD at 18:59 EST , Brain CT 03/08/23 18:22 IMPRESSION: No evidence of acute intracranial injury. Left posterior parietal extra-axial mass consistent with meningioma. Electronically Signed: Nicole Dan MD at 18:50 EST , Discharge Plan Triage Chief Complaint: Head Injury ED Provider: Lux Mcgowan Dx/Rx/DC Orders Clinical Impression: Concussion, Meningioma, Cervical paraspinal muscle spasm, Fall Instructions: ED Concussion, ED Head Injury (Adult), ED Neck Pain Prescriptions: No Action pravastatin 20 mg tablet 30 mg PO DAILY citalopram [Celexa] 20 mg tablet 30 mg PO QDAY multivitamin Tablet 1 tab PO DAILY Caltrate 600 plus D 600 mg (1,500 mg)-800 unit tablet,chewable 2 tab PO DAILY estradiol 0.01 % (0.1 mg/gram) cream See Rx Instructions vaginal 2XW Rx Instructions: small amount vaginally three times a week; doxycycline monohydrate 50 mg tablet 50 mg PO DAILY propranolol 10 mg tablet 20 mg PO DAILY Primary Care Provider: Philip Gurrola Referrals: Philip Gurrola MD [Primary Care Provider] - 1 Week if not improving Activity Restrictions/Additional Instructions: Icoe-hus-edwtsgp medications like Tylenol or ibuprofen for pain. Follow-up withyour primary care provider in the next 7 to 10 days if your symptoms persist. You are found to have a meningioma on your CT scan. You may follow-up with yourprimary care provider regarding this. Disposition Disposition: Home, Self Care What to do if you have Problems For any increased pain, shortness of breath, bleeding, nausea or vomiting, chestpain, or any unexpected problems, contact your Primary Care Provider. Call [facility] ([phone]) or report to the closest Emergency Room. Call 911 if necessary. 03/08/231938 <Electronically signed by Lux Mcgowan MD> Cosigner Signature (if applicable): CC: Dr. Philip Gurrola MD ~ Signed [facility] Work Phone: 1(785) 187-645112-04-2023 Discharge summary Author Lian Paulino [facility] March 08, 2023 11:15am Note Date/Time March 08, 2023 1 1:15am [facility] Physical Therapy [facility] [address] [place] [address] / REHABILITATION SERVICES DISCHARGE SUMMARY MR#: [id number] Acct: [id number] Name: SOFI DUNCAN Rep #: [id number] : 1955 67 From: Lian Paulino PT, Cert. 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 Discharge Date: 03/08/23 Please see the following information for a summary of their discharge status. Subjective Subjective: PATIENT REPORTS SHE WAS ACTUALLY TO THE POINT WHERE SHE WASN'T HAVING ANY PAIN BUT SINCE GETTING THINGS READY FOR DEREJE SHE STARTED HAVING SOME MILD ACHING IN THE R KNEE. FOLLOW UP WITH VALENTIN ROWE TODAY AT 9:00 AND HE RELEASED HER TO FOLLOW UP NEEDED. SHE REPORTS AQUATIC THERAPY HELPED A LOTAND IT FELT REALLY GOOD. SHE REPORTS MARGARIE WAS EXCEPTIONAL. Pain RLE: Pain Intensity (Out of 10): 1 Overall Improvement % Improvement: 95 Objective Objective/Function: PATIENT WAS SEEN TODAY FOR RE-ASSESSMENT OF PROGRESS TOWARD THE SET PT GOALS AND THE NEED FOR FURTHER PHYSICAL THERAPY VS READINESS FOR DISCHARGE. ALL PT GOAL HAVE BEEN MET AND SHE IS APPROPRIATE FOR AND AGREEABLE TO DISCHARGE. UPON EXAM TODAY: FULL CARMELO KNEE EXTENSION WITH R KNEE FLEXION IN SUPINE WITH A HEEL SLIDE TO 135 DEG AND LEFT TO 130 DEG FLEX. STRENGTH: R HS 13.7#, QUAD 20.3#, HIP FLEX 14.6#, HIP ABD 20.1#, HIP EXT 23.7#,DF 27#, PF 19.3# L HS 15.1#, QUAD 23.5#, HIP FLEX 14.9#, HIP ABD 17.2#, HIP EXT 26.8#,DR 23.4#, PF 19.9# Goals Goal 1:: DECREASE C/O CARMELO KNEE PAIN BY AT LEAST 25% EACH WITH NORMAL ADL'S. Goal Progress: Goal Met Goal 2:: IMPROVE LEFS SCORE BY 10 LBS TO SHOW IMPROVEMENT TOWARDS PLOF Goal Progress: Goal Met Goal 3:: PATIENT WILL BE ABLE TO GO UP AND DOWN STEPS WITH 1 HR RECIP WITH C/O 0-3/10 CARMELO KNEE PAIN. Goal Progress: Goal Met Goal 4:: PATIENT WILL BE INDEP WITH LAND AND/OR WATER EX PROGRAMS FOR CONTINUED IMPROVEMENT ONCE FORMAL PHYSICAL THERAPY CONCLUDES. Goal Progress: Goal Met Plan Plan: D/C D/C Information d/c sentence: If there are questions or concerns regarding this patient's physical therapy, please feel free to call me at [phone]. Thank you for the referral of thispatient. Sincerely, Lian Paulino, PT, Cert MDT Balance/Gait/Functional tests Balance/Special Test Scores Lower Extremity Functional Score: 65 Improvement % Improvement: 95 <Electronically signed by Lian Paulino PT Cert. MDT> 03/08/23 1115 CC: JV Rowe; Dr. Philip Gurrola MD ~ [place] Signed [facility] Work Phone: 1(838) 435-586812-04-2023 Hospital Discharge instructions Additional Instructions [id number] medications like Tylenol or ibuprofen for pain. Follow-up with your primary care provider in the next 7 to 10 days if your symptoms persist. You are found to have a meningioma on your CT scan. You may follow-up with your primary care provider regarding this. [facility] Work Phone: 1(662) 259-650908-21-2023 History of Present illness Narrative* Yannick Paez RT(R) - 11/23/2022 10:00 AM EDT Radiology Service Progress Note PATIENT NAME: Sofi Duncan DATE OF SERVICE: November 23, 2022 TIME: 10:02 AM PATIENT IDENTITY VERIFICATION COMPLETED USING TWO (2) IDENTIFIERS: Name and Date of confirmedby patient verbally. FALL SCREENING: Has the patient [...] 23, 2022 10:02 AM documented [facility] Miscellaneous Notes* Telephone Encounter - Gogo Gurrola MD - 11/02/2022 2:52 PM EDT Rx sent as requested. * Telephone Encounter - Sailaja Prince LPN - 11/02/2022 2:34 PM EDT Pt states her last Rx 10/31/22 for [...] written. Sailaja Prince LPN documented in this encounter[facility]05-04-2023 Miscellaneous Notes* Telephone Encounter - Aruna Willis LPN - 08/06/2022 9:45 AM EDT Spoke with pt's spouse and results below given. Gogo Gurrola MD 08/06/2022 8:40 AM EDT Repeat potassium level normal. No change to regimen. Likely high due to lab error. Aruna Willis LPN documented in this encounter[facility]04-20-2023 Miscellaneous Notes* Telephone Encounter - Francisca George Ma - 07/23/2022 1:49 PM EDT Patient was notified and will repeat when back from trip in a week Francisca George Ma * Telephone Encounter - Gogo Gurrola MD - 07/23/2022 1:30 PM EDT Labs look good aside from high potassium level. This is most likely a lab error, but will need to confirm this with repeat labs in the next 2-3 days. No changes to regimen. Hold any supplements containing potassium. documented in this encounter[facility]04-19-2023 Instructions* Patient Instructions* Gogo Gurrola MD - 07/22/2022 11:31 AM EDT BONE MINERAL DENSITY PATIENT INSTRUCTIONS Bone mineral density testing measures the amount of calcium in certain parts of your bones. This information determines how strong your bones are. The test is used to detect osteoporosis, a disease in which the bone's mineral content and density are low, increasing a person's risk of fractures. Thelumbar spine (lower back) and the hip are [...] your usual activities immediately. documented in this encounter[facility]04-19-2023 History of Present illness Narrative* Gogo Gurrola MD - 07/22/2022 11:05 AM EDT Chief Complaint Patient presents with: Follow Up HPI Sofi Duncan is a 67 year old female [...] Stroke Mother Cancer Mother ovarian Heart Mother [place] at 69yrs other (Arthritis/DDD) Mother Degenerative Disc Disease Cancer Father lung/ brain - Heart Sister [place] at 50yrs Heart Son murmur other (Tricuspid [...] 2 Puffs as instructed every 4 hours asneeded for Wheezing/Shortness of Breath. triamcinolone acetonide (NASACORT) [...] ICD9: V49.81, ICD10: Z78.0 - DXA-AXIAL SKELETON Gogo Gurrola MD documented in this [facility]03-10-2023 Miscellaneous Notes* Telephone Encounter - Kathleen Haddad LPN - 06/12/2022 1:57 PM EST Patient phones requesting refills as follows: Requested Prescriptions Pending Prescriptions Disp Refills citalopram (CELEXA) 20 mg tablet 90 tablet 1 Sig: Take 1 tablet by mouth once daily. MAVIS 01/21/2022 NOV 07/22/2022 Please review and advise. Kathleen Haddad LPN documented in this encounter[facility]12-29-2022 Miscellaneous Notes* Telephone Encounter - Gala Martel Ma - 04/02/2022 4:52 PM EST Last office visit: 01/21/22 F/u scheduled: 07/22/22 Gala Martel Ma documented in this [facility]10-19-2022 Instructions* Patient Instructions* Gogo Gurrola MD - 01/21/2022 11:28 AM EDT 10,000 lux light/lamp for seasonal affective disorder for 30 minutes per day. documented in this [facility]10-19-2022 History of Present illness Narrative* Gogo Gurrola MD - 01/21/2022 11:11 AM EDT Chief Complaint Patient presents with: F/U 6 Month HPI Sofi Duncan is a 66 year old female who presents here today for Above Complaints. Previous HPI: Essential tremor reportedly well controlled on propranolol. Switching from Dr. Vincent to Dr. Hamilton at [facility] on 08/21. was seeing Dr. Hamilton [...] OV was about 2 weeks ago. No changesto regimen. Given rx for doxycycline and niacin. Interim: In the last week had been taking 30 mg of her Celexa on accident. Had been well controlled on 20 mgwithout side effects. Will return to previous dosage. Calf strain improved with conservative therapy and did follow up with PT at [facility] for 2 weeks. Tremor still doing well [...] Stroke Mother Cancer Mother ovarian Heart Mother [place] at 69yrs other (Arthritis/DDD) Mother Degenerative Disc Disease Cancer Father lung/ brain - Heart Sister [place] at 50yrs Heart Son murmur other (Tricuspid [...] 2 Puffs as instructed every 4 hours asneeded for Wheezing/Shortness of Breath. triamcinolone acetonide (NASACORT) [...] dermatology. Gogo Gurrola MD documented in this encounter[facility]-09-2022 History of Present illness Narrative* Gogo Gurrola MD - 11/11/2021 10:05 AM EDT Chief Complaint Patient presents with: Pain: Left calf pain x 6 days. No redness or swelling. HPI Sofi Duncan is a 66 year old female [...] Today, is described as discomfort, up to 6/10 today, without radiation. Exacerbating with walking and [...] Stroke Mother Cancer Mother ovarian Heart Mother [place] at 69yrs other (Arthritis/DDD) Mother Degenerative Disc Disease Cancer Father lung/ brain - Heart Sister [place] at 50yrs Heart Son murmur other (Tricuspid [...] 2 Puffs as instructed every 4 hours asneeded for Wheezing/Shortness of Breath. triamcinolone acetonide (NASACORT) [...] 6.4 oz) LMP 05/28/2010 SpO2 98% BMI 32.11kg/m General Appearance: Well appearing, alert, in no [...] TABLET Gogo Gurrola MD documented in this encounterSelect [facility]06-20-2022 Miscellaneous Notes* Telephone Encounter - JAZZ Burrell - 09/22/2021 8:49 AM EDT Patient has been identified by name and [...] Thank you. JAZZ Burrell documented in this encounterSelect [facility]04-19-2022 Instructions* Patient Instructions* Gogo Gurrola MD - 07/22/2021 3:45 PM EDT Please take 1,200 units of calcium and 2,000 units of vitamin D. documented in this encounterSelect [facility]04-19-2022 History of Present illness Narrative* Gogo Gurrola MD - 07/22/2021 3:28 PM EDT Chief Complaint Patient presents with: F/U 6 months: should she be concerned with 10mg increase on doxycycline HPI Sofi Duncan is a 66 year old female who presents here today for Above Complaints. Essential tremor reportedly well controlled on propranolol. Switching from Dr. Vincent to Dr. Hamilton at [facility] on 08/21. was seeing Dr. Hamilton [...] OV was about 2 weeks ago. No changesto regimen. Given rx for doxycycline and niacin. Doing well s/p breast reduction revision last month with Dr. Huang. No complications with surgery. Healing well per patient. Deferring exam. Does not have living will or DPOA. [facility] [...] Stroke Mother Cancer Mother ovarian Heart Mother [place] at 69yrs other (Arthritis/DDD) Mother Degenerative Disc Disease Cancer Father lung/ brain - Heart Sister [place] at 50yrs Heart Son murmur other (Tricuspid [...] 2 Puffs as instructed every 4 hours asneeded for Wheezing/Shortness of Breath. triamcinolone acetonide (NASACORT) [...] TOP) Gogo Gurrola MD documented in this encounterSelect [facility]04-05-2022 Miscellaneous Notes* Telephone Encounter - Kathleen Haddad LPN - 07/08/2021 1:27 PM EDT Patient notified. Kathleen Haddad LPN * Telephone Encounter - Gogo Gurrola MD - 07/08/2021 12:57 PM EDT Her refill has been sent. * Telephone Encounter - Kathleen Haddad LPN - 07/08/2021 12:24 PM EDT Patient telephoned. Made aware we did receive request and that it has been forwarded to provider. Patient states she is out of medication. Please advise. Kathleen Haddad LPN * Telephone Encounter - Mini Machado Pss - 07/08/2021 12:19 PM EDT Patient is calling to check on status of her citalopram. She requested it from the pharmacy a week ago and send a message through [employer] last night. Patient is out of medication. documented in this encounterSelect [facility]04-05-2022 Miscellaneous Notes* Telephone Encounter - Damari Arenas MA - 07/08/2021 8:27 AM EDT Patient has been identified by name and [...] 135 tablets 1 refill documented in this encounterSelect [facility]03-28-2022 History of Present illness Narrative* Alethea Rayo MA - 06/30/2021 10:28 AM EDT POP[facility]ATION HEALTH NAVIGATION OUTREACH Action/FYI Spoke with Rachel. Scheduled AMW. Mammogram was done [facility] on 05-06-21 HM was updated. . [...] Sent to Practice: No Navigation Signature: Alethea Rayo MA June 30, 2021 10:28 AM documented in this encounterSelect [facility]04-03-2014 History of Past illness Narrative* Problem Noted Date Resolved Date BMI 32.0-32.9,adult 07/06/2013 07/04/2015 documented as of this encounter (statuses as of 06/23/2021) [address]03-2014 History of Past illness Narrative* Problem Noted Date Resolved Date BMI 32.0-32.9,adult 07/06/2013 07/04/2015 documented as of this encounter (statuses as of 06/30/2021) [address]03-2014 History of Past illness Narrative* Problem Noted Date Resolved Date BMI 32.0-32.9,adult 07/06/2013 07/04/2015 documented as of this encounter (statuses as of 07/08/2021) [address]03-2014 History of Past illness Narrative* Problem Noted Date Resolved Date BMI 32.0-32.9,adult 07/06/2013 07/04/2015 documented as of this encounter (statuses as of 07/23/2021) [address]03-2014 History of Past illness Narrative* Problem Noted Date Resolved Date BMI 32.0-32.9,adult 07/06/2013 07/04/2015 documented as of this encounter (statuses as of 09/22/2021) [place] [address]-03-2014 History of Past illness Narrative* Problem Noted Date Resolved Date BMI 32.0-32.9,adult 07/06/2013 07/04/2015 documented as of this encounter (statuses as of 11/11/2021) [address]03-2014 History of Past illness Narrative* Problem Noted Date Resolved Date BMI 32.0-32.9,adult 07/06/2013 07/04/2015 documented as of this encounter (statuses as of 01/25/2022) [address]03-2014 History of Past illness Narrative* Problem Noted Date Resolved Date BMI 32.0-32.9,adult 07/06/2013 07/04/2015 documented as of this encounter (statuses as of 04/08/2022) [address]03-2014 History of Past illness Narrative* Problem Noted Date Resolved Date BMI 32.0-32.9,adult 07/06/2013 07/04/2015 documented as of this encounter (statuses as of 06/12/2022) [address]03-2014 History of Past illness Narrative* Problem Noted Date Resolved Date BMI 32.0-32.9,adult 07/06/2013 07/04/2015 documented as of this encounter (statuses as of 06/15/2022) [address]03-2014 History of Past illness Narrative* Problem Noted Date Resolved Date BMI 32.0-32.9,adult 07/06/2013 07/04/2015 documented as of this encounter (statuses as of 07/22/2022) [place] [address]2014 History of Past illness Narrative* Problem Noted Date Resolved Date BMI 32.0-32.9,adult 07/06/2013 07/04/2015 documented as of this encounter (statuses as of 07/24/2022) [address]03-2014 History of Past illness Narrative* Problem Noted Date Resolved Date BMI 32.0-32.9,adult 07/06/2013 07/04/2015 documented as of this encounter (statuses as of 08/06/2022) [address]03-2014 History of Past illness Narrative* Problem Noted Date Diagnosed Date Resolved Date BMI 32.0-32.9,adult 07/06/2013 07/04/19 16 documented as of this encounter (statuses as of 11/03/2022) [address]03-2014 History of Past illness Narrative* Problem Noted Date Diagnosed Date Resolved Date BMI 32.0-32.9,adult 07/06/2013 07/04/19 16 documented as of this encounter (statuses as of 02/07/2023) [place] [address]2014 History of Past illness Narrative* Problem Noted Date Diagnosed Date Resolved Date BMI 32.0-32.9,adult 07/06/2013 07/04/19 16 documented as of this encounter (statuses as of 05/31/2023) [address]03-2014 History of Past illness Narrative* Problem Noted Date Diagnosed Date Resolved Date BMI 32.0-32.9,adult 07/06/2013 07/04/19 16 documented as of this encounter (statuses as of 06/21/2023) [facility] of Past illness Narrative* Problem Noted Date Diagnosed Date Resolved Date BMI 32.0-32.9,adult 07/06/2013 07/04/19 16 documented as of this encounter (statuses as of 06/21/2023) [facility] History of Past illness Narrative* Problem Noted Date Diagnosed Date Resolved Date BMI 32.0-32.9,adult 07/06/2013 07/04/19 16 documented as of this encounter (statuses as of 07/21/2023) [facility] History of Past illness Narrative* Problem Noted Date Diagnosed Date Resolved Date BMI 32.0-32.9,adult 07/06/2013 07/04/19 16 documented as of this encounter (statuses as of 07/21/2023) [facility] Diagnosis Encounter for screening mammogram for breast cancer documented in this encounter [facility]* Diagnosis Benign essential tremor- Primary Essential and other specified forms of tremor Hyperlipidemia, unspecified hyperlipidemia type Osteopenia, unspecified location Mild episode of recurrent major depressive disorder (HCC) S/P bilateral breast reduction Other postprocedural status BMI 33.0-33.9,adult Body Mass Index 33.0-33.9, adult Need for COVID-19 vaccine documented in this encounter [facility]* Diagnosis Hyperlipidemia, unspecified hyperlipidemia type documented in this encounter [facility]* Diagnosis Strain of calf muscle, left, initial encounter- Primary documented in this encounter [facility]* Diagnosis Onset Date Resolution Status Essential tremor acute [facility] Work Phone: Evaluation note* Diagnosis Benign essential tremor- Primary Essential and other specified forms of tremor Strain of calf muscle, left, initial encounter Mild episode of recurrent major depressive disorder (HCC) Hyperlipidemia, unspecified hyperlipidemia type Hair loss Alopecia, unspecified documented in this encounter [facility]* Diagnosis Hyperlipidemia, unspecified hyperlipidemia type documented in this encounter [facility]* Diagnosis Onset Date Resolution Status Atrophic vaginitis acute Encounter for routine gynecological examination noneactive [facility] Work Phone: evaluation note* Diagnosis Encounter for screening mammogram for breast cancer documented in this encounter [facility] note* Diagnosis Mild episode of recurrent major depressive disorder (HCC)- Primary CARMINE (generalized anxiety disorder) Generalized anxiety disorder Benign essential tremor Essential and other specified forms of tremor Hyperlipidemia, unspecified hyperlipidemia type BMI 33.0-33.9,adult Body Mass Index 33.0-33.9, adult Osteopenia, unspecified location Asymptomatic postmenopausal status documented in this encounter [facility] note* Diagnosis Hyperkalemia- Primary Hyperpotassemia documented in this encounter [facility] note* Diagnosis Onset Date Resolution Status Essential tremor chronic [facility] Work Phone: evaluation note* Diagnosis Asymptomatic postmenopausal status documented in this encounter [facility] note* Diagnosis Onset Date Resolution Status Bee sting reaction acute Cellulitis acute Atrophic vaginitis acute Encounter for routine gynecological examination noneactive [facility] Work Phone: evaluation note* Diagnosis Encounter for screening mammogram for breast cancer [facility]* Diagnosis CARMINE (generalized anxiety disorder) Generalized anxiety disorder documented in this encounter [facility] note* Diagnosis Productive cough- Primary Cough Rhonchi at left lung base documented in this encounter [facility] note* Diagnosis CARMINE (generalized anxiety disorder)- Primary Generalized anxiety disorder Mild episode of recurrent major depressive disorder (HCC) Benign essential tremor Essential and other specified forms of tremor Hyperlipidemia, unspecified hyperlipidemia type Meningioma (HCC) Benign neoplasm of cerebral meninges BMI 33.0-33.9,adult Body Mass Index 33.0-33.9, adult Class 1 obesity with body mass index (BMI) of 32.0 to 32.9 in adult, unspecified obesity type, unspecified whether serious comorbidity present Abnormal EKG Nonspecific abnormal electrocardiogram (ECG) (EKG) Abnormal electrocardiogram Nonspecific abnormal electrocardiogram (ECG) (EKG) documented in this encounter [facility] note* Diagnosis Abnormal electrocardiogram Nonspecific abnormal electrocardiogram (ECG) (EKG) documented in this encounter [facility] note* Diagnosis Hyperkalemia- Primary Hyperpotassemia Encounter for screening for cardiovascular disorders Screening for other and unspecified cardiovascular conditions [facility] Hyperlipidemia- Primary Other and unspecified hyperlipidemia Productive cough Cough Rhonchi at left lung base documented [facility] this [facility]* Diagnosis Hyperlipidemia- Primary Other and unspecified hyperlipidemia CARMINE (generalized anxiety disorder)- Primary Generalized anxiety disorder Mild episode of recurrent major depressive disorder (HCC) Benign essential tremor Essential and other specified forms of tremor Meningioma (HCC) Benign neoplasm of cerebral meninges Hyperlipidemia, unspecified hyperlipidemia type Hair loss Alopecia, unspecified [facility] Diagnosis Hyperlipidemia- Primary Other and unspecified hyperlipidemia Encounter for screening mammogram for breast cancer [facility] Hyperlipidemia- Primary Other and unspecified hyperlipidemia Hyperlipidemia, unspecified hyperlipidemia type [facility] Diagnosis Hyperlipidemia- Primary Other and unspecified hyperlipidemia Leg swelling- Primary Swelling of limb Redness of skin Unspecified erythematous condition documented in this encounter [facility]* Diagnosis Hyperlipidemia- Primary Other and unspecified hyperlipidemia Hyperlipidemia, unspecified hyperlipidemia type- Primary CARMINE (generalized anxiety disorder) Generalized anxiety disorder Mild episode of recurrent major depressive disorder Benign essential tremor Essential and other specified forms of tremor Meningioma (HCC) Benign neoplasm of cerebral meninges [facility] Diagnosis Hyperlipidemia- Primary Other and unspecified hyperlipidemia Hypertension, essential- Primary Unspecified essential hypertension documented [facility] this encounter [facility]* Diagnosis Hyperlipidemia- Primary Other and unspecified hyperlipidemia Hypertension, essential- Primary Unspecified essential hypertension Hyperlipidemia, unspecified hyperlipidemia type documented in this encounter [facility] note Author Rony Hamilton [facility] Note Date/Time October 11, 2024 9:58a m [facility] [address] [place] [address], [address] [place] [address] OFFICE VISIT Date of Service: 10/11/24 MR#: [id number] Acct: [id number] Name: SOFI DUNCAN Rep #: [id number] : 1955 Provider: Dr. Sabrina Hamilton MD Age/Sex: 69/F Location: [facility] Status: Signed HPI HPI Chief Complaint: Details: Interim History: Sofi returns for follow-up visit. She has a history of hypercholesterolemia. She has been experiencing a right hand tremor since around 2013. Her tremor progressed to involve both hands. Her tremor is present at rest and with action though is more pronounced with action. 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 The tremor has slightly worsened over time including further worsening within recent months. Her tremor has interfered with handwriting however this now is improved after increasing her dose of propranolol to 20 mg twice daily and she is no longer experiencing any functional impairment due to her tremor. She is tolerating propranolol well. She denied having gait difficulty, speech difficulty, swallowing difficulty, vision change, numbness or weakness. 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 She experiences an occasional headache if she is tired or misses a meal however she does not experience daily headaches and does not awaken with a headache. Physical Exam: Neuro: The patient is awake and alert and responds appropriately; speech is fluent; a mild fine tremor is noted in the hands when arms are extended; no rigidity is noted in the wrists Heart: Regular rate and rhythm Neck: no bruits Supplemental Info Lipid profile (07/12/2018): Cholesterol 221 (elevated), LDL cholesterol 135 (elevated) Lipid profile, CMP (01/19/2019): Unremarkable. CBC, CMP, lipid profile (07/22/2021): Cholesterol 196 (normal), triglycerides 125(normal), HDL 60 (normal), LDL 111 (high), non-HDL cholesterol 135 (high), VLDL 25 (normal) TSH (08/24/2022): Normal. Head CT (03/08/23): FINDINGS: BRAIN: No acute bleed. No edema. Yip-white matter differentiation is maintained. Arterial calcifications. VENTRICLES AND SULCI: Not dilated. EXTRA-AXIAL: 1.5 cm hyperattenuating mass with calcifications extra-axial left posterior parietal region abuts the falx consistent with meningioma. No acute extra-axial hematoma. CALVARIUM / SKULL BASE: Unremarkable. FACE/SINUSES: Unremarkable. SOFT TISSUES: Unremarkable. IMPRESSION: No evidence of acute intracranial injury. Left posterior parietal extra-axial mass consistent with meningioma. These images were reviewed on 08/17/2023. A 12 x 14 mm left posterior parietal parafalcine calcified meningioma is noted. There is no underlying edema. Cervical spine CT (03/08/23): FINDINGS: ALIGNMENT: No subluxation. Straightening of the normal curvature. MINERALIZATION: Normal. VERTEBRAL BODIES: No fracture or acute abnormality. DISC SPACES: Disc space narrowing with osteophytes most pronounced C5-C7. POSTERIOR ELEMENTS: Facet arthropathy at multiple levels. SPINAL CANAL: Maintained. PARASPINAL SOFT TISSUES: Unremarkable. OTHER: None. IMPRESSION: No evidence of fracture or subluxation. Straightening of the normal curve may be due to position or muscle spasm. Degenerative changes. These images were reviewed on 08/17/2023. CBC, CMP, lipid profile (09/24/2023): Potassium 5.4 (high), BUN 22 (high), cholesterol 169 (normal), triglycerides 59 (normal), HDL 56 (normal), LDL 101 (high) Potassium (09/23/2023): Normal. Cardiac echo (10/11/2023): The left ventricle is normal in size. Left ventricular systolic function is normal. EF equals 59?5%. Grade 1 left ventricular diastolic dysfunction. The right ventricle is normal in size. Right ventricular systolic function is normal. There are no significant valvular abnormalities. Assessment and Plan Assessment and Plan (1) Essential tremor: Status: Chronic Medications: Refilled propranolol 20 mg PO BID 180 tabs 2RF Plan Details Additional Comments: The patient has a bilateral hand essential tremor. Her tremor had diminishedwith the use of propranolol however more recently her tremor has worsened and increasing her dose of propranolol to 20 mg daily was not of added benefit. Hertremor interferes with handwriting. She is tolerating propranolol well. - I will have her increase propranolol to 20 mg twice daily. If this is ineffective then addition of primidone will be considered. A 12 x 14 mm left posterior parietal parafalcine calcified meningioma is noted on a head CT. She experiences a headache infrequently if she is tired or misses a meal however she does not experience daily headaches and does not awaken with a headache. I will have her return for reassessment in 8 months. 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 Accompanied by: Self Allergies poison antonina extract Allergy (Mild, Verified 10/11/24 09:28) Itching fluconazole (From Diflucan) Allergy (Verified 10/11/24 09:28) Unknown Have you fallen in the past year?: No PFSH Medical History Arthritis Chronic bronchitis Depression Hay fever High cholesterol Hyperlipidemia Knee pain Lipoma Osteopenia Seasonal allergies Surgical History History of arthroplasty of right knee (~08/04/17) History of bilateral breast reduction surgery (~06/12/19) History of tonsillectomy and adenoidectomy (~1960) joint replacement of right thumb (~08/07/15) s/p right knee scope (~08/04/17) Status post scar revision (~06/16/21) Family History Mother Hypertension Heart disease, Onset Age: 69 Angina pectoris Anxiety Arthritis Cervical cancer Depression Diabetes, Onset Age: 69 Myocardial infarction, Onset Age: 69 High cholesterol Melanoma Ovarian cancer COPD (chronic obstructive pulmonary disease) Uterine cancer Father Lung cancer, Onset Age: 53 Brain cancer, Onset Age: 53 Son Heart murmur Grandfather Alcoholic Grandfather Colon cancer Sister Mental disorder Myocardial infarction, Onset Age: 50 Brother Drowning Social History Smoking Status: Never smoker alcohol intake: current details: socially substance use type: does not use caffeine: Yes what type of physical activity do you participate in: none seatbelt use: always do you feel safe at home: Yes 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 Clinical Quality Measures Falls Risk Screening/Assistive Devices Have you fallen in the past year?: No Coding Level of Care Code Off vis,est,level 3 Diagnoses Essential tremor G25.0 10/11/24 0958 <Electronically signed by Rony velez MD> Date _ Rony Buenrostro Signature: Date (if applicable) CC: ~ [facility] Work Phone: Reason for referral (narrative)* Diagnostic Procedure Only (Routine) - Pending Review Specialty Diagnoses / Procedures Referred By Mónica t Referred To Contact [facility] Diagnoses Encounter for screening mammogram for breast cancer Procedures PRECIOUS SCREENING SCREENING MAMMOGRAPHY BI 2-VIEW BREAST INC Gogo Shin MD [address] [place] [id number] [facility] [id number] [place] [id number] Referral ID Status Reason Start Date Expiration Date Visits Requested Visits Authorized [id number] Pending Review Auto-Generat ed Referral 06/18/2021 07/18/2022 1 1 [facility] for referral (narrative)* Diagnostic Procedure Only (Routine) - Pending Review Specialty Diagnoses / Procedures Referred By Mónica orosco Referred To Contact [facility] Diagnoses Encounter for screening mammogram for breast cancer Procedures PRECIOUS SCREENING SCREENING MAMMOGRAPHY [place] 2[place] [address] [place] [address] [facility] [id number] [address] Referral ID Status Reason Start Date Expiration Date Visits Requested Visits Authorized [id number] Pending Review Auto-Generat ed Referral 06/10/2022 07/10/2023 1 1 [facility] for referral (narrative)* Diagnostic Procedure Only (Routine) - Pending Review Specialty Diagnoses / Procedures Referred By Contcindy t Referred To Contact [facility] Diagnoses Encounter for screening mammogram for breast cancer Procedures PRECIOUS SCREENING SCREENING MAMMOGRAPHY BI 2-VIEW BREAST INC CAD Gogo Gurrola MD [address] [place] [address] [facility] [address] [place] [address] Referral ID Status Reason Start Date Expiration Date Visits Requested Visits Authorized [id number] Pending Review Auto-Generat ed Referral 05/26/2023 06/24/2024 1 1 [facility] for referral (narrative)* Diagnostic Procedure Only (Urgent) - Authorized Specialty Diagnoses / Procedures [facility] To [facility] Diagnoses Abnormal electrocardiogram Procedures NM CARDIAC PERF STRESS/PHARM MYOCARDIAL SPECT MULTIPLE STUDIES Gogo Gurrola MD [address] [place] [address] [facility] [address] [place] [address] Referral ID Status Reason Start Date Expiration Date Visits Requested Visits Authorized [id number] Authorized Auto-Generat ed Referral 09/24/2023 10/23/2024 1 1 * Outpatient Procedure (Urgent) - Authorized Specialty Diagnoses / Procedures Referred By [facility] Referred To Contact [facility] Diagnoses Abnormal EKG Procedures ECHO ECHO TTHRC R-T 2D W/WOM-MODE COMPL SPEC&COLR D Gogo Gurrola MD [address] [place] [id number] [facility] [address] [place] [address] Referral ID Status Reason Start Date Expiration Date Visits Requested Visits Authorized [id number] Authorized Auto-Generat ed Referral 09/24/2023 09/23/2024 1 1 * Outpatient Procedure (Routine) - Pending Review Specialty Diagnoses / Procedures [facility] Diagnoses Hyperlipidemia, unspecified hyperlipidemia type Procedures ECG COMPLETE ECG ROUTINE ECG W/LEAST 12 LDS W/I&R Gogo Gurrola MD [address] [place] [address] [facility] [address] [place] [address] Referral ID Status Reason Start Date Expiration Date Visits Requested Visits Authorized [id number] Pending Review Auto-Generat ed Referral 09/24/2023 09/23/2024 1 1 [facility] for referral (narrative)* Diagnostic Procedure Only (Urgent) - Closed Specialty Diagnoses / Procedures Referred By Contac t Referred To Contact [facility] Diagnoses Abnormal electrocardiogram Procedures NM CARDIAC PERF STRESS/PHARM MYOCARDIAL SPECT MULTIPLE STUDIES Gogo Gurrola MD [address] [place] [address] [facility] [address] [place] [address] Referral ID Status Reason Start Date Expiration Date V isits Requested Visits Authorized [id number] Closed Auto-Generate d Referral 09/24/2023 10/23/2024 1 1 [facility] for referral (narrative)No reason for referral information [facility]WBar[facility] Work Phone: Reason for visit Narrative* Diagnostic Procedure Only (Urgent) - Closed Specialty Diagnoses / Procedures Referred By Contac t Referred To Contact [facility] Diagnoses Abnormal electrocardiogram Procedures NM CARDIAC PERF STRESS/PHARM MYOCARDIAL SPECT MULTIPLE STUDIES Gogo Gurrola MD [address] [place] [address] [facility] [address] [place], [place] [id number] Referral ID Status Reason Start Date Expiration Date V isits Requested Visits Authorized [id number] Closed Auto-Generate d Referral 09/24/2023 10/23/2024 1 1 [facility] Advance Directives No Advanced Directives Records FoundDocuments on File Type Date Recorded Patient Resident Hall Director Expl anation Advance Directive(s) Documents on File Type Date Recorded Patient Resident Hall Director Expl anation Advance Directive(s) Advance Directive Response Recorded Date/ Time Name of Medical Power of Early Childhood Education Coordinator AMPARO DUNCAN () March 08, 2023 5:54pm Living Will Yes March 08 5:54pm Power of Early Childhood Education Coordinator Yes March 08, 2023 5:54pm Chief Complaint and Reason for Visit Chief Complaint TREMOR R HAND LLE PAIN Reason for Visit Essential tremor Chief Complaint TREMOR R HAND LLE PAIN STRAIN L LOWER LEG/PAIN. 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 injury Reason for Visit Bee sting reaction Cellulitis Atrophic vaginitis Encounter for routine gynecological examination Chief Complaint Admit Date medication concerns February 23, 2024 8:25am SCREENING May 31, 2024 10:32am Reason for Visit Admit Date Essential tremor February 23, 2024 8:25am Chief Complaint Admit Date 6 mo fu August 09, 2024 9:17am 2 M FU October 11, 2024 9:28a m Reason for Visit Admit Date Essential tremor August 09, 2024 9:17am Essential tremor October 11, 2024 9:28a m Family History No Family History Records Found Relationship Condition Age at Onset Recorded Date/T kirt mother Hypertension Unknown Cardiac disease 69 Angina pectoris Unknown Anxiety Unknown Arthritis Unknown Malignant neoplasm of cervix Unknown Depression Unknown Diabetes mellitus 69 Myocardial infarction 69 High blood cholesterol Unknown Malignant melanoma Unknown Malignant neoplasm of ovary Unknown Chronic obstructive pulmonary disease Unk nown Malignant neoplasm of uterus Unknown father Malignant neoplasm of lung 53 Malignant neoplasm of brain 53 son Heart murmur Unknown grandfather Alcoholism Unknown grandfather Malignant neoplasm of colon Unknown sister Mental disorder Unknown Myocardial infarction 50 brother Drowning Unknown Summary Purpose Additional Source Comments Source Comments (unrecognize d section and content) In the event this informatio n is protected by the Federal Confidentiality of Alcohol and Drug Abuse Patient Records regulations: The Federal rules restrict any use of the information to criminally investigate or prosecute any alcohol or drug abuse patient.[facility] the event this information is protected by the Federal Confidentiality of Alcohol and Drug Abuse Patient Records regulations: The Federal rules restrict any use of the information to criminally investigate or prosecute any alcohol or drug abuse patient.[facility] the event this information is protected by the Federal Confidentiality of Alcohol and Drug Abuse Patient Records regulations: The Federal rules restrict any use of the information to criminally investigate or prosecute any alcohol or drug abuse patient.[facility] the event this information is protected by the Federal Confidentiality of Alcohol and Drug Abuse Patient Records regulations: The Federal rules restrict any use of the information to criminally investigate or prosecute any alcohol or drug abuse patient.[facility] the event this information is protected by the Federal Confidentiality of Alcohol and Drug Abuse Patient Records regulations: The Federal rules restrict any use of the information to criminally investigate or prosecute any alcohol or drug abuse patient.[facility] the event this information is protected by the Federal Confidentiality of Alcohol and Drug Abuse Patient Records regulations: The Federal rules restrict any use of the information to criminally investigate or prosecute any alcohol or drug abuse patient.[facility] the event this information is protected by the Federal Confidentiality of Alcohol and Drug Abuse Patient Records regulations: The Federal rules restrict any use of the information to criminally investigate or prosecute any alcohol or drug abuse patient.[facility] the event this information is protected by the Federal Confidentiality of Alcohol and Drug Abuse Patient Records regulations: The Federal rules restrict any use of the information to criminally investigate or prosecute any alcohol or drug abuse patient.[facility] the event this information is protected by the Federal Confidentiality of Alcohol and Drug Abuse Patient Records regulations: The Federal rules restrict any use of the information to criminally investigate or prosecute any alcohol or drug abuse patient.[facility] the event this information is protected by the Federal Confidentiality of Alcohol and Drug Abuse Patient Records regulations: The Federal rules restrict any use of the information to criminally investigate or prosecute any alcohol or drug abuse patient.[facility]In the event this information is protected by the Federal Confidentiality of Alcohol and Drug Abuse Patient Records regulations: The Federal rules restrict any use of the information to criminally investigate or prosecute any alcohol or drug abuse patient.[facility] the event this information is protected by the Federal Confidentiality of Alcohol and Drug Abuse Patient Records regulations: The Federal rules restrict any use of the information to criminally investigate or prosecute any alcohol or drug abuse patient.[facility] the event this information is protected by the Federal Confidentiality of Alcohol and Drug Abuse Patient Records regulations: The Federal rules restrict any use of the information to criminally investigate or prosecute any alcohol or drug abuse patient.[facility] the event this information is protected by the Federal Confidentiality of Alcohol and Drug Abuse Patient Records regulations: The Federal rules restrict any use of the information to criminally investigate or prosecute any alcohol or drug abuse patient.[facility] the event this information is protected by the Federal Confidentiality of Alcohol and Drug Abuse Patient Records regulations: The Federal rules restrict any use of the information to criminally investigate or prosecute any alcohol or drug abuse patient.[facility] the event this information is protected by the Federal Confidentiality of Alcohol and Drug Abuse Patient Records regulations: The Federal rules restrict any use of the information to criminally investigate or prosecute any alcohol or drug abuse patient.[facility] the event this information is protected by the Federal Confidentiality of Alcohol and Drug Abuse Patient Records regulations: The Federal rules restrict any use of the information to criminally investigate or prosecute any alcohol or drug abuse patient.[facility] the event this information is protected by the Federal Confidentiality of Alcohol and Drug Abuse Patient Records regulations: The Federal rules restrict any use of the information to criminally investigate or prosecute any alcohol or drug abuse patient.[facility]In the event this information is protected by the Federal Confidentiality of Alcohol and Drug Abuse Patient Records regulations: The Federal rules restrict any use of the information to criminally investigate or prosecute any alcohol or drug abuse patient.[facility] the event this information is protected by the Federal Confidentiality of Alcohol and Drug Abuse Patient Records regulations: The Federal rules restrict any use of the information to criminally investigate or prosecute any alcohol or drug abuse patient.[facility]In the event this information is protected by the Federal Confidentiality of Alcohol and Drug Abuse Patient Records regulations: The Federal rules restrict any use of the information to criminally investigate or prosecute any alcohol or drug abuse patient.[facility] the event this information is protected by the Federal Confidentiality of Alcohol and Drug Abuse Patient Records regulations: The Federal rules restrict any use of the information to criminally investigate or prosecute any alcohol or drug abuse patient.[facility] the event this information is protected by the Federal Confidentiality of Alcohol and Drug Abuse Patient Records regulations: The Federal rules restrict any use of the information to criminally investigate or prosecute any alcohol or drug abuse patient.[facility]In the event this information is protected by the Federal Confidentiality of Alcohol and Drug Abuse Patient Records regulations: The Federal rules restrict any use of the information to criminally investigate or prosecute any alcohol or drug abuse patient.[facility]In the event this information is protected by the Federal Confidentiality of Alcohol and Drug Abuse Patient Records regulations: The Federal rules restrict any use of the information to criminally investigate or prosecute any alcohol or drug abuse patient.[facility]In the event this information is protected by the Federal Confidentiality of Alcohol and Drug Abuse Patient Records regulations: The Federal rules restrict any use of the information to criminally investigate or prosecute any alcohol or drug abuse patient.[facility] the event this information is protected by the Federal Confidentiality of Alcohol and Drug Abuse Patient Records regulations: The Federal rules restrict any use of the information to criminally investigate or prosecute any alcohol or drug abuse patient.[facility]In the event this information is protected by the Federal Confidentiality of Alcohol and Drug Abuse Patient Records regulations: The Federal rules restrict any use of the information to criminally investigate or prosecute any alcohol or drug abuse patient.[facility]In the event this information is protected by the Federal Confidentiality of Alcohol and Drug Abuse Patient Records regulations: The Federal rules restrict any use of the information to criminally investigate or prosecute any alcohol or drug abuse patient.[facility]In the event this information is protected by the Federal Confidentiality of Alcohol and Drug Abuse Patient Records regulations: The Federal rules restrict any use of the information to criminally investigate or prosecute any alcohol or drug abuse patient.[facility]In the event this information is protected by the Federal Confidentiality of Alcohol and Drug Abuse Patient Records regulations: The Federal rules restrict any use of the information to criminally investigate or prosecute any alcohol or drug abuse patient.[facility]In the event this information is protected by the Federal Confidentiality of Alcohol and Drug Abuse Patient Records regulations: The Federal rules restrict any use of the information to criminally investigate or prosecute any alcohol or drug abuse patient.[facility]In the event this information is protected by the Federal Confidentiality of Alcohol and Drug Abuse Patient Records regulations: The Federal rules restrict any use of the information to criminally investigate or prosecute any alcohol or drug abuse patient.[facility]In the event this information is protected by the Federal Confidentiality of Alcohol and Drug Abuse Patient Records regulations: The Federal rules restrict any use of the information to criminally investigate or prosecute any alcohol or drug abuse patient.[facility]In the event this information is protected by the Federal Confidentiality of Alcohol and Drug Abuse Patient Records regulations: The Federal rules restrict any use of the information to criminally investigate or prosecute any alcohol or drug abuse patient.[facility]In the event this information is protected by the Federal Confidentiality of Alcohol and Drug Abuse Patient Records regulations: The Federal rules restrict any use of the information to criminally investigate or prosecute any alcohol or drug abuse patient.[facility]In the event this information is protected by the Federal Confidentiality of Alcohol and Drug Abuse Patient Records regulations: The Federal rules restrict any use of the information to criminally investigate or prosecute any alcohol or drug abuse patient.[facility]In the event this information is protected by the Federal Confidentiality of Alcohol and Drug Abuse Patient Records regulations: The Federal rules restrict any use of the information to criminally investigate or prosecute any alcohol or drug abuse patient.[facility]In the event this information is protected by the Federal Confidentiality of Alcohol and Drug Abuse Patient Records regulations: The Federal rules restrict any use of the information to criminally investigate or prosecute any alcohol or drug abuse patient.[facility]In the event this information is protected by the Federal Confidentiality of Alcohol and Drug Abuse Patient Records regulations: The Federal rules restrict any use of the information to criminally investigate or prosecute any alcohol or drug abuse patient.[facility]In the event this information is protected by the Federal Confidentiality of Alcohol and Drug Abuse Patient Records regulations: The Federal rules restrict any use of the information to criminally investigate or prosecute any alcohol or drug abuse patient.[facility] [facility] the event this information is protected by the Federal Confidentiality of Alcohol and Drug Abuse Patient Records regulations: The Federal rules restrict any use of the information to criminally investigate or prosecute any alcohol or drug abuse patient.[facility] the event this information is protected by the Federal Confidentiality of Alcohol and Drug Abuse Patient Records regulations: The Federal rules restrict any use of the information to criminally investigate or prosecute any alcohol or drug abuse patient.[facility] the event this information is protected by the Federal Confidentiality of Alcohol and Drug Abuse Patient Records regulations: The Federal rules restrict any use of the information to criminally investigate or prosecute any alcohol or drug abuse patient.[facility] Care Teams (unrecognized sec tion and content) Psychology Teacher Relationship Specialty Start Date End Date Gogo Gurrola MD [address] [place] [address] PCP - General Family Practice 03/24/17 Psychology Teacher Relationship Specialty Start Date End Date Gogo Gurrola MD [address] [place] [address] PCP - General Family Practice 03/24/17 Psychology Teacher Relationship Specialty Start Date End Date Gogo Gurrola MD [address] [place] [address] PCP - General Family Practice 03/24/17 Psychology Teacher Relationship Specialty Start Date End Date Gogo Gurrola MD [address] [place] [address] PCP - General Family Practice 03/24/17 Psychology Teacher Relationship Specialty Start Date End Date Gogo Gurrola MD [address] [place] [address] PCP - General Family Practice 03/24/17 Psychology Teacher Relationship Specialty Start Date End Date Gogo Gurrola MD [address] [place] [address] PCP - General Family Practice 03/24/17 Psychology Teacher Relationship Specialty Start Date End Date Gogo Gurrola MD [address] [place] [address] PCP - General Family Medicine 03/24/17 Psychology Teacher Relationship Specialty Start Date End Date Gogo Gurrola MD [address] [facility] [place] [address] PCP - General Family Medicine 03/24/17 Team Status: Active Member Role Status Dates Dr. Philip Gurrola MD Family Provider Active Dr. Philip Gurrola MD Primary Care Provider Acti ve Team Status: Inactive Member Role Status Dates Dr. Philip Gurrola MD Primary Care Provider, Ref erring Provider Active Rajni Toledo FPGA ENGINEER, FPGA ENGINEER-C Attending Provider Active Team Status: Inactive Member Role Status Dates Dr. Philip Gurrola MD Primary Care Provider Acti ve Rajni Toledo FPGA ENGINEER, FPGA ENGINEER-C Attending Provider Active Psychology Teacher Relationship Specialty Start Date End Date Gogo Gurrola MD [address] [facility] [place] [address] PCP - General Family Medicine 03/24/17 Psychology Teacher Relationship Specialty Start Date End Date Gogo Gurrola MD [address] [facility] [place] [address] PCP - General Family Medicine 03/24/17 Psychology Teacher Relationship Specialty Start Date End Date oGgo Gurrola MD [address] [facility] [place] [address] PCP - General Family Medicine 03/24/17 Psychology Teacher Relationship Specialty Start Date End Date Gogo Gurrola MD [address] [facility] [place] [address] PCP - General Family Medicine 03/24/17 Team Status: Inactive Member Role Status Dates Dr. Philip Gurrola MD Primary Care Provider, Ref erring Provider Active Dr. Rony Hamilton MD Attending Provider Active Team Status: Inactive Member Role Status Dates Dr. Philip Gurrola MD Primary Care Provider Acti ve Dr. Rony Hamilton MD Attending Provider, Referring Provider Active Psychology Teacher Relationship Specialty Start Date End Date Gogo Gurrola MD [address] [place] [address] PCP - General Family Medicine 03/24/17 Psychology Teacher Relationship Specialty Start Date End Date Gogo Gurrola MD [address] [place] [address] PCP - General Family Medicine 03/24/17 Team Status: Inactive Member Role Status Dates Dr. Philip Gurrola MD Primary Care Provider, Ref erring Provider Active April Rosado NP-C Attending Provider Active Team Status: Inactive Member Role Status Dates Dr. Philip Gurrola MD Primary Care Provider Acti ve Lux Mcgowan MD Emergency Provider Active Team Status: Active Member Role Status Dates Dr. Philip Gurrola MD Primary Care Provider Acti ve Valentin MAYA PA-C Attending Provider, Referring Pr ovider Active Team Status: Inactive Member Role Status Dates Dr. Philip Gurrola MD Primary Care Provider Acti ve Valentin MAYA PA-C Attending Provider, Referring Pr ovider Active Psychology Teacher Relationship Specialty Start Date End Date Gogo Gurrola MD [address] [place] [address] PCP - General Family Medicine 03/24/17 Psychology Teacher Relationship Specialty Start Date End Date Gogo Gurrola MD [address] [place] [address] PCP - General Family Medicine 03/24/17 Psychology Teacher Relationship Specialty Start Date End Date Gogo Gurrola MD [address] [place] [address] PCP - General Family Medicine 03/24/17 Psychology Teacher Relationship Specialty Start Date End Date Gogo Gurrola MD [address] [place] [address] PCP - General Family Medicine 03/24/17 Psychology Teacher Relationship Specialty Start Date End Date Gogo Gurrola MD [address] [place] [address] PCP - General Family Medicine 03/24/17 Psychology Teacher Relationship Specialty Start Date End Date Gogo Gurrola MD [address] [place] [address] PCP - General Family Medicine 03/24/17 Psychology Teacher Relationship Specialty Start Date End Date Gogo Gurrola MD [address] [place] [address] PCP - General Family Medicine 03/24/17 Psychology Teacher Relationship Specialty Start Date End Date Gogo Gurrola MD [address] [place] [address] PCP - General Family Medicine 03/24/17 Psychology Teacher Relationship Specialty Start Date End Date Gogo Gurrola MD [address] [place] [address] PCP - General Family Medicine 03/24/17 Psychology Teacher Relationship Specialty Start Date End Date Gogo Gurrola MD [address] [place] [address] PCP - General Family Medicine 03/24/17 Psychology Teacher Relationship Specialty Start Date End Date Gogo Gurrola MD [address] [place] [address] PCP - General Family Medicine 03/24/17 PodlogBrooklynn tao APRN.ORTHOPEDIC SURGEON [address] [facility] [place] [address] [employer] Family Medicine 03/11/24 Psychology Teacher Relationship Specialty Start Date End Date Gogo Gurrola MD [address] [place] [address] PCP - General Family Medicine 03/24/17 PodlogarBrooklynn APRN.ORTHOPEDIC SURGEON [address] [place] [address] [employer] Family Medicine 03/11/24 Psychology Teacher Relationship Specialty Start Date End Date Gogo Gurrola MD [address] [place] [address] PCP - General Family Medicine 03/24/17 PodlogBrooklynn tao APRN.ORTHOPEDIC SURGEON [address] [place] [address] [employer] Family Medicine 03/11/24 Psychology Teacher Relationship Specialty Start Date End Date Gogo Gurrola MD [address] [place] [address] PCP - General Family Medicine 03/24/17 PodlogarBrooklynn APRN.ORTHOPEDIC SURGEON [address] [place] [address] [employer] Family Medicine 03/11/24 Team Status: Active Member Role Status Dates Dr. Philip Gurrola MD Primary Care Provider Acti ve Team Status: Inactive Member Role Status Dates Dr. Philip Gurrola MD Primary Care Provider Acti ve Start: February 23, 2024 End: February 23, 2024 Dr. Philip Gurrola MD Referring Provider Active Start: February 23, 2024 End: February 23, 2024 Dr. Rony Hamilton MD Attending Provider Active Start: February 23, 2024 End: February 23, 2024 Team Status: Inactive Member Role Status Dates Dr. Philip Gurrola MD Primary Care Provider Acti ve Start: May 31, 2024 End: May 31, 2024 Dr. Philip Gurrola MD Attending Provider Active Start: May 31, 2024 End: May 31, 2024 Dr. Philip Gurrola MD Referring Provider Active Start: May 31, 2024 End: May 31, 2024 Psychology Teacher Relationship Specialty Start Date End Date Gogo Gurrola MD [address] [place], [place] [address] PCP - General Family Medicine 03/24/17 PodlogarBrooklynn, PAPER CUTTING MACHINE OPERATOR.ORTHOPEDIC SURGEON [address] [place], [place] [address] [facility] Medicine 03/11/24 Christianne Ferrer APRN.ORTHOPEDIC SURGEON [address] [place], [place] [address] [facility] Family Medicine 06/26/24 Psychology Teacher Relationship Specialty Start Date End Date Gogo Gurrola MD [address] [place], [place] [address] PCP - General Family Medicine 03/24/17 PodlogarBrooklynn PAPER CUTTING MACHINE OPERATOR.ORTHOPEDIC SURGEON [address] [place] [address] [facility] Family Medicine 03/11/24 Christianne Ferrer APRN.ORTHOPEDIC SURGEON [address] [place], [place] [address] [facility] 09/14/24 Psychology Teacher Relationship Specialty Start Date End Date Gogo Gurrola MD [address] [facility], [place] [address] PCP - General Family Medicine 03/24/17 PodlogarBrooklynn, PAPER CUTTING MACHINE OPERATOR.ORTHOPEDIC SURGEON [address] [place], [place] [address] [facility] 03/11/24 Christianne Ferrer, PAPER CUTTING MACHINE OPERATOR.ORTHOPEDIC SURGEON [address] [place], [place] [id number] [facility] 09/14/24 Team Status: Active Member Role/Relationship Status Dates Dr. Philip Gurrola MD Primary Care Provider Acti ve Team Status: Inactive Member Role/Relationship Status Dates Dr. Philip Gurrola MD Primary Care Provider Acti ve Start: August 09, 2024 End: August 09, 2024 Dr. Philip Gurrola MD Referring Provider Active Start: August 09, 2024 End: August 09, 2024 Dr. Rony Hamilton MD Attending Provider Active Start: August 09, 2024 End: August 09, 2024 Team Status: Inactive Member Role/Relationship Status Dates Dr. Philip Gurrola MD Primary Care Provider Acti ve Start: October 11, 2024 End: October 11, 2024 Dr. Philip Gurrola MD Referring Provider Active Start: October 11, 2024 End: October 11, 2024 Dr. Rony Hamilton MD Attending Provider Active Start: October 11, 2024 End: October 11, 2024 Psychology Teacher Relationship Specialty Start Date End Date Gogo Gurrola MD [address] [facility], [place] [id number] PCP - General Family Medicine 03/24/17 PodlogarBrooklynn PAPER CUTTING MACHINE OPERATOR.ORTHOPEDIC SURGEON [address] [place] [address] [employer] [facility] 03/11/24 Christianne Ferrer APRN.ORTHOPEDIC SURGEON [address] [place], [place] [address] [phone] [facility] Psychology Teacher Relationship Specialty Start Date End Date Gogo Gurrola MD [address] [place] [address] PCP - General Family Medicine 03/24/17 PodlogarBrooklynn PAPER CUTTING MACHINE OPERATOR.ORTHOPEDIC SURGEON [address] [place] [address] [facility] 03/11/24 Christianne Ferrer APRN.ORTHOPEDIC SURGEON [address] [place] [address] [facility] 09/14/24 Psychology Teacher Relationship Specialty Start Date End Date Gogo Gurrola MD [address] [place] [address] PCP - General Family Medicine 03/24/17 PodlogarBrooklynn PAPER CUTTING MACHINE OPERATOR.ORTHOPEDIC SURGEON [address] [place] [address] [employer] Family Medicine 03/11/24 Christianne Ferrer APRN.ORTHOPEDIC SURGEON [address] [place] [address] [facility] Medicine 09/14/24 Psychology Teacher Relationship Specialty Start Date End Date Gogo Gurrola MD [address] [place] [address] PCP - General Family Medicine 03/24/17 PodlogBrooklynn tao APRN.ORTHOPEDIC SURGEON [address] [facility], [place] [address] [employer] Family Medicine 03/11/24 Christianne Ferrer APRN.ORTHOPEDIC SURGEON [address] [place], [place] [address] [employer] [facility] 09/14/24 Reason for Visit (unrecogniz ed section and content) Reason Onset Date Comments Population Health Navigation Outreach 06/30/2021 [facility] ALEX [facility]SA Reason Onset Date Comments Refill Request 07/07/2021 [...] Reason Comments Results Reason Comments Prescription Problem Reason Comments Follow Up 3 month Reason Comments URI Since couple days pr ior to Easter- 07/12/23 dx [facility]itis [facility]. Completed Zpack. C/O symptoms haven't cleared up. Reason Comments Follow Up 3 month EKG Reason Comments CT calcium scoring test Reason Comments Reminder Call Reason Comments Results Potassium Reason Comments Patient Question Reason Comments 6 Month Exam follow up-prozac Reason Onset Date Comments Refill Request 05/28/2024 Reason Comments Edema Bilateral ankle swel ling for 3.5weeks(07/08/2024) Reason Onset Date Comments Population Health Navigation Outreach 09/12/2024 [facility]CO WORKBENCH ALEX PCSA Reason Onset Date Comments Results 09/25/2024 Reason Comments Blood Pressure Check Reason Onset Date Comments Results 11/16/2024 Reason Comments Blood Pressure Check 2 week follow up Goals (unrecognized section and content) Goals may be documented in a n alternate sectionGoals may be documented in an alternate sectionGoals may be documented in an alternate sectionGoals may be documented in an alternate sectionGoals may be documented in an alternate sectionGoals may be documented in an alternate sectionGoals may be documented in an alternate sectionGoals may be documented in an alternate section INFORMATION SOURCE (unrecogn ized section and content) DATE CREATED AUTHOR 09/28/2023 [facility] DATE CREATED AUTHOR AUTHOR'S ORGANIZ ATION 12/11/2024 [facility] DATE CREATED AUTHOR AUTHOR'S ORGANIZ ATION 01/19/2025 [facility] FOR RECORDS PERTAINING TO PATIENTS WHO ARE [...] BE BASED ON THE PRIMARY CLINICAL RECORDS. [employer] [facility]. provides no warranty or guarantee of the accuracy or completeness of information in this document.
--- NOTE | 2025-01-26 19:49 | RAD_ITS ---
PROCEDURE: CHEST PA AND LATERAL 01/26/2025 REASON FOR EXAM: CHOKED WHILE EATING TECHNIQUE: Procedure Code: RADCXR Modality: DX Procedure: CHEST PA AND LATERAL FINDINGS: No focal consolidation. No pleural effusion or pneumothorax. Cardiac silhouette is within normal limits. Calcified aortic arch. No acute fractures. RAD/Chest PA and Lateral IMPRESSION: No focal consolidations. Reading Location: [id number]
[2025-01-26 20:00] VITALS: BP 114/69; PULSE 82; RESP 18; O2SAT 97
[2025-01-26 20:05] VITALS: PULSE 79; RESP 12
--- NOTE | 2025-01-26 20:06 | EDS_ITS ---
HPI History of Present Illness Chief Complaint: Foreign Body Narrative Narrative: Patient is a 69-year-old female with past medical history hypercholesterolemia, hypertension, hyperlipidemia, depression who presents to the emergency department with a chief complaint of concern for choking on chicken earlier this evening. States that this happened shortly before arrival. States that she was up in [place] all day long and felt fine. States that she was eating when she felt like she choked on this chicken. She states that this is shredded chicken and states that she was able to drink water afterwards. She states that she still has a sensation of something is stuck in the back of her throat. Patient also notes wheezing and at bedside states that usually when she gets bronchitis she will have wheezing and they will place her on a inhaler and steroids that will help her symptoms. [facility] Medical History Osteopenia High cholesterol Chronic bronchitis Arthritis Seasonal allergies Lipoma Knee pain Hay fever Depression Hyperlipidemia Home Medications ?Medication ?Instructions ?Recorded ?Last Taken ?Type calcium 600 mg (as carbonate)-vit 2 tab PO DAILY 01/2003/08/23 History D3 20 mcg (800 unit) chewable tablet (Caltrate plus D) multivitamin 1 tab PO DAILY 01/20/2107/26 History fluoxetine 20 mg capsule 20 mg PO QDAY 08/09/24 Unkno wn History pravastatin 40 mg tablet 40 mg PO QDAY 08/09/24 Unkno wn History propranolol 20 mg tablet 20 mg PO BID #180 tabs 10/11 Unknown Rx estradiol 0.01% (0.1 mg/gram) See Rx Instructions vagi nal 2XW 01/17/25 Unknown History vaginal cream lisinopril 20 mg tablet 20 mg PO QDAY 01/17/25 Unkno wn History albuterol sulfate 90 mcg/actuation 2 puff inhalation Q 4H PRN PRN 01/26/25 Unknown History aerosol inhaler (Ventolin HFA) shortness of breath or wheezing doxycycline hyclate 100 mg capsule 100 mg PO DAILY #10 caps 01/26/25 Unknown Rx prednisone 50 mg tablet 50 mg PO DAILY #4 tabs 01/26 Unknown Rx Allergy/AdvReac Type Severity Reaction Status Date / Time poison antonina extract Allergy Mild Itching Verified 01/26/25 19:29 fluconazole (From Diflucan) Allergy Unknown Verified 01/26/25 19:29 Family History Mother Hypertension Heart disease, Onset Age: 69 Angina pectoris Anxiety Arthritis Cervical cancer Depression Diabetes, Onset Age: 69 Myocardial infarction, Onset Age: 69 High cholesterol Melanoma Ovarian cancer COPD (chronic obstructive pulmonary disease) Uterine cancer Father Lung cancer, Onset Age: 53 Brain cancer, Onset Age: 53 Son Heart murmur Grandfather Alcoholic Grandfather Colon cancer Sister Mental disorder Myocardial infarction, Onset Age: 50 Brother Drowning Surgical History Status post scar revision (~06/16/21) History of arthroplasty of right knee (~08/04/17) History of tonsillectomy and adenoidectomy (~1960) History of bilateral breast reduction surgery (~06/12/19) s/p right knee scope (~08/04/17) joint replacement of right thumb (~08/07/15) Social History Smoking Status: Never smoker alcohol intake: current details: socially substance use type: does not use caffeine: Yes what type of physical activity do you participate in: none seatbelt use: always do you feel safe at home: Yes 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 ROS ROS ED ROS Narrative Constitutional: Denies any fevers or chills denies headaches Cardiovascular: Denies chest pain Respiratory: Complains of wheezing and cough as noted above Abdomen: Denies nausea vomit diarrhea : Denies urinary symptoms Neurological: Denies any numbness, weakness, tingling Musculoskeletal: Denies back pain Skin: Denies any rashes or lesions EXAM Physical Exam Narrative Exam Narrative: General: Patient was lying in bed rest comfortably did not appear to be in acute distress Head: Atraumatic, normocephalic Eyes: PERRL bilaterally, EOMI bilaterally, no conjunctival injection noted Neck: Soft, supple, trachea midline Cardiovascular: Regular rate no murmurs gallops or rubs noted Respiratory: Patient has end expiratory wheezing noted bilaterally Extremities: +5/5 strength noted in the bilateral lower extremities Neurological: Patient follow commands knew that she was at [facility] the year is 2024 Skin: Warm, dry, tact no rashes or lesions noted Const Vital Signs: 01/26/25 19:29 01/26/25 19:34 01/26/25 20:00 Temperature 98.6 F Temperature Source Oral Pulse Rate 83 82 Respiratory Rate 18 18 Respiratory Effort Normal Non-Labored Respiratory Pattern Normal Blood Pressure 169/143 H 114/69 Blood Pressure Mean 151 84 Pulse Ox 97 97 Oxygen Delivery Method Room Air Room Air 01/26/25 20:05 01/26/25 21:00 01/26/25 21:17 Temperature Temperature Source Pulse Rate 79 75 77 Respiratory Rate 12 16 16 Respiratory Effort Respiratory Pattern Normal Normal Blood Pressure 153/87 H Blood Pressure Mean 109 Pulse Ox 97 Oxygen Delivery Method Room Air MDM MDM MDM Narrative Medical decision making narrative: Patient is a 69-year-old female who presents to the emergency department chief complaint of foreign body sensation in the back of her throat. On the differential diagnose includes but not limited to retained foreign body although have low suspicion for this as she is handling her secretions and she was able to drink afterwards, irritated esophagus after swallowing the chicken, bronchitis, pneumothorax, Boerhaave syndrome. Once workup is obtained reviewed she will be reevaluated. Patient will be given oral prednisone as well as 3 DuoNebs. Patient had a chest x-ray reviewed myself by radiology showing no focal consolidations. Reevaluation of the patient she still having mild end expiratory wheezing noted therefore she was given 2 more albuterol treatments here in the emergency department and be reevaluated. On reevaluation the patient she is feeling much better. She was able to take couple water and take the antibiotic and the steroids without any difficulty is tolerating her secretions is nontoxic in appearance. Patient is EKG reviewed and showed sinus rhythm with a rate of 73 bpm the MN interval 168. I discussed the results with the patient and significant other at bedside and they are questioning the need for antibiotics given a concern for aspiration and I notified them that there is literature out there to support that we do not need antibiotics for this however if they feel strongly that she needs antibiotics I will give a prescription for this and they would like to proceed forward with this. Patient already has an inhaler at home and does not need a prescription for 1 she states. Patient was sent a prescription for steroids and doxycycline to the pharmacy they are vies to follow-up with her doctor in outpatient setting and return with worsening symptoms or concerns. All question concerns answered she was discharged home in stable condition. Radiography Diagnostic Testing: Clinical Impression(s) from Imaging Studies Chest X-Ray 01/26/25 19:49 IMPRESSION: No focal consolidations. Reading Location: [facility] Discharge Plan Triage Chief Complaint: Foreign Body ED Provider: Tim Sepulveda Dx/Rx/DC Orders Clinical Impression: Foreign body sensation in throat, Bilateral wheezing, Cough Prescriptions: New prednisone 50 mg tablet 50 mg PO DAILY Qty: 4 0RF doxycycline hyclate 100 mg capsule 100 mg PO DAILY Qty: 10 0RF No Action multivitamin Tablet 1 tab PO DAILY Caltrate 600 plus D 600 mg (1,500 mg)-800 unit tablet,chewable 2 tab PO DAILY pravastatin 40 mg tablet 40 mg PO QDAY fluoxetine 20 mg capsule 20 mg PO QDAY propranolol 20 mg tablet 20 mg PO BID Qty: 180 2RF lisinopril 20 mg tablet 20 mg PO QDAY estradiol 0.01 % (0.1 mg/gram) cream See Rx Instructions vaginal 2XW Rx Instructions: small amount vaginally tw0 times a week; albuterol sulfate [Ventolin HFA] 90 mcg/actuation HFA aerosol inhaler 2 puff INHALATION Q4H PRN PRN (Reason: shortness of breath or wheezing) Primary Care Provider: Philip Gurrola Referrals: Philip Gurrola MD [Primary Care Provider, Family Practice] Activity Restrictions/Additional Instructions: Follow-up with your doctors in the outpatient setting. Return if worsening symptoms or any concerns. Take prescriptions as prescribed and use inhaler as prescribed. Your chest x-ray did not show any findings today. Print Language: Slovenian Disposition Disposition: Home, Self Care
[2025-01-26] MEDS: Lidocaine 2% Viscous15 ML UDC 15 ML PO (20:34)
--- NOTE | 2025-01-26 20:46 | EKG12_ITS ---
Test Reason : DYSRHYTHMIA Blood Pressure : */* mmHG Vent. Rate : 73 BPM Atrial Rate : 73 BPM P-R Int : 168 ms QRS Dur : 76 ms QT Int : 374 ms P-R-T Axes : 47 24 56 degrees QTcB Int : 412 ms Normal sinus rhythm Nonspecific T wave abnormality Abnormal ECG Confirmed by CATHIE ALONZO ([id number]), editorial clerk STACY BRAGG ([id number]) on 01/29/2025 6:38:56 AM Referred By: Confirmed By: CATHIE ALONZO
[2025-01-26 21:00] VITALS: BP 153/87; PULSE 75; RESP 16; O2SAT 97
[2025-01-26] MEDS: Albuterol 2.5 MG/3 ML VIAL.NEB. INHALATION ×2 (21:15)
[2025-01-26 21:17] VITALS: PULSE 77; RESP 16
[2025-01-26 21:52] VITALS: BP 156/77; PULSE 77; RESP 16; TEMP 36.8; O2SAT 99
== END 2025-01-26 21:52 | disposition home or self-care (01) ==
PROVIDERS: Emergency Provider Emergency Medicine; PCP Family Medicine; Visit Provider Emergency Medicine
DX: R09.A2 Foreign body sensation, throat (principal); R06.2 Wheezing; R05.9 Cough, unspecified; E78.00 Pure hypercholesterolemia, unspecified; I10 Essential (primary) hypertension; Z79.899 Other long term (current) drug therapy; Z82.49 Family history of ischemic heart disease and other diseases of the circulatory system
CPT/HCPCS: 71046; 93005; 94640; 99282; A4216

== ENCOUNTER 2025-01-29 13:33 | Emergency (ER) | payer MEDICARE, OTHER, SELFPAY ==
[2025-01-29] VITALS (7 sets, daily range): BP systolic 170–193; BP diastolic 69–79; PULSE 63–80; RESP 16–18; TEMP 36.4–36.9; O2SAT 97–99; BMI 33.9
[2025-01-29 14:10] LABS: Hematocrit 38.5 % (37-47); Hemoglobin 12.8 g/dL (12.0-15.0); Immature Granulocytes Count 0.110 X10^3/uL (0.0-0.0); Mean Corp Hgb Conc 33.2 g/dL (32-36); Mean Corpuscular Volume 93.2 fL (81-99); Mean Platelet Vol. 9.9 fl (6.2-12.0); NRBC Flagged by Analyzer 0 % (0-5); Platelet Count 289 K/mm3 (150-450); RBC Distribution Width CV 12.7 % (11.6-14.6); RBC Distribution Width SD 43.4 fl (35.1-43.9); Red Blood Count 4.13 M/mm3 (4.2-5.4); White Blood Count 12.5 K/mm3 (4.4-11.0)
[2025-01-29 14:49] LABS: Anion Gap 11 (5-15); BUN 13 mg/dL (4-19); BUN/Creat Ratio 18.6 RATIO (10-20); Calcium,Total 9.7 mg/dL (7.6-11.0); Carbon Dioxide 26.1 mmol/L (21.0-32.0); Chloride 105 mmol/L (98-108); Estimated Creatinine Clearance 61.60 ml/min (50-250); Glucose 117 mg/dL (70-99); Potassium 4.5 mmol/L (3.3-5.1)
--- NOTE | 2025-01-29 15:28 | CT_ITS ---
PROCEDURE: CT/Chest without Contrast
--- NOTE | 2025-01-29 15:39 | ED.VIS.DYS ---
HPI History of Present Illness Chief Complaint: Shortness of Breath Narrative Narrative: 69-year-old female presents with her status post choking episode 3 days ago. They relate history that on Wednesday, patient had a choking episode. She was coughing up carrots. Since then she has been very wheezy and short of breath. The ER physician put her on a few days of doxycycline, prednisone, as well as Ventolin. Chest x-ray was reported negative at that time. Patient returns to the emergency department with continued wheezing. They states that she had an episode early this morning which was relieved by the ventilation and the prednisone. She only has 1 prednisone left. She denies any chest pain or other symptoms. [facility] Medical History Osteopenia High cholesterol Chronic bronchitis Arthritis Seasonal allergies Lipoma Knee pain Hay fever Depression Hyperlipidemia Home Medications ?Medication ?Instructions ?Recorded ?Last Taken ?Type calcium 600 mg (as carbonate)-vit 2 tab PO DAILY 01/20/21 03/08/23 History D3 20 mcg (800 unit) chewable tablet (Caltrate plus D) multivitamin 1 tab PO DAILY 01/20/21 03/08/23 History fluoxetine 20 mg capsule 20 mg PO QDAY 08/09/24 Unknown History pravastatin 40 mg tablet 40 mg PO QDAY 08/09/24 Unknown History propranolol 20 mg tablet 20 mg PO BID #180 tabs 10/11/24 Unknown Rx estradiol 0.01% (0.1 mg/gram) See Rx Instructions vaginal 2XW 01/17/25 Unknown History vaginal cream lisinopril 20 mg tablet 20 mg PO QDAY 01/17/25 Unknown History albuterol sulfate 90 mcg/actuation 2 puff inhalation Q4H PRN PRN 01/26/25 Unknown History aerosol inhaler (Ventolin HFA) shortness of breath or wheezing doxycycline hyclate 100 mg capsule 100 mg PO DAILY #10 caps 01/26/25 Unknown Rx prednisone 50 mg tablet 50 mg PO DAILY #4 tabs 01/26/25 Unknown Rx prednisone 50 mg tablet 50 mg PO DAILY #2 tabs 01/29/25 Unknown Rx Allergy/AdvReac Type Severity Reaction Status Date / Time poison antonina extract Allergy Mild Itching Verified 01/29/25 13:37 fluconazole (From Diflucan) Allergy Unknown Verified 01/29/25 13:37 Family History Mother Hypertension Heart disease, Onset Age: 69 Angina pectoris Anxiety Arthritis Cervical cancer Depression Diabetes, Onset Age: 69 Myocardial infarction, Onset Age: 69 High cholesterol Melanoma Ovarian cancer COPD (chronic obstructive pulmonary disease) Uterine cancer Father Lung cancer, Onset Age: 53 Brain cancer, Onset Age: 53 Son Heart murmur Grandfather Alcoholic Grandfather Colon cancer Sister Mental disorder Myocardial infarction, Onset Age: 50 Brother Drowning Surgical History Status post scar revision (~06/16/21) History of arthroplasty of right knee (~08/04/17) History of tonsillectomy and adenoidectomy (~1960) History of bilateral breast reduction surgery (~06/12/19) s/p right knee scope (~08/04/17) joint replacement of right thumb (~08/07/15) Social History Smoking Status: Never smoker alcohol intake: current details: socially substance use type: does not use caffeine: Yes what type of physical activity do you participate in: none seatbelt use: always do you feel safe at home: Yes 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 No chest pain. No fevers or cough. EXAM Physical Exam Narrative Exam Narrative: Afebrile. Vital signs noted. Nontoxic-appearing. Cardiovascular examination feels regular rate and rhythm. There is diffuse wheezing bilaterally. She is moving a good amount of air. No tachypnea. Abdomen is soft and nontender with positive bowel sounds. Neurological examination nonfocal, nonlateralizing. Const Vital Signs: 01/29/25 13:33 01/29/25 15:06 01/29/25 15:06 Temperature 97.5 F L Temperature Source Oral Pulse Rate 76 Respiratory Rate 16 18 Respiratory Depth Respiratory Pattern Blood Pressure 193/76 H Blood Pressure Mean 115 Pulse Ox 98 98 Oxygen Delivery Method Room Air Room Air Room Air 01/29/25 15:06 01/29/25 15:11 01/29/25 15:38 Temperature 98.4 F Temperature Source Oral Pulse Rate 66 80 Respiratory Rate 18 16 Respiratory Depth Normal Respiratory Pattern Normal Blood Pressure 170/69 H Blood Pressure Mean 102 Pulse Ox 99 Oxygen Delivery Method Room Air Room Air 01/29/25 16:00 01/29/25 17:00 Temperature 98.4 F Temperature Source Oral Pulse Rate 64 63 Respiratory Rate 18 18 Respiratory Depth Respiratory Pattern Blood Pressure 173/79 H Blood Pressure Mean 110 Pulse Ox 98 98 Oxygen Delivery Method Room Air Room Air MDM MDM MDM Narrative Medical decision making narrative: Differential diagnosis includes but not limited to aspiration pneumonitis versus pneumothorax/tension pneumothorax versus aspiration pneumonia. I reviewed the patient's prior ED visit. She had a chest x-ray that was free of consolidation and no acute process at that time. Labs were obtained per protocol. EKG was obtained and interpreted by myself independently as normal sinus rhythm at 70 bpm without ectopy or acute ST changes. No STEMI. I reviewed her laboratory work and she has slight elevation of her white count of 12.5 which may be from her steroid use. Hemoglobin 12.8, hematocrit 38.5, platelet count normal at 289. BMP is significant for glucose of 117, BUN and creatinine normal. Normal sodium and potassium. I discussed the patient with Dr. Nilson Gaspar with pulmonary medicine. It was not felt that she needs more antibiotics. Instead of repeating a chest x-ray, he suggested CT of the chest without contrast. Should this be normal, she can follow-up as an outpatient with continued bronchodilators for pulmonary function test. However, her was concerned with the bronchodilator use making her jittery, and was inquiring more about continued steroid use. I reviewed the radiology report of the CT without contrast of the chest. There is a right upper and middle lobe aspiration pneumonitis. I rediscussed the patient with Dr. Gaspar. He still recommended using the Ventolin inhaler which she has a refill. She can have up to a 5-day burst of steroids. She has already been on her third day of 50 mg. She has 150 mg tablet left so I wrote her a prescription for 2 additional tablets. It was not felt that she needed to continue the antibiotics. She will follow-up with pulmonology as an outpatient in the next 3 to 5 days. Return instructions to the emergency department were reviewed. Patient's pulse ox has remained 99 to 100% on room air here. Disposition is discharged home in stable condition. History & Record Review Discussion w/independent historian: Patient and Family () Additional record(s) reviewed:: Prior ED visit Lab Data Attestation: I reviewed the patient's lab results. Labs: Laboratory Results - last 24 hr 01/29/25 13:58 WBC 12.5 H RBC 4.13 L Hgb 12.8 Hct 38.5 MCV 93.2 MCH 31.0 MCHC 33.2 RDW Std Deviation 43.4 RDW Coeff of Marly 12.7 Plt Count 289 MPV 9.9 Immature Gran % (Auto) 0.900 Neut % (Auto) 84.9 H Lymph % (Auto) 8.2 L Mitchell % (Auto) 5.8 Eos % (Auto) 0.0 Baso % (Auto) 0.2 Absolute Neuts (auto) 10.6 H Absolute Lymphs (auto) 1.02 Nucleated RBC % 0 Sodium 142 Potassium 4.5 Chloride 105 Carbon Dioxide 26.1 Anion Gap 11 BUN 13 Creatinine 0.70 Estim Creat Clear Calc 61.60 Est GFR (MDRD) Non-Af 94 BUN/Creatinine Ratio 18.6 Glucose 117 H Calcium 9.7 Radiography Diagnostic Testing: Clinical Impression(s) from Imaging Studies Chest CT 01/29/25 15:28 IMPRESSION: 1. Scattered patchy peripheral ground-glass airspace opacities in the right upper and middle lobes, which could reflect aspiration pneumonitis. Atypical/viral pneumonia should be considered. 2. Scattered right basilar linear/discoid atelectasis. No pleural effusion. No adenopathy. Reading Location: [facility] Management Discussion w/another healthcare provider: Video Journalist (Dr. Nilson Gaspar, pulmonology) Discharge Plan Triage Chief Complaint: Shortness of Breath ED Provider: Lux Mcgowan Dx/Rx/DC Orders Clinical Impression: Aspiration pneumonitis, Wheezing Instructions: ED Understanding Hypersensitivity Pneumonitis, ED Bronchospasm (Adult) Prescriptions: New prednisone 50 mg tablet 50 mg PO DAILY Qty: 2 0RF Rx Instructions: finish your 4th tablet of the 4 day burst on 01/30, and take this prescription on 01/31 No Action multivitamin Tablet 1 tab PO DAILY Caltrate 600 plus D 600 mg (1,500 mg)-800 unit tablet,chewable 2 tab PO DAILY pravastatin 40 mg tablet 40 mg PO QDAY fluoxetine 20 mg capsule 20 mg PO QDAY propranolol 20 mg tablet 20 mg PO BID Qty: 180 2RF lisinopril 20 mg tablet 20 mg PO QDAY estradiol 0.01 % (0.1 mg/gram) cream See Rx Instructions vaginal 2XW Rx Instructions: small amount vaginally tw0 times a week; albuterol sulfate [Ventolin HFA] 90 mcg/actuation HFA aerosol inhaler 2 puff INHALATION Q4H PRN PRN (Reason: shortness of breath or wheezing) prednisone 50 mg tablet 50 mg PO DAILY Qty: 4 0RF doxycycline hyclate 100 mg capsule 100 mg PO DAILY Qty: 10 0RF Primary Care Provider: Philip Gurrola Referrals: Philip Gurrola MD [Primary Care Provider, Family Practice] Nilson Gaspar DO [Med Staff - Active Staff, Pulmonary Medicine] - 3-5 Days Activity Restrictions/Additional Instructions: Finish your steroid by taking your last pill tomorrow. You can continue your new prescription over the following 2 days starting on 01/31/2025. Continue using the Ventolin inhaler 1 to 2 puffs inhaled every 4 hours. Return with increased difficulty breathing, new or worsening symptoms. Follow-up with pulmonology in the next 3 to 5 days. Although the discharge instructions to comment on environmental allergens, you do have a pneumonitis or inflammation of the lungs. Print Language: Occitan Disposition Disposition: Home, Self Care
--- NOTE | 2025-01-29 17:47 | ED.RN ---
pts comes out into the hallway and this rn asks him how we can help him. pts states <it has been over an hour since her CT was done. no one has even been in here. 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 this is ridiculous.> this rn states understanding and informs pts that the CT results had just come back and we were waiting on the ED physician to come back into the room to re-evaluate the patient. this rn offers for pts to speak to charge nurse if he is unsatisfied with his care in the ED at this time. pts states <thats like calling that police, thats not going to do anything.> this rn updates ED charge nurse Sherron and Dr. Mcgowan of the encounter.
== END 2025-01-29 18:29 | disposition home or self-care (01) ==
PROVIDERS: Emergency Provider Emergency Medicine; PCP Family Medicine; Visit Provider Emergency Medicine
DX: J69.0 Pneumonitis due to inhalation of food and vomit (principal); J42 Unspecified chronic bronchitis; E78.00 Pure hypercholesterolemia, unspecified
CPT/HCPCS: 71250; 80048; 85025; 93005; 94640; 94760; 99283; A4216